=== PATIENT | female | born 1945 | race Caucasian/White ===

== ENCOUNTER 2021-01-14 12:20 | Outpatient (CLI) | payer MEDICARE, SELFPAY ==
--- NOTE | ~2021-01-14 | US_ITS ---
EXAMINATION: US thyroid DATE: 01/14/2021 12:59 INDICATION: Abnormal thyroid function tests. Low TSH level. TECHNIQUE: Multiple ultrasound images of the thyroid were obtained. COMPARISON: None. FINDINGS: The right thyroid lobe measures 4.9 x 2.4 x 1.7 cm. The left thyroid lobe measures 5.6 x 2.8 x 1.8 c m. 1.2 cm solid isoechoic nodule with ill-defined margins and coarse internal calcification in the s uperior right thyroid (TI-RADS 4, moderately suspicious , FNA if >=1.5 cm, annual followup is >=1 cm) . 2.0 cm wider than tall solid isoechoic nodule with ill-defined margins at the inferior right thyroi d (TI-RADS 3, mildly suspicious , FNA if >=2.5 cm, annual followup is >=1.5 cm). Additional TI RADS 4 2.7 cm solid wider than tall isoechoic nodule with smooth and ill-defined margins and coarse calcifi cation at the superior left thyroid. IMPRESSION: 1. Multinodular goiter. Recommend ultrasound-guided biopsy of the 2.7 cm TI RADS 4 left thyroid nodul e. Reviewed, dictated and finalized at location B. OM LIQUOR ATTENDANT IMPRESSION: 1. Multinodular goiter. Recommend ultrasound-guided biopsy of the 2.7 cm TI RAD S 4 left thyroid nodule.
== END 2021-01-14 12:21 | disposition home or self-care (01) ==
PROVIDERS: PCP Family Medicine Sports Medicine; Visit Provider Internal Medicine Endocrinology, Diabetes & Metabolism
DX: R94.6 Abnormal results of thyroid function studies (principal); R79.89 Other specified abnormal findings of blood chemistry; E04.2 Nontoxic multinodular goiter
CPT/HCPCS: 76536

== ENCOUNTER 2021-01-27 08:23 | Observation (INO) | payer MEDICARE, SELFPAY ==
[2021-01-27] VITALS (35 sets, daily range): BP systolic 106–132; BP diastolic 50–73; PULSE 64–103; RESP 16–18; TEMP 36.2–36.5; O2SAT 93–100; BMI 20.4
--- NOTE | ~2021-01-27 | CT_ITS ---
EXAMINATION: CT abdomen pelvis w con DATE: 01/27/2021 13:18 INDICATION: Abdominal pain. Weight loss. TECHNIQUE: Computed tomography (CT) of the abdomen and pelvis was performed with 100 mL Omnipaque 350 intravenous contrast. Automated exposure control and iterative reconstruction technique were employe d. The dose-length product was 186.37 mGy-cm. COMPARISON: None. FINDINGS: The visualized portions of the lung bases demonstrate mild atelectasis. No pleural effusion . The heart size is normal. No pericardial effusion. The liver and gallbladder are normal. There is s ubcapsular low attenuation in the spleen with thickness of 7 mm. Calcifications in the spleen are con sistent with old granulomatous disease. There is bulky retroperitoneal and mesenteric lymphadenopathy . The pancreas abuts the lymphadenopathy. There is gastrohepatic and periportal lymphadenopathy. A ri ght inguinal lymph node measures 15 x 20 mm. There is retrocrural and paraesophageal lymphadenopathy. The adrenal glands and right kidney are normal. There are cysts in left kidney measuring up to 6 mm. There are no dilated loops of bowel. The appendix is normal. There is trace pelvic ascites. There is mild thoracal lumbar spondylosis. There are hemangiomas in L1 and L3 vertebral bodies. There is a ch ronic compression fracture of L3. IMPRESSION: 1. Widespread lymphadenopathy, consistent with lymphoma. Ultrasound-guided core needle biopsy of a ri ght inguinal lymph node is recommended. 2. Subcapsular low attenuation in the spleen, consistent with lymphoma versus chronic hematoma. Reviewed, dictated and finalized at location A. ASE SPECIALIST IMPRESSION: 1. Widespread lymphadenopathy, consistent with lymphoma. Ultrasound-guided core needle biopsy of a right inguinal lymph node is recommended. 2. Subcapsular low attenuation in the spleen, consistent with lymphoma versus c hronic hematoma.
--- NOTE | ~2021-01-27 | US_ITS ---
EXAMINATION: US biopsy lymph node DATE: 01/27/2021 14:08 INDICATION: Right inguinal lymphadenopathy. TECHNIQUE: The procedure including the risks, benefits, and alternatives was discussed with the patie nt. Risks discussed included bleeding and infection. The patient understood the risks and agreed to p roceed. The skin overlying the right inguinal region was prepped and draped in usual sterile fashion. Anesthetic was administered with 1% lidocaine subcutaneously. An 18 gauge core biopsy needle was t hen used to obtain 6 core biopsy specimens under continuous sonographic guidance. The entry site was cleaned and dressed. There were no immediate complications. FINDINGS: Ultrasound images demonstrate the needle in an enlarged right inguinal lymph node. IMPRESSION: 1. Ultrasound-guided core needle biopsy of a right inguinal lymph node. Reviewed, dictated and finalized at location A. HYSICS PROFESSOR
--- NOTE | ~2021-01-27 | XR_ITS ---
EXAMINATION: XR chest 1V portable DATE: 01/27/2021 09:39 INDICATION: Shortness of breath and cough. TECHNIQUE: A single frontal view of the chest was obtained. COMPARISON: None. FINDINGS: The chest demonstrates clear lungs without pneumonia, pleural effusion, or pneumothorax. Th e heart size is normal. IMPRESSION: 1. No acute cardiopulmonary disease. Reviewed, dictated and finalized at location A. NSED INSURANCE SALES AGENT
--- NOTE | 2021-01-27 09:30 | ED.GENADULT ---
HPI - General Adult General Chief complaint: Dental/Oral Stated complaint: Oral thrush x3 Months. Time Seen by Provider: 01/27/21 08:46 Source: patient and RN notes reviewed Mode of arrival: ambulatory Limitations: no limitations History of Present Illness HPI narrative: This is a 75 year old female who presents for evaluation of dysphagia and hematemesis. She has been receiving treatment for oral thrush for 3 months. She has oral lesion and difficulty swallowing. She states she has been unable to eat or drink in days . She describes feeling like food gets stuck in her chest and she has to cough. Once she stops coughing, she states she has emesis. Her states last night she had emesis with streak of blood. Patient is reporting 30 pound weight loss and fatigue so she came to ER. She has been placed on multiple medications and she just finished 2 weeks of fluconazole yesterday. She was told to get referral to GI but her appointment is not until February 26. She is also complaining of left lower abdominal pain that has been presents for 2 months constantly. Her last bowel movement was a few days ago. She denies fever or chills. Related Data Home Medications Medication Instructions Recorded Confirmed enalapril maleate 10 mg PO DAILY 01/27/21 01/27/21 Allergies Allergy/AdvReac Type Severity Reaction Status Date / Time No Known Allergies Allergy Unverified 11/16/12 08:35 Review of Systems Review of Systems: All systems reviewed & are unremarkable except as noted in HPI and below PMFSH Past Medical History Medical History External hemorrhoids Hypertension Surgical History Surgical History H/O colonoscopy Family History Family History Father Malignant neoplasm of prostate Mother Ovarian cancer Social History Social History Social History: She is and lives alone. She has 3 children. 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 She states that she is a lifelong nonsmoker she does not use any type tobacco at all. She does not use any alcohol marijuana or illicit drugs. Code status full code Smoking status: Never smoker Alcohol intake: current Substance use: unknown Spiritual care concerns: No Exam Const: General: alert Orientation/consciousness: patient oriented x3 HENMT: Head: normocephalic and atraumatic Face and sinus: face symmetric Mouth: Yes lip normal, Yes malodorous breath and Yes tongue abnormal ulcerated Throat: tonsils normal and uvula midline Eyes: Pupils: Equal, round and reactive pupils present EOM: EOMs intact bilaterally Chest: Chest palpation & inspection: normal inspection of the chest Resp: Effort & Inspection: normal respiratory effort and no retractions Auscultation: clear to auscultation bilaterally Cardio: Rate: regular rate Rhythm: regular rhythm Heart sounds: no murmurs GI: GI Palp: Yes Soft to palpation, Yes Tenderness to palpation present (GI) (LLQ), No Guarding due to palpation present (GI), No Rigid due to palpation and No Hernia present Auscultation: normal bowel sounds Skin: General skin exam: normal color Rashes: no rashes Neuro: General: patient oriented x3, moves all extremities and CN's II-XI intact bilaterally Psych: Mental Status: mental status grossly normal Affect: normal affect Course Consultations Consultation #1: I discussed case with DR. Rubio who agrees to consult. Date: 01/27/21 Time: 10:56 Consultation #2: I Discussed case with Dr. Varner who accepts patient for admission to medical floor. Date: 01/27/21 Time: 11:07 Vital Signs Vital signs: Vital Signs Temperature 97.3 F L 01/27/21 08:32 Pulse Rate 103 H 01/27/21 08:32 Respiratory Rate 18 01/27/21 08:32 Blood Pressure 116/5
[2021-01-27 09:43] LABS: Basophils Percent Auto 0.5 % (0.2-1.2); Eosinophils Absolute Auto 0.1 K/mm3 (0-0.3); Eosinophils Percent Auto 0.7 % (0-4.4); Hematocrit 37.7 % (37.0-47.0); Hemoglobin 12.3 g/dL (12.0-15.0); Immature Granulocyte Absolute 0.04 K/mm3 (0.00-0.031); Immature Granulocyte Percent A 0.5 % (0-0.5); Lymphocytes Percent Auto 16.6 % (18.3-44.2); Mean Corpuscular HGB Conc 32.6 g/dl (32-36); Mean Corpuscular Hemoglobin 29.6 pg (26-34); Mean Corpuscular Volume 90.6 fl (80-100); Mean Platelet Volume 9.9 fl (7.4-10.4); Monocytes Percent Auto 11.3 % (2.6-8.5); Neutrophils Percent Auto 70.4 % (45.5-73.1); Platelet Count Result 382 k/mm3 (150-375); Red Blood Count 4.16 M/mm3 (4.2-5.4); Red Cell Distribution Width 12.3 % (11.5-14.5); White Blood Count 8.4 K/mm3 (4.5-10.0)
[2021-01-27] MEDS: ONDANSETRON INJ 4 MG/2 ML VIAL IV PUSH (09:54)
[2021-01-27] MEDS: PANTOPRAZOLE SODIUM IV 40 MG VIAL IV PUSH ×2 (09:54→21:21)
[2021-01-27] MEDS: LACTATED RINGERS 1,000 ML 999 ML IV CONT (09:54)
[2021-01-27 10:05] LABS: Lactic Acid Reflex 1.4 mmol/L (0.7-2.1)
[2021-01-27 10:07] LABS: Alanine Aminotransferase 12 U/L (4-35); Albumin Level 3.6 g/dL (3.5-5.1); Alkaline Phosphatase 61 U/L (38-126); Anion Gap 7 mmol/L (8-16); Aspartate Amino Transferase 22 U/L (14-36); Bilirubin,Total 0.4 mg/dL (0.2-1.3); Blood Urea Nitrogen 19 mg/dL (7-17); Calcium 9.2 mg/dL (8.4-10.2); Carbon Dioxide 26 mmol/L (22-30); Chloride 101 mmol/L (98-107); Estimated CRCL calculation 35 ml/min; Estimated Glomerular Filt Rate > 60; Glucose 121 mg/dL (65-110); Lipase 107 U/L (23-300); Potassium 3.9 mmol/L (3.4-5.0); Sodium 134 mmol/L (137-145)
[2021-01-27 11:25] LABS: Add Urine Microscopic? YES; Appearance Urine Cloudy (Clear); Bacteria Urine Trace /hpf; Bilirubin Urine Negative (Negative); Blood Urine Negative (Negative); Color Urine Amber (Yellow); Glucose Urine UA Negative (Negative); Hyaline Casts Urine 15-19 /lpf; Ketones Urine Trace mg/dL (Negative); Leukocyte Esterase Ur Trace LEU/UL (Negative); Mucus Urine Heavy /lpf; Nitrate Urine Negative (Negative); Protein Urine 1+ mg/dL (Negative); Specific Grav Ur 1.021 (1.001-1.035); Squamous Epithelial Cell Urine Rare /hpf (Few); WBC Urine 16-20 /hpf
--- NOTE | 2021-01-27 12:42 | PM.IMHP ---
H&P: HPI History of Present Illness Date/Time: 01/27/21 12:42Thifarida is a 75 year old female who started having problems October of this year. She has some lab work and then was sent to Dr Mcpherson who sounds like she is an endochronologist. She has been having white patches, sore tongue, difficuly swallowing and feels like stuff is getting stuck in her throat. She has lost 30 pounds since then. She has been having lower abd pain for the last 2 months. She had thyroid imaging and she stated that she had some scans done on her thyroid and was reported that everything was fine. She has been on clotrimazole for 10 days then nystatin for 10 days . when she did not get any relief then she was told to go to her dentist. She was given mouthwash and was told to go back to her regular doctor and she did. She was given fluconazole for 14 days. When this didnt work she was told to go o a gi specialist which is scheduled in FEBRUARY OF NEXT YEAR .sHE ALSO HAS felt that she has swelling in her left ear and she had her doctor exam her ears and was told that there is nothing wrong with her ears . She was checked for covid and stated that was negative. She has had the vaccine for covid with the booster. The patient was complaining of some lower abdominal pain so I did send her for abdominal pelvis CT which was read as the following. Widespread lymphadenopathy, consistent with lymphoma. Ultrasound-guided core needle biopsy of a right inguinal lymph node is recommended. 2. Subcapsular low attenuation in the spleen, consistent with lymphoma versus chronic hematoma. I spoke with the radiologist who suggested a biopsy of the lymph nodes. The patient underwent ultrasound-guided core needle biopsy at the right inguinal lymph node. Patient is noted to have what appears to be thrush on her tongue. She has white coating on her tongue with ulcerated areas. I did consult Oncology. It was reported that the patient had a streak of blood with the emesis last night. She denies any fever chills. The patient was started on IV fluids Zofran and Protonix. The patient stated she was starting to feel somewhat better. Her white count was normal. Her H&H is normal. Platelets are 382.the patient is being admitted as observation status 01/27/2021. Chief Complaint: Lower abdominal pain and sores in her mouth Review of Systems Review of Systems: white spot on tongue All systems reviewed & are unremarkable except as noted in HPI and below Constitutional: Constitutional: Reports as per HPI and Reports no additional constitutional complaints Eyes: Eyes: Reports as per HPI and Reports no additional eye complaints ENT: Reports system reviewed and no additional complaints, except as documented and Reports Normal hearing present Cardiovascular: Cardiovascular: Reports no additional cardiovascular complaints Respiratory: Respiratory: Reports no additional respiratory complaints and Reports no additional respiratory complaints Gastrointestinal: Gastrointestinal: Reports as per HPI and Reports no additional gastrointestinal complaints Musculoskeletal: Musculoskeletal: Reports no additional musculoskeletal complaints Integumentary/Breasts: Skin/Breast: Reports system reviewed and no additional complaints, except as docu and Reports as per HPI Neurologic: Reports system reviewed and no additional complaints, except as documented, Reports as per HPI and Reports Normal hearing present Psychiatric: Psychiatric: Reports no additional psychiatric complaints and Reports as per HPI Endocrine: Endocrine: Reports no additional endocrine complaints Hematologic/Lymphatic: Hematologic/Lymphatic: Reports no additional hematologic/lymphatic complaints Allergic/Immunologic: Allergic/Immunologic: Reports no additional allergic/immunologic complaints REPLACED BY [facility] Past Medical History Medical History External hemorrhoids Hypertension Surgical History Surg
--- NOTE | 2021-01-27 13:11 | PC.NURSE ---
Per Julia in [place], Dr. Barrios doesn't want to do bx because one has already been done.
--- NOTE | 2021-01-27 13:20 | PC.NURSE ---
Vashti aware of message received from [place] about biopsy.
--- NOTE | 2021-01-27 13:52 | PC.NURSE ---
RN to bedside for the second time to start patient's ordered IV fluids, pt not in room again, taken to imaging.
--- NOTE | 2021-01-27 14:49 | ADMGEN ---
This patient, Vero Al, was admitted to Medical Room 344-01. Patient/family oriented to hospital policies and general routines including ID bracelet, bed and alarms, visiting hours, pain management, procedures, bathroom and other care routines, personal items, smoking policy, room service/diet, and visiting hours. Information on how to activate the Rapid Response Team has been discussed. Patient/Family are encouraged to report perceived risks to care and to ask questions if they do not understand what they are told or what they should do.
[2021-01-27] MEDS: SODIUM CHLORIDE 0.9% IV 1,000 ML 125 ML IV CONT (15:18)
--- NOTE | 2021-01-27 16:15 | WPDGICN ---
Assessment and Plan Assessment and plan (1) Dysphagia: Code(s): R13.10 - Dysphagia, unspecified Status: Acute Assessment and Plan: The refractory thrush may be related to lymphoma and being immunocompromised. I will schedule her for EGD to be done tomorrow morning . I offered her clear liquids tonight but she does not wish to even try that (2) Lymphadenopathy: Code(s): R59.1 - Generalized enlarged lymph nodes Status: Acute Assessment and Plan: if this is a lymphoma, it certainly would explain her weight loss. 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 She then noticed that she was having some swallowing issues. Was thought that she may have a thyroid problem. That physician who was either an product development technician or ENT physician noted that she had oral thrush. She was therefore started on clotrimazole lozenges. After 10 days and no improvement she was switched to nystatin swish and swallow. She still was symptomatic and saw dentist who prescribed some sort of mouthwash. Finally her primary care physician started her on fluconazole for 10 days. She had not been on any antibiotics or any steroid inhalers this year. She still feels as bad as ever. She is afraid to try to swallow even water because it makes her cough and spit it out. It is uncomfortable to try to swallow food and it does not seem to want to go down. She has lost about 35 lb over this period of time. Because of the weight loss, she was sent to CT scan from the emergency room. There the noted widespread lymphadenopathy. Subsequently she had a lymph node biopsy in her right inguinal area. Review of Systems Review of Systems: All systems reviewed & are unremarkable except as noted in HPI and below PMFSH Past Medical History Medical History External hemorrhoids Hypertension Surgical History Surgical History H/O colonoscopy Family History Family History Father Malignant neoplasm of prostate Mother Ovarian cancer Social History Social History Social History: She is and lives alone. She has 3 children. 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 She states that she is a lifelong nonsmoker she does not use any type tobacco at all. She does not use any alcohol marijuana or illicit drugs. Code status full code Smoking status: Never smoker Alcohol intake: current Substance use: unknown Spiritual care concerns: No Meds Home Medications and Allergies Home Medications Medication Instructions Recorded Confirmed Type enalapril maleate 10 mg PO DAILY 01/27/21 01/27/21 History Allergies Allergy/AdvReac Type Severity Reaction Status Date / Time No Known Allergies Allergy Unverified 11/16/12 08:35 Vital Signs Vital Signs - 24 hr 01/27/21 08:32 01/27/21 08:40 01/27/21 08:48 Temperature 36.3 C L 36.3 C L Pulse Rate 103 H 74 Respiratory Rate 18 18 Blood Pressure 116/50 L 132/52 L 132/52 L Pulse Oximetry 93 93 01/27/21 08:49 01/27/21 09:01 01/27/21 09:12 Temperature Pulse Rate 74 Respiratory Rate 16 Blood Pressure 114/57 L Pulse Oximetry 93 99 01/27/21 09:15 01/27/21 09:16 01/27/21 09:31 Temperature Pulse Rate Respiratory Rate Blood Pressure 119/57 L Pulse Oximetry 99 99 95 01/27/21 09:45 01/27/21 10:00 01/27/21 10:06 Temperature Pulse Rate Respiratory Rate Blood Pressure 108/55 L Pulse Oximetry 97 96 95 01/27/21 10:15 01/27/21 10:16 01/27/21 10:20 Temperature Pulse Rate Respiratory Rate Blood Pressure 119/57 L 116/73 Pulse Oximetry 98 97 97 01/27/21 10:23 01/08
[2021-01-27] MEDS: PHENYLEPH/SHARK OIL/MO/PETROL CREAM 26 GM 1 APPLIC RECTAL (21:24)
[2021-01-28] MEDS: SODIUM CHLORIDE 0.9% IV 1,000 ML 125 ML IV CONT ×2 (00:02→08:05)
[2021-01-28 05:54] LABS: Basophils Percent Auto 0.7 % (0.2-1.2); Eosinophils Absolute Auto 0.1 K/mm3 (0-0.3); Eosinophils Percent Auto 2.2 % (0-4.4); Hematocrit 34.7 % (37.0-47.0); Hemoglobin 11.2 g/dL (12.0-15.0); Immature Granulocyte Absolute 0.01 K/mm3 (0.00-0.031); Immature Granulocyte Percent A 0.2 % (0-0.5); Lymphocytes Absolute Auto 1.89 K/mm3 (0.9-3.2); Lymphocytes Percent Auto 35.2 % (18.3-44.2); Mean Corpuscular HGB Conc 32.3 g/dl (32-36); Mean Corpuscular Hemoglobin 29.6 pg (26-34); Mean Corpuscular Volume 91.8 fl (80-100); Mean Platelet Volume 10.1 fl (7.4-10.4); Monocytes Percent Auto 19.4 % (2.6-8.5); Neutrophils Absolute Auto 2.3 K/mm3 (1.3-6.7); Neutrophils Percent Auto 42.3 % (45.5-73.1); Platelet Count Result 332 k/mm3 (150-375); Red Blood Count 3.78 M/mm3 (4.2-5.4); Red Cell Distribution Width 12.3 % (11.5-14.5); White Blood Count 5.4 K/mm3 (4.5-10.0)
[2021-01-28 05:57] LABS: Lactic Acid Reflex 0.8 mmol/L (0.7-2.1)
[2021-01-28 06:12] LABS: Alanine Aminotransferase 9 U/L (4-35); Albumin Level 3.1 g/dL (3.5-5.1); Alkaline Phosphatase 53 U/L (38-126); Anion Gap 6 mmol/L (8-16); Aspartate Amino Transferase 18 U/L (14-36); Bilirubin,Total 0.5 mg/dL (0.2-1.3); Blood Urea Nitrogen 13 mg/dL (7-17); Calcium 8.5 mg/dL (8.4-10.2); Carbon Dioxide 25 mmol/L (22-30); Chloride 105 mmol/L (98-107); Estimated CRCL calculation 41 ml/min; Estimated Glomerular Filt Rate > 60; Glucose 93 mg/dL (65-110); Lactate Dehydrogenase 263 U/L (313-618); Lipase 103 U/L (23-300); Magnesium 1.9 mg/dL (1.6-2.3); Potassium 4.2 mmol/L (3.4-5.0); Sodium 136 mmol/L (137-145)
[2021-01-28 06:38] VITALS: BP 114/58; PULSE 64; RESP 18; TEMP 36.2; O2SAT 97
[2021-01-28 07:45] LABS: Free T4 Free Thyroxine Reflex 2.28 ng/dL (0.78-2.19)
[2021-01-28] MEDS: PANTOPRAZOLE SODIUM IV 40 MG VIAL IV PUSH ×2 (08:05→20:24)
[2021-01-28] MEDS: SALIVA SUBSTITUTE COMBO RINSE 237 ML BOTTLE 15 ML PO (08:06)
--- NOTE | 2021-01-28 13:12 | PM.IMPN ---
Progress Note: A&P Assessment and Plan (1) Lymphedema: Code(s): I89.0 - Lymphedema, not elsewhere classified Status: Acute Assessment and Plan: Reported 30 lb weight loss since October CT of A/P -->widespread lymphadenopathy, consistent with lymphoma S/p lymph node biopsy, studies pending Oncology consulted, recommendations appreciated Inguinal biopsy is not diagnostic she will need a biopsy from her abdominal nodes A PET scan might show areas of uptake that are more accessible Interventional Radiology or surgery should be consulted (2) Dysphagia: Code(s): R13.10 - Dysphagia, unspecified Status: Acute Assessment and Plan: Persistent vomiting with eating 30 lb weight lost since October Failed outpatient treatment GI consulted EGD today--> suspected infectious esophagitis; hiatal hernia Diflucan initiated (3) GI bleed: Code(s): K92.2 - Gastrointestinal hemorrhage, unspecified Status: Acute Assessment and Plan: R/o Emesis with blood prior to admission S/p EGD today no bleeding noted Continue with PPI and Zofran (4) Hypertension: Code(s): I10 - Essential (primary) hypertension Status: Chronic Assessment and Plan: Stable Continue home enalapril Monitor Subjective Date/time seen: 01/28/21 13:12 Interval history: Pt seen today; no acute events overnight; continues with dysphagia; denies any abdominal pain; EGD today Review of Systems Review of Systems: All systems reviewed & are unremarkable except as noted in HPI and below Exam Const: General: no acute distress, alert and awake Orientation/consciousness: patient oriented x3 HENMT: Head: normocephalic and atraumatic Ears: hearing grossly normal bilaterally and external ears normal Face and sinus: face symmetric Mouth: Yes other (thrush) Teeth and gingiva: other Eyes: EOM: EOMs intact bilaterally Neck: Neck: full ROM, trachea midline and no JVD Resp: Effort & Inspection: normal respiratory effort Auscultation: clear to auscultation bilaterally Cardio: Jugular venous distension: no JVD Rate: regular rate Rhythm: regular rhythm Heart sounds: S1 normal heart sound present and S2 normal heart sound present GI: GI Palp: Yes Soft to palpation Auscultation: normal bowel sounds : General: Yes no CVA tenderness Skin: General skin exam: normal color Rashes: no rashes Neuro: General: patient oriented x3 and no focal motor deficits Speech: normal speech Extrem: General: full ROM and no clubbing, cyanosis or edema Psych: Appearance: grossly normal Affect: normal affect Judgement: Good judgement present (Psych) Objective Data Vital Signs Vital Signs: Vital Signs - 24 hr 01/27/21 14:38 01/27/21 14:50 01/27/21 21:24 Temperature 36.5 C Pulse Rate 74 73 Respiratory Rate 16 16 16 Blood Pressure 120/64 122/60 Pulse Oximetry 96 99 99 01/27/21 22:00 01/28/21 06:38 Temperature 36.2 C L 36.2 C L Pulse Rate 64 64 Respiratory Rate 18 18 Blood Pressure 114/58 L 114/58 L Pulse Oximetry 97 97 Intake/Output Intake/Output: Intake & Output 01/25/21 01/26/21 01/27/21 01/28/21 23:59 23:59 23:59 23:59 Intake Total 2000 1000 Output Total 0 600 Balance 2000 400 Meds/Results Medications: Active Medications Generic Name Dose Route Start Last Admin Trade Name Mookq PRN Reason Stop Dose Admin Enalapril Maleate 10 mg 01/28/21 09:00 Enalapril Maleate 10 Mg Tablet PO DAILY MIK Sodium Chloride 1,000 mls @ 125 mls/hr 01/27/21 11:25 01/28/21 08:05 Normal Saline Iv IV CONT 125 mls/hr .Q8H MIK Administration Lactated Ringer's 1,000 mls @ 150 mls/hr 01/28/21 09:20 Lr - Lactated Ringers Iv IV CONT .Q6H40M MIK Ondansetron HCl 4 mg 01/27/21 11:25 Ondansetron Inj 4 Mg/2 Ml Vial IV PUSH Q4H PRN Nausea Pantoprazole Sodium 40 mg 01/27/21 21:00 01/28/21 08:05 Pantoprazole Sodium Iv 40 Mg Vial IV PUSH 40
[2021-01-28] MEDS: LACTATED RINGERS 1,000 ML 150 ML IV CONT (13:47)
--- NOTE | 2021-01-28 13:54 | WPDANESEPPF ---
Anes - Initial Pre Proc Eval Procedure: Operation Date: 01/28/21 14:30 Proposed Procedures p Esophagogastroduodenoscopy - Benedict Rubio MD Date/Time: 01/28/21 13:54 Surgeon: Jayna Varner MD Pre Op Diagnosis: dysphagia/dehydration Patient Data Age: 75 Gender: F Height: 1.55 m Weight: 49 kg Last Vital Signs Temp 97.1 F L 01/28/21 06:38 Pulse 64 01/28/21 06:38 Resp 18 01/28/21 06:38 BP 114/58 L 01/28/21 06:38 Pulse Ox 97 01/28/21 06:38 Allergies Allergy/AdvReac Type Severity Reaction Status Date / Time No Known Allergies Allergy Verified 01/28/21 13:33 Home Medications Medication Instructions Recorded Confirmed Type enalapril maleate 10 mg PO DAILY 01/27/21 01/27/21 History Laboratory Tests 01/28/21 01/28/21 01/28/21 05:22 05:22 05:22 WBC 5.4 K/mm3 K/mm3 (4.5-10.0) RBC 3.78 M/mm3 L M/mm3 (4.2-5.4) Hgb 11.2 g/dL L g/dL (12.0-15.0) Hct 34.7 % L % (37.0-47.0) MCV 91.8 fl fl (80-100) MCH 29.6 pg pg (26-34) MCHC 32.3 g/dl g/dl (32-36) RDW 12.3 % % (11.5-14.5) Plt Count 332 k/mm3 k/mm3 (150-375) MPV 10.1 fl fl (7.4-10.4) Immature Gran % (Auto) 0.2 % % (0-0.5) Neut % (Auto) 42.3 % L % (45.5-73.1) Lymph % (Auto) 35.2 % % (18.3-44.2) Moca % (Auto) 19.4 % H % (2.6-8.5) Eos % (Auto) 2.2 % % (0-4.4) Baso % (Auto) 0.7 % % (0.2-1.2) Lymph # (Auto) 1.89 K/mm3 K/mm3 (0.9-3.2) Moca # (Auto) 1.0 K/mm3 H K/mm3 (0.1-0.6) Eos # (Auto) 0.1 K/mm3 K/mm3 (0-0.3) Baso # (Auto) 0.0 K/mm3 K/mm3 (0.0-0.1) Abs Immat Gran (auto) 0.01 K/mm3 K/mm3 (0.00-0.031) Absolute Neuts (auto) 2.3 K/mm3 K/mm3 (1.3-6.7) Absolute Nucleated RBC 0.0 K/mm3 K/mm3 (0.0-0.012) Nucleated RBC % 0.0 % % (0.0-0.2) Sodium 136 mmol/L L mmol/L (137-145) Potassium 4.2 mmol/L mmol/L (3.4-5.0) Chloride 105 mmol/L mmol/L (98-107) Carbon Dioxide 25 mmol/L mmol/L (22-30) Anion Gap 6 mmol/L L mmol/L (8-16) BUN 13 mg/dL D mg/dL (7-17) Creatinine 0.80 mg/dL mg/dL (0.7-1.0) Estim Creat Clear Calc 41 ml/min ml/min Estimated GFR > 60 (59 - ) Glucose 93 mg/dL mg/dL (65-110) Lactic Acid 0.8 mmol/L mmol/L (0.7-2.1) Calcium 8.5 mg/dL mg/dL (8.4-10.2) Magnesium 1.9 mg/dL mg/dL (1.6-2.3) Ferritin Total Bilirubin 0.5 mg/dL mg/dL (0.2-1.3) AST 18 U/L U/L (14-36) ALT 9 U/L U/L (4-35) Alkaline Phosphatase 53 U/L U/L (38-126) Lactate Dehydrogenase 263 U/L L U/L (313-618) Total Protein 5.0 g/dL L g/dL (6.3-8.2) Albumin 3.1 g/dL L g/dL (3.5-5.1) Lipase 103 U/L U/L (23-300) TSH (Reflex) Free T4 01/28/21 01/28/21 05:22 05:22 WBC RBC Hgb Hct MCV MCH MCHC RDW Plt Count MPV Immature Gran % (Auto) Neut % (Auto) Lymph % (Auto) Moca % (Auto) Eos % (Auto) Baso % (Auto) Lymph # (Auto) Moca # (Auto) Eos # (Auto) Baso # (Auto) Abs Immat Gran (auto) Absolute Neuts (auto) Absolute Nucleated RBC Nucleated RBC % Sodium Potassium Chloride Carbon Dioxide Anion Gap BUN Creatinine Estim Creat Clear Calc Estimated GFR Glucose Lactic Acid Calcium Magnesium Ferritin 93.90 ng/mL ng/mL (11.1-264) Total Bilirubin AST ALT A
[2021-01-28 14:23] VITALS: BP 130/56; PULSE 90; RESP 27; O2SAT 98
[2021-01-28 14:33] VITALS: BP 102/52; PULSE 90; RESP 30; O2SAT 99
[2021-01-28 14:43] VITALS: BP 106/52; PULSE 87; RESP 21; O2SAT 99
--- NOTE | 2021-01-28 15:50 | P.CONONC_ITS ---
HPI - Date of Consult Date/Time: 01/28/21 15:50 Requesting Physician: Jayna Varner MD Primary Care Provider: Eric CedilloMD - Consult Narrative Narrative: Vero Al is a 75 year old female with diffuse lymphadenopathy and prolonged candidiasis. CT is suggestive of diffuse Lymphoma. Biopsy of an inguinal node was done and not as yet diagnostic- further studies are pending but will not be available until next week. She denies night sweats and fevers and attributes her weight loss to poor oral intake. Her abdominal pain has been controlled. Review of Systems - Constitutional Reports anorexia - Gastrointestinal Reports abdominal pain - Neurologic Reports system reviewed and no additional complaints, except as documented, Reports hearing normal [facility] Medical History: Medical History (Last Reviewed 01/27/21 @ 16:19 by Benedict Rubio MD) External hemorrhoids Hypertension Surgical History: Surgical History (Last Reviewed 01/27/21 @ 16:19 by Benedict Rubio MD) H/O colonoscopy Family History: Family History (Last Reviewed 01/27/21 @ 16:19 by Benedict Rubio MD) Father Malignant neoplasm of prostate Mother Ovarian cancer - Social History Social History: Social History (Last Reviewed 01/27/21 @ 16:19 by Benedict Rubio MD) Alcohol Use: Alcohol intake: current Substance Use: Substance use: unknown Others: Spiritual care concerns: No Smoking Status: Smoking status: Never smoker Meds Home Medications Medication Instructions Recorded Confirmed Type enalapril maleate 10 mg PO DAILY 01/27/21 01/27/21 History Allergies Allergy/AdvReac Type Severity Reaction Status Date / Time No Known Allergies Allergy Verified 01/28/21 13:33 Results - Labs CBC & Chem 7: 01/28/21 05:22 01/28/21 05:22 Labs: Short CBC 01/28/21 Range/Units 05:22 WBC 5.4 (4.5-10.0) K/mm3 Hgb 11.2 L (12.0-15.0) g/dL Hct 34.7 L (37.0-47.0) % Plt Count 332 (150-375) k/mm3 BMP 01/28/21 05:22 Sodium 136 L Potassium 4.2 Chloride 105 Carbon Dioxide 25 BUN 13 D Creatinine 0.80 Glucose 93 Calcium 8.5 Liver Function 01/28/21 Range/Units 05:22 Total Bilirubin 0.5 (0.2-1.3) mg/dL AST 18 (14-36) U/L ALT 9 (4-35) U/L Alkaline Phosphatase 53 (38-126) U/L Albumin 3.1 L (3.5-5.1) g/dL Assessment and Plan - Additional Plan If her inguinal biopsy is not diagnostic she will need a biopsy from her abdominal nodes- a PET scan might show bonnie of uptake that are more accessible Interventional Radiology or surgery should be consulted
[2021-01-28 20:00] VITALS: PULSE 87; RESP 21; O2SAT 99
[2021-01-28] MEDS: PHENYLEPH/SHARK OIL/MO/PETROL CREAM 26 GM 1 APPLIC RECTAL (20:24)
[2021-01-28 21:04] VITALS: BP 123/57; PULSE 87; RESP 14; TEMP 36.5; O2SAT 96
[2021-01-29] MEDS: SODIUM CHLORIDE 0.9% IV 1,000 ML 125 ML IV CONT ×3 (02:30→20:53)
[2021-01-29 05:15] VITALS: BP 116/69; PULSE 79; RESP 14; TEMP 35.7; O2SAT 96
[2021-01-29 06:40] LABS: Hematocrit 37.5 % (37.0-47.0); Hemoglobin 12.2 g/dL (12.0-15.0); Mean Corpuscular HGB Conc 32.5 g/dl (32-36); Mean Corpuscular Hemoglobin 29.8 pg (26-34); Mean Corpuscular Volume 91.5 fl (80-100); Mean Platelet Volume 10.3 fl (7.4-10.4); Platelet Count Result 406 k/mm3 (150-375); Red Cell Distribution Width 12.2 % (11.5-14.5); White Blood Count 5.5 K/mm3 (4.5-10.0)
[2021-01-29 06:44] LABS: Anion Gap 8 mmol/L (8-16); Blood Urea Nitrogen 7 mg/dL (7-17); Calcium 8.4 mg/dL (8.4-10.2); Carbon Dioxide 24 mmol/L (22-30); Chloride 105 mmol/L (98-107); Estimated CRCL calculation 47 ml/min; Estimated Glomerular Filt Rate > 60; Glucose 115 mg/dL (65-110); Potassium 3.3 mmol/L (3.4-5.0); Sodium 137 mmol/L (137-145)
[2021-01-29] MEDS: ENALAPRIL MALEATE 10 MG TABLET PO (08:05)
[2021-01-29] MEDS: PANTOPRAZOLE SODIUM IV 40 MG VIAL IV PUSH ×2 (08:05→20:53)
[2021-01-29] MEDS: FLUCONAZOLE 100 MG TABLET PO (08:05)
[2021-01-29] MEDS: POTASSIUM CHLORIDE 20 MEQ TABLET 40 MEQ PO (09:59)
[2021-01-29 10:53] VITALS: BMI 20.4
[2021-01-29 14:00] VITALS: BP 113/52; PULSE 90; RESP 16; TEMP 37.5; O2SAT 96
--- NOTE | 2021-01-29 16:44 | PM.IMPN ---
Progress Note: A&P Assessment and Plan (1) Lymphedema: Code(s): I89.0 - Lymphedema, not elsewhere classified Status: Acute Assessment and Plan: Reported 30 lb weight loss since October CT of A/P -->widespread lymphadenopathy, consistent with lymphoma S/p lymph node biopsy, studies pending Oncology consulted, recommendations appreciated Inguinal biopsy is not diagnostic she will need a biopsy from her abdominal nodes A PET scan might show areas of uptake that are more accessible Interventional Radiology or surgery should be consulted 01/29/2021 Interval history patient with a with diffuse lymphadenopathy and prolonged pharyngeal candidiasis. concerning for lymphoma and will biopsy was done pending pathology however to further evaluate patient may need abdominal lymph node biopsy, patient continue to her difficulty with swallowing due to pharyngeal candidiasis is been going on for 3 months and has been used nystatin and Diflucan without much relief, patient is seen by GI and oncologist appreciate and further recommendation to follow. (2) Dysphagia: Code(s): R13.10 - Dysphagia, unspecified Status: Acute Assessment and Plan: Persistent vomiting with eating 30 lb weight lost since October Failed outpatient treatment GI consulted EGD today--> suspected infectious esophagitis; hiatal hernia Diflucan initiated (3) GI bleed: Code(s): K92.2 - Gastrointestinal hemorrhage, unspecified Status: Acute Assessment and Plan: R/o Emesis with blood prior to admission S/p EGD today no bleeding noted Continue with PPI and Zofran (4) Hypertension: Code(s): I10 - Essential (primary) hypertension Status: Chronic Assessment and Plan: Stable Continue home enalapril Monitor Subjective Date/time seen: 01/29/21 16:44 01/29/2021 Interval history patient with a with diffuse lymphadenopathy and prolonged pharyngeal candidiasis. concerning for lymphoma and will biopsy was done pending pathology however to further evaluate patient may need abdominal lymph node biopsy, patient continue to her difficulty with swallowing due to pharyngeal candidiasis is been going on for 3 months and has been used nystatin and Diflucan without much relief, patient is seen by GI and oncologist appreciate and further recommendation to follow. Review of Systems Review of Systems: All systems reviewed & are unremarkable except as noted in HPI and below Exam Narrative: Patient is comfortable, NAD HEENT: eyes are clear and none icteric LUNGS: normal respiratory effort ABD: nondistended Lower extremities: no edema SKIN: nonjaundiced Neuro: grossly intact. Objective Data Vital Signs Vital Signs: Vital Signs - 24 hr 01/28/21 20:00 01/28/21 21:04 01/29/21 05:15 Temperature 97.7 F 96.2 F L Pulse Rate 87 87 79 Respiratory Rate 21 H 14 14 Blood Pressure 123/57 L 116/69 Pulse Oximetry 99 96 96 01/29/21 14:00 Temperature 99.5 F Pulse Rate 90 Respiratory Rate 16 Blood Pressure 113/52 L Pulse Oximetry 96 Intake/Output Intake/Output: Intake & Output 01/26/21 01/27/21 01/28/21 01/29/21 23:59 23:59 23:59 23:59 Intake Total 1999 2250 1330 Output Total 0 1400 100 Balance 1999 850 1230 Meds/Results Medications: Active Medications Generic Name Dose Route Start Last Admin Trade Name Freq PRN Reason Stop Dose Admin Docusate Sodium 100 mg 01/28/21 23:06 Docusate Sodium 100 Mg Capsule PO Q12H PRN Constipation Enalapril Maleate 10 mg 01/28/21 09:00 01/29/21 08:05 Enalapril Maleate 10 Mg Tablet PO 10 mg DAILY MIK Administration Fluconazole 100 mg 01/29/21 09:00 01/29/21 08:05 Fluconazole 100 Mg Tablet PO 100 mg QAM MIK Administration Sodium Chloride 1,000 mls @ 125 mls/hr 01/27/21 11:25 01/29/21 09:59 Normal Saline Iv IV CONT 125 mls/hr .Q8H MIK Administration Pantoprazole Sodium 40 mg 01/27/21 21:00 01/29/21 08
[2021-01-29 20:00] VITALS: PULSE 95; RESP 16; O2SAT 94
[2021-01-29] MEDS: PHENYLEPH/SHARK OIL/MO/PETROL CREAM 26 GM 1 APPLIC RECTAL (20:54)
[2021-01-29 21:11] VITALS: BP 133/59; PULSE 95; RESP 16; TEMP 38.1; O2SAT 94
[2021-01-30] MEDS: SODIUM CHLORIDE 0.9% IV 1,000 ML 125 ML IV CONT (04:40)
[2021-01-30 05:13] VITALS: BP 138/63; PULSE 77; RESP 16; TEMP 36.7; O2SAT 97
[2021-01-30] MEDS: ENALAPRIL MALEATE 10 MG TABLET PO (08:05)
[2021-01-30] MEDS: PANTOPRAZOLE SODIUM IV 40 MG VIAL IV PUSH (08:05)
[2021-01-30] MEDS: FLUCONAZOLE 100 MG TABLET PO (08:05)
[2021-01-30 08:36] LABS: Basophils Percent Auto 0.6 % (0.2-1.2); Eosinophils Absolute Auto 0.1 K/mm3 (0-0.3); Eosinophils Percent Auto 1.4 % (0-4.4); Hematocrit 37.3 % (37.0-47.0); Hemoglobin 12.3 g/dL (12.0-15.0); Immature Granulocyte Absolute 0.02 K/mm3 (0.00-0.031); Immature Granulocyte Percent A 0.4 % (0-0.5); Lymphocytes Absolute Auto 1.45 K/mm3 (0.9-3.2); Lymphocytes Percent Auto 28.8 % (18.3-44.2); Mean Corpuscular Hemoglobin 30.2 pg (26-34); Mean Corpuscular Volume 91.6 fl (80-100); Monocytes Absolute Auto 0.7 K/mm3 (0.1-0.6); Monocytes Percent Auto 14.7 % (2.6-8.5); Neutrophils Absolute Auto 2.7 K/mm3 (1.3-6.7); Neutrophils Percent Auto 54.1 % (45.5-73.1); Platelet Count Result 316 k/mm3 (150-375); Red Blood Count 4.07 M/mm3 (4.2-5.4); Red Cell Distribution Width 12.4 % (11.5-14.5)
[2021-01-30 08:46] LABS: Anion Gap 6 mmol/L (8-16); Blood Urea Nitrogen 4 mg/dL (7-17); Calcium 8.4 mg/dL (8.4-10.2); Carbon Dioxide 26 mmol/L (22-30); Chloride 104 mmol/L (98-107); Estimated CRCL calculation 54 ml/min; Estimated Glomerular Filt Rate > 60; Glucose 112 mg/dL (65-110); Potassium 3.2 mmol/L (3.4-5.0); Sodium 136 mmol/L (137-145)
--- NOTE | 2021-01-30 09:58 | PM.DS ---
DS: Admitting Diagnosis Discharge Date 01/30/2021 Admitting Diagnosis Lower abdominal pain and sores in her mouth DS: Discharge Diagnosis Discharge Diagnosis (1) Lymphedema: Code(s): I89.0 - Lymphedema, not elsewhere classified Status: Acute Assessment and Plan: Reported 30 lb weight loss since October CT of A/P -->widespread lymphadenopathy, consistent with lymphoma S/p lymph node biopsy, studies pending Oncology consulted, recommendations appreciated Inguinal biopsy is not diagnostic she will need a biopsy from her abdominal nodes A PET scan might show areas of uptake that are more accessible Interventional Radiology or surgery should be consulted 01/29/2021 Interval history patient with a with diffuse lymphadenopathy and prolonged pharyngeal candidiasis. concerning for lymphoma and will biopsy was done pending pathology however to further evaluate patient may need abdominal lymph node biopsy, patient continue to her difficulty with swallowing due to pharyngeal candidiasis is been going on for 3 months and has been used nystatin and Diflucan without much relief, patient is seen by GI and oncologist appreciate and further recommendation to follow. (2) Dysphagia: Code(s): R13.10 - Dysphagia, unspecified Status: Acute Assessment and Plan: Persistent vomiting with eating 30 lb weight lost since October Failed outpatient treatment GI consulted EGD today--> suspected infectious esophagitis; hiatal hernia Diflucan initiated (3) GI bleed: Code(s): K92.2 - Gastrointestinal hemorrhage, unspecified Status: Acute Assessment and Plan: R/o Emesis with blood prior to admission S/p EGD today no bleeding noted Continue with PPI and Zofran (4) Hypertension: Code(s): I10 - Essential (primary) hypertension Status: Chronic Assessment and Plan: Stable Continue home enalapril Monitor DS: Summary Hospital Course Reason for hospitalization: his is a 75 year old female who started having problems October of this year. She has some lab work and then was sent to Dr Mcpherson who sounds like she is an endochronologist. She has been having white patches, sore tongue, difficuly swallowing and feels like stuff is getting stuck in her throat. She has lost 30 pounds since then. She has been having lower abd pain for the last 2 months. She had thyroid imaging and she stated that she had some scans done on her thyroid and was reported that everything was fine. She has been on clotrimazole for 10 days then nystatin for 10 days . when she did not get any relief then she was told to go to her dentist. She was given mouthwash and was told to go back to her regular doctor and she did. She was given fluconazole for 14 days. When this didnt work she was told to go o a gi specialist which is scheduled in FEBRUARY OF NEXT YEAR .sHE ALSO HAS felt that she has swelling in her left ear and she had her doctor exam her ears and was told that there is nothing wrong with her ears . She was checked for covid and stated that was negative. She has had the vaccine for covid with the booster. The patient was complaining of some lower abdominal pain so I did send her for abdominal pelvis CT which was read as the following. Widespread lymphadenopathy, consistent with lymphoma. Ultrasound-guided core needle biopsy of a right inguinal lymph node is recommended. 2. Subcapsular low attenuation in the spleen, consistent with lymphoma versus chronic hematoma. I spoke with the radiologist who suggested a biopsy of the lymph nodes. The patient underwent ultrasound-guided core needle biopsy at the right inguinal lymph node. Patient is noted to have what appears to be thrush on her tongue. She has white coating on her tongue with ulcerated areas. I did consult Oncology. It was reported that the patient had a streak of blood with the emesis last night. She denies any fever chills. The patient was started on IV fluids Zofra
== END 2021-01-30 11:48 | disposition home or self-care (01) ==
LOC: ANHED 13:09 → ANH3MEDSUR 14:37 → ANH3MED 15:15 → ANH3MEDSUR 02-03 14:56
PROVIDERS: Internal Medicine Gastroenterology; Nurse Practitioner; Nurse Practitioner Adult Health; Admitting Provider Family Medicine; Emergency Provider General Practice; PCP Family Medicine Sports Medicine; Visit Provider Family Medicine
PROC: 0DJ08ZZ Inspection of Upper Intestinal Tract, Via Natural or Artificial Opening Endoscopic (ICD-10-PCS; CPT 43235; principal; 2021-01-28 14:30)
DX: I89.0 Lymphedema, not elsewhere classified (principal); R13.10 Dysphagia, unspecified; B37.0 Candidal stomatitis; K92.2 Gastrointestinal hemorrhage, unspecified; R10.30 Lower abdominal pain, unspecified; I10 Essential (primary) hypertension; K44.9 Diaphragmatic hernia without obstruction or gangrene; K20.80 Other esophagitis without bleeding; K21.9 Gastro-esophageal reflux disease without esophagitis
CPT/HCPCS: 43239; 36415; 38505; 71045; 74177; 76942; 80048; 80053; 81001; 82728; 83605; 83615; 83690; 83735; 84439; 84443; 85025; 85027; 87086; 88305; 88312; 88341; 88342; 96361; 96374; 96375; 96376; 99285; A9270; C9113; G0378; J2405; J2704; J7030; J7120; Q9967

== ENCOUNTER → 2021-02-20 00:53 | Outpatient (CLI) | payer MEDICARE, SELFPAY ==
[2021-02-21 18:17] LABS: SARS-CoV-2 RNA PCR Negative
== END ==
PROVIDERS: PCP Family Medicine Sports Medicine; Visit Provider Internal Medicine Hematology & Oncology
DX: C85.93 Non-Hodgkin lymphoma, unspecified, intra-abdominal lymph nodes (principal); Z20.822 Contact with and (suspected) exposure to COVID-19
CPT/HCPCS: C9803; U0003; U0005

== ENCOUNTER 2021-03-18 00:59 | Day surgery (SDC) | payer MEDICARE, SELFPAY ==
--- NOTE | 2021-03-16 10:38 | PC.NURSE ---
Report to the Outpatient Waiting Room, entrance under the green pavilion located off [facility], at time __1100 on date ___03/18/21____. OR Time: _1300 . - You will be asked a series of questions to screen for COVID 19 for your protection. - A mask is required within the hospital. - No visitors are allowed at this time. Preoperative COVID Testing Requirements: No COVID Test needed if: (proof is required; if not received patient will have Rapid Test prior to entry) - Patient has received COVID Vaccine at least 14 days prior to procedure date or - Patient has positive COVID test result within last 90 days of surgery date. COVID Test needed if above criteria is not met If not COVID vaccinated a COVID test must be conducted within 72 hours of surgery and patient is asked to isolate self from time of testing until procedure. You will go to the [facility] Testing Site for your COVID testing. The [facility] Testing site is located at the corner of [address] [facility]. You will only be called if COVID results are positive and your surgeon may reschedule your elective surgery date. Patients may have clear liquids (water, carbonated beverages, clear teas, apple juice) until 3 hours prior to surgery with a maximum of 20 ounces. - No food from midnight until time of surgery - Infants may have breast milk until 4 hours before surgery, infant formula 6 hours prior to surgery. - Children will be allowed to drink immediately following surgery. If applicable, please bring a bottle or sippy cup to assist with drinking. Juice, water, soda, and popsicles are readily available. For infants on formula, please bring formula the day of surgery. Pacifiers are allowed. Take the following medications with a SIP of water the morning of surgery: __ORAL RINSE IF NEEDED Medications to discontinue per physician NONE Date to take last dose Please no make-up, nail yi, hairspray, perfume, deodorant, or body powder the day of surgery. No jewelry (including any body piercings) or valuables the day of surgery, leave them at home. Please take a shower or bath the night before, or the morning of, surgery with an antibacterial soap. Wear comfortable, loose fitting clothing. Children are encouraged to wear pajamas. - Jewelry must be removed prior to entering the operating room. Rings and piercings that are not removed may be cut off. - The hospital will not accept responsibility for valuables. - Please leave all valuables, including medications, at home the day of surgery. If you are going home after surgery, a licensed auto parts delivery driver must drive you home. - NO public transportation without another adult. - We recommend that an adult stay with you for 24 hours following discharge. - We also recommend that you do not drive, make important decision, drink alcoholic beverages, or take any drugs that were not prescribed by your health care provider for at least 24 hours after your discharge time. For Pediatric surgeries, we recommend two adults accompany the child home (only one inside the building at this time). Follow any additional instructions given to you from your surgeon. Telephone instructions given to __PATIENT and asked if any additional questions and then verbalized understanding. Patient advised to call surgeon office or pre surgery nurse liaison [phone] if any additional questions.
[2021-03-16 10:41] VITALS: BMI 17.0
--- NOTE | ~2021-03-18 | XR_ITS ---
EXAMINATION: XR chest port-a-cath/central DATE: 03/18/2021 14:42 INDICATION: Port catheter insertion TECHNIQUE: frontal view of the chest was obtained. COMPARISON: Chest radiograph dated 01/27/2021 FINDINGS: Right internal jugular central venous port catheter with distal tip at the caudal superior vena cava. Minimal atelectasis at the left costophrenic angle. No other airspace opacities, pulmonary edema, pl eural effusion or pneumothorax. The cardiomediastinal silhouette is normal. IMPRESSION: 1. Right internal jugular central venous port catheter tip at the caudal superior vena cava. 2. Mild left basilar atelectasis. No other acute cardiopulmonary disease. Reviewed, dictated and finalized at location A. OOD TECHNOLOGY SPECIALIST IMPRESSION: 1. Right internal jugular central venous port catheter tip at the caudal superi or vena cava. 2. Mild left basilar atelectasis. No other acute cardiopulmonary disease.
--- NOTE | ~2021-03-18 | XR_ITS ---
EXAMINATION: XR fl guide central line place DATE: 03/18/2021 14:06 INDICATION: Port catheter placement TECHNIQUE: 2 fluoroscopic images of the chest were obtained during procedure performed by Dr. Hickman . Radiologist was not present for the imaging or procedure. The amount of fluoroscopy time used ambreen g this procedure was 1.1 minutes. COMPARISON: None. FINDINGS/IMPRESSION: Images demonstrate a right internal jugular central venous port catheter with distal tip at the high right atrium. See procedure note for further detail. Reviewed, dictated and finalized at location A. NEYMAN POWER PLANT OPERATOR
--- NOTE | 2021-03-18 07:35 | WPDANESEPPF ---
Anes - Initial Pre Proc Eval Procedure: Operation Date: 03/18/21 13:00 Proposed Procedures p Insertion Gabe Cath - Mauri Hickman MD Date/Time: 03/18/21 07:35 Surgeon: Mauri Hickman MD Pre Op Diagnosis: non-hodgkin's lymphoma, intra-abdominal lymph node Patient Data Age: 75 Gender: F Height: 1.55 m Weight: 40.85 kg Allergies Allergy/AdvReac Type Severity Reaction Status Date / Time No Known Allergies Allergy Verified 03/18/21 11:24 Home Medications Medication Instructions Recorded Confirmed Type docusate sodium 100 mg PO Q12H PRN #30 cap 01/30/21 03/18/21 Rx qzfbxbxth-qqmofhde-iuflm-w.pet 1 applic RECTAL HS #26 g 01/30/21 03/18/21 Rx [Preparation H Maximum Strength] saliva substitute combo no.9 15 ml PO QID PRN #473 ml 01/30/21 03/18/21 Rx [Biotene Dry Mouth Oral Rinse] Patient hx anesthesia problems: none Family hx anesthesia problems: none Results Review: All pre-operative results and documents have been reviewed as part of the pre-operative evaluation. [facility] Past Medical History Medical History (Updated 03/18/21 @ 12:25 by Robbi Daugherty DO) External hemorrhoids Hypertension history of - has been taken off meds Non-Hodgkin lymphoma Surgical History Surgical History (Updated 01/28/21 @ 16:22 by Osmin Daugherty MD) H/O colonoscopy Family History Family History Father Malignant neoplasm of prostate Mother Ovarian cancer Social History Social History Social History: She is and lives alone. She has 3 children. 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 She states that she is a lifelong nonsmoker she does not use any type tobacco at all. She does not use any alcohol marijuana or illicit drugs. Code status full code Smoking status: Never smoker Alcohol intake: current Substance use: unknown Living arrangements: alone Spiritual care concerns: No Anes - Eval Final PreProcedure Day of Procedure 03/18/21 07:35 Patient weight: thin Heart: regular rate and rhythm Lungs: clear to auscultation and normal air movement Airway: Mallampati scale class II Neurological: alert and oriented Last oral intake: >/= 8 hours ASA classification: III Emergent: no Anesthetic plan: proceed Anesthesia type and monitoring: general GIVS and standard monitoring Results Review: All pre-operative results and documents have been reviewed as part of the pre-operative evaluation. Informed Consent: The patient's anesthetic plan and its attendant risks and benefits were discussed with the patient/family/POA. Questions were solicited and answers provided to the satisfaction of the patient/family/POA.
[2021-03-18 11:18] VITALS: BP 127/70; PULSE 89; RESP 16; TEMP 36.6; O2SAT 100
[2021-03-18] MEDS: LACTATED RINGERS 1,000 ML 30 ML IV CONT ×2 (11:36→14:18)
[2021-03-18] MEDS: KETOROLAC 15 MG/ML VIAL (*BKC) IV PUSH (11:37)
[2021-03-18 11:47] LABS: Partial Thromboplastin Time 30.6 SECONDS (22.3-36.8); Prothrombin Time 13.4 Seconds (11.1-14.7)
--- NOTE | 2021-03-18 12:41 | PM.HPGS ---
History of Present Illness History of Present Illness Consent: Risks, benefits, and alternatives f placement of a Port-A-Cath have been discussed and questions answered. Patient agrees to proceed with procedure. Chief complaint: non-hodgkin's lymphoma, intra-abdominal lymph node Narrative: Vero Al is a 75 year old White female who started having problems October of this year. She has some lab work and then was sent to Dr Mcpherson who sounds like she is an endochronologist. She has been having white patches, sore tongue, difficuly swallowing and feels like stuff is getting stuck in her throat. She has lost 30 pounds since then. She has been having lower abd pain for the last 2 months. She had thyroid imaging and she stated that she had some scans done on her thyroid and was reported that everything was fine. She has been on clotrimazole for 10 days then nystatin for 10 days . when she did not get any relief then she was told to go to her dentist. She was given mouthwash and was told to go back to her regular doctor and she did. She was given fluconazole for 14 days. When this didn't work she was told to go o a GI specialist which Could not be done for a month or two. She was then checked for Covid and stated that was negative. She has had the vaccine for covid with the booster. The patient was complaining of some lower abdominal pain so I did send her for abdominal pelvis CT which was read as the following. Widespread lymphadenopathy, consistent with lymphoma. she has now seen Dr. Gonzalez regarding treatment for this. He has requested that we place central venous access with a Port-A-Cath. Review of Systems Review of Systems: History of some recent weight loss. Constitutional: Constitutional: Reports no additional constitutional complaints, Reports fatigue and Denies malaise Eyes: Eyes: Denies change in vision and Denies loss of vision ENT: Reports Normal hearing present, Denies change in voice, Denies dizziness, Denies hoarseness and Denies sore throat Cardiovascular: Cardiovascular: Denies chest pain, Denies leg edema and Denies dyspnea Respiratory: Respiratory: Denies cough, Denies dyspnea and Denies wheezing Gastrointestinal: Gastrointestinal: Denies hematochezia, Denies change in bowel habits and Denies heartburn Genitourinary: Genitourinary: Denies urinary frequency and Denies urinary incontinence Neurologic: Reports Normal hearing present, Denies confusion, Denies dizziness, Denies loss of vision, Denies memory loss and Denies seizure-like activity Psychiatric: Psychiatric: Denies confusion, Denies depression and Denies memory loss Endocrine: Endocrine: Denies cold intolerance and Reports fatigue Hematologic/Lymphatic: Hematologic/Lymphatic: Denies easy bleeding and Denies easy bruising Comments: Patient had 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 She has had consultation with Dr. Gonzalez and is planning for continuing chemotherapy. Allergic/Immunologic: Allergic/Immunologic: Denies wheezing PMFSH Past Medical History Medical History (Updated 03/18/21 @ 14:14 by Mauri Hickman MD) External hemorrhoids Hypertension history of - has been taken off meds Non-Hodgkin lymphoma Surgical History Surgical History H/O colonoscopy Family History Family History Father Malignant neoplasm of prostate Mother Ovarian cancer Social History Social History Social History: She is and lives alone. She has 3 children. 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 She states that she is a lifelong nonsmoker she does not use any type tobacco at all. She does not use any alcohol marijuana or illicit drugs. Code status full code Smoking status: Never smoker Alcohol intake: current Subst
--- NOTE | 2021-03-18 13:09 | WPDHPUPDATE1 ---
History and Physical Update Update Date/Time: 03/18/21 13:09 History and Physical has been reviewed, including an updated exam of the patient. There are NO changes in the patient's condition. Risks, benefits, and alternatives of placement of a Port-a -cath have been discussed and questions answered. Patient agrees to proceed with procedure.
[2021-03-18] MEDS: ceFAZolin 2 GM/D5W 50 ML 2 GM/50 ML BAG IVPB (13:14)
[2021-03-18] MEDS: HEPARIN SODIUM 5,000 UNITS/ML VIAL 5000 UNITS IRRIGATION (13:42)
[2021-03-18] MEDS: BUPIVACAINE/EPINEPHRINE 0.5% 30 ML VIAL INFILTRATE (13:45)
--- NOTE | 2021-03-18 14:17 | W.PM.PROC2 ---
Procedure Note - Detailed Date of Procedure 03/18/21 Pre-op Diagnosis non-hodgkin's lymphoma, intra-abdominal lymph node Post-op Diagnosis same Procedure Performed Ultrasound guided Placement of Gabe-cath Surgeon Mauri Hickman MD Cash Reconciliation Specialist Cori.OR patient care assistant Anesthesia local (with 0.5% Marcaine with epinepherine) and other (GIVS) Indications Patient has follicular lymphoma and has poor peripheral venous access. Therefore, Dr. Gonzalez requested placement of central venous access for chemotherapy. Findings Normal vascular anatomy in the right neck. Description of Procedure Patient was seen and marked in the pre-op area prior to coming to the OR. Patient was brought to the operating room. Patient was placed supine on the operating table and general IV sedation was induced. The nurse site identification specialist provided oxygen and IV sedation. Patient's head was carefully turned to the left side while in the supine position and the patient's entire neck and anterior chest on both sides was prepped and draped in the usual sterile fashion. Following this the appropriate time-out was completed confirming procedure and patient. We confirmed that all the needed equipment was present in the room. Following this the ultrasound probe was draped into the field and using the probe we carefully identified the carotid artery and jugular vein on the right neck. We then took a picture of the vascular anatomy of the neck and transferred from the ultrasound Device to the [employer] chart. I marked the skin directly over the Rt. internal jugular vein. I then used an 11 blade knife to make a small devendra in the skin. Following this, using the continuous ultrasound guidance, a Cook needle was placed through the skin incision and on into this vein. I then was able to draw back good dark blood. Once this was completed a guidewire using a J-tip was advanced through the needle and then the needle and the guidewire cover were withdrawn. C-arm fluoroscopy was used to confirm that the guidewire was nicely in the venous system. Once this was confirmed with the C - arm, I preceded on by making the pocket for the port on the patient's anterior right chest approximately 3 centimeters below the clavicle overlying the chest wall. Local anesthetic was infiltrated into the skin where there was a transverse incision marked out. Incision was made and we made a pocket inferior to the incision with just a little dissection superior. The Bard low-profile port was tried in the pocket and seemed to fit well. Following this the catheter which had been placed on a tunneling device was tunneled from the port site on the anterior right chest up to the right neck where the small incision had been made slightly larger with an #11 blade knife. Then the catheter was pulled through so that we would have 15 centimeters to put into the central venous system once the dilation took place. Following this we placed the dilator and sheath over the guidewire in the jugular vein and carefully dilated the tract into the central venous system. The guidewire and dilator were then removed, carefully covering the end of the sheath to prevent air embolus. The end of the catheter which had been removed from the tunneling device and the tip checked was then inserted into the sheath and into the neck. I then carefully pulled the 2 arms of the tear-away sheath away as the legal document assistant held the catheter in position with a DeBakey forceps. Following this we checked the position of the catheter with C-arm fluoroscopy confirming that the tip seemed to be in the distal superior vena cava near the junction with the right atrium. I felt that it was in good position and so the rest of the catheter was pulled down toward the feet into the port site. We then measured to the appropriate position to cut the catheter to attach it to the port stem. Then the connector sealing device for the catheter port was placed onto the catheter and then
[2021-03-18 14:18] VITALS: BP 103/43; PULSE 65; RESP 16; O2SAT 98
[2021-03-18 14:48] VITALS: BP 111/54; PULSE 62; RESP 16
[2021-03-18 15:18] VITALS: BP 117/60; PULSE 68; RESP 16
== END 2021-03-18 15:30 | disposition home or self-care (01) ==
PROVIDERS: PCP Family Medicine Sports Medicine; Visit Provider Surgery
PROC: (CPT 36561; principal; 2021-03-18 13:00)
DX: C85.93 Non-Hodgkin lymphoma, unspecified, intra-abdominal lymph nodes (principal); R63.4 Abnormal weight loss; I10 Essential (primary) hypertension; Z68.1 Body mass index [BMI] 19.9 or less, adult
CPT/HCPCS: 36561; 36415; 76937; 77001; 85610; 85730; C1788; J0690; J1100; J1644; J1885; J2405; J2704; J3010; J7030; J7120

== ENCOUNTER 2021-05-18 08:57 | Emergency (ER) | payer MEDICARE, SELFPAY ==
--- NOTE | ~2021-05-18 | CT_ITS ---
EXAMINATION: CT brain wo con DATE: 05/18/2021 12:48 INDICATION: Syncope. Head injury. TECHNIQUE: Computed tomography (CT) of the head was performed without intravenous contrast. The mA wa s adjusted according to patient size. Iterative reconstruction technique was employed. The dose-lengt h product was 529.67 mGy-cm. COMPARISON: None FINDINGS: There is no intracranial hemorrhage, acute infarction, or abnormal intracranial mass lesion . The ventricles are normal in size. 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 There is mucosal thic kening in the paranasal sinuses and right nasal cavity. The mastoid air cells are normal. IMPRESSION: 1. Normal brain. Reviewed, dictated and finalized at location A. IMPRESSION: 1. Normal brain.
--- NOTE | ~2021-05-18 | XR_ITS ---
EXAMINATION: XR chest 2V DATE: 05/18/2021 09:53 INDICATION: Cough and fever TECHNIQUE: PA and lateral views of the chest are obtained. COMPARISON: 03/18/2021 FINDINGS: The lungs are free of acute opacities. There is no pleural effusion or pneumothorax. The ca rdiomediastinal silhouette is normal. There is moderate thoracic spondylosis. A right internal jugula r Port-A-Cath ends with its tip at the distal superior vena cava. IMPRESSION: 1. No acute cardiopulmonary abnormality. Reviewed, dictated and finalized at location A.
[2021-05-18 09:12] VITALS: BP 124/64; PULSE 88; RESP 18; TEMP 37.3; O2SAT 100
[2021-05-18 09:21] VITALS: RESP 18
--- NOTE | 2021-05-18 10:20 | ED.FEVER ---
HPI - Fever General Chief Complaint: Fever <LIBBY Sierra Last Filed: 05/18/21 14:05> Stated Complaint: fever <LIBBY Sierra Last Filed: 05/18/21 14:05> Time Seen by Provider: 05/18/21 10:08 <LIBBY Sierra Last Filed: 05/18/21 14:05> Source: patient <LIBBY Sierra Last Filed: 05/18/21 14:05> Mode of arrival: ambulatory <LIBBY Sierra Last Filed: 05/18/21 14:05> Limitations: no limitations <LIBBY Sierra Last Filed: 05/18/21 14:05> History of Present Illness HPI Narrative: This is a 75-year-old female that presents to the emergency department for fevers. Reports history of non-Hodgkin's lymphoma. Her oncologist is Dr. Gonzalez. Last chemotherapy 05/01. She has been struggling with fevers and chills over the last couple of months. Reports her symptoms have been worsening recently which prompted her to be seen. Reports she is having to take Tylenol multiple times a day. Does report a cough that seems to be ongoing for a couple of months as well. Otherwise denies any focalizing symptoms. Denies chest pain, shortness of breath, abdominal pain, vomiting, or dysuria. <LIBBY Sierra Last Filed: 05/18/21 14:05> Related Data Home Medications: Home Medications Medication Instructions Recorded Confirmed fluconazole 150 mg PO DAILY 05/18/21 05/18/21 <LIBBY Sierra Last Filed: 05/18/21 14:05> Allergies/Adverse Reactions: Allergies Allergy/AdvReac Type Severity Reaction Status Date / Time No Known Allergies Allergy Verified 05/18/21 09:29 <LIBBY Sierra Last Filed: 05/18/21 14:05> Review of Systems Review of Systems: CONSTITUTIONAL: Reports fever, chills, and sweats. CARDIOVASCULAR: Denies chest pain, or edema. RESPIRATORY: Reports cough GASTROINTESTINAL: Denies abdominal pain, nausea, vomiting GENITOURINARY: Denies dysuria <Flaquita Eduardo PA-C - Last Filed: 05/18/21 14:05> All systems reviewed & are unremarkable except as noted in HPI and below <Flaquita Eduardo PA-C - Last Filed: 05/18/21 14:05> [facility] Past Medical History Medical History: Medical History (Updated 05/18/21 @ 13:52 by Flaquita Eduardo PA-C) External hemorrhoids Hypertension history of - has been taken off meds Non-Hodgkin lymphoma <Flaquita Eduardo PA-C - Last Filed: 05/18/21 14:05> Surgical History Surgical History: Surgical History H/O colonoscopy <Flaquita Eduardo PA-C - Last Filed: 05/18/21 14:05> Family History Family History: Family History Father Malignant neoplasm of prostate Mother Ovarian cancer <Flaquita Eduardo PA-C - Last Filed: 05/18/21 14:05> Social History Social History: Social History Social History: She is and lives alone. She has 3 children. 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 She states that she is a lifelong nonsmoker she does not use any type tobacco at all. She does not use any alcohol marijuana or illicit drugs. Code status full code Smoking status: Never smoker Alcohol intake: current Substance use: unknown Spiritual care concerns: No <Flaquita Eduardo PA-C - Last Filed: 05/18/21 14:05> Exam Narrative: GENERAL: Well-appearing, well-nourished, and in no acute distress. HEAD: Normocephalic, atraumatic. EYES: EOMI. ENT: Nares clear, no rhinorrhea or epistaxis. Mucous membranes moist. Oropharynx without tonsillar hypertrophy exudate or other lesions. Bilateral TMs pearly donahue non-bulging NECK: Supple. No adenopathy or masses. CHEST: Clear to auscultation. No respiratory distress. No wheezes rales or rhonchi HEART: Regular rate and rhythm. No murmur heard. Normal peripheral pulses. ABDOMEN: Soft, nontender, nondistended, normal active bowel sounds. EXTRE
[2021-05-18 10:39] LABS: Basophils Percent Auto 0.8 % (0.2-1.2); Eosinophils Absolute Auto 0.1 K/mm3 (0-0.3); Hemoglobin 8.5 g/dL (12.0-15.0); Immature Granulocyte Absolute 0.03 K/mm3 (0.00-0.031); Immature Granulocyte Percent A 0.6 % (0-0.5); Lymphocytes Percent Auto 11.7 % (18.3-44.2); Mean Corpuscular HGB Conc 31.5 g/dl (32-36); Mean Corpuscular Hemoglobin 28.4 pg (26-34); Mean Corpuscular Volume 90.3 fl (80-100); Mean Platelet Volume 8.6 fl (7.4-10.4); Monocytes Absolute Auto 1.2 K/mm3 (0.1-0.6); Monocytes Percent Auto 24.3 % (2.6-8.5); Neutrophils Absolute Auto 3.1 K/mm3 (1.3-6.7); Neutrophils Percent Auto 60.6 % (45.5-73.1); Platelet Count Result 378 k/mm3 (150-375); Red Blood Count 2.99 M/mm3 (4.2-5.4); Red Cell Distribution Width 14.3 % (11.5-14.5); White Blood Count 5.1 K/mm3 (4.5-10.0)
[2021-05-18 10:48] LABS: Lipase 144 U/L (23-300)
[2021-05-18 10:50] VITALS: BP 144/67; PULSE 83; RESP 14; O2SAT 96
[2021-05-18 10:52] LABS: INR 1.1; Prothrombin Time 13.4 Seconds (11.1-14.7)
[2021-05-18 10:53] LABS: Partial Thromboplastin Time 35.3 SECONDS (22.3-36.8)
[2021-05-18 10:54] LABS: Appearance Urine Clear (Clear); Bilirubin Urine Negative (Negative); Blood Urine Negative (Negative); Color Urine Yellow (Yellow); Glucose Urine UA Negative (Negative); Ketones Urine Negative (Negative); Leukocyte Esterase Ur Negative LEU/UL (Negative); Nitrate Urine Negative (Negative); Protein Urine Negative (Negative); Specific Grav Ur 1.015 (1.001-1.035); Urobilinogen Urine 0.2 mg/dL (<2.0); pH Urine 7.5 (5.0-9.0)
[2021-05-18 10:55] LABS: Alanine Aminotransferase 12 U/L (4-35); Albumin Level 3.1 g/dL (3.5-5.1); Alkaline Phosphatase 59 U/L (38-126); Anion Gap 6 mmol/L (8-16); Aspartate Amino Transferase 24 U/L (14-36); Bilirubin,Total 0.2 mg/dL (0.2-1.3); Blood Urea Nitrogen 13 mg/dL (7-17); CRP 6.9 mg/dL (<1.0); Calcium 8.2 mg/dL (8.4-10.2); Carbon Dioxide 26 mmol/L (22-30); Chloride 100 mmol/L (98-107); Estimated CRCL calculation 53 ml/min; Estimated Glomerular Filt Rate > 60; Glucose 104 mg/dL (65-110); Lactic Acid Reflex 0.9 mmol/L (0.7-2.1); Potassium 3.9 mmol/L (3.4-5.0); Sodium 132 mmol/L (137-145)
[2021-05-18 10:55] LABS: Add Urine Microscopic? NO
[2021-05-18 11:58] VITALS: BP 135/68; PULSE 93; RESP 24; TEMP 38.7; O2SAT 99
--- NOTE | 2021-05-18 12:18 | ECG_ITS ---
Measurements Intervals Menan Rate: 100 P: 28 AL: 141 QRS: 61 QRSD: 79 T: 48 QT: 340 QTc: 439 Interpretive Statements SINUS TACHYCARDIA DELAYED PRECORDIAL RS TRANSITION ABNORMAL RHYTHM ECG NO PREVIOUS ECG AVAILABLE FOR COMPARISON Electronically Signed On 05-18-2021 15:43:35 CDT by Pacheco Thomas M.D.
[2021-05-18 13:14] VITALS: BP 102/63; PULSE 90; RESP 17; TEMP 37.4; O2SAT 98
[2021-05-18] MEDS: HEPARIN SODIUM LOCK FLUSH 500 UNITS/5 ML VIAL (14:37)
[2021-05-18 14:43] VITALS: BP 112/64; PULSE 76; RESP 16; TEMP 37.3; O2SAT 100
== END 2021-05-18 14:40 | disposition home or self-care (01) ==
PROVIDERS: Physician Assistant; Emergency Provider Emergency Medicine; PCP Internal Medicine Hematology & Oncology
DX: R50.9 Fever, unspecified (principal); C82.93 Follicular lymphoma, unspecified, intra-abdominal lymph nodes; B37.0 Candidal stomatitis; Z79.899 Other long term (current) drug therapy; R00.0 Tachycardia, unspecified
CPT/HCPCS: 36415; 70450; 71046; 80053; 81003; 83605; 83690; 85025; 85610; 85730; 86140; 87040; 93005; 96365; 99284; J0131; J1642

== ENCOUNTER 2021-08-19 07:55 | Outpatient (CLI) | payer MEDICARE, SELFPAY ==
--- NOTE | ~2021-08-19 | CT_ITS ---
EXAMINATION: CT chest abdomen pelvis w con DATE: 08/19/2021 08:27 INDICATION: Intra-abdominal lymphadenopathy. Lymphoma. TECHNIQUE: Computed tomography (CT) of the chest, abdomen, and pelvis was performed with 100 mL Omnip aque 300 intravenous contrast. Automated exposure control and iterative reconstruction technique were employed. The dose-length product was 237.65 mGy-cm. COMPARISON: CT abdomen and pelvis 01/27/21 FINDINGS: CHEST CT: There is mild scarring at the lung apices. A calcified right lung nodule is consistent with old granu lomatous disease. There is minimal atelectasis in right lung. No pleural effusion. There are nodules in the thyroid measuring up to 9 mm, likely not clinically significant. There is a right internal jug ular port with tip in right atrium. The heart size is normal. No pericardial effusion. There are no p athologically enlarged lymph nodes. There is mild thoracic spondylosis. ABDOMEN/PELVIS CT: The liver is normal. There is anterosuperior peripheral low-attenuation in the spleen with thickness measuring up to 5 mm. Calcifications in the spleen are consistent with old granulomatous disease. The pancreas, adrenal glands, and kidneys are normal. There are no dilated loops of bowel. The appendix is normal. There is confluent soft tissue attenuation in the retroperitoneum and at the root of the s mall bowel mesentery. The abnormality measures up to 7.2 x 3.4 cm on transaxial images. There is trac e pelvic ascites. There is mild lumbar spondylosis. IMPRESSION: 1. Improved volume of soft tissue attenuation in the retroperitoneum and at the root of the small bow el mesentery, consistent with treated lymphoma. Given that these findings may not completely resolve with treatment, PET/CT may be useful to differentiate scarring from lymphoma. 2. Stable peripheral low-attenuation in the spleen, consistent with lymphoma versus chronic hematoma. Reviewed, dictated and finalized at location A. IMPRESSION: 1. Improved volume of soft tissue attenuation in the retroperitoneum and at the root of the small bowel mesentery, consistent with treated lymphoma. Given huy t these findings may not completely resolve with treatment, PET/CT may be usefu l to differentiate scarring from lymphoma. 2. Stable peripheral low-attenuation in the spleen, consistent with lymphoma ve rsus chronic hematoma.
== END 2021-08-19 07:56 | disposition home or self-care (01) ==
PROVIDERS: PCP Internal Medicine Hematology & Oncology; Visit Provider Internal Medicine Hematology & Oncology
DX: C82.93 Follicular lymphoma, unspecified, intra-abdominal lymph nodes (principal)
CPT/HCPCS: 71260; 74177; Q9967

== ENCOUNTER 2021-09-05 14:38 | Inpatient (IN) | payer MEDICARE, SELFPAY ==
--- NOTE | ~2021-09-05 | XR_ITS ---
EXAMINATION: XR chest 2V Exam Date/Time: 09/05/2021 15:25 CDT HISTORY: dysphagia, r/o aspiration Comparison: 05/18/2021. RESULT: Lines, tubes, and devices: Right chest port terminating at the cavoatrial junction. Lungs and pleura: Clear. Cardiomediastinal silhouette: Stable. Other: No acute osseous or upper abdominal finding. IMPRESSION: No acute cardiopulmonary process. Reviewed, dictated and finalized at location K.
[2021-09-05 14:48] VITALS: BP 132/73; PULSE 100; RESP 16; TEMP 36.5; O2SAT 100
[2021-09-05 15:03] VITALS: BP 135/58; PULSE 83; TEMP 36.9; O2SAT 100
--- NOTE | 2021-09-05 15:12 | ED.GENADULT ---
HPI - General Adult General Chief complaint: Unspecified <LIBBY Grande Last Filed: 09/05/21 17:22> Stated complaint: thrush, difficulty swallowing <LIBBY Grande Last Filed: 09/05/21 17:22> Time Seen by Provider: 09/05/21 15:12 <LIBBY Grande Last Filed: 09/05/21 17:22> Source: patient <LIBBY Grande Last Filed: 09/05/21 17:22> Mode of arrival: ambulatory <LIBBY Grande Last Filed: 09/05/21 17:22> Limitations: no limitations <LIBBY Grande Last Filed: 09/05/21 17:22> History of Present Illness HPI narrative: Patient is a 76 y/o female who presents to the ED with c/o dysphagia. Patient has a history of Non-Hodgkin's lymphoma. She sees Dr. Gonzalez. She has been on several different medications for refractory oral candidiasis and had an EGD performed last January by GI, confirming Dx. She has been taking all of her medications as prescribed. She states she was doing well for the last couple days, but yesterday after eating ice cream, she states she began vomiting. She has been unable to keep down any food or fluids since then. She does pur?e her food. Denies feeling like liquid is getting stuck , but states she can feel the fluid bubbling in her esophagus before it comes up. Denies any fevers, nausea, abdominal pain, chest pain, worsening difficulty breathing. Reports chronic odynophagia, no worsening. <LIBBY Grande Last Filed: 09/05/21 17:22> Related Data Home medications: Home Medications Medication Instructions Recorded Confirmed fluconazole 100 mg tablet 150 mg PO DAILY 05/18/21 07/23/21 <LIBBY Grande Last Filed: 09/05/21 17:22> Allergies/adverse reactions: Allergies Allergy/AdvReac Type Severity Reaction Status Date / Time No Known Allergies Allergy Verified 07/23/21 10:27 <LIBBY Grande Last Filed: 09/05/21 17:22> Review of Systems Review of Systems: CONSTITUTIONAL: Denies fever, chills, or sweats. ENT: Reports dyphagia and chronic odynophagia. CARDIOVASCULAR: Denies chest pain. RESPIRATORY: Denies cough or dyspnea. GASTROINTESTINAL: Reports vomiting. Denies abdominal pain, nausea. <Tonya Cano PA-C - Last Filed: 09/05/21 17:22> All systems reviewed & are unremarkable except as noted in HPI and below <Tonya Cano PA-C - Last Filed: 09/05/21 17:22> [facility] Past Medical History Medical History: Medical History (Updated 09/05/21 @ 17:22 by Tonya Cano PA-C) Abnormal weight loss External hemorrhoids Follicular lymphoma Hypertension history of - has been taken off meds Immunoglobulin deficiency Non-Hodgkin lymphoma Oropharyngeal candidiasis Port-A-Cath in place <Tonya Cano PA-C - Last Filed: 09/05/21 17:22> Surgical History Surgical History: Surgical History (Updated 09/05/21 @ 17:18 by Tonya Cano PA-C) H/O colonoscopy History of lymph node biopsy <Tonya Cano PA-C - Last Filed: 09/05/21 17:22> Family History Family History: Family History Father Malignant neoplasm of prostate Mother Ovarian cancer <Tonya Cano PA-C - Last Filed: 09/05/21 17:22> Social History Social History: Social History Social History: She is and lives alone. She has 3 children. 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 She states that she is a lifelong nonsmoker she does not use any type tobacco at all. She does not use any alcohol marijuana or illicit drugs. Code status full code Smoking status: Never smoker Alcohol intake: current Substance use: unknown Spiritual care concerns: No <Tonya Cano PA-C - Last Filed: 09/05/21 17:22> Exam Narrative: GENERAL: Well appearing, thin, non-toxic, in no acute distress. HEAD: Normocephalic, atraumatic. EYES: PERRL/EOMI, conjunctivae clear bilaterally. NOSE:
[2021-09-05 15:51] LABS: Hematocrit 29.4 % (37.0-47.0); Mean Corpuscular HGB Conc 30.6 g/dl (32-36); Mean Corpuscular Hemoglobin 29.5 pg (26-34); Mean Corpuscular Volume 96.4 fl (80-100); Mean Platelet Volume 9.1 fl (7.4-10.4); Platelet Count Result 328 k/mm3 (150-375); Red Blood Count 3.05 M/mm3 (4.2-5.4); Red Cell Distribution Width 14.5 % (11.5-14.5); White Blood Count 2.4 K/mm3 (4.5-10.0)
[2021-09-05 16:00] LABS: Alanine Aminotransferase 11 U/L (6-35); Alkaline Phosphatase 68 U/L (38-126); Anion Gap 10 mmol/L (8-16); Aspartate Amino Transferase 33 U/L (14-36); Bilirubin,Total 0.4 mg/dL (0.2-1.3); Blood Urea Nitrogen 24 mg/dL (7-17); Calcium 9.5 mg/dL (8.4-10.2); Carbon Dioxide 28 mmol/L (22-30); Chloride 105 mmol/L (98-107); Estimated CRCL calculation 34 ml/min; Estimated Glomerular Filt Rate > 60; Glucose 103 mg/dL (65-110); Potassium 4.2 mmol/L (3.4-5.0); Sodium 143 mmol/L (137-145)
[2021-09-05 16:30] LABS: Band Neutrophils Percent 3 % (0-6); Lymphocytes Absolute Manual 0.72 K/mm3 (1.1-4.5); Lymphocytes Percent Manual 30 % (18-44); Monocytes Absolute Manual 0.52 K/mm3 (0.1-0.90); Monocytes Percent Manual 22 % (3-9); Total Cells Counted 100
[2021-09-05 16:31] LABS: Basophils Absolute Manual 0.02 K/mm3 (0.0-0.1); Basophils Percent Manual 1 % (0-1); Eosinophils Absolute Manual 0.12 K/mm3 (0.02-0.5); Eosinophils Percent Manual 5 % (0-4); Metamyelocytes Percent 2 %; Neutrophils Absolute Manual 0.96 K/mm3 (1.7-7.2); Neutrophils Percent Manual 37 % (46-73); Platelet Estimate Adequate (Adequate)
--- NOTE | 2021-09-05 16:40 | PM.IMHP ---
H&P: HPI History of Present Illness Date/Time: 09/05/21 16:40 Chief Complaint: Difficulties swallowing. Narrative: This is a pleasant 76-year-old female who recently completed chemotherapy for non-Hodgkins lymphoma who presented to the emergency department from home for evaluation of difficulties swallowing. She reports ongoing issues with thrush dating back to last fall and there was evidence of probable esophageal candidiasis on EGD in January 2021. She has been daily fluconazole and oral nystatin swish and swallow for months without much benefit, unfortunately. She continues to lose weight and she has now lost around 35 lb. She is only able to eat a pureed diet due to oral pain and pain with swallowing. On occasion she has some dysphagia though the last couple of days she has not been able to swallow or keep anything down as seems to get stuck in her esophagus and ?bubbles back up.? Her good friend and neighbor made her come in today for evaluation and she is being admitted for hydration and GI consult. Review of Systems Review of Systems: Twelve systems were reviewed. She recently finished chemotherapy for non-Hodgkin's lymphoma per Dr. Gonzalez and he wants to start her on maintenance chemo however he is waiting until her thrush gets under control. It is my understanding that Dr. Gonzalez has checked her immunoglobulins and it looks like she has some deficiencies and he is hopeful that she will be able to fight off the Catherine once she is able to receive IVIG. No recent cold or flu symptoms. No sick contacts. No chest pain or shortness of breath. No hematemesis. She takes stool softeners as she tends to get constipated. No melena or hematochezia. She denies abdominal distension and bloating. No significant belching. She has not noticed any significant lymphadenopathy in the neck. As documented, all other systems were reviewed and are negative. [facility] Past Medical History Medical History (Updated 09/05/21 @ 23:57 by Brenda Tucker PA-C) External hemorrhoids Follicular lymphoma Hypertension No longer on medication with weight loss. Immunoglobulin deficiency Non-Hodgkin lymphoma Oropharyngeal candidiasis Port-A-Cath in place Surgical History Surgical History History of colonoscopy History of lymph node biopsy Family History Family History Father Malignant neoplasm of prostate Mother Ovarian cancer Social History Social History (Updated 09/05/21 @ 23:52 by Brenda Tucker PA-C) Social History: The patient is and lives in her own home in [place]. She is originally from [facility]. She has 3 children who live in the area. 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 No alcohol or illicit substance abuse. She designates her daughter, Lorena Al, or her good friend, Earnest White, as her surrogate decision makers. Code status: Full code. Spiritual care concerns: No Meds Home Medications and Allergies Home Medications Medication Instructions Recorded Confirmed Type docusate sodium 100 mg capsule 100 mg PO Q12H PRN Constipation 01/30/21 09/05/21 Rx #30 caps phenylephrine 0.25 %-pramoxine 1 1 applic RECTAL HS #26 grams 01/30/21 09/05/21 Rx %-glycerin-wh.petrolatum rectal cream (Preparation H Maximum Strength) saliva substitute combo no.9 15 ml PO QID PRN Dry Mouth #473 mL 01/30/21 09/05/21 Rx (Biotene Dry Mouth Oral Rinse mouthwash) hydrocodone 5 mg-acetaminophen 325 1 tablet PO Q6H PRN pain #7 tabs 03/18/21 09/05/21 Rx mg tablet fluconazole 100 mg tablet 150 mg PO DAILY 05/18/21 09/05/21 History Allergies Allergy/AdvReac Type Severity Reaction Status Date / Time No Known Allergies Allergy Verified 07/23/21 10:27 Vital Signs Vital Signs - 24 hr 09/05/21 14:48 09/05/21 15:03 Temperature 97.7 F 98.4 F Pulse Rate 100 83 Respiratory Rate 16
[2021-09-05] MEDS: ONDANSETRON INJ 4 MG/2 ML VIAL IV PUSH (17:50)
[2021-09-05] MEDS: SODIUM CHLORIDE 0.9% IV 1,000 ML 999 ML IV CONT (17:50)
[2021-09-05 19:30] VITALS: BMI 17.5
[2021-09-05 22:00] VITALS: BP 123/50; PULSE 72; RESP 14; TEMP 37.2; O2SAT 98
[2021-09-06] MEDS: MAGNES & ALUM HYD/SIMETH/DIPHENHYD/LIDOCAINE 119 ML MOUTHWASH BY MOUTH ×5 (01:52→21:31)
[2021-09-06 06:00] VITALS: BP 114/42; PULSE 71; RESP 16; TEMP 36.2; O2SAT 97
--- NOTE | 2021-09-06 10:11 | PM.IMPN ---
Progress Note: A&P Assessment and Plan (1) Dysphagia: Qualifiers: Dysphagia type: unspecified Qualified Code(s): R13.10 - Dysphagia, unspecified Code(s): R13.10 - Dysphagia, unspecified Status: Acute Assessment and Plan: Secondary to oral candidiasis.\ Patient has failed fluconazole. She is wound reportedly been on this for months without any benefit at all. Will get fungal cultures. So the we can get sensitivities as well prior to starting any other antifungals. (2) Thrush: Code(s): B37.0 - Candidal stomatitis Status: Acute (3) Esophageal candidiasis: Code(s): B37.81 - Candidal esophagitis Status: Acute Assessment and Plan: GI has been consulted. There is a tentative plan for EGD. I would also recommend GI get fungal cultures during procedure. 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 Weight: 42.1 kg. BMI: 17.5. HEENT: PERRL, EOMI. Conjunctivae anicteric. Oral mucosa is tacky. The tongue appears geographic with denuded papillae and beefy red undulations. There are some serpiginous areas which are off-white consistent with thrush. Neck: Supple. No lymphadenopathy. Respiratory: Lungs are clear to auscultation bilaterally. Cardiovascular: Regular rate and rhythm with S1-S2. Gastrointestinal: Abdomen is soft, scaphoid, nontender, nondistended bowel Skin: Warm and dry. No rash or lesions on limited exam. Extremities: No cyanosis, clubbing, or edema. Radial and pedal pulses intact. Neurological: Alert. Cranial nerves 2-12 are grossly intact. No gross focal deficits to casual conversation. Psychiatric: Pleasant and cooperative with normal mood and affect. Judgment and insight intact. Objective Data Vital Signs Vital Signs: Vital Signs - 24 hr 09/05/21 14:48 09/05/21 15:03 09/05/21 22:00 Temperature 97.7 F 98.4 F 98.9 F Pulse Rate 100 83 72 Respiratory Rate 16 14 Blood Pressure 132/73 135/58 L 123/50 L Pulse Oximetry 100 100 98 Oxygen Delivery Room Air 09/06/21 06:00 09/06/21 08:00 Temperature 97.1 F L Pulse Rate 71 Respiratory Rate 16 Blood Pressure 114/42 L Pulse Oximetry 97 Oxygen Delivery Room Air Intake/Output Intake/Output: Intake & Output 09/03/21 09/04/21 09/05/21 09/06/21 23:59 23:59 23:59 23:59 Intake Total 1000 Balance 1000 Meds/Results Medications: Active Medications Generic Name Dose Route Start Last Admin Trade Name Freq PRN Reason Stop Dose Admin Hydrocodone Bitart/Acetaminophen 1 tab 09/06/21 00:05 Hydrocodone/Acetaminophen (*Crx) 5-325 Mg Tablet PO Q6H PRN pain Docusate Sodium 100 mg 09/06/21 00:05 Docusate Sodium 100 Mg Capsule PO Q12H PRN Constipation Fluconazole 100 mg 09/06/21 09:00 Fluconazole 100 Mg Tablet PO 09/12/21 09:01 DAILY MIK Lidocaine/Diphenhydr/Alum/Mg/Simeth 5 ml 09/06/21 01:00 09/06/21 05:17 Magnes & Alum Hyd/Simeth/Diphenhyd/Lidocaine 119 Ml Mouthwash BY MOUTH 10/06/21 00:59 5 ml Q4HR MIK Administration Phenyleph/Shark Oil/Min Oil/Petrol 1 applic 09/06/21 21:00 Phenyleph/Shark Oil/Mo/Petrol Cream 26 Gm RECTAL HS MIK Saliva Substitute 15 ml 09/06/21 00:05 Saliva Substitute Rinse 473 Ml Bottle PO QID PRN D
--- NOTE | 2021-09-06 13:08 | WPDGICN ---
Assessment and Plan Assessment and plan (1) Dysphagia: Qualifiers: Dysphagia type: unspecified Qualified Code(s): R13.10 - Dysphagia, unspecified Code(s): R13.10 - Dysphagia, unspecified Status: Acute Assessment and Plan: ongoing and worse iv protonix egd in am, assess if needs dilation treated for possible thrust but did not improve symptoms and bx did not show fungal organism (2) Non-Hodgkin lymphoma: Qualifiers: Follicular lymphoma type: unspecified follicular type Lymphoma site: unspecified region Non-Hodgkin lymphoma type: follicular Qualified Code(s): C82.90 - Follicular lymphoma, unspecified, unspecified site Code(s): C85.90 - Non-Hodgkin lymphoma, unspecified, unspecified site Status: Acute Assessment and Plan: treated, recent chemotherapy (3) Malnutrition: Code(s): E46 - Unspecified protein-calorie malnutrition Status: Acute Assessment and Plan: poor oral intake (4) Port-A-Cath in place: Code(s): Z95.828 - Presence of other vascular implants and grafts Status: Acute (5) Oropharyngeal candidiasis: Code(s): B37.0 - Candidal stomatitis Status: Acute (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 She has been eating since pureed and soup, she is still having similar problem and just recently not even able to keep liquids down. She has lost weight and she is quite frustrated with situation, just wants to give up. Review of Systems Constitutional: Constitutional: Reports lethargy and Reports weight loss Eyes: Eyes: Denies blurry vision ENT: Comments: unable to swallow Cardiovascular: Cardiovascular: Denies chest pain Respiratory: Respiratory: Denies cough Gastrointestinal: Gastrointestinal: Reports nausea Musculoskeletal: Musculoskeletal: Denies back pain Integumentary/Breasts: Skin/Breast: Denies rash Neurologic: Denies abnormal gait Psychiatric: Psychiatric: Reports anxiety PMFSH Past Medical History Medical History (Updated 09/06/21 @ 13:17 by Jerome Quick MD) External hemorrhoids Follicular lymphoma Hypertension No longer on medication with weight loss. Immunoglobulin deficiency Malnutrition Non-Hodgkin lymphoma Oropharyngeal candidiasis Port-A-Cath in place Surgical History Surgical History History of colonoscopy History of lymph node biopsy Family History Family History Father Malignant neoplasm of prostate Mother Ovarian cancer Social History Social History (Updated 09/05/21 @ 23:52 by Brenda Tucker PA-C) Social History: The patient is and lives in her own home in [place]. She is originally from [facility]. She has 3 children who live in the area. 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 No alcohol or illicit substance abuse. She designates her daughter, Lorena Al, or her good friend, Earnest White, as her surrogate decision makers. Code status: Full code. Spiritual care concerns: No Meds Home Medications and Allergies Home Medications Medication Instructions Recorded Confirmed Type docusate sodium 100 mg capsule 100 mg PO Q12H PRN Constipation 01/30/21 09/05/21 Rx #30 caps phenylephrine 0.25 %-pramoxine 1 1 applic RECTAL HS #26 grams 01/30/21 09/05/21 Rx %-glycerin-wh.petrolatum rectal cream (Preparat
[2021-09-06 14:00] VITALS: BP 129/56; PULSE 89; RESP 16; TEMP 36.9; O2SAT 100
[2021-09-06] MEDS: SODIUM CHLORIDE 0.9% IV 1,000 ML 100 ML IV CONT (15:00)
[2021-09-06 21:24] VITALS: BP 125/56; PULSE 78; RESP 16; TEMP 37; O2SAT 98
[2021-09-06] MEDS: PHENYLEPH/SHARK OIL/MO/PETROL CREAM 26 GM 1 APPLIC RECTAL (21:29)
[2021-09-06] MEDS: PANTOPRAZOLE SODIUM IV 40 MG VIAL IV PUSH (21:29)
[2021-09-06] MEDS: SALIVA SUBSTITUTE RINSE 473 ML BOTTLE 15 ML PO (21:30)
[2021-09-07] VITALS (7 sets, daily range): BP systolic 130–161; BP diastolic 50–79; PULSE 72–86; RESP 16–26; TEMP 36.6–37.2; O2SAT 98–100; BMI 17.6
[2021-09-07] MEDS: SODIUM CHLORIDE 0.9% IV 1,000 ML 100 ML IV CONT ×3 (01:08→21:50)
[2021-09-07] MEDS: MAGNES & ALUM HYD/SIMETH/DIPHENHYD/LIDOCAINE 119 ML MOUTHWASH BY MOUTH ×6 (01:08→21:50)
[2021-09-07] MEDS: PANTOPRAZOLE SODIUM IV 40 MG VIAL IV PUSH ×2 (09:19→21:51)
[2021-09-07] MEDS: LACTATED RINGERS 1,000 ML 150 ML IV CONT (11:21)
--- NOTE | 2021-09-07 12:20 | PM.IMPN ---
Progress Note: A&P Assessment and Plan (1) Dysphagia: Qualifiers: Dysphagia type: unspecified Qualified Code(s): R13.10 - Dysphagia, unspecified Code(s): R13.10 - Dysphagia, unspecified Status: Acute Assessment and Plan: no likely fungal egd pending Patient has failed fluconazole. cx pending spoke w dr salazar patient needs fu with ID physician (2) Thrush: Code(s): B37.0 - Candidal stomatitis Status: Acute (3) Esophageal candidiasis: Code(s): B37.81 - Candidal esophagitis Status: Acute Assessment and Plan: GI has been consulted. There is a tentative plan for EGD. I would also recommend GI get fungal cultures during procedure. 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 Weight: 42.1 kg. BMI: 17.5. HEENT: PERRL, EOMI. Conjunctivae anicteric. Oral mucosa is tacky. The tongue appears geographic with denuded papillae and beefy red undulations. There are some serpiginous areas which are off-white consistent with thrush. Neck: Supple. No lymphadenopathy. Respiratory: Lungs are clear to auscultation bilaterally. Cardiovascular: Regular rate and rhythm with S1-S2. Gastrointestinal: Abdomen is soft, scaphoid, nontender, nondistended bowel Skin: Warm and dry. No rash or lesions on limited exam. Extremities: No cyanosis, clubbing, or edema. Radial and pedal pulses intact. Neurological: Alert. Cranial nerves 2-12 are grossly intact. No gross focal deficits to casual conversation. Psychiatric: Pleasant and cooperative with normal mood and affect. Judgment and insight intact. Objective Data Vital Signs Vital Signs: Vital Signs - 24 hr 09/06/21 14:00 09/06/21 21:24 09/07/21 05:44 Temperature 98.4 F 98.6 F 97.9 F Pulse Rate 89 78 72 Respiratory Rate 16 16 18 Blood Pressure 129/56 L 125/56 L 130/57 L Pulse Oximetry 100 98 100 Oxygen Delivery 09/07/21 08:00 09/07/21 11:19 Temperature 98.1 F Pulse Rate 80 Respiratory Rate 18 Blood Pressure 136/50 L Pulse Oximetry 100 Oxygen Delivery Room Air Room Air Intake/Output Intake/Output: Intake & Output 09/04/21 09/05/21 09/06/21 09/07/21 23:59 23:59 23:59 23:59 Intake Total 6679 219 5924 Balance 5035 769 9125 Meds/Results Medications: Active Medications Generic Name Dose Route Start Last Admin Trade Name Freq PRN Reason Stop Dose Admin Hydrocodone Bitart/Acetaminophen 1 tab 09/06/21 00:05 Hydrocodone/Acetaminophen (*Crx) 5-325 Mg Tablet PO Q6H PRN pain Docusate Sodium 100 mg 09/06/21 00:05 Docusate Sodium 100 Mg Capsule PO Q12H PRN Constipation Sodium Chloride 1,000 mls @ 100 mls/hr 09/06/21 14:20 09/07/21 11:01 Normal Saline Iv IV CONT Infused .Q10H MIK Infusion Lactated Ringer's 1,000 mls @ 150 mls/hr 09/07/21 09:00 09/07/21 12:09 Lr - Lactated Ringers Iv IV CONT 150 mls/hr .Q6H40M MIK Infusion Lidocaine/Diphenhydr/Alum/Mg/Simeth 5 ml 09/06/21 01:00 09/07/21 09:19 Magnes & Alum Hyd/Simeth/Diphenhyd/Lidocaine 119 Ml Mouthwash BY MOUTH 10/06/21 00:59 5 ml Q4HR MIK Administration Pantoprazole Sodium 40 mg 09/06/21 21:00 09/07/21 09:19 Pantoprazole Sodium Iv 40 Mg Vial IV PUSH 40 mg Q12HR MIK Administration Phenyleph/S
[2021-09-07] MEDS: SUCRALFATE SUSP 100 MG/ML 10 ML UDC 1000 MG PO ×2 (17:16→21:51)
--- NOTE | 2021-09-07 17:31 | PDONCCN ---
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 Patient also has a history of resistant thrush to antifungal treatment with Diflucan. She has been experiencing some difficulty swallowing and discomfort and not able to eat much. She has been losing weight. She came into the hospital with oral pain and dysphagia. She has been complaining of tiredness and fatigue. Denies any fevers and chills. Labs showed WBC count of 2.4 with hemoglobin of 9.0. Patient had EGD done today that showed esophageal stricture with unspecified esophagitis. Biopsies were taken. Review of Systems - Review of Systems All systems reviewed & are unremarkable except as noted in HPI and bel - Neurologic Denies abnormal gait [facility] Medical History: Medical History (Last Updated 09/06/21 @ 13:17 by Jerome Quick MD) External hemorrhoids Follicular lymphoma Hypertension No longer on medication with weight loss. Immunoglobulin deficiency Malnutrition Non-Hodgkin lymphoma Oropharyngeal candidiasis Port-A-Cath in place Surgical History: Surgical History (Last Reviewed 09/05/21 @ 23:50 by Brenda Tucker PA-C) History of colonoscopy History of lymph node biopsy Family History: Family History (Last Reviewed 09/05/21 @ 23:50 by Brenda Tucker PA-C) Father Malignant neoplasm of prostate Mother Ovarian cancer - Social History Social History: Social History (Last Updated 09/05/21 @ 23:52 by Brenda Tucekr PA-C) Others: Spiritual care concerns: No Meds Home Medications Medication Instructions Recorded Confirmed Type docusate sodium 100 mg capsule 100 mg PO Q12H PRN Constipation 01/30/21 09/05/21 Rx #30 caps phenylephrine 0.25 %-pramoxine 1 1 applic RECTAL HS #26 grams 01/30/21 09/05/21 Rx %-glycerin-wh.petrolatum rectal cream (Preparation H Maximum Strength) saliva substitute combo no.9 15 ml PO QID PRN Dry Mouth #473 mL 01/30/21 09/05/21 Rx (Biotene Dry Mouth Oral Rinse mouthwash) hydrocodone 5 mg-acetaminophen 325 1 tablet PO Q6H PRN pain #7 tabs 03/18/21 09/05/21 Rx mg tablet fluconazole 100 mg tablet 150 mg PO DAILY 05/18/21 09/05/21 History Allergies Allergy/AdvReac Type Severity Reaction Status Date / Time No Known Allergies Allergy Verified 07/23/21 10:27 Results - Labs CBC & Chem 7: 09/05/21 15:45 09/05/21 15:45 Assessment and Plan - Additional Plan CLL/small lymphocytic lymphoma status post chemotherapy with bendamustine Rituxan. Patient completed cycle 6/[address] chest abdomen pelvis done on August 19 showed improved volume of soft tissue attenuation in the retroperitoneum and the root of the small bowel mesentery consistent with treated lymphoma. Stable peripheral low attenuation in the spleen consistent with lymphoma. Plan was to start maintenance treatment with Rituxan on September 10. We will reduce start maintenance treatment after her improvement in dysphagia and candidiasis. Hypogammaglobulinemia. Repeat immunoglobulin level came back normal. Dysphagia and oropharyngeal candidiasis. Patient had EGD done today and biopsies were taken. Given her significant dysphagia and weight loss I would recommend PEG tube placement for short-term until her candidiasis and esophageal stricture has been treated. I would also suggest infection Disease consultation as an outpatient. I have discussed my planned with Dr. Pacheco Sandoval. Anemia and leukopenia. This would be nutritional. Also possibility of bone marrow involvement with lymphoma but the recent
[2021-09-07 19:49] LABS: Folic Acid > 20.0 ng/mL (2.76->20); Vitamin B12 > 1000.0 pg/mL (239-931)
[2021-09-07 20:36] LABS: Iron 24 ug/dL (37-170)
[2021-09-07 20:45] LABS: Percent Iron Saturation 9 % (20-50)
[2021-09-07] MEDS: PHENYLEPH/SHARK OIL/MO/PETROL CREAM 26 GM 1 APPLIC RECTAL (21:51)
[2021-09-08] MEDS: MAGNES & ALUM HYD/SIMETH/DIPHENHYD/LIDOCAINE 119 ML MOUTHWASH BY MOUTH ×5 (05:42→20:58)
[2021-09-08 06:00] VITALS: BP 129/59; PULSE 72; RESP 20; TEMP 36.5; O2SAT 98
[2021-09-08] MEDS: PANTOPRAZOLE SODIUM IV 40 MG VIAL IV PUSH ×2 (09:04→20:58)
[2021-09-08 09:11] VITALS: RESP 20; O2SAT 99
[2021-09-08] MEDS: SODIUM CHLORIDE 0.9% IV 1,000 ML 100 ML IV CONT ×2 (09:11→18:52)
[2021-09-08] MEDS: SUCRALFATE SUSP 100 MG/ML 10 ML UDC 1000 MG PO ×3 (11:53→20:58)
--- NOTE | 2021-09-08 12:10 | PM.IMPN ---
Progress Note: A&P Assessment and Plan (1) Dysphagia: Qualifiers: Dysphagia type: unspecified Qualified Code(s): R13.10 - Dysphagia, unspecified Code(s): R13.10 - Dysphagia, unspecified Status: Acute Assessment and Plan: Not likely fungal egd just so showed erosions. Question etiology. Spoke with Dr. Gonzalez. Possibly related to chemotherapy. Patient has failed fluconazole. Since her fungal cultures thus far have been not growing anything we will hold her fluconazole. Given significant cachexia and malnutrition and weight loss. Peg tube will likely be placed today. Patient will be started on tube feeds. Once tube feeds are at goal and she is tolerating she can be discharge. she will need follow-up with Oncology and also have an infectious disease Consul when she gets headache here to evaluate her oral and esophageal ulcerations. (2) Thrush: Code(s): B37.0 - Candidal stomatitis Status: Acute Assessment and Plan: Again not likely candidiasis. These were just erosions according to EGD. 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 No immunodeficiencies noted. Subjective Date/time seen: 09/08/21 12:10 No complaints today. Other than her normal pain and her mouth and esophagus. Exam Narrative: General: Thin, frail female in the semi-Shaver position in bed. Weight: 42.1 kg. BMI: 17.5. HEENT: PERRL, EOMI. Conjunctivae anicteric. Oral mucosa is tacky. The tongue appears geographic with denuded papillae and beefy red undulations. There are some serpiginous areas which are off-white consistent with thrush. Neck: Supple. No lymphadenopathy. Respiratory: Lungs are clear to auscultation bilaterally. Cardiovascular: Regular rate and rhythm with S1-S2. Gastrointestinal: Abdomen is soft, scaphoid, nontender, nondistended bowel Skin: Warm and dry. No rash or lesions on limited exam. Extremities: No cyanosis, clubbing, or edema. Radial and pedal pulses intact. Neurological: Alert. Cranial nerves 2-12 are grossly intact. No gross focal deficits to casual conversation. Psychiatric: Pleasant and cooperative with normal mood and affect. Judgment and insight intact. Objective Data Vital Signs Vital Signs: Vital Signs - 24 hr 09/07/21 12:14 09/07/21 12:24 09/07/21 12:34 Temperature Pulse Rate 86 85 77 Respiratory Rate 26 H 25 H 18 Blood Pressure 142/77 H 160/79 H 161/77 H Pulse Oximetry 99 100 99 Oxygen Delivery Room Air Room Air Room Air 09/07/21 14:00 09/07/21 22:00 09/08/21 06:00 Temperature 97.8 F 98.9 F 97.7 F Pulse Rate 79 86 72 Respiratory Rate 16 20 20 Blood Pressure 148/63 H 140/64 129/59 L Pulse Oximetry 100 98 98 Oxygen Delivery 09/08/21 09:11 Temperature Pulse Rate Respiratory Rate 20 Blood Pressure Pulse Oximetry 99 Oxygen Delivery Room Air Intake/Output Intake/Output: Intake & Output 09/05/21 09/06/21 09/07/21 09/08/21 23:59 23:59 23:59 23:59 Intake Total 1319 974 3609 1400 Balance 2365 002 5106 1400 Meds/Results Medications: Active Medications Generic Name Dose Route Start Last Admin Trade Name Freq PRN Reason Stop Dose Admin Hydrocodone Bitart/Acetaminophen 1 tab 09/06/21 00:05 Hydrocodone/Acetaminophen (*Crx) 5-325 Mg Tablet PO Q6H PRN pain Dextrose 12.5 gm 09/08/21 07:52 Dextrose 50% 25 Gm/50 Ml Syringe
[2021-09-08 14:00] VITALS: BP 128/58; PULSE 80; RESP 20; TEMP 36.8; O2SAT 99
--- NOTE | 2021-09-08 15:56 | WPDGIPROGNO ---
Progress Note: A&P Assessment and Plan (1) Erosive esophagitis: Code(s): K22.10 - Ulcer of esophagus without bleeding Status: Acute Assessment and Plan: s/p egd on high dose ppi and carafate pending biopsies- I did not see changes consistent of fungal infection (2) Esophageal stricture: Code(s): K22.2 - Esophageal obstruction Status: Acute Assessment and Plan: this was dilated will see how she does with diet, always can place a Peg tube if needed (3) Malnutrition: Code(s): E46 - Unspecified protein-calorie malnutrition Status: Acute (4) Non-Hodgkin lymphoma: Qualifiers: Follicular lymphoma type: unspecified follicular type Lymphoma site: unspecified region Non-Hodgkin lymphoma type: follicular Qualified Code(s): C82.90 - Follicular lymphoma, unspecified, unspecified site Code(s): C85.90 - Non-Hodgkin lymphoma, unspecified, unspecified site Status: Acute (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 Review of Systems Review of Systems: All systems reviewed & are unremarkable except as noted in HPI and below Exam Const: General: no acute distress and ill appearing chronically Nutritional Appearance: thin HENMT: General nose exam: Normal nares present Eyes: General: appearance normal, both eyes and all related structures Neck: Neck: no JVD Resp: Auscultation: clear to auscultation bilaterally Cardio: Rate: regular rate Rhythm: regular rhythm GI: Inspection: non-distended GI Palp: Yes Soft to palpation Auscultation: normal bowel sounds Skin: General skin exam: normal color Neuro: Speech: normal speech Extrem: General: normal to inspection Psych: Mental Status: mental status grossly normal Objective Data Vital Signs Vital Signs: Vital Signs - 24 hr 09/07/21 22:00 09/08/21 06:00 09/08/21 09:11 Temperature 98.9 F 97.7 F Pulse Rate 86 72 Respiratory Rate 20 20 20 Blood Pressure 140/64 129/59 L Pulse Oximetry 98 98 99 Oxygen Delivery Room Air 09/08/21 14:00 Temperature 98.3 F Pulse Rate 80 Respiratory Rate 20 Blood Pressure 128/58 L Pulse Oximetry 99 Oxygen Delivery Intake/Output Intake/Output: Intake & Output 09/05/21 09/06/21 09/07/21 09/08/21 23:59 23:59 23:59 23:59 Intake Total 2498 625 4378 1520 Balance 4072 878 4453 1520 Meds/Results Medications: Active Medications Generic Name Dose Route Start Last Admin Trade Name Freq PRN Reason Stop Dose Admin Hydrocodone Bitart/Acetaminophen 1 tab 09/06/21 00:05 Hydrocodone/Acetaminophen (*Crx) 5-325 Mg Tablet PO Q6H PRN pain Dextrose 12.5 gm 09/08/21 07:52 Dextrose 50% 25 Gm/50 Ml Syringe IV PUSH PRN PRN Hypoglycemia Protocol Docusate Sodium 100 mg 09/06/21 00:05 Docusate Sodium 100 Mg Capsule PO Q12H PRN Constipation Glucagon 1 mg 09/08/21 07:52 Glucagon For Inj 1 Mg Vial IM PRN PRN Hypoglycemia Protocol Glucose 15 gm 09/08/21 07:52 Glucose Oral Gel 15 Gm Of Glucse In 37.5 Gm Tube PO PRN PRN Hypoglycemia Protocol Sodium Chloride 1,000 mls @ 100 mls/hr 09/06/21 14:20 09/08/21 09:11 Normal Saline Iv IV CONT 100 mls/hr .Q10H MIK Administration Dextrose 1,000 mls @ 100 mls/hr 09/08/21 07:52 Dextrose 5% 1,000 Ml IVPB PRN PRN Hypoglycemia Protocol Lidocaine/Diphenhydr/Alum/Mg/Simeth 5 ml 09/06/21 01:00 09/08/21 12:42 Magnes & Alum Hyd/Simeth/Diphenhyd/Lidocaine 119 Ml Mouthwash BY MOUTH 10/06/21 00:59 5 ml Q4HR MIK Administration Pantoprazole Sodium 40 mg 09/06/21 21:00 09/08/21 09:04 Pantoprazole Sodium Iv 40 M
[2021-09-08] MEDS: PHENYLEPH/SHARK OIL/MO/PETROL CREAM 26 GM 1 APPLIC RECTAL (20:58)
[2021-09-08 22:00] VITALS: BP 125/60; PULSE 88; RESP 20; TEMP 37.2; O2SAT 98
[2021-09-09] MEDS: MAGNES & ALUM HYD/SIMETH/DIPHENHYD/LIDOCAINE 119 ML MOUTHWASH BY MOUTH ×6 (01:17→20:57)
[2021-09-09] MEDS: SODIUM CHLORIDE 0.9% IV 1,000 ML 100 ML IV CONT ×2 (04:53→15:08)
[2021-09-09] MEDS: SUCRALFATE SUSP 100 MG/ML 10 ML UDC 1000 MG PO ×4 (05:04→20:57)
[2021-09-09 06:00] VITALS: BP 133/69; PULSE 76; RESP 14; TEMP 37.4; O2SAT 100
[2021-09-09 06:43] LABS: Hematocrit 24.8 % (37.0-47.0); Hemoglobin 8.1 g/dL (12.0-15.0); Mean Corpuscular HGB Conc 32.7 g/dl (32-36); Mean Corpuscular Hemoglobin 30.1 pg (26-34); Mean Corpuscular Volume 92.2 fl (80-100); Mean Platelet Volume 9.3 fl (7.4-10.4); Platelet Count Result 246 k/mm3 (150-375); Red Blood Count 2.69 M/mm3 (4.2-5.4); Red Cell Distribution Width 13.5 % (11.5-14.5)
[2021-09-09 07:09] LABS: Anion Gap 4 mmol/L (8-16); Blood Urea Nitrogen 4 mg/dL (7-17); Carbon Dioxide 30 mmol/L (22-30); Chloride 102 mmol/L (98-107); Estimated CRCL calculation 48 ml/min; Estimated Glomerular Filt Rate > 60; Glucose 110 mg/dL (65-110); Potassium 2.2 mmol/L (3.4-5.0); Sodium 136 mmol/L (137-145)
[2021-09-09 07:16] LABS: White Blood Count 1.9 K/mm3 (4.5-10.0)
[2021-09-09 08:12] LABS: Alanine Aminotransferase 13 U/L (6-35); Albumin Level 3.5 g/dL (3.5-5.1); Alkaline Phosphatase 72 U/L (38-126); Anion Gap 11 mmol/L (8-16); Aspartate Amino Transferase 23 U/L (14-36); Bilirubin,Total 0.5 mg/dL (0.2-1.3); Blood Urea Nitrogen 4 mg/dL (7-17); Calcium 8.1 mg/dL (8.4-10.2); Carbon Dioxide 29 mmol/L (22-30); Chloride 101 mmol/L (98-107); Estimated CRCL calculation 48 ml/min; Estimated Glomerular Filt Rate > 60; Glucose 128 mg/dL (65-110); Potassium 2.4 mmol/L (3.4-5.0); Sodium 141 mmol/L (137-145)
[2021-09-09] MEDS: PANTOPRAZOLE SODIUM IV 40 MG VIAL IV PUSH ×2 (08:14→20:57)
[2021-09-09] MEDS: POTASSIUM CHLORIDE 20 MEQ TABLET 40 MEQ PO (08:14)
[2021-09-09 08:15] VITALS: RESP 16; O2SAT 100
--- NOTE | 2021-09-09 12:22 | PCNFU ---
Nutrition Follow-Up Complete: Inadequate energy intake related swallowing difficulties as evidenced by report as possibly need for G tube for nutrition supplementation. Goal: Meet nutritional needs. Pt is progressing towards goal. Continue with same goal Pt current nutrition is Pureed, level 4. Nutrition recommendation: Add Ensure Enlive TID with meals Last recorded weight is 43.3 kg - stable at this time. Bowel Motility: +BM 8/2 Labs Reviewed: Hgb:8.1, HCT:24.8, K:2.4, BUN:4, Cr:0.6, Glu: 128 Meds Noted: protonix Skin: WNL Additional Notes: Pt has been advanced to a pureed diet. Tolerating well with good intake at 50-100% of meals. Pt drinks Ensure at home, will provide on trays here. Agree with diet orders. No need for G-tube placement at this time. Monitor diet order, intake, wt, labs. Follow up in 5 days.
--- NOTE | 2021-09-09 12:33 | WPDGIPROGNO ---
Progress Note: A&P Assessment and Plan (1) Erosive esophagitis: Code(s): K22.10 - Ulcer of esophagus without bleeding Status: Acute Assessment and Plan: s/p egd- found severe esophagitis and stricture that was dilated on high dose ppi and carafate pending biopsies- I did not see changes consistent of fungal infection (2) Esophageal stricture: Code(s): K22.2 - Esophageal obstruction Status: Acute Assessment and Plan: this was dilated and I am planning to bring her back for another EGD with dilation in 4-6 weeks apparently she is able to eat more, we can always place a Peg tube if needed patient and family prefer to wait for now (3) Malnutrition: Code(s): E46 - Unspecified protein-calorie malnutrition Status: Acute Assessment and Plan: eating more (4) Non-Hodgkin lymphoma: Qualifiers: Follicular lymphoma type: unspecified follicular type Lymphoma site: unspecified region Non-Hodgkin lymphoma type: follicular Qualified Code(s): C82.90 - Follicular lymphoma, unspecified, unspecified site Code(s): C85.90 - Non-Hodgkin lymphoma, unspecified, unspecified site Status: Acute (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, unspecified Status: Acute (6) Hypokalemia: Code(s): E87.6 - Hypokalemia Status: Acute Assessment and Plan: treated Subjective Date/time seen: 09/09/21 12:33 Interval history: she has been eating more and today planning to have puree diet again, she is comfortable and family at bedside Review of Systems Review of Systems: All systems reviewed & are unremarkable except as noted in HPI and below Exam Const: General: no acute distress and ill appearing chronically Nutritional Appearance: thin HENMT: General nose exam: Normal nares present Eyes: General: appearance normal, both eyes and all related structures Neck: Neck: no JVD Resp: Auscultation: clear to auscultation bilaterally Cardio: Rate: regular rate Rhythm: regular rhythm GI: Inspection: non-distended GI Palp: Yes Soft to palpation Auscultation: normal bowel sounds Skin: General skin exam: normal color Neuro: Speech: normal speech Extrem: General: normal to inspection Psych: Mental Status: mental status grossly normal Objective Data Vital Signs Vital Signs: Vital Signs - 24 hr 09/08/21 14:00 09/08/21 22:00 09/09/21 06:00 Temperature 98.3 F 98.9 F 99.3 F Pulse Rate 80 88 76 Respiratory Rate 20 20 14 Blood Pressure 128/58 L 125/60 133/69 Pulse Oximetry 99 98 100 Oxygen Delivery 09/09/21 08:15 Temperature Pulse Rate Respiratory Rate 16 Blood Pressure Pulse Oximetry 100 Oxygen Delivery Room Air Intake/Output Intake/Output: Intake & Output 09/06/21 09/07/21 09/08/21 09/09/21 23:59 23:59 23:59 23:59 Intake Total 960 3530 2877 1490 Output Total 300 Balance 960 3530 2877 1190 Meds/Results Medications: Active Medications Generic Name Dose Route Start Last Admin Trade Name Freq PRN Reason Stop Dose Admin Hydrocodone Bitart/Acetaminophen 1 tab 09/06/21 00:05 Hydrocodone/Acetaminophen (*Crx) 5-325 Mg Tablet PO Q6H PRN pain Dextrose 12.5 gm 09/08/21 07:52 Dextrose 50% 25 Gm/50 Ml Syringe IV PUSH PRN PRN Hypoglycemia Protocol Docusate Sodium 100 mg 09/06/21 00:05 Docusate Sodium 100 Mg Capsule PO Q12H PRN Constipation Glucagon 1 mg 09/08/21 07:52 Glucagon For Inj 1 Mg Vial IM PRN PRN Hypoglycemia Protocol Glucose 15 gm 09/08/21 07:52 Glucose Oral Gel 15 Gm Of Glucse In 37.5 Gm Tube PO PRN PRN Hypoglycemia Protocol Sodium Chloride 1,000 mls @ 100 mls/hr 09/06/21 14:20 09/09/21 04:53 Normal Saline Iv IV CONT 100 mls/hr .Q10H MIK Administration Dextrose 1,000 mls @ 100 mls/hr 09/08/21 07:52 Dextrose 5% 1,00
[2021-09-09 13:57] VITALS: BP 140/63; PULSE 84; RESP 18; TEMP 37.2; O2SAT 100
--- NOTE | 2021-09-09 18:02 | PM.IMPN ---
Progress Note: A&P Assessment and Plan (1) Dysphagia: Qualifiers: Dysphagia type: unspecified Qualified Code(s): R13.10 - Dysphagia, unspecified Code(s): R13.10 - Dysphagia, unspecified Status: Acute Assessment and Plan: Not likely fungal egd just so showed erosions. Question etiology. Spoke with Dr. Gonzalez. Possibly related to chemotherapy. Patient has failed fluconazole. Since her fungal cultures thus far have been not growing anything we will hold her fluconazole. Continue to increase p.o. intake, hold off on PEG tube for now (2) Thrush: Code(s): B37.0 - Candidal stomatitis Status: Acute Assessment and Plan: Again not likely candidiasis. These were just erosions according to EGD. 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 No immunodeficiencies noted. Subjective Date/time seen: 09/09/21 18:02 Interval history: Good p.o. intake, improving. No overnight events noted. No chest pain or shortness of breath. No nausea, vomiting or diarrhea. No fevers or chills. Review of Systems Review of Systems: 12 point review of systems was assessed and was negative except as noted in the HPI Exam Narrative: General: No acute distress, alert and oriented per baseline HEENT: Atraumatic, normocephalic, mucous membranes moist CV: Regular rate and rhythm, S1, S2 Lungs: Clear to auscultation bilaterally, no rales or crackles noted, no wheezes, good air entry Abdomen: Soft, nontender, nondistended Extremities: Normal to inspection Skin: No rashes noted, no lesions or wounds seen Psych: Euthymic, normal affect Objective Data Vital Signs Vital Signs: Vital Signs - 24 hr 09/08/21 22:00 09/09/21 06:00 09/09/21 08:15 Temperature 98.9 F 99.3 F Pulse Rate 88 76 Respiratory Rate 20 14 16 Blood Pressure 125/60 133/69 Pulse Oximetry 98 100 100 Oxygen Delivery Room Air 09/09/21 13:57 Temperature 98.9 F Pulse Rate 84 Respiratory Rate 18 Blood Pressure 140/63 Pulse Oximetry 100 Oxygen Delivery Intake/Output Intake/Output: Intake & Output 09/06/21 09/07/21 09/08/21 09/09/21 23:59 23:59 23:59 23:59 Intake Total 960 3530 2877 3087 Output Total 300 Balance 960 3530 2877 0047 Meds/Results Medications: Active Medications Generic Name Dose Route Start Last Admin Trade Name Freq PRN Reason Stop Dose Admin Hydrocodone Bitart/Acetaminophen 1 tab 09/06/21 00:05 Hydrocodone/Acetaminophen (*Crx) 5-325 Mg Tablet PO Q6H PRN pain Dextrose 12.5 gm 09/08/21 07:52 Dextrose 50% 25 Gm/50 Ml Syringe IV PUSH PRN PRN Hypoglycemia Protocol Docusate Sodium 100 mg 09/06/21 00:05 Docusate Sodium 100 Mg Capsule PO Q12H PRN Constipation Glucagon 1 mg 09/08/21 07:52 Glucagon For Inj 1 Mg Vial IM PRN PRN Hypoglycemia Protocol Glucose 15 gm 09/08/21 07:52 Glucose Oral Gel 15 Gm Of Glucse In 37.5 Gm Tube PO PRN PRN Hypoglycemia Protocol Sodium Chloride 1,000 mls @ 100 mls/hr 09/06/21 14:20 09/09/21 16:20 Normal Saline Iv IV CONT 100 mls/hr .Q10H MIK Infusion Dextrose 1,000 mls @ 100 mls/hr 09/08/21 07:52 Dextrose 5% 1,000 Ml IVPB PRN PRN Hypoglycemia Protocol Lidocaine/Diphenhydr/Alum/Mg/Simeth 5 ml 09/06/21
[2021-09-09] MEDS: polyethylene glycoL 3350 17 GM POWD.PACK PO (21:58)
[2021-09-09 22:00] VITALS: BP 130/82; PULSE 81; RESP 16; TEMP 38.3; O2SAT 98
[2021-09-09 23:00] VITALS: TEMP 36.8
[2021-09-10] MEDS: SODIUM CHLORIDE 0.9% IV 1,000 ML 100 ML IV CONT ×2 (04:51→15:05)
[2021-09-10] MEDS: MAGNES & ALUM HYD/SIMETH/DIPHENHYD/LIDOCAINE 119 ML MOUTHWASH BY MOUTH ×5 (04:51→20:37)
[2021-09-10] MEDS: SUCRALFATE SUSP 100 MG/ML 10 ML UDC 1000 MG PO ×4 (05:29→20:38)
[2021-09-10 06:00] VITALS: BP 126/58; PULSE 68; RESP 14; TEMP 36.8; O2SAT 99
[2021-09-10] MEDS: PANTOPRAZOLE SODIUM IV 40 MG VIAL IV PUSH ×2 (08:52→20:37)
[2021-09-10] MEDS: polyethylene glycoL 3350 17 GM POWD.PACK PO (08:52)
[2021-09-10 14:00] VITALS: BP 123/59; PULSE 85; RESP 14; TEMP 38.2; O2SAT 99
[2021-09-10] MEDS: POTASSIUM CHLORIDE 20 MEQ TABLET 40 MEQ PO ×2 (14:27→16:00)
--- NOTE | 2021-09-10 14:50 | PM.IMPN ---
Progress Note: A&P Assessment and Plan (1) Dysphagia: Qualifiers: Dysphagia type: unspecified Qualified Code(s): R13.10 - Dysphagia, unspecified Code(s): R13.10 - Dysphagia, unspecified Status: Acute Assessment and Plan: Erosive esophagitis of unknown etiology, fungal cx negative, possibly chemo related per onc, appreciat GI recs Continue to increase p.o. intake, hold off on PEG tube for now (2) Non-Hodgkin lymphoma: Qualifiers: Follicular lymphoma type: unspecified follicular type Lymphoma site: unspecified region Non-Hodgkin lymphoma type: follicular Qualified Code(s): C82.90 - Follicular lymphoma, unspecified, unspecified site Code(s): C85.90 - Non-Hodgkin lymphoma, unspecified, unspecified site Status: Acute Assessment and Plan: Stable Subjective Date/time seen: 09/10/21 14:50 Exam Narrative: General: No acute distress, alert and oriented per baseline HEENT: Atraumatic, normocephalic, mucous membranes moist CV: Regular rate and rhythm, S1, S2 Lungs: Clear to auscultation bilaterally, no rales or crackles noted, no wheezes, good air entry Abdomen: Soft, nontender, nondistended Extremities: Normal to inspection Skin: No rashes noted, no lesions or wounds seen Psych: Euthymic, normal affect Objective Data Vital Signs Vital Signs: Vital Signs - 24 hr 09/09/21 20:00 09/09/21 22:00 09/09/21 23:00 Temperature 101.0 F H 98.2 F Pulse Rate 81 Respiratory Rate 16 Blood Pressure 130/82 Pulse Oximetry 98 Oxygen Delivery Room Air 09/10/21 06:00 09/10/21 08:00 09/10/21 14:00 Temperature 98.2 F 100.7 F H Pulse Rate 68 85 Respiratory Rate 14 14 Blood Pressure 126/58 L 123/59 L Pulse Oximetry 99 99 Oxygen Delivery Room Air Intake/Output Intake/Output: Intake & Output 09/07/21 09/08/21 09/09/21 09/10/21 23:59 23:59 23:59 23:59 Intake Total 3530 2877 3087 1190 Output Total 300 Balance 3530 2877 2787 1190 Meds/Results Medications: Active Medications Generic Name Dose Route Start Last Admin Trade Name Freq PRN Reason Stop Dose Admin Hydrocodone Bitart/Acetaminophen 1 tab 09/06/21 00:05 Hydrocodone/Acetaminophen (*Crx) 5-325 Mg Tablet PO Q6H PRN pain Dextrose 12.5 gm 09/08/21 07:52 Dextrose 50% 25 Gm/50 Ml Syringe IV PUSH PRN PRN Hypoglycemia Protocol Docusate Sodium 100 mg 09/06/21 00:05 Docusate Sodium 100 Mg Capsule PO Q12H PRN Constipation Glucagon 1 mg 09/08/21 07:52 Glucagon For Inj 1 Mg Vial IM PRN PRN Hypoglycemia Protocol Glucose 15 gm 09/08/21 07:52 Glucose Oral Gel 15 Gm Of Glucse In 37.5 Gm Tube PO PRN PRN Hypoglycemia Protocol Sodium Chloride 1,000 mls @ 100 mls/hr 09/06/21 14:20 09/10/21 04:51 Normal Saline Iv IV CONT 100 mls/hr .Q10H MIK Administration Dextrose 1,000 mls @ 100 mls/hr 09/08/21 07:52 Dextrose 5% 1,000 Ml IVPB PRN PRN Hypoglycemia Protocol Lidocaine/Diphenhydr/Alum/Mg/Simeth 5 ml 09/06/21 01:00 09/10/21 12:16 Magnes & Alum Hyd/Simeth/Diphenhyd/Lidocaine 119 Ml Mouthwash BY MOUTH 10/06/21 00:59 5 ml Q4HR MIK Administration Pantoprazole Sodium 40 mg 09/06/21 21:00 09/10/21 08:52 Pantoprazole Sodium Iv 40 Mg Vial IV PUSH 40 mg Q12HR MIK Administration Phenyleph/Shark Oil/Min Oil/Petrol 1 applic 09/06/21 21:00 09/09/21 20:59 Phenyleph/Shark Oil/Mo/Petrol Cream 26 Gm RECTAL Not Given HS MIK Polyethylene Glycol 17 gm 09/10/21 09:00 09/10/21 08:52 Polyethylene Glycol 3350 17 Gm Powd.Pack PO 17 gm QAM MIK Administration Saliva Substitute 15 ml 09/06/21 00:05 09/06/21 21:30 Saliva Substitute Rinse 473 Ml Bottle PO 15 ml QID PRN Administration Dry Mouth Sucralfate 1,000 mg 09/07/21 16:30 09/10/21 10:50 Sucralfate Susp 100 Mg/Ml 10 Ml Udc PO 1,000 mg ACHS MIK Administration
[2021-09-10 15:47] LABS: Anion Gap 8 mmol/L (8-16); Blood Urea Nitrogen 8 mg/dL (7-17); Calcium 7.9 mg/dL (8.4-10.2); Carbon Dioxide 29 mmol/L (22-30); Chloride 98 mmol/L (98-107); Estimated CRCL calculation 54 ml/min; Estimated Glomerular Filt Rate > 60; Glucose 116 mg/dL (65-110); Potassium 2.5 mmol/L (3.4-5.0); Sodium 135 mmol/L (137-145)
--- NOTE | 2021-09-10 16:20 | WPDGIPROGNO ---
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 bx negative for infection or karyn, favor chemotherapy induced (2) Esophageal stricture: Code(s): K22.2 - Esophageal obstruction Status: Acute Assessment and Plan: this was dilated and now she is eating more I am planning to bring her back for another EGD with dilation in 4-6 weeks no need of peg just yet since she is eating more (3) Malnutrition: Code(s): E46 - Unspecified protein-calorie malnutrition Status: Acute Assessment and Plan: eating more (4) Non-Hodgkin lymphoma: Qualifiers: Follicular lymphoma type: unspecified follicular type Lymphoma site: unspecified region Non-Hodgkin lymphoma type: follicular Qualified Code(s): C82.90 - Follicular lymphoma, unspecified, unspecified site Code(s): C85.90 - Non-Hodgkin lymphoma, unspecified, unspecified site Status: Acute (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, unspecified Status: Acute (6) Hypokalemia: Code(s): E87.6 - Hypokalemia Status: Acute Assessment and Plan: repleting Subjective Date/time seen: 09/10/21 16:20 Interval history: she is eating more and able to keep food down Review of Systems Review of Systems: All systems reviewed & are unremarkable except as noted in HPI and below Exam Const: General: no acute distress and ill appearing chronically Nutritional Appearance: thin HENMT: General nose exam: Normal nares present Eyes: General: appearance normal, both eyes and all related structures Neck: Neck: no JVD Resp: Auscultation: clear to auscultation bilaterally Cardio: Rate: regular rate Rhythm: regular rhythm GI: Inspection: non-distended GI Palp: Yes Soft to palpation Auscultation: normal bowel sounds Skin: General skin exam: normal color Neuro: Speech: normal speech Extrem: General: normal to inspection Psych: Mental Status: mental status grossly normal Objective Data Vital Signs Vital Signs: Vital Signs - 24 hr 09/09/21 20:00 09/09/21 22:00 09/09/21 23:00 Temperature 101.0 F H 98.2 F Pulse Rate 81 Respiratory Rate 16 Blood Pressure 130/82 Pulse Oximetry 98 Oxygen Delivery Room Air 09/10/21 06:00 09/10/21 08:00 09/10/21 14:00 Temperature 98.2 F 100.7 F H Pulse Rate 68 85 Respiratory Rate 14 14 Blood Pressure 126/58 L 123/59 L Pulse Oximetry 99 99 Oxygen Delivery Room Air Intake/Output Intake/Output: Intake & Output 09/07/21 09/08/21 09/09/21 09/10/21 23:59 23:59 23:59 23:59 Intake Total 3530 2877 3087 2190 Output Total 300 Balance 3530 2877 2813 2190 Meds/Results Medications: Active Medications Generic Name Dose Route Start Last Admin Trade Name Freq PRN Reason Stop Dose Admin Hydrocodone Bitart/Acetaminophen 1 tab 09/06/21 00:05 Hydrocodone/Acetaminophen (*Crx) 5-325 Mg Tablet PO Q6H PRN pain Dextrose 12.5 gm 09/08/21 07:52 Dextrose 50% 25 Gm/50 Ml Syringe IV PUSH PRN PRN Hypoglycemia Protocol Docusate Sodium 100 mg 09/06/21 00:05 Docusate Sodium 100 Mg Capsule PO Q12H PRN Constipation Glucagon 1 mg 09/08/21 07:52 Glucagon For Inj 1 Mg Vial IM PRN PRN Hypoglycemia Protocol Glucose 15 gm 09/08/21 07:52 Glucose Oral Gel 15 Gm Of Glucse In 37.5 Gm Tube PO PRN PRN Hypoglycemia Protocol Sodium Chloride 1,000 mls @ 100 mls/hr 09/06/21 14:20 09/10/21 15:05 Normal Saline Iv IV CONT 100 mls/hr .Q10H MIK Administration Dextrose 1,000 mls @ 100 mls/hr 09/08/21 07:52 Dextrose 5% 1,000 Ml IVPB PRN PRN Hypo
[2021-09-10] MEDS: PHENYLEPH/SHARK OIL/MO/PETROL CREAM 26 GM 1 APPLIC RECTAL (20:38)
[2021-09-10 22:00] VITALS: BP 141/60; PULSE 101; RESP 18; TEMP 37.1; O2SAT 97
[2021-09-11] MEDS: SODIUM CHLORIDE 0.9% IV 1,000 ML 100 ML IV CONT ×2 (01:14→11:16)
[2021-09-11] MEDS: SUCRALFATE SUSP 100 MG/ML 10 ML UDC 1000 MG PO ×3 (05:53→16:25)
[2021-09-11] MEDS: SALIVA SUBSTITUTE RINSE 473 ML BOTTLE 15 ML PO (05:53)
[2021-09-11] MEDS: MAGNES & ALUM HYD/SIMETH/DIPHENHYD/LIDOCAINE 119 ML MOUTHWASH BY MOUTH ×4 (05:56→16:25)
[2021-09-11 06:00] VITALS: BP 135/65; PULSE 72; RESP 18; TEMP 36.9; O2SAT 98
[2021-09-11 06:51] LABS: Anion Gap 4 mmol/L (8-16); Blood Urea Nitrogen 7 mg/dL (7-17); Carbon Dioxide 31 mmol/L (22-30); Chloride 103 mmol/L (98-107); Estimated CRCL calculation 46 ml/min; Estimated Glomerular Filt Rate > 60; Glucose 104 mg/dL (65-110); Magnesium 1.6 mg/dL (1.6-2.3); Phosphorus 2.5 mg/dL (2.5-4.5); Potassium 3.4 mmol/L (3.4-5.0); Sodium 138 mmol/L (137-145)
[2021-09-11] MEDS: PANTOPRAZOLE SODIUM IV 40 MG VIAL IV PUSH (08:23)
[2021-09-11] MEDS: polyethylene glycoL 3350 17 GM POWD.PACK PO (08:23)
[2021-09-11 14:00] VITALS: BP 132/56; PULSE 89; RESP 18; TEMP 36.6; O2SAT 99
--- NOTE | 2021-09-11 15:48 | PM.DS ---
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 bx negative for infection or karyn, favor chemotherapy induced (2) Esophageal stricture: Code(s): K22.2 - Esophageal obstruction Status: Acute Assessment and Plan: this was dilated and now she is eating more I am planning to bring her back for another EGD with dilation in 4-6 weeks no need of peg just yet since she is eating more (3) Malnutrition: Code(s): E46 - Unspecified protein-calorie malnutrition Status: Acute Assessment and Plan: eating more (4) Non-Hodgkin lymphoma: Qualifiers: Follicular lymphoma type: unspecified follicular type Lymphoma site: unspecified region Non-Hodgkin lymphoma type: follicular Qualified Code(s): C82.90 - Follicular lymphoma, unspecified, unspecified site Code(s): C85.90 - Non-Hodgkin lymphoma, unspecified, unspecified site Status: Acute (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 She has a history of esophageal candidiasis and thrush in January 2021. Since then, she was on daily fluconazole with nystatin swish and swallow for months without much benefit. She lost a lot a weight and is only able to eat a pureed diet due to significant pain with swallowing. Sometimes she can not even keep food down. She was admitted for hydration and GI consultation. EGD was done showing severe esophagitis with peptic stricture that was dilated up to 12 mm. GI recommended Protonix twice daily and added Carafate. Biopsies were taken and patient can follow-up outpatient for the results of these. Was also recommended that she come back in 6 weeks to repeat her EGD with GI for possible redilation. It was discussed that patient might need a PEG tube due to difficulty with p.o. intake and weight loss. However, her diet was advanced as tolerated and she was able to tolerate enough p.o. that she was discharged hydrated and in good condition with close outpatient follow-up by GI and Oncology. Time Spent with Patient Time attestation: Total time spent providing and/or coordinating discharge services: DS: Data Data Completed and Pending Completed studies during hospitalization: Pending at discharge 09/07/21 12:03 Surgical [PTH] Routine Surgical [PTH] Routine Labs on day of discharge: Labs from last 24 hours 09/11/21 06:25 Sodium 138 Potassium 3.4 Chloride 103 Carbon Dioxide 31 H Anion Gap 4 L BUN 7 Creatinine 0.60 L Estim Creat Clear Calc 46 Estimated GFR > 60 Glucose 104 Calcium 8.0 L Phosphorus 2.5 Magnesium 1.6 Preliminary micro results at discharge 09/06/21 10:56 Fungal Culture - Preliminary Tracheal Aspirate Discharge Plan Discharge Attending physician on discharge: Tram Locke Consulting providers: Jerome Quick ; Henrry Gonzalez ; Brenda Tucker ; Christopher Jenkins Discharging Clinician: Tram Locke Anticipated Discharge Date/Time: 09/11/21 15:49 Patient Disposition: Home, Self-Care Activity: as tolerated Diet: other - see discharge instructions Patient Instructions: Antibiotic Form Stand Alone Forms: General Discharge Information Follow-up/Referrals: Nguyen,Eric Cuello MD [Pr
== END 2021-09-11 17:19 | disposition home or self-care (01) | DRG 381 ==
LOC: ANHED 17:22 → ANH3MEDSUR 18:02
PROVIDERS: Internal Medicine Gastroenterology; Internal Medicine Hematology & Oncology; Physician Assistant; Admitting Provider Chiropractor; Emergency Provider Emergency Medicine; PCP Family Medicine Sports Medicine; Visit Provider Student in an Organized Health Care Education/Training Program
PROC: 0DJ08ZZ Inspection of Upper Intestinal Tract, Via Natural or Artificial Opening Endoscopic (ICD-10-PCS; CPT 43235; principal; 2021-09-07 13:00)
DX: K22.10 Ulcer of esophagus without bleeding (principal); E46 Unspecified protein-calorie malnutrition; Z68.1 Body mass index [BMI] 19.9 or less, adult; C85.90 Non-Hodgkin lymphoma, unspecified, unspecified site; C82.90 Follicular lymphoma, unspecified, unspecified site; D80.9 Immunodeficiency with predominantly antibody defects, unspecified; K22.2 Esophageal obstruction; T45.1X5A Adverse effect of antineoplastic and immunosuppressive drugs, initial encounter; R13.19 Other dysphagia; E87.6 Hypokalemia; R63.4 Abnormal weight loss; D64.9 Anemia, unspecified
CPT/HCPCS: 36415; 71046; 80048; 80053; 82607; 82728; 82746; 83540; 83550; 83735; 84100; 85025; 85027; 87102; 87206; 88305; 96361; 96374; 96375; 96376; 99285; A9270; C1726; C9113; G0378; J2405; J2704; J7030; J7120

== ENCOUNTER 2021-09-14 09:20 | Outpatient (RCR) | payer MEDICARE, SELFPAY ==
[2021-09-14 10:21] LABS: Anion Gap 7 mmol/L (8-16); Blood Urea Nitrogen 17 mg/dL (7-17); Carbon Dioxide 33 mmol/L (22-30); Chloride 97 mmol/L (98-107); Estimated Glomerular Filt Rate > 60; Glucose 116 mg/dL (65-110); Potassium 3.5 mmol/L (3.4-5.0); Sodium 137 mmol/L (137-145)
== END 2021-12-13 23:59 | disposition home or self-care (01) ==
LOC: ANHLAB 09:20
PROVIDERS: PCP Family Medicine Sports Medicine; Visit Provider Student in an Organized Health Care Education/Training Program
DX: E87.6 Hypokalemia (principal)
CPT/HCPCS: 36415; 80048

== ENCOUNTER 2021-12-28 08:32 | Outpatient (CLI) | payer MEDICARE, SELFPAY ==
--- NOTE | ~2021-12-28 | CT_ITS ---
EXAMINATION: CT chest abdomen pelvis w con DATE: 12/28/2021 09:27 INDICATION: Lymphoma. TECHNIQUE: Computed tomography (CT) of the chest, abdomen, and pelvis was performed with 90 mL Omnipa que 350 intravenous contrast. Automated exposure control and iterative reconstruction technique were employed. The dose-length product was 248.06 mGy-cm. COMPARISON: CT chest, abdomen, and pelvis 08/19/2021, CT abdomen and pelvis 01/27/21 FINDINGS: CHEST CT: There is mild scarring at the lung apices. A calcified right lung nodule is consistent with old granu lomatous disease. No pleural effusion. There are nodules in the thyroid measuring up to 11 mm, likely not clinically significant. The heart size is normal. No pericardial effusion. There is a right inte rnal jugular port with tip in right atrium. There is diffuse wall thickening of the esophagus. There is a 2.1 x 1.5 cm mass to the right of the descending aorta, stable from 08/19/21 and improved from 4. 4 x 2.3 cm on 01/27/21. There is mild thoracic spondylosis. ABDOMEN/PELVIS CT: The liver, gallbladder, pancreas, adrenal glands, and kidneys are normal. Calcifications in the splee n are consistent with old granulomatous disease. There is peripheral low attenuation in the spleen wi th maximum thickness of 5 mm. There is diverticulosis of the colon without evidence of diverticulitis . The appendix is normal. There are no dilated loops of bowel. There is fat stranding and soft tissue in the retroperitoneum and root of the small bowel mesentery, likely treated lymphoma. There is a ri ght inguinal hernia containing fat. There are no pathologically enlarged lymph nodes. There is no fallon e intraperitoneal fluid. There is mild lumbar spondylosis. IMPRESSION: 1. Diffuse wall thickening in the esophagus, likely esophagitis. 2. Stable volume of soft tissue attenuation and fat stranding in the posterior mediastinum, retroperi toneum, and root of the small bowel mesentery, consistent with treated lymphoma. Given that these fin dings may not completely resolve with treatment, PET/CT may be useful to differentiate scarring from lymphoma. 3. Stable peripheral low attenuation in the spleen, consistent with lymphoma versus chronic hematoma. Reviewed, dictated and finalized at location A. NURSE SPEC IMPRESSION: 1. Diffuse wall thickening in the esophagus, likely esophagitis. 2. Stable volume of soft tissue attenuation and fat stranding in the posterior mediastinum, retroperitoneum, and root of the small bowel mesentery, consistent with treated lymphoma. Given that these findings may not completely resolve wi th treatment, PET/CT may be useful to differentiate scarring from lymphoma. 3. Stable peripheral low attenuation in the spleen, consistent with lymphoma ve rsus chronic hematoma.
== END 2021-12-28 08:33 | disposition home or self-care (01) ==
LOC: ANHIMG 08:36
PROVIDERS: PCP Family Medicine Sports Medicine; Visit Provider Internal Medicine Hematology & Oncology
DX: C82.03 Follicular lymphoma grade I, intra-abdominal lymph nodes (principal); R93.3 Abnormal findings on diagnostic imaging of other parts of digestive tract
CPT/HCPCS: 71260; 74177; Q9967

== ENCOUNTER 2021-12-30 00:54 | Day surgery (SDC) | payer MEDICARE, SELFPAY ==
[2021-12-21 09:52] VITALS: BMI 16.6
[2021-12-30 06:23] VITALS: BP 146/64; PULSE 72; RESP 18; TEMP 36.4; O2SAT 100; BMI 18.5
[2021-12-30] MEDS: LACTATED RINGERS 1,000 ML 150 ML IV CONT (06:35)
--- NOTE | 2021-12-30 07:14 | WPDANESEPPF ---
Anes - Initial Pre Proc Eval Procedure: Operation Date: 12/30/21 07:30 Proposed Procedures p Esophagogastroduodenoscopy EGD - Jerome Quick MD Date/Time: 12/30/21 07:14 Surgeon: Jerome Quick MD Pre Op Diagnosis: dysphagia Patient Data Age: 76 Gender: F Height: 1.55 m Weight: 44.5 kg Last Vital Signs Temp 36.4 C L 12/30/21 06:23 Pulse 72 12/30/21 06:23 Resp 18 12/30/21 06:23 BP 146/64 H 12/30/21 06:23 Pulse Ox 100 12/30/21 06:23 O2 Del Method Room Air 12/30/21 06:23 Allergies Allergy/AdvReac Type Severity Reaction Status Date / Time No Known Allergies Allergy Verified 12/30/21 06:22 Home Medications Medication Instructions Recorded Confirmed Type docusate sodium 100 mg capsule 100 mg PO Q12H PRN Constipation 01/30/21 12/21/21 Rx #30 caps phenylephrine 0.25 %-pramoxine 1 1 applic RECTAL HS #26 grams 01/30/21 12/21/21 Rx %-glycerin-wh.petrolatum rectal cream (Preparation H Maximum Strength) saliva substitute combo no.9 15 ml PO QID PRN Dry Mouth #473 mL 01/30/21 12/21/21 Rx (Biotene Dry Mouth Oral Rinse mouthwash) sucralfate 100 mg/mL oral 1,000 mg (10 mL) PO ACHS #1,200 mL 11/23/21 12/21/21 Rx suspension ferrous sulfate 325 mg (65 mg 325 mg PO BID 12/21/21 12/21/21 History iron) tablet pantoprazole 40 mg tablet,delayed 40 mg PO DAILY 12/21/21 12/21/21 History release (Protonix) Patient hx anesthesia problems: none Family hx anesthesia problems: none Results Review: All pre-operative results and documents have been reviewed as part of the pre-operative evaluation. [facility] Past Medical History Medical History (Updated 09/09/21 @ 12:39 by Jerome Quick MD) Erosive esophagitis Esophageal stricture External hemorrhoids Follicular lymphoma Hypertension No longer on medication with weight loss. Hypokalemia Immunoglobulin deficiency Malnutrition Non-Hodgkin lymphoma Oropharyngeal candidiasis Port-A-Cath in place Surgical History Surgical History (Updated 09/07/21 @ 17:40 by Henrry Gonzalez MD) History of colonoscopy History of lymph node biopsy Family History Family History Father Malignant neoplasm of prostate Mother Ovarian cancer Social History Social History (Updated 09/05/21 @ 23:52 by Brenda Tucker PA-C) Social History: The patient is and lives in her own home in [place]. She is originally from [facility]. She has 3 children who live in the area. 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 No alcohol or illicit substance abuse. She designates her daughter, Lorena Al, or her good friend, Earnest White, as her surrogate decision makers. Code status: Full code. Living arrangements: alone Spiritual care concerns: No Anes - Eval Final PreProcedure Day of Procedure 12/30/21 07:14 Patient weight: thin Heart: regular rate and rhythm Lungs: clear to auscultation and normal air movement Airway: Mallampati scale class II Neurological: alert and oriented Last oral intake: >/= 8 hours ASA classification: III Emergent: no Anesthetic plan: proceed Anesthesia type and monitoring: general GIVS and standard monitoring Results Review: All pre-operative results and documents have been reviewed as part of the pre-operative evaluation. Informed Consent: The patient's anesthetic plan and its attendant risks and benefits were discussed with the patient/family/POA. Questions were solicited and answers provided to the satisfaction of the patient/family/POA.
--- NOTE | 2021-12-30 07:24 | PM.HPGS ---
History of Present Illness History of Present Illness Consent: Risks, benefits, and alternatives have been discussed and questions answered. Patient agrees to proceed with procedure. Chief complaint: dysphagia Narrative: Vero Al is a 76 year old female with dysphagia with previous dilation, on ppi Review of Systems Constitutional: Constitutional: Denies headache(s) and Denies weakness Eyes: Eyes: Denies blurry vision ENT: Reports Normal hearing present, Denies headache(s) and Denies neck pain Cardiovascular: Cardiovascular: Denies chest pain and Denies dyspnea Respiratory: Respiratory: Denies dyspnea Gastrointestinal: Gastrointestinal: Reports no additional gastrointestinal complaints Genitourinary: Genitourinary: Denies dysuria Musculoskeletal: Musculoskeletal: Denies neck pain Integumentary/Breasts: Skin/Breast: Denies dry skin Neurologic: Reports Normal hearing present, Denies headache(s) and Denies weakness Psychiatric: Psychiatric: Denies anxiety Endocrine: Endocrine: Denies change in body appearance Hematologic/Lymphatic: Hematologic/Lymphatic: Denies easy bleeding Allergic/Immunologic: Allergic/Immunologic: Denies urticaria PMFSH Past Medical History Medical History (Updated 09/09/21 @ 12:39 by Jerome Quick MD) Erosive esophagitis Esophageal stricture External hemorrhoids Follicular lymphoma Hypertension No longer on medication with weight loss. Hypokalemia Immunoglobulin deficiency Malnutrition Non-Hodgkin lymphoma Oropharyngeal candidiasis Port-A-Cath in place Surgical History Surgical History (Updated 09/07/21 @ 17:40 by Henrry Gonzalez MD) History of colonoscopy History of lymph node biopsy Family History Family History Father Malignant neoplasm of prostate Mother Ovarian cancer Social History Social History (Updated 09/05/21 @ 23:52 by Brenda Tucker PA-C) Social History: The patient is and lives in her own home in [place]. She is originally from [facility]. She has 3 children who live in the area. 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 No alcohol or illicit substance abuse. She designates her daughter, Lorena Al, or her good friend, Earnest White, as her surrogate decision makers. Code status: Full code. Living arrangements: alone Spiritual care concerns: No Meds Home Medications and Allergies Home Medications Medication Instructions Recorded Confirmed Type docusate sodium 100 mg capsule 100 mg PO Q12H PRN Constipation 01/30/21 12/21/21 Rx #30 caps phenylephrine 0.25 %-pramoxine 1 1 applic RECTAL HS #26 grams 01/30/21 12/21/21 Rx %-glycerin-wh.petrolatum rectal cream (Preparation H Maximum Strength) saliva substitute combo no.9 15 ml PO QID PRN Dry Mouth #473 mL 01/30/21 12/21/21 Rx (Biotene Dry Mouth Oral Rinse mouthwash) sucralfate 100 mg/mL oral 1,000 mg (10 mL) PO ACHS #1,200 mL 11/23/21 12/21/21 Rx suspension ferrous sulfate 325 mg (65 mg 325 mg PO BID 12/21/21 12/21/21 History iron) tablet pantoprazole 40 mg tablet,delayed 40 mg PO DAILY 12/21/21 12/21/21 History release (Protonix) Allergies Allergy/AdvReac Type Severity Reaction Status Date / Time No Known Allergies Allergy Verified 12/30/21 06:22 Vital Signs Vital Signs - 24 hr 12/30/21 06:23 Temperature 97.5 F L Pulse Rate 72 Respiratory Rate 18 Blood Pressure 146/64 H Pulse Oximetry 100 Oxygen Delivery Room Air Exam Const: General: comfortable and no acute distress HENMT: Face/Nose/Sinus: Normal nares present Eyes: General: appearance normal, both eyes and all related structures Neck: Neck: no JVD Resp: Auscultation: clear to auscultation bilaterally Cardio: Rate: regular rate Rhythm: regular rhythm GI: Inspection: non-distended GI Palp: Yes Soft to palpation Skin: General skin exam: normal color Neuro: Genera
[2021-12-30 07:50] VITALS: BP 145/68; PULSE 79; RESP 24; O2SAT 99
[2021-12-30 08:00] VITALS: BP 157/83; PULSE 84; RESP 20; O2SAT 99
[2021-12-30 08:10] VITALS: BP 160/83; PULSE 74; RESP 20; O2SAT 100
== END 2021-12-30 08:30 | disposition home or self-care (01) ==
PROVIDERS: PCP Family Medicine Sports Medicine; Visit Provider Internal Medicine Gastroenterology
PROC: 0DJ08ZZ Inspection of Upper Intestinal Tract, Via Natural or Artificial Opening Endoscopic (ICD-10-PCS; CPT 43235; principal; 2021-12-30 07:30)
DX: K22.2 Esophageal obstruction (principal); K21.00 Gastro-esophageal reflux disease with esophagitis, without bleeding; K22.10 Ulcer of esophagus without bleeding; Z85.6 Personal history of leukemia; Z92.21 Personal history of antineoplastic chemotherapy
CPT/HCPCS: 43249; 88305; 88313; C1726; J2704; J7120

== ENCOUNTER 2022-01-29 00:19 | Day surgery (SDC) | payer MEDICARE, SELFPAY ==
[2022-01-19 13:47] VITALS: BMI 18.5
[2022-01-29 11:04] VITALS: BP 142/55; PULSE 66; RESP 16; TEMP 36.6; O2SAT 100; BMI 40.7
--- NOTE | 2022-01-29 11:07 | WPDANESEPPF ---
Anes - Initial Pre Proc Eval Procedure: Operation Date: 01/29/22 12:30 Proposed Procedures p Esophagogastroduodenoscopy EGD - Jerome Quick MD Date/Time: 01/29/22 11:07 Surgeon: Jerome Quick MD Pre Op Diagnosis: esophageal stricture Patient Data Age: 76 Gender: F Height: 1.55 m Weight: 97.8 kg Last Vital Signs Temp 36.6 C 01/29/22 11:04 Pulse 66 01/29/22 11:04 Resp 16 01/29/22 11:04 BP 142/55 H 01/29/22 11:04 Pulse Ox 100 01/29/22 11:04 O2 Del Method Room Air 01/29/22 11:04 Allergies Allergy/AdvReac Type Severity Reaction Status Date / Time No Known Allergies Allergy Verified 01/29/22 11:02 Home Medications Medication Instructions Recorded Confirmed Type docusate sodium 100 mg capsule 100 mg PO Q12H PRN Constipation 01/30/21 01/29/22 Rx #30 caps phenylephrine 0.25 %-pramoxine 1 1 applic RECTAL HS #26 grams 01/30/21 01/29/22 Rx %-glycerin-wh.petrolatum rectal cream (Preparation H Maximum Strength) saliva substitute combo no.9 15 ml PO QID PRN Dry Mouth #473 mL 01/30/21 01/29/22 Rx (Biotene Dry Mouth Oral Rinse mouthwash) ferrous sulfate 325 mg (65 mg 325 mg PO BID 12/21/21 01/29/22 History iron) tablet pantoprazole 40 mg tablet,delayed 40 mg PO BID #60 tabs 12/30/21 01/29/22 Rx release (Protonix) sucralfate 100 mg/mL oral 1,000 mg (10 mL) PO ACHS #1,200 mL 12/30/21 01/29/22 Rx suspension Patient hx anesthesia problems: none Family hx anesthesia problems: none Results Review: All pre-operative results and documents have been reviewed as part of the pre-operative evaluation. [facility] Past Medical History Medical History Erosive esophagitis Esophageal stricture External hemorrhoids Follicular lymphoma Hypertension No longer on medication with weight loss. Hypokalemia Immunoglobulin deficiency Malnutrition Non-Hodgkin lymphoma Oropharyngeal candidiasis Port-A-Cath in place Surgical History Surgical History History of colonoscopy History of lymph node biopsy Family History Family History Father Malignant neoplasm of prostate Mother Ovarian cancer Social History Social History Social History: The patient is and lives in her own home in [place]. She is originally from [facility]. She has 3 children who live in the area. 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 No alcohol or illicit substance abuse. She designates her daughter, Lorena Al, or her good friend, Earnest White, as her surrogate decision makers. Code status: Full code. Smoking status: Never smoker Alcohol intake: former Substance use: never Substance use type: does not use Living arrangements: alone Spiritual care concerns: No Anes - Eval Final PreProcedure Day of Procedure 01/29/22 11:07 Patient weight: normal Heart: regular rate and rhythm Lungs: clear to auscultation Airway: Mallampati scale class III Neurological: alert and oriented Last oral intake: >/= 8 hours ASA classification: III Emergent: no Anesthetic plan: proceed Anesthesia type and monitoring: general GIVS and standard monitoring Results Review: All pre-operative results and documents have been reviewed as part of the pre-operative evaluation. Informed Consent: The patient's anesthetic plan and its attendant risks and benefits were discussed with the patient/family/POA. Questions were solicited and answers provided to the satisfaction of the patient/family/POA.
[2022-01-29] MEDS: LACTATED RINGERS 1,000 ML 150 ML IV CONT (11:18)
[2022-01-29] MEDS: CENTRAL LINE FLUSH 10 ML IV PUSH (11:20)
--- NOTE | 2022-01-29 12:25 | WPDHPUPDATE1 ---
History and Physical Update Update Date/Time: 01/29/22 12:25 History and Physical has been reviewed, including an updated exam of the patient. There are NO changes in the patient's condition. Risks, benefits, and alternatives have been discussed and questions answered. Patient agrees to proceed with procedure.
[2022-01-29 12:57] VITALS: BP 168/84; PULSE 81; RESP 22; O2SAT 100
[2022-01-29 13:07] VITALS: BP 170/81; PULSE 66; RESP 25; O2SAT 100
[2022-01-29 13:17] VITALS: BP 173/81; PULSE 79; RESP 22; O2SAT 100
== END 2022-01-29 13:29 | disposition home or self-care (01) ==
PROVIDERS: PCP Family Medicine Sports Medicine; Visit Provider Internal Medicine Gastroenterology
PROC: 0DJ08ZZ Inspection of Upper Intestinal Tract, Via Natural or Artificial Opening Endoscopic (ICD-10-PCS; CPT 43235; principal; 2022-01-29 12:30)
DX: K22.2 Esophageal obstruction (principal); K22.10 Ulcer of esophagus without bleeding; K21.00 Gastro-esophageal reflux disease with esophagitis, without bleeding; K44.9 Diaphragmatic hernia without obstruction or gangrene
CPT/HCPCS: 43249; 88305; 88312; C1726; J2704; J7120

== ENCOUNTER 2022-03-15 00:02 | Day surgery (SDC) | payer MEDICARE, SELFPAY ==
[2022-03-01 11:27] VITALS: BMI 19.3
[2022-03-15] VITALS (11 sets, daily range): BP systolic 154–205; BP diastolic 63–78; PULSE 63–79; RESP 16–20; TEMP 36.6; O2SAT 99–100; BMI 19.2
--- NOTE | 2022-03-15 08:34 | WPDANESEPPF ---
Anes - Initial Pre Proc Eval Procedure: Operation Date: 03/15/22 10:00 Proposed Procedures p Esophagogastroduodenoscopy - Jerome Quick MD Date/Time: 03/15/22 08:34 Surgeon: Jerome Quick MD Pre Op Diagnosis: esophageal stricture Patient Data Age: 76 Gender: F Height: 1.52 m Weight: 44.7 kg Last Vital Signs Temp 36.6 C 03/15/22 08:17 Pulse 75 03/15/22 08:17 Resp 18 03/15/22 08:17 BP 154/63 H 03/15/22 08:17 Pulse Ox 100 03/15/22 08:17 O2 Del Method Room Air 03/15/22 08:17 Allergies Allergy/AdvReac Type Severity Reaction Status Date / Time No Known Allergies Allergy Verified 03/15/22 08:26 Home Medications Medication Instructions Recorded Confirmed Type docusate sodium 100 mg capsule 100 mg PO Q12H PRN Constipation 01/30/21 03/15/22 Rx #30 caps phenylephrine 0.25 %-pramoxine 1 1 applic RECTAL HS #26 grams 01/30/21 03/15/22 Rx %-glycerin-wh.petrolatum rectal cream (Preparation H Maximum Strength) saliva substitute combo no.9 15 ml PO QID PRN Dry Mouth #473 mL 01/30/21 03/15/22 Rx (Biotene Dry Mouth Oral Rinse mouthwash) ferrous sulfate 325 mg (65 mg 325 mg PO BID 12/21/21 03/15/22 History iron) tablet pantoprazole 40 mg tablet,delayed 40 mg PO BID #60 tabs 12/30/21 03/15/22 Rx release (Protonix) sucralfate 100 mg/mL oral 1,000 mg (10 mL) PO ACHS #1,200 mL 12/30/21 03/15/22 Rx suspension Patient hx anesthesia problems: none Family hx anesthesia problems: none Results Review: All pre-operative results and documents have been reviewed as part of the pre-operative evaluation. [facility] Past Medical History Medical History Erosive esophagitis Esophageal stricture External hemorrhoids Follicular lymphoma Hypertension No longer on medication with weight loss. Hypokalemia Immunoglobulin deficiency Malnutrition Non-Hodgkin lymphoma Oropharyngeal candidiasis Port-A-Cath in place Surgical History Surgical History History of colonoscopy History of lymph node biopsy Family History Family History Father Malignant neoplasm of prostate Mother Ovarian cancer Social History Social History Social History: The patient is and lives in her own home in [place]. She is originally from [facility]. She has 3 children who live in the area. 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 No alcohol or illicit substance abuse. She designates her daughter, Lorena Al, or her good friend, Earnest White, as her surrogate decision makers. Code status: Full code. Smoking status: Never smoker Alcohol intake: former Substance use: never Substance use type: does not use Living arrangements: with family Spiritual care concerns: No Anes - Eval Final PreProcedure Day of Procedure 03/15/22 08:34 Patient weight: thin Heart: regular rate and rhythm Lungs: clear to auscultation Airway: Mallampati scale class III Neurological: alert and oriented Last oral intake: >/= 8 hours ASA classification: III Emergent: no Anesthetic plan: proceed Anesthesia type and monitoring: general GIVS and standard monitoring Results Review: All pre-operative results and documents have been reviewed as part of the pre-operative evaluation. Informed Consent: The patient's anesthetic plan and its attendant risks and benefits were discussed with the patient/family/POA. Questions were solicited and answers provided to the satisfaction of the patient/family/POA.
[2022-03-15] MEDS: LACTATED RINGERS 1,000 ML 150 ML IV CONT (08:35)
--- NOTE | 2022-03-15 09:04 | PM.HPGS ---
History of Present Illness History of Present Illness Consent: Risks, benefits, and alternatives have been discussed and questions answered. Patient agrees to proceed with procedure. Chief complaint: esophageal stricture Narrative: Vero Al is a 76 year old female with history of non-Hodgkins lymphoma with dysphagia since Jan 2011 that required multiple dilatations last time about 2 months ago (severe esophagitis with stricture, dilated up to 13.5mm), using ppi and carafate. Still on pureed diet but thinks that slightly better. Review of Systems Constitutional: Constitutional: Denies headache(s) and Denies weakness Eyes: Eyes: Denies blurry vision ENT: Reports Normal hearing present, Denies headache(s) and Denies neck pain Cardiovascular: Cardiovascular: Denies chest pain and Denies dyspnea Respiratory: Respiratory: Denies dyspnea Gastrointestinal: Gastrointestinal: Reports no additional gastrointestinal complaints Genitourinary: Genitourinary: Denies dysuria Musculoskeletal: Musculoskeletal: Denies neck pain Integumentary/Breasts: Skin/Breast: Denies dry skin Neurologic: Reports Normal hearing present, Denies headache(s) and Denies weakness Psychiatric: Psychiatric: Denies anxiety Endocrine: Endocrine: Denies change in body appearance Hematologic/Lymphatic: Hematologic/Lymphatic: Denies easy bleeding Allergic/Immunologic: Allergic/Immunologic: Denies urticaria PMFSH Past Medical History Medical History Erosive esophagitis Esophageal stricture External hemorrhoids Follicular lymphoma Hypertension No longer on medication with weight loss. Hypokalemia Immunoglobulin deficiency Malnutrition Non-Hodgkin lymphoma Oropharyngeal candidiasis Port-A-Cath in place Surgical History Surgical History History of colonoscopy History of lymph node biopsy Family History Family History Father Malignant neoplasm of prostate Mother Ovarian cancer Social History Social History Social History: The patient is and lives in her own home in [place]. She is originally from [facility]. She has 3 children who live in the area. 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 No alcohol or illicit substance abuse. She designates her daughter, Lorena Al, or her good friend, Earnest White, as her surrogate decision makers. Code status: Full code. Smoking status: Never smoker Alcohol intake: former Substance use: never Substance use type: does not use Living arrangements: with family Spiritual care concerns: No Meds Home Medications and Allergies Home Medications Medication Instructions Recorded Confirmed Type docusate sodium 100 mg capsule 100 mg PO Q12H PRN Constipation 01/30/21 03/15/22 Rx #30 caps phenylephrine 0.25 %-pramoxine 1 1 applic RECTAL HS #26 grams 01/30/21 03/15/22 Rx %-glycerin-wh.petrolatum rectal cream (Preparation H Maximum Strength) saliva substitute combo no.9 15 ml PO QID PRN Dry Mouth #473 mL 01/30/21 03/15/22 Rx (Biotene Dry Mouth Oral Rinse mouthwash) ferrous sulfate 325 mg (65 mg 325 mg PO BID 12/21/21 03/15/22 History iron) tablet pantoprazole 40 mg tablet,delayed 40 mg PO BID #60 tabs 12/30/21 03/15/22 Rx release (Protonix) sucralfate 100 mg/mL oral 1,000 mg (10 mL) PO ACHS #1,200 mL 12/30/21 03/15/22 Rx suspension Allergies Allergy/AdvReac Type Severity Reaction Status Date / Time No Known Allergies Allergy Verified 03/15/22 08:26 Vital Signs Vital Signs - 24 hr 03/15/22 08:17 Temperature 97.9 F Pulse Rate 75 Respiratory Rate 18 Blood Pressure 154/63 H Pulse Oximetry 100 Oxygen Delivery Room Air Exam Const: General: comfortable and no acute distress HENMT: Face/Nose/Sinus: Normal na
[2022-03-15] MEDS: CENTRAL LINE FLUSH 10 ML IV PUSH (09:52)
[2022-03-15] MEDS: HEPARIN SODIUM LOCK FLUSH 500 UNITS/5 ML SYRINGE IV PUSH (09:52)
--- NOTE | 2022-03-15 10:25 | SUR.PHASEII ---
Pt continues to have bloody sputum after dilitation. Dr. Jose notified states tissue bled easily with insertion of scope. Continues to monitor.
--- NOTE | 2022-03-15 11:06 | SUR.PHASEII ---
No further bloody sputum. Ok to discharge per Dr. Jose. Pt to follow up with Dr. Gonzalez regarding hypertension as recommended per anesthesia.
== END 2022-03-15 11:09 | disposition home or self-care (01) ==
PROVIDERS: PCP Family Medicine Sports Medicine; Visit Provider Internal Medicine Gastroenterology
PROC: 0DJ08ZZ Inspection of Upper Intestinal Tract, Via Natural or Artificial Opening Endoscopic (ICD-10-PCS; CPT 43235; principal; 2022-03-15 10:00)
DX: K21.00 Gastro-esophageal reflux disease with esophagitis, without bleeding (principal); K22.2 Esophageal obstruction; K44.9 Diaphragmatic hernia without obstruction or gangrene; C82.90 Follicular lymphoma, unspecified, unspecified site
CPT/HCPCS: 43249; A9270; C1726; J2704; J7120

== ENCOUNTER 2022-04-06 08:08 | Outpatient (CLI) | payer MEDICARE, SELFPAY ==
--- NOTE | ~2022-04-06 | CT_ITS ---
Clinical Indication: Lymphoma CT Scan of the Chest with Contrast: Technique: Contiguous sections were acquired throughout the chest after intravenous administration of 75 cc of Omnipaque 350. Dose reduction technique was used on this scan by utilizing automated exposu re control and iterative reconstruction technique. The dose-length product (DLP) was 125.10 mGy-cm. COMPARISON: 12/28/2021 Findings: Stable small hypodense left thyroid lobe nodule. There is a enlarged lymph node adjacent to the right side of the descending thoracic aorta, measuring 1.8 x 1.2 cm (axial image 89), similar to prior exam. No other lymphadenopathy identified in the [address]. No large central pulmonary embolus. There is no evidence of aortic dissection or aneurysm. Questi onable mild extensive esophageal wall thickening. There is no evidence of pleural or pericardial effusion. Stable calcified right upper lobe nodule noted (axial image 48). Images through the upper abdomen reveal no abnormalities. Impression: Stable mildly enlarged lymph node adjacent to the descending thoracic aorta, as detailed above. This could reflect residual of treated disease. Suspected mild esophageal wall thickening, correlate for esophagitis. Stable calcified right upper lobe granuloma. Reviewed, dictated and finalized at [facility]. P [employer] Impression: Stable mildly enlarged lymph node adjacent to the descending thoracic aorta, as detailed above. This could reflect residual of treated disease. Suspected mild esophageal wall thickening, correlate for esophagitis. Stable calcified right upper lobe granuloma.
== END 2022-04-06 08:09 | disposition home or self-care (01) ==
PROVIDERS: PCP Family Medicine Sports Medicine; Visit Provider Internal Medicine Hematology & Oncology
DX: C82.93 Follicular lymphoma, unspecified, intra-abdominal lymph nodes (principal); R91.8 Other nonspecific abnormal finding of lung field
CPT/HCPCS: 71260; Q9967

== ENCOUNTER 2022-05-10 00:03 | Day surgery (SDC) | payer MEDICARE, SELFPAY ==
[2022-04-27 14:58] VITALS: BMI 19.1
[2022-05-10 07:13] VITALS: BP 143/67; PULSE 78; RESP 18; TEMP 36.4; O2SAT 100
[2022-05-10] MEDS: LACTATED RINGERS 1,000 ML 150 ML IV CONT (07:23)
[2022-05-10] MEDS: ONDANSETRON INJ 4 MG/2 ML VIAL IV PUSH (08:00)
--- NOTE | 2022-05-10 08:20 | PM.HPGS ---
History of Present Illness History of Present Illness Consent: Risks, benefits, and alternatives have been discussed and questions answered. Patient agrees to proceed with procedure. Chief complaint: esophageal stricture Narrative: Vero Al is a 76 year old female?with history of non-Hodgkins lymphoma with dysphagia since Jan 2011 that required multiple dilatations last time about 2 months ago (severe esophagitis with stricture, dilated up to 15 mm), using ppi and carafate. Review of Systems Constitutional: Constitutional: Denies headache(s) and Denies weakness Eyes: Eyes: Denies blurry vision ENT: Reports Normal hearing present, Denies headache(s) and Denies neck pain Cardiovascular: Cardiovascular: Denies chest pain and Denies dyspnea Respiratory: Respiratory: Denies dyspnea Gastrointestinal: Gastrointestinal: Reports no additional gastrointestinal complaints Genitourinary: Genitourinary: Denies dysuria Musculoskeletal: Musculoskeletal: Denies neck pain Integumentary/Breasts: Skin/Breast: Denies dry skin Neurologic: Reports Normal hearing present, Denies headache(s) and Denies weakness Psychiatric: Psychiatric: Denies anxiety Endocrine: Endocrine: Denies change in body appearance Hematologic/Lymphatic: Hematologic/Lymphatic: Denies easy bleeding Allergic/Immunologic: Allergic/Immunologic: Denies urticaria PMFSH Past Medical History Medical History Erosive esophagitis Esophageal stricture External hemorrhoids Follicular lymphoma Hypertension No longer on medication with weight loss. Hypokalemia Immunoglobulin deficiency Malnutrition Non-Hodgkin lymphoma Oropharyngeal candidiasis Port-A-Cath in place Surgical History Surgical History History of colonoscopy History of lymph node biopsy Family History Family History Father Malignant neoplasm of prostate Mother Ovarian cancer Social History Social History Social History: The patient is and lives in her own home in [place]. She is originally from [facility]. She has 3 children who live in the area. 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 No alcohol or illicit substance abuse. She designates her daughter, Lorena Al, or her good friend, Earnest White, as her surrogate decision makers. Code status: Full code. Smoking status: Never smoker Alcohol intake: never Substance use: never Substance use type: does not use Living arrangements: alone Spiritual care concerns: No Meds Home Medications and Allergies Home Medications Medication Instructions Recorded Confirmed Type docusate sodium 100 mg capsule 100 mg PO Q12H PRN Constipation 01/30/21 04/27/22 Rx #30 caps phenylephrine 0.25 %-pramoxine 1 1 applic RECTAL HS #26 grams 01/30/21 04/27/22 Rx %-glycerin-wh.petrolatum rectal cream (Preparation H Maximum Strength) saliva substitute combo no.9 15 ml PO QID PRN Dry Mouth #473 mL 01/30/21 04/27/22 Rx (Biotene Dry Mouth Oral Rinse mouthwash) ferrous sulfate 325 mg (65 mg 325 mg PO BID 12/21/21 04/27/22 History iron) tablet pantoprazole 40 mg tablet,delayed 40 mg PO BID #60 tabs 12/30/21 04/27/22 Rx release (Protonix) sucralfate 100 mg/mL oral 1,000 mg (10 mL) PO ACHS #1,200 mL 12/30/21 04/27/22 Rx suspension Allergies Allergy/AdvReac Type Severity Reaction Status Date / Time No Known Allergies Allergy Verified 05/10/22 07:12 Vital Signs Vital Signs - 24 hr 05/10/22 07:13 Temperature 97.5 F L Pulse Rate 78 Respiratory Rate 18 Blood Pressure 143/67 H Pulse Oximetry 100 Oxygen Delivery Room Air Exam Const: General: comfortable and no acute distress HENMT: Face/Nose/Sinus: Normal nares present Eyes: General: appearance normal, both eyes
--- NOTE | 2022-05-10 08:26 | WPDANESEPPF ---
Anes - Initial Pre Proc Eval Procedure: Operation Date: 05/10/22 08:30 Proposed Procedures p Esophagogastroduodenoscopy - Jerome Quick MD Date/Time: 05/10/22 08:26 Surgeon: Jerome Quick MD Pre Op Diagnosis: esophageal stricture Patient Data Age: 76 Gender: F Height: 1.55 m Weight: 45.1 kg Last Vital Signs Temp 97.5 F L 05/10/22 07:13 Pulse 78 05/10/22 07:13 Resp 18 05/10/22 07:13 BP 143/67 H 05/10/22 07:13 Pulse Ox 100 05/10/22 07:13 O2 Del Method Room Air 05/10/22 07:13 Allergies Allergy/AdvReac Type Severity Reaction Status Date / Time No Known Allergies Allergy Verified 05/10/22 07:12 Home Medications Medication Instructions Recorded Confirmed Type docusate sodium 100 mg capsule 100 mg PO Q12H PRN Constipation 01/30/21 04/27/22 Rx #30 caps phenylephrine 0.25 %-pramoxine 1 1 applic RECTAL HS #26 grams 01/30/21 04/27/22 Rx %-glycerin-wh.petrolatum rectal cream (Preparation H Maximum Strength) saliva substitute combo no.9 15 ml PO QID PRN Dry Mouth #473 mL 01/30/21 04/27/22 Rx (Biotene Dry Mouth Oral Rinse mouthwash) ferrous sulfate 325 mg (65 mg 325 mg PO BID 12/21/21 04/27/22 History iron) tablet pantoprazole 40 mg tablet,delayed 40 mg PO BID #60 tabs 12/30/21 04/27/22 Rx release (Protonix) sucralfate 100 mg/mL oral 1,000 mg (10 mL) PO ACHS #1,200 mL 12/30/21 04/27/22 Rx suspension Patient hx anesthesia problems: post op nausea/vomiting Family hx anesthesia problems: none Results Review: All pre-operative results and documents have been reviewed as part of the pre-operative evaluation. [facility] Past Medical History Medical History Erosive esophagitis Esophageal stricture External hemorrhoids Follicular lymphoma Hypertension No longer on medication with weight loss. Hypokalemia Immunoglobulin deficiency Malnutrition Non-Hodgkin lymphoma Oropharyngeal candidiasis Port-A-Cath in place Surgical History Surgical History History of colonoscopy History of lymph node biopsy Family History Family History Father Malignant neoplasm of prostate Mother Ovarian cancer Social History Social History Social History: The patient is and lives in her own home in [place]. She is originally from [facility]. She has 3 children who live in the area. 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 No alcohol or illicit substance abuse. She designates her daughter, Lorena Al, or her good friend, Earnest White, as her surrogate decision makers. Code status: Full code. Smoking status: Never smoker Alcohol intake: never Substance use: never Substance use type: does not use Living arrangements: alone Spiritual care concerns: No Anes - Eval Final PreProcedure Day of Procedure 05/10/22 08:26 Patient weight: normal Heart: regular rate and rhythm Lungs: clear to auscultation Airway: Mallampati scale class III Neurological: alert and oriented Last oral intake: >/= 8 hours ASA classification: III Emergent: no Anesthetic plan: proceed Anesthesia type and monitoring: general GIVS and standard monitoring Results Review: All pre-operative results and documents have been reviewed as part of the pre-operative evaluation. Informed Consent: The patient's anesthetic plan and its attendant risks and benefits were discussed with the patient/family/POA. Questions were solicited and answers provided to the satisfaction of the patient/family/POA.
[2022-05-10 08:44] VITALS: BP 151/73; PULSE 77; RESP 28; O2SAT 97
[2022-05-10 08:54] VITALS: BP 142/81; PULSE 79; RESP 25; O2SAT 98
[2022-05-10 09:04] VITALS: BP 151/81; PULSE 78; RESP 22; O2SAT 98
== END 2022-05-10 09:25 | disposition home or self-care (01) ==
PROVIDERS: PCP Family Medicine Sports Medicine; Visit Provider Internal Medicine Gastroenterology
PROC: 0DJ08ZZ Inspection of Upper Intestinal Tract, Via Natural or Artificial Opening Endoscopic (ICD-10-PCS; CPT 43235; principal; 2022-05-10 08:30)
DX: K21.00 Gastro-esophageal reflux disease with esophagitis, without bleeding (principal); K22.2 Esophageal obstruction; K44.9 Diaphragmatic hernia without obstruction or gangrene; Z85.72 Personal history of non-Hodgkin lymphomas; E46 Unspecified protein-calorie malnutrition; Z68.1 Body mass index [BMI] 19.9 or less, adult; Z87.19 Personal history of other diseases of the digestive system
CPT/HCPCS: 43249; C1726; J2405; J2704; J7120

== ENCOUNTER 2022-09-28 02:28 | Day surgery (SDC) | payer MEDICARE, SELFPAY ==
[2022-09-14 13:38] VITALS: BMI 18.9
--- NOTE | 2022-09-27 14:29 | WPDANESEPPF ---
Anes - Initial Pre Proc Eval Procedure: Operation Date: 09/28/22 08:30 Proposed Procedures p Esophagogastroduodenoscopy - Jerome Quick MD Date/Time: 09/27/22 14:29 Surgeon: Jerome Quick MD Pre Op Diagnosis: ulcer of esophagus,esophageal obstruction Patient Data Age: 77 Gender: F Height: 1.55 m Weight: 45.5 kg Allergies Allergy/AdvReac Type Severity Reaction Status Date / Time No Known Allergies Allergy Verified 09/28/22 07:08 Home Medications Medication Instructions Recorded Confirmed Type docusate sodium 100 mg capsule 100 mg PO Q12H PRN Constipation 01/30/21 09/14/22 Rx #30 caps phenylephrine 0.25 %-pramoxine 1 1 applic RECTAL HS #26 grams 01/30/21 09/14/22 Rx %-glycerin-wh.petrolatum rectal cream (Preparation H Maximum Strength) saliva substitute combo no.9 15 ml PO QID PRN Dry Mouth #473 mL 01/30/21 09/14/22 Rx (Biotene Dry Mouth Oral Rinse mouthwash) ferrous sulfate 325 mg (65 mg 325 mg PO BID 12/21/21 09/14/22 History iron) tablet pantoprazole 40 mg tablet,delayed 40 mg PO BID #60 tabs 12/30/21 09/14/22 Rx release (Protonix) sucralfate 100 mg/mL oral 1,000 mg (10 mL) PO ACHS #1,200 mL 09/02/22 09/14/22 Rx suspension Patient hx anesthesia problems: none Family hx anesthesia problems: none Results Review: All pre-operative results and documents have been reviewed as part of the pre-operative evaluation. [facility] Past Medical History Medical History Erosive esophagitis Esophageal stricture External hemorrhoids Follicular lymphoma Hypertension No longer on medication with weight loss. Hypokalemia Immunoglobulin deficiency Malnutrition Non-Hodgkin lymphoma Oropharyngeal candidiasis Port-A-Cath in place Surgical History Surgical History History of colonoscopy History of lymph node biopsy Family History Family History Father Malignant neoplasm of prostate Mother Ovarian cancer Social History Social History Social History: The patient is and lives in her own home in [place]. She is originally from [facility]. She has 3 children who live in the area. 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 No alcohol or illicit substance abuse. She designates her daughter, Lorena Al, or her good friend, Earnest White, as her surrogate decision makers. Code status: Full code. Smoking status: Never smoker Alcohol intake: never Substance use: never Substance use type: does not use Living arrangements: alone Spiritual care concerns: No Anes - Eval Final PreProcedure Day of Procedure 09/27/22 14:29 Patient weight: normal Heart: regular rate and rhythm Lungs: clear to auscultation and normal air movement Airway: Mallampati scale class III Neurological: alert and oriented Last oral intake: >/= 8 hours ASA classification: III Emergent: no Anesthetic plan: proceed Anesthesia type and monitoring: general GIVS and standard monitoring Results Review: All pre-operative results and documents have been reviewed as part of the pre-operative evaluation. Informed Consent: The patient's anesthetic plan and its attendant risks and benefits were discussed with the patient/family/POA. Questions were solicited and answers provided to the satisfaction of the patient/family/POA.
[2022-09-28 07:09] VITALS: BP 127/57; PULSE 70; RESP 18; TEMP 36; O2SAT 100
[2022-09-28] MEDS: LACTATED RINGERS 1,000 ML 150 ML IV CONT (07:19)
--- NOTE | 2022-09-28 07:54 | PM.HPGS ---
History of Present Illness History of Present Illness Consent: Risks, benefits, and alternatives have been discussed and questions answered. Patient agrees to proceed with procedure. Chief complaint: ulcer of esophagus,esophageal obstruction Narrative: Vero Al is a 77 year old female with history of non-Hodgkins lymphoma with dysphagia since Jan 2011 that required multiple dilatations last time about 4 months ago (severe esophagitis with stricture, dilated up to 15 mm), using ppi and carafate. Review of Systems Constitutional: Constitutional: Denies headache(s) and Denies weakness Eyes: Eyes: Denies blurry vision ENT: Reports Normal hearing present, Denies headache(s) and Denies neck pain Cardiovascular: Cardiovascular: Denies chest pain and Denies dyspnea Respiratory: Respiratory: Denies dyspnea Gastrointestinal: Gastrointestinal: Reports no additional gastrointestinal complaints Genitourinary: Genitourinary: Denies dysuria Musculoskeletal: Musculoskeletal: Denies neck pain Integumentary/Breasts: Skin/Breast: Denies dry skin Neurologic: Reports Normal hearing present, Denies headache(s) and Denies weakness Psychiatric: Psychiatric: Denies anxiety Endocrine: Endocrine: Denies change in body appearance Hematologic/Lymphatic: Hematologic/Lymphatic: Denies easy bleeding Allergic/Immunologic: Allergic/Immunologic: Denies urticaria PMFSH Past Medical History Medical History Erosive esophagitis Esophageal stricture External hemorrhoids Follicular lymphoma Hypertension No longer on medication with weight loss. Hypokalemia Immunoglobulin deficiency Malnutrition Non-Hodgkin lymphoma Oropharyngeal candidiasis Port-A-Cath in place Surgical History Surgical History History of colonoscopy History of lymph node biopsy Family History Family History Father Malignant neoplasm of prostate Mother Ovarian cancer Social History Social History Social History: The patient is and lives in her own home in [place]. She is originally from [facility]. She has 3 children who live in the area. 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 No alcohol or illicit substance abuse. She designates her daughter, Lorena Al, or her good friend, Earnest White, as her surrogate decision makers. Code status: Full code. Smoking status: Never smoker Alcohol intake: never Substance use: never Substance use type: does not use Living arrangements: alone Spiritual care concerns: No Meds Home Medications and Allergies Home Medications Medication Instructions Recorded Confirmed Type docusate sodium 100 mg capsule 100 mg PO Q12H PRN Constipation 01/30/21 09/14/22 Rx #30 caps phenylephrine 0.25 %-pramoxine 1 1 applic RECTAL HS #26 grams 01/30/21 09/14/22 Rx %-glycerin-wh.petrolatum rectal cream (Preparation H Maximum Strength) saliva substitute combo no.9 15 ml PO QID PRN Dry Mouth #473 mL 01/30/21 09/14/22 Rx (Biotene Dry Mouth Oral Rinse mouthwash) ferrous sulfate 325 mg (65 mg 325 mg PO BID 12/21/21 09/14/22 History iron) tablet pantoprazole 40 mg tablet,delayed 40 mg PO BID #60 tabs 12/30/21 09/14/22 Rx release (Protonix) sucralfate 100 mg/mL oral 1,000 mg (10 mL) PO ACHS #1,200 mL 09/02/22 09/14/22 Rx suspension Allergies Allergy/AdvReac Type Severity Reaction Status Date / Time No Known Allergies Allergy Verified 09/28/22 07:08 Vital Signs Vital Signs - 24 hr 09/28/22 07:09 Temperature 96.8 F L Pulse Rate 70 Respiratory Rate 18 Blood Pressure 127/57 L Pulse Oximetry 100 Oxygen Delivery Room Air Exam Const: General: comfortable and no acute distress HENMT: Face/Nose/Sinus: Normal nares present Eyes: General: appeara
[2022-09-28 08:13] VITALS: BP 113/57; PULSE 71; RESP 21; O2SAT 96
[2022-09-28 08:23] VITALS: BP 123/62; PULSE 69; RESP 20; O2SAT 97
--- NOTE | 2022-09-28 08:28 | SUR.PHASEII ---
pt vomiting postoperatively. pt provided bag, suction, and cool wash cloth. pt refuses medication. VS as charted.
[2022-09-28 08:33] VITALS: BP 155/79; PULSE 68; RESP 22; O2SAT 100
== END 2022-09-28 08:45 | disposition home or self-care (01) ==
PROVIDERS: PCP Family Medicine Sports Medicine; Visit Provider Internal Medicine Gastroenterology
PROC: 0DJ08ZZ Inspection of Upper Intestinal Tract, Via Natural or Artificial Opening Endoscopic (ICD-10-PCS; CPT 43235; principal; 2022-09-28 08:30)
DX: K22.2 Esophageal obstruction (principal); K22.10 Ulcer of esophagus without bleeding; C85.90 Non-Hodgkin lymphoma, unspecified, unspecified site; K21.00 Gastro-esophageal reflux disease with esophagitis, without bleeding; K44.9 Diaphragmatic hernia without obstruction or gangrene
CPT/HCPCS: 43239; 43249; 88305; C1726; J2704; J7120

== ENCOUNTER 2022-11-10 08:52 | Outpatient (CLI) | payer MEDICARE, SELFPAY ==
--- NOTE | ~2022-11-10 | CT_ITS ---
Clinical Indication: Follicular lymphoma CT Scan of the Chest, Abdomen, and Pelvis with Contrast: Technique: Contiguous sections were acquired throughout the chest, abdomen, and pelvis after intraven ous administration of 100 cc of Omnipaque 350. Dose reduction technique was used on this scan by michael john automated exposure control and iterative reconstruction technique. The dose-length product (DL P) was 268.16 mGy-cm. COMPARISON: 04/06/2022, 12/28/2021 Findings: There is no evidence of any significant mediastinal, hilar or axillary lymphadenopathy. The mediastin al soft tissues and vascular structures appear normal. There is no evidence of pleural or pericardial effusion. The lungs are clear. No pulmonary nodules or infiltrates are noted. The liver, pancreas, gallbladder, adrenals and kidneys are within normal limits. Stable small rind of hypoattenuation about the superior margin of the spleen. There are atherosclerotic calcifications of the aorta. No lymphadenopathy. No bowel obstruction or bowel wall thickening. There are stable mild infiltrative changes about the c entral mesenteric vasculature and root of the mesentery. Urinary bladder is unremarkable. No adnexal mass evident. No ascites. Impression: Overall, no change from prior exam. Stable infiltrative changes about the central mesenteric vasculature and root of the mesentery, which could reflect sequelae of treated disease/post therapy change. Stable small rind of hypodensity at the superior margin of the spleen. This could reflect treated dis ease, lymphoma, or possibly small chronic hematoma. Reviewed, dictated and finalized at [facility]. Impression: Overall, no change from prior exam. Stable infiltrative changes about the central mesenteric vasculature and root o f the mesentery, which could reflect sequelae of treated disease/post therapy c raze. Stable small rind of hypodensity at the superior margin of the spleen. This cou ld reflect treated disease, lymphoma, or possibly small chronic hematoma.
[2022-11-10 09:28] LABS: Estimated Glomerular Filt Rate > 60
== END 2022-11-10 08:53 | disposition home or self-care (01) ==
PROVIDERS: PCP Family Medicine Sports Medicine; Visit Provider Internal Medicine Hematology & Oncology
DX: C82.93 Follicular lymphoma, unspecified, intra-abdominal lymph nodes (principal)
CPT/HCPCS: 71260; 74177; Q9967

== ENCOUNTER 2022-11-16 08:22 | Outpatient (RCR) | payer MEDICARE, SELFPAY ==
--- NOTE | 2021-02-12 16:57 | PHAR ---
Biosimilar substitution per protocol: RITUXAN will be subbed to TRUXIMA(RITUXIMAB-abbs) ([employer]). Patient will be notified of substitution by nurse during education or at their first treatment.
[2021-02-18 08:31] LABS: Basophils Absolute Auto 0.1 K/mm3 (0.0-0.1); Basophils Percent Auto 0.6 % (0.2-1.2); Eosinophils Absolute Auto 0.1 K/mm3 (0-0.3); Eosinophils Percent Auto 1.6 % (0-4.4); Hematocrit 38.1 % (37.0-47.0); Immature Granulocyte Absolute 0.04 K/mm3 (0.00-0.031); Immature Granulocyte Percent A 0.5 % (0-0.5); Lymphocytes Absolute Auto 2.36 K/mm3 (0.9-3.2); Lymphocytes Percent Auto 26.6 % (18.3-44.2); Mean Corpuscular HGB Conc 31.5 g/dl (32-36); Mean Corpuscular Hemoglobin 29.6 pg (26-34); Mean Corpuscular Volume 94.1 fl (80-100); Mean Platelet Volume 9.2 fl (7.4-10.4); Monocytes Absolute Auto 1.2 K/mm3 (0.1-0.6); Monocytes Percent Auto 13.1 % (2.6-8.5); Neutrophils Absolute Auto 5.1 K/mm3 (1.3-6.7); Neutrophils Percent Auto 57.6 % (45.5-73.1); Platelet Count Result 547 k/mm3 (150-375); Red Blood Count 4.05 M/mm3 (4.2-5.4); Red Cell Distribution Width 12.5 % (11.5-14.5); White Blood Count 8.9 K/mm3 (4.5-10.0)
[2021-02-18 08:38] LABS: Blood Urea Nitrogen 16 mg/dL (8-26); Carbon Dioxide 27 mmol/L (22-30); Chloride 103 mmol/L (98-109); Estimated Glomerular Filt Rate > 60; Glucose 115 mg/dL (70-105); Potassium 4.3 mmol/L (3.5-4.9); Sodium 138 mmol/L (138-146)
[2021-02-18 10:18] LABS: Alanine Aminotransferase 47 U/L (4-35); Albumin Level 3.5 g/dL (3.5-5.1); Alkaline Phosphatase 82 U/L (38-126); Anion Gap 10 mmol/L (8-16); Aspartate Amino Transferase 55 U/L (14-36); Bilirubin,Total 0.5 mg/dL (0.2-1.3); Blood Urea Nitrogen 16 mg/dL (7-17); Calcium 9.3 mg/dL (8.4-10.2); Carbon Dioxide 26 mmol/L (22-30); Chloride 99 mmol/L (98-107); Estimated Glomerular Filt Rate > 60; Glucose 118 mg/dL (65-110); Potassium 4.4 mmol/L (3.4-5.0); Sodium 135 mmol/L (137-145)
[2021-02-18 10:41] LABS: Hepatitis B Surface Antigen Negative (Negative)
[2021-02-18 10:59] LABS: Hepatitis B Surface Anti Res Negative
[2021-03-05 08:30] LABS: Basophils Absolute Auto 0.1 K/mm3 (0.0-0.1); Basophils Percent Auto 0.5 % (0.2-1.2); Eosinophils Absolute Auto 0.1 K/mm3 (0-0.3); Hematocrit 36.9 % (37.0-47.0); Hemoglobin 11.5 g/dL (12.0-15.0); Immature Granulocyte Absolute 0.03 K/mm3 (0.00-0.031); Immature Granulocyte Percent A 0.3 % (0-0.5); Lymphocytes Absolute Auto 3.22 K/mm3 (0.9-3.2); Lymphocytes Percent Auto 31.5 % (18.3-44.2); Mean Corpuscular HGB Conc 31.2 g/dl (32-36); Mean Corpuscular Hemoglobin 29.4 pg (26-34); Mean Corpuscular Volume 94.4 fl (80-100); Mean Platelet Volume 8.9 fl (7.4-10.4); Monocytes Absolute Auto 1.2 K/mm3 (0.1-0.6); Monocytes Percent Auto 11.5 % (2.6-8.5); Neutrophils Absolute Auto 5.6 K/mm3 (1.3-6.7); Neutrophils Percent Auto 55.2 % (45.5-73.1); Platelet Count Result 563 k/mm3 (150-375); Red Blood Count 3.91 M/mm3 (4.2-5.4); Red Cell Distribution Width 13.2 % (11.5-14.5); White Blood Count 10.2 K/mm3 (4.5-10.0)
[2021-03-05 08:40] LABS: Blood Urea Nitrogen 21 mg/dL (8-26); Carbon Dioxide 29 mmol/L (22-30); Chloride 100 mmol/L (98-109); Estimated Glomerular Filt Rate > 60; Glucose 114 mg/dL (70-105); Potassium 4.4 mmol/L (3.5-4.9); Sodium 137 mmol/L (138-146)
[2021-03-05 08:54] VITALS: BP 98/56; PULSE 99; RESP 16; TEMP 36.4; O2SAT 100
[2021-03-05] MEDS: ACETAMINOPHEN 325 MG TABLET 650 MG PO (09:22)
[2021-03-05] MEDS: diphenhydrAMINE HCl INJ 50 MG/ML VIAL 25 MG IV PUSH (09:25)
[2021-03-05] MEDS: PALONOSETRON HCL 0.25 MG/5 ML VIAL IV PUSH (09:25)
[2021-03-05] MEDS: FAMOTIDINE 20 MG/2 ML VIAL IV PUSH (09:25)
[2021-03-05 09:30] LABS: Alanine Aminotransferase 17 U/L (4-35); Albumin Level 3.5 g/dL (3.5-5.1); Alkaline Phosphatase 71 U/L (38-126); Anion Gap 10 mmol/L (8-16); Aspartate Amino Transferase 30 U/L (14-36); Bilirubin,Total 0.4 mg/dL (0.2-1.3); Blood Urea Nitrogen 22 mg/dL (7-17); Calcium 9.4 mg/dL (8.4-10.2); Carbon Dioxide 28 mmol/L (22-30); Chloride 99 mmol/L (98-107); Estimated Glomerular Filt Rate > 60; Glucose 118 mg/dL (65-110); Potassium 4.4 mmol/L (3.4-5.0); Sodium 137 mmol/L (137-145)
[2021-03-05 11:50] VITALS: BP 177/88; PULSE 102; RESP 24; O2SAT 92
[2021-03-05] MEDS: HYDROCORTISONE SODIUM SUCCINATE 100 MG/2 ML VIAL IV PUSH (11:53)
--- NOTE | 2021-03-05 12:00 | PC.NURSE ---
At 1146 patient began complaining of being cold and shivering; Rituximab was stopped and rigors continued with vital signs remaining stable. At 1153 100 mg of Solu-cortef was administered. At 1155 Dr. Gonzalez was notified of patient's reaction. At 1215 medication was restarted at a reduced rate.
[2021-03-05 16:02] VITALS: BP 104/40
[2021-03-06 13:19] VITALS: BP 108/48; PULSE 79; RESP 18; TEMP 36.8; O2SAT 100
[2021-03-06 14:08] VITALS: BP 103/48
[2021-04-02 08:37] LABS: Basophils Percent Auto 0.7 % (0.2-1.2); Eosinophils Absolute Auto 0.1 K/mm3 (0-0.3); Eosinophils Percent Auto 1.4 % (0-4.4); Hematocrit 30.3 % (37.0-47.0); Hemoglobin 9.4 g/dL (12.0-15.0); Immature Granulocyte Absolute 0.02 K/mm3 (0.00-0.031); Immature Granulocyte Percent A 0.4 % (0-0.5); Lymphocytes Absolute Auto 0.67 K/mm3 (0.9-3.2); Lymphocytes Percent Auto 11.7 % (18.3-44.2); Mean Corpuscular Hemoglobin 28.8 pg (26-34); Mean Corpuscular Volume 92.9 fl (80-100); Mean Platelet Volume 8.5 fl (7.4-10.4); Monocytes Percent Auto 17.5 % (2.6-8.5); Neutrophils Absolute Auto 3.9 K/mm3 (1.3-6.7); Neutrophils Percent Auto 68.3 % (45.5-73.1); Platelet Count Result 379 k/mm3 (150-375); Red Blood Count 3.26 M/mm3 (4.2-5.4); Red Cell Distribution Width 13.6 % (11.5-14.5); White Blood Count 5.7 K/mm3 (4.5-10.0)
[2021-04-02 08:46] LABS: Blood Urea Nitrogen 16 mg/dL (8-26); Carbon Dioxide 27 mmol/L (22-30); Chloride 100 mmol/L (98-109); Estimated Glomerular Filt Rate > 60; Glucose 137 mg/dL (70-105); Potassium 3.8 mmol/L (3.5-4.9); Sodium 137 mmol/L (138-146)
[2021-04-02 08:56] VITALS: BP 114/50; PULSE 98; RESP 16; TEMP 36.2; O2SAT 100
[2021-04-02] MEDS: FAMOTIDINE 20 MG/2 ML VIAL IV PUSH (09:12)
[2021-04-02] MEDS: diphenhydrAMINE HCl INJ 50 MG/ML VIAL 25 MG IV PUSH (09:12)
[2021-04-02] MEDS: PALONOSETRON HCL 0.25 MG/5 ML VIAL IV PUSH (09:12)
[2021-04-02] MEDS: ACETAMINOPHEN 325 MG TABLET 650 MG PO (09:12)
[2021-04-02 10:04] LABS: Alanine Aminotransferase 18 U/L (4-35); Albumin Level 3.2 g/dL (3.5-5.1); Alkaline Phosphatase 64 U/L (38-126); Anion Gap 4 mmol/L (8-16); Aspartate Amino Transferase 31 U/L (14-36); Bilirubin,Total 0.4 mg/dL (0.2-1.3); Blood Urea Nitrogen 18 mg/dL (7-17); Calcium 8.5 mg/dL (8.4-10.2); Carbon Dioxide 29 mmol/L (22-30); Chloride 102 mmol/L (98-107); Estimated Glomerular Filt Rate > 60; Glucose 137 mg/dL (65-110); Potassium 3.9 mmol/L (3.4-5.0); Sodium 135 mmol/L (137-145)
[2021-04-02 12:18] LABS: Immunoglobulin A 191 mg/dL (70-400); Immunoglobulin G 579 mg/dL (700-1600); Immunoglobulin M 72 mg/dL (40-230)
[2021-04-02] MEDS: HEPARIN SODIUM LOCK FLUSH 500 UNITS/5 ML SYRINGE IV PUSH (12:38)
[2021-04-03 10:30] VITALS: BP 121/54; PULSE 87; RESP 18; TEMP 37; O2SAT 100
[2021-04-03] MEDS: HEPARIN SODIUM LOCK FLUSH 500 UNITS/5 ML SYRINGE IV PUSH (11:37)
[2021-04-30 08:38] LABS: Basophils Percent Auto 0.9 % (0.2-1.2); Eosinophils Absolute Auto 0.1 K/mm3 (0-0.3); Eosinophils Percent Auto 1.9 % (0-4.4); Hemoglobin 9.1 g/dL (12.0-15.0); Immature Granulocyte Absolute 0.02 K/mm3 (0.00-0.031); Immature Granulocyte Percent A 0.5 % (0-0.5); Lymphocytes Absolute Auto 0.29 K/mm3 (0.9-3.2); Lymphocytes Percent Auto 6.8 % (18.3-44.2); Mean Corpuscular HGB Conc 30.3 g/dl (32-36); Mean Corpuscular Hemoglobin 28.3 pg (26-34); Mean Corpuscular Volume 93.2 fl (80-100); Mean Platelet Volume 8.6 fl (7.4-10.4); Monocytes Absolute Auto 0.9 K/mm3 (0.1-0.6); Monocytes Percent Auto 21.4 % (2.6-8.5); Neutrophils Absolute Auto 2.9 K/mm3 (1.3-6.7); Neutrophils Percent Auto 68.5 % (45.5-73.1); Platelet Count Result 417 k/mm3 (150-375); Red Blood Count 3.22 M/mm3 (4.2-5.4); Red Cell Distribution Width 14.2 % (11.5-14.5); White Blood Count 4.3 K/mm3 (4.5-10.0)
[2021-04-30 08:52] LABS: Blood Urea Nitrogen 17 mg/dL (8-26); Carbon Dioxide 28 mmol/L (22-30); Chloride 101 mmol/L (98-109); Estimated Glomerular Filt Rate > 60; Glucose 117 mg/dL (70-105); Potassium 3.7 mmol/L (3.5-4.9); Sodium 139 mmol/L (138-146)
[2021-04-30 09:16] VITALS: BP 107/57; PULSE 80; TEMP 36.9; O2SAT 100
[2021-04-30] MEDS: ACETAMINOPHEN 325 MG TABLET 650 MG PO (09:31)
[2021-04-30] MEDS: FAMOTIDINE 20 MG/2 ML VIAL IV PUSH (09:31)
[2021-04-30] MEDS: diphenhydrAMINE HCl INJ 50 MG/ML VIAL 25 MG IV PUSH (09:32)
[2021-04-30] MEDS: PALONOSETRON HCL 0.25 MG/5 ML VIAL IV PUSH (09:32)
[2021-04-30 10:12] LABS: Alanine Aminotransferase 15 U/L (4-35); Albumin Level 3.2 g/dL (3.5-5.1); Alkaline Phosphatase 60 U/L (38-126); Anion Gap 4 mmol/L (8-16); Aspartate Amino Transferase 26 U/L (14-36); Bilirubin,Total 0.3 mg/dL (0.2-1.3); Blood Urea Nitrogen 18 mg/dL (7-17); Calcium 8.3 mg/dL (8.4-10.2); Carbon Dioxide 27 mmol/L (22-30); Chloride 105 mmol/L (98-107); Estimated Glomerular Filt Rate > 60; Glucose 113 mg/dL (65-110); Potassium 3.6 mmol/L (3.4-5.0); Sodium 136 mmol/L (137-145)
[2021-04-30 10:26] LABS: Immunoglobulin A 168 mg/dL (70-400); Immunoglobulin G 516 mg/dL (700-1600); Immunoglobulin M 61 mg/dL (40-230)
[2021-04-30] MEDS: HEPARIN SODIUM LOCK FLUSH 500 UNITS/5 ML SYRINGE IV PUSH (13:11)
[2021-04-30 13:14] VITALS: BP 111/57
[2021-05-01 09:46] VITALS: BP 135/56; PULSE 77; TEMP 36.6; O2SAT 100
[2021-05-01 11:19] VITALS: BP 114/50
[2021-05-01] MEDS: HEPARIN SODIUM LOCK FLUSH 500 UNITS/5 ML SYRINGE IV PUSH (11:21)
[2021-05-14 09:18] LABS: Hematocrit 29.7 % (37.0-47.0); Hemoglobin 9.1 g/dL (12.0-15.0); Mean Corpuscular HGB Conc 30.6 g/dl (32-36); Mean Corpuscular Hemoglobin 28.5 pg (26-34); Mean Corpuscular Volume 93.1 fl (80-100); Mean Platelet Volume 8.5 fl (7.4-10.4); Platelet Count Result 396 k/mm3 (150-375); Red Blood Count 3.19 M/mm3 (4.2-5.4); Red Cell Distribution Width 14.2 % (11.5-14.5); White Blood Count 3.5 K/mm3 (4.5-10.0)
[2021-05-14 09:31] LABS: Band Neutrophils Percent 11 % (0-6); Eosinophils Absolute Manual 0.03 K/mm3 (0.02-0.5); Eosinophils Percent Manual 1 % (0-4); Lymphocytes Absolute Manual 0.07 K/mm3 (1.1-4.5); Metamyelocytes Percent 1 %; Monocytes Absolute Manual 0.87 K/mm3 (0.1-0.90); Monocytes Percent Manual 25 % (3-9); Neutrophils Absolute Manual 2.48 K/mm3 (1.7-7.2); Neutrophils Percent Manual 60 % (46-73); Total Cells Counted 100
[2021-05-14 09:32] LABS: Hypochromasia 1+ (NORMAL)
[2021-05-14 11:00] LABS: Anion Gap 7 mmol/L (8-16); Blood Urea Nitrogen 14 mg/dL (7-17); Calcium 8.5 mg/dL (8.4-10.2); Carbon Dioxide 29 mmol/L (22-30); Chloride 97 mmol/L (98-107); Estimated Glomerular Filt Rate > 60; Glucose 168 mg/dL (65-110); Potassium 3.5 mmol/L (3.4-5.0); Sodium 133 mmol/L (137-145)
[2021-05-28 08:33] LABS: Basophils Absolute Auto 0.1 K/mm3 (0.0-0.1); Basophils Percent Auto 0.6 % (0.2-1.2); Eosinophils Absolute Auto 0.1 K/mm3 (0-0.3); Eosinophils Percent Auto 1.3 % (0-4.4); Hematocrit 31.6 % (37.0-47.0); Hemoglobin 9.2 g/dL (12.0-15.0); Immature Granulocyte Absolute 0.05 K/mm3 (0.00-0.031); Immature Granulocyte Percent A 0.6 % (0-0.5); Lymphocytes Percent Auto 12.1 % (18.3-44.2); Mean Corpuscular HGB Conc 29.1 g/dl (32-36); Mean Corpuscular Hemoglobin 28.2 pg (26-34); Mean Corpuscular Volume 96.9 fl (80-100); Mean Platelet Volume 8.9 fl (7.4-10.4); Monocytes Absolute Auto 1.4 K/mm3 (0.1-0.6); Monocytes Percent Auto 17.2 % (2.6-8.5); Neutrophils Absolute Auto 5.6 K/mm3 (1.3-6.7); Neutrophils Percent Auto 68.2 % (45.5-73.1); Platelet Count Result 386 k/mm3 (150-375); Red Blood Count 3.26 M/mm3 (4.2-5.4); Red Cell Distribution Width 14.4 % (11.5-14.5); White Blood Count 8.3 K/mm3 (4.5-10.0)
[2021-05-28 08:35] LABS: Hypochromasia 1+ (NORMAL)
[2021-05-28 08:37] LABS: Blood Urea Nitrogen 21 mg/dL (8-26); Carbon Dioxide 26 mmol/L (22-30); Chloride 97 mmol/L (98-109); Estimated Glomerular Filt Rate > 60; Glucose 138 mg/dL (70-105); Ionized Calcium (POC) 1.19 mmol/L (1.11-1.31); Potassium 3.9 mmol/L (3.5-4.9); Sodium 134 mmol/L (138-146)
[2021-05-28 09:22] VITALS: BP 106/62; PULSE 91; RESP 16; TEMP 36.9; O2SAT 99
[2021-05-28 09:27] LABS: Alanine Aminotransferase 17 U/L (4-35); Albumin Level 3.4 g/dL (3.5-5.1); Alkaline Phosphatase 75 U/L (38-126); Anion Gap 8 mmol/L (8-16); Aspartate Amino Transferase 34 U/L (14-36); Bilirubin,Total 0.1 mg/dL (0.2-1.3); Blood Urea Nitrogen 24 mg/dL (7-17); Calcium 8.6 mg/dL (8.4-10.2); Carbon Dioxide 27 mmol/L (22-30); Chloride 98 mmol/L (98-107); Estimated Glomerular Filt Rate > 60; Glucose 136 mg/dL (65-110); Potassium 3.8 mmol/L (3.4-5.0); Sodium 133 mmol/L (137-145)
[2021-05-28] MEDS: ACETAMINOPHEN 325 MG TABLET 650 MG PO (09:40)
[2021-05-28] MEDS: FAMOTIDINE 20 MG/2 ML VIAL IV PUSH (09:41)
[2021-05-28] MEDS: PALONOSETRON HCL 0.25 MG/5 ML VIAL IV PUSH (09:42)
[2021-05-28] MEDS: diphenhydrAMINE HCl INJ 50 MG/ML VIAL 25 MG IV PUSH (09:44)
[2021-05-28 12:59] VITALS: BP 107/50
[2021-05-28] MEDS: HEPARIN SODIUM LOCK FLUSH 500 UNITS/5 ML SYRINGE IV PUSH (13:04)
[2021-05-29 09:01] VITALS: BP 104/52; PULSE 78; RESP 16; TEMP 36.8; O2SAT 100
[2021-05-29 10:21] VITALS: BP 107/49; PULSE 66; RESP 16; O2SAT 100
[2021-05-29] MEDS: HEPARIN SODIUM LOCK FLUSH 500 UNITS/5 ML SYRINGE IV PUSH (10:24)
[2021-06-25 08:44] LABS: Basophils Percent Auto 0.3 % (0.2-1.2); Eosinophils Absolute Auto 0.1 K/mm3 (0-0.3); Eosinophils Percent Auto 1.9 % (0-4.4); Hematocrit 29.1 % (37.0-47.0); Hemoglobin 9.1 g/dL (12.0-15.0); Immature Granulocyte Absolute 0.03 K/mm3 (0.00-0.031); Immature Granulocyte Percent A 0.5 % (0-0.5); Lymphocytes Absolute Auto 0.39 K/mm3 (0.9-3.2); Lymphocytes Percent Auto 6.2 % (18.3-44.2); Mean Corpuscular HGB Conc 31.3 g/dl (32-36); Mean Corpuscular Hemoglobin 28.6 pg (26-34); Mean Corpuscular Volume 91.5 fl (80-100); Mean Platelet Volume 8.7 fl (7.4-10.4); Monocytes Absolute Auto 1.1 K/mm3 (0.1-0.6); Monocytes Percent Auto 17.8 % (2.6-8.5); Neutrophils Absolute Auto 4.6 K/mm3 (1.3-6.7); Neutrophils Percent Auto 73.3 % (45.5-73.1); Platelet Count Result 353 k/mm3 (150-375); Red Blood Count 3.18 M/mm3 (4.2-5.4); Red Cell Distribution Width 15.4 % (11.5-14.5); White Blood Count 6.3 K/mm3 (4.5-10.0)
[2021-06-25 08:51] LABS: Blood Urea Nitrogen 20 mg/dL (8-26); Carbon Dioxide 29 mmol/L (22-30); Chloride 101 mmol/L (98-109); Estimated Glomerular Filt Rate > 60; Glucose 106 mg/dL (70-105); Ionized Calcium (POC) 1.17 mmol/L (1.11-1.31); Potassium 3.8 mmol/L (3.5-4.9); Sodium 137 mmol/L (138-146)
[2021-06-25 09:12] VITALS: BP 105/56; PULSE 78; RESP 16; TEMP 36.3; O2SAT 97
[2021-06-25 09:16] LABS: Alanine Aminotransferase 11 U/L (6-35); Albumin Level 3.4 g/dL (3.5-5.1); Alkaline Phosphatase 64 U/L (38-126); Anion Gap 4 mmol/L (8-16); Aspartate Amino Transferase 28 U/L (14-36); Bilirubin,Total 0.1 mg/dL (0.2-1.3); Blood Urea Nitrogen 21 mg/dL (7-17); Calcium 8.5 mg/dL (8.4-10.2); Carbon Dioxide 30 mmol/L (22-30); Chloride 101 mmol/L (98-107); Estimated Glomerular Filt Rate > 60; Glucose 107 mg/dL (65-110); Potassium 3.9 mmol/L (3.4-5.0); Sodium 135 mmol/L (137-145)
[2021-06-25] MEDS: ACETAMINOPHEN 325 MG TABLET 650 MG PO (09:28)
[2021-06-25] MEDS: FAMOTIDINE 20 MG/2 ML VIAL IV PUSH (09:28)
[2021-06-25] MEDS: PALONOSETRON HCL 0.25 MG/5 ML VIAL IV PUSH (09:29)
[2021-06-25] MEDS: diphenhydrAMINE HCl INJ 50 MG/ML VIAL 25 MG IV PUSH (09:29)
[2021-06-25 10:42] LABS: Folic Acid 8.5 ng/mL (2.76->20); Vitamin B12 > 1000.0 pg/mL (239-931)
[2021-06-25 10:59] LABS: Iron 21 ug/dL (37-170)
[2021-06-25 11:18] LABS: Percent Iron Saturation 7 % (20-50)
[2021-06-25 12:39] VITALS: BP 105/50
[2021-06-25] MEDS: HEPARIN SODIUM LOCK FLUSH 500 UNITS/5 ML SYRINGE IV PUSH (12:39)
[2021-06-26 09:05] VITALS: BP 96/50; PULSE 83; RESP 20; TEMP 36.1; O2SAT 100
[2021-06-26 10:08] VITALS: BP 99/49
[2021-06-26] MEDS: HEPARIN SODIUM LOCK FLUSH 500 UNITS/5 ML SYRINGE IV PUSH (10:14)
[2021-07-23 08:45] LABS: Basophils Percent Auto 0.4 % (0.2-1.2); Eosinophils Absolute Auto 0.1 K/mm3 (0-0.3); Eosinophils Percent Auto 1.9 % (0-4.4); Hemoglobin 9.2 g/dL (12.0-15.0); Immature Granulocyte Absolute 0.02 K/mm3 (0.00-0.031); Immature Granulocyte Percent A 0.4 % (0-0.5); Lymphocytes Percent Auto 8.3 % (18.3-44.2); Mean Corpuscular HGB Conc 31.7 g/dl (32-36); Mean Corpuscular Hemoglobin 29.4 pg (26-34); Mean Corpuscular Volume 92.7 fl (80-100); Monocytes Absolute Auto 0.9 K/mm3 (0.1-0.6); Monocytes Percent Auto 18.6 % (2.6-8.5); Neutrophils Absolute Auto 3.4 K/mm3 (1.3-6.7); Neutrophils Percent Auto 70.4 % (45.5-73.1); Platelet Count Result 125 k/mm3 (150-375); Red Blood Count 3.13 M/mm3 (4.2-5.4); Red Cell Distribution Width 14.8 % (11.5-14.5); White Blood Count 4.8 K/mm3 (4.5-10.0)
[2021-07-23 08:49] LABS: Blood Urea Nitrogen 18 mg/dL (8-26); Carbon Dioxide 27 mmol/L (22-30); Chloride 101 mmol/L (98-109); Estimated Glomerular Filt Rate > 60; Glucose 101 mg/dL (70-105); Ionized Calcium (POC) 1.21 mmol/L (1.11-1.31); Potassium 4.1 mmol/L (3.5-4.9); Sodium 138 mmol/L (138-146)
[2021-07-23 09:57] VITALS: BP 103/47; PULSE 82; TEMP 36.2; O2SAT 100
[2021-07-23] MEDS: ACETAMINOPHEN 325 MG TABLET 650 MG PO (10:19)
[2021-07-23] MEDS: diphenhydrAMINE HCl INJ 50 MG/ML VIAL 25 MG IV PUSH (10:20)
[2021-07-23] MEDS: FAMOTIDINE 20 MG/2 ML VIAL IV PUSH (10:20)
[2021-07-23] MEDS: PALONOSETRON HCL 0.25 MG/5 ML VIAL IV PUSH (10:20)
[2021-07-23 13:11] LABS: Alanine Aminotransferase 13 U/L (6-35); Albumin Level 3.6 g/dL (3.5-5.1); Alkaline Phosphatase 69 U/L (38-126); Anion Gap 4 mmol/L (8-16); Aspartate Amino Transferase 24 U/L (14-36); Bilirubin,Total < 0.1 mg/dL (0.2-1.3); Blood Urea Nitrogen 21 mg/dL (7-17); Calcium 8.8 mg/dL (8.4-10.2); Carbon Dioxide 28 mmol/L (22-30); Chloride 105 mmol/L (98-107); Estimated Glomerular Filt Rate > 60; Glucose 100 mg/dL (65-110); Potassium 4.2 mmol/L (3.4-5.0); Sodium 137 mmol/L (137-145)
[2021-07-23] MEDS: HEPARIN SODIUM LOCK FLUSH 500 UNITS/5 ML SYRINGE IV PUSH (13:47)
[2021-07-24 09:01] VITALS: BP 97/49; PULSE 72; RESP 18; TEMP 36; O2SAT 100
[2021-07-24 09:57] VITALS: BP 106/52
[2021-07-24] MEDS: HEPARIN SODIUM LOCK FLUSH 500 UNITS/5 ML SYRINGE IV PUSH (10:01)
[2021-08-20 08:33] LABS: Basophils Percent Auto 0.5 % (0.2-1.2); Eosinophils Absolute Auto 0.1 K/mm3 (0-0.3); Hematocrit 28.7 % (37.0-47.0); Hemoglobin 8.8 g/dL (12.0-15.0); Lymphocytes Absolute Auto 0.41 K/mm3 (0.9-3.2); Lymphocytes Percent Auto 10.2 % (18.3-44.2); Mean Corpuscular HGB Conc 30.7 g/dl (32-36); Mean Corpuscular Hemoglobin 29.2 pg (26-34); Mean Corpuscular Volume 95.3 fl (80-100); Mean Platelet Volume 8.3 fl (7.4-10.4); Monocytes Absolute Auto 0.9 K/mm3 (0.1-0.6); Monocytes Percent Auto 22.8 % (2.6-8.5); Neutrophils Absolute Auto 2.4 K/mm3 (1.3-6.7); Neutrophils Percent Auto 59.5 % (45.5-73.1); Platelet Count Result 286 k/mm3 (150-375); Red Blood Count 3.01 M/mm3 (4.2-5.4); Red Cell Distribution Width 14.7 % (11.5-14.5)
[2021-08-20 15:37] LABS: Alanine Aminotransferase 9 U/L (6-35); Albumin Level 3.6 g/dL (3.5-5.1); Alkaline Phosphatase 61 U/L (38-126); Anion Gap 5 mmol/L (8-16); Aspartate Amino Transferase 27 U/L (14-36); Bilirubin,Total 0.1 mg/dL (0.2-1.3); Blood Urea Nitrogen 19 mg/dL (7-17); Calcium 8.8 mg/dL (8.4-10.2); Carbon Dioxide 30 mmol/L (22-30); Chloride 99 mmol/L (98-107); Estimated Glomerular Filt Rate > 60; Glucose 101 mg/dL (65-110); Sodium 134 mmol/L (137-145)
[2021-08-26 13:35] LABS: Immunoglobulin A 185 mg/dL (70-400); Immunoglobulin G 737 mg/dL (700-1600); Immunoglobulin M 73 mg/dL (40-230)
--- NOTE | 2021-08-31 13:18 | PHAR ---
Biosimilar substitution per protocol: RITUXAN will be subbed to TRUXIMA (RITUXIMAB-abbs) ([employer]T). Patient will be notified of substitution by nurse during education or at their first treatment.
[2021-09-22] MEDS: ALTEPLASE 2 MG VIAL (CATHFLO) IV PUSH (08:46)
--- NOTE | 2021-09-22 08:55 | PC.NURSE ---
Addendum entered by Blanca Zaman RN 09/22/21 10:50: Patient with excellent brisk blood return after 2 hours of cathflo. Original Note: Cathflo was used on the patient, patient with no blood return from port after multiple position changes.
[2021-09-22 09:00] LABS: Hematocrit 30.1 % (37.0-47.0); Hemoglobin 9.2 g/dL (12.0-15.0); Mean Corpuscular HGB Conc 30.6 g/dl (32-36); Mean Corpuscular Hemoglobin 28.8 pg (26-34); Mean Corpuscular Volume 94.1 fl (80-100); Platelet Count Result 423 k/mm3 (150-375); Red Cell Distribution Width 13.1 % (11.5-14.5); White Blood Count 2.7 K/mm3 (4.5-10.0)
[2021-09-22 09:07] VITALS: BP 131/62; PULSE 87; RESP 16; TEMP 36.6; O2SAT 94
[2021-09-22 09:08] LABS: Blood Urea Nitrogen 24 mg/dL (8-26); Carbon Dioxide 27 mmol/L (22-30); Chloride 103 mmol/L (98-109); Estimated Glomerular Filt Rate > 60; Glucose 92 mg/dL (70-105); Ionized Calcium (POC) 1.14 mmol/L (1.11-1.31); Potassium 3.9 mmol/L (3.5-4.9); Sodium 138 mmol/L (138-146)
--- NOTE | 2021-09-22 09:09 | PDONCCONNOTE ---
Impression follicular lymphoma with diffused lymphadenopathy and extensive abdominal disease . s/p US guided biopsy of the right inguinal lymph node and pathology confirmed as follicular lymphoma . s/p 6 cycles of chemotherapy with rituan and bendamustine. CT scan in August 19 showed responsiveness to the treatment. she is planned to start the maintenace rituxan today however due to recent hosptial stay with dysphagia and work up found to have esophagitis with esophageal stricture , I am going to hold off the treatment. will wait for recovery from the acute issue with weight loss and dysphagia . she is planned to have another EGD in 6 to 8 weeks and possible dilation of esophagus again. recommend to follow up with Dr Gonzalez for next step of management. she can choose to be under observation after 6 cycles of BR treatment. the maintenance rituxan treatment has no overall survival benefit but there is PFS benefit. chronic anemia : she is on iron supplement. leukopenia : most likely from myelosuppression effect from bendamustine. 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 i don't think she needs the IVIG at this point. Plan will hold off the rituxan treatment . follow up with Dr Gonzalez in one month [facility] - Date/Time Seen 09/22/21 09:09 - History of Present Illness She came for follow up for symptoms before the maintenace rituxan infusion she presented to Er about 2 weeks ago with dysphagia and nothing went down. she can't even swallow the water. she lost about 35 since Feb 2021. Her Dysphagia was started in Nov 2020 and treated her as oral thrush. she reports of fatigue and weakness. EGD was done during the hospital stay and found to have severe esophagitis and stricture of the esophagus and s/p dilatation of the esophagus. she was then advanced to clear liquid diet and finally purred food and she is able to tolerate the soft food. she is also taking ensure 3 cans per day. she has gained weight so far. she is taking oral iron supplement and crushed and take it with apple sauce. she denies any bleeding . she reports of black stool. she is on PPI. she is no longer on antifungal medication. - Medical History Medical History (Last Updated 09/09/21 @ 12:39 by Jerome Qucik MD) Erosive esophagitis Esophageal stricture External hemorrhoids Follicular lymphoma Hypertension No longer on medication with weight loss. Hypokalemia Immunoglobulin deficiency Malnutrition Non-Hodgkin lymphoma Oropharyngeal candidiasis Port-A-Cath in place - Surgical History Surgical History (Last Reviewed 09/05/21 @ 23:50 by Brenda Tucker PA-C) History of colonoscopy History of lymph node biopsy - Family History Family History (Last Reviewed 09/05/21 @ 23:50 by Brenda Tucker PA-C) Father Malignant neoplasm of prostate Mother Ovarian cancer - Social History Social History (Last Updated 09/05/21 @ 23:52 by Brenda Tucker PA-C) Others: Spiritual care concerns: No - Medications Active Medications Generic Name Dose Route Start Last Admin Trade Name Freq PRN Reason Stop Dose Admin Acetaminophen 650 mg 09/22/21 00:00 Acetaminophen 325 Mg Tablet PO 09/22/21 23:59 PREMED MIK Albuterol 2.5 mg 09/22/21 00:00 Albuterol Sulfate Neb 2.5 Mg/3 Ml Inh INHALATION 09/22/21 23:59 ONCE PRN Drug Reaction Alteplase, Recombinant 2 mg 09/22/21 08:36 09/22/21 08:46 Alteplase 2 Mg Vial (Cathflo) IV PUSH 09/22/21 23:59 2 mg ONCE PRN Administration Line Occlusion Diphenhydramine HCl 25 mg 09/22/21 00:00 Diphenhydramine Hcl Inj 50 Mg/Ml Vial IV PUSH 09/22/21 23:59 PREMED MIK Diphenhydramine HCl 50 mg 09/22/21 00:00 Diphenhydramine Hcl Inj 50 Mg/Ml Vial IV PUSH 09/22/21 23:59 ONCE PRN Drug Reaction Epinephrine HCl 0.3 mg 09/22/21 00:00 Epinephrine Hcl Inj 1 Mg/Ml Ampul IM 09/22/21 23:59 ONCE
[2021-09-22 09:10] LABS: Band Neutrophils Percent 12 % (0-6); Lymphocytes Absolute Manual 0.43 K/mm3 (1.1-4.5); Metamyelocytes Percent 8 %; Monocytes Absolute Manual 0.43 K/mm3 (0.1-0.90); Monocytes Percent Manual 16 % (3-9); Neutrophils Absolute Manual 1.62 K/mm3 (1.7-7.2); Neutrophils Percent Manual 48 % (46-73); Platelet Estimate Increased (Adequate); Total Cells Counted 50
[2021-09-22] MEDS: HEPARIN SODIUM LOCK FLUSH 500 UNITS/5 ML SYRINGE (10:57)
[2021-09-22 11:37] LABS: Alanine Aminotransferase 17 U/L (6-35); Albumin Level 3.9 g/dL (3.5-5.1); Alkaline Phosphatase 67 U/L (38-126); Anion Gap 9 mmol/L (8-16); Aspartate Amino Transferase 26 U/L (14-36); Bilirubin,Total 0.2 mg/dL (0.2-1.3); Blood Urea Nitrogen 26 mg/dL (7-17); Calcium 9.2 mg/dL (8.4-10.2); Carbon Dioxide 28 mmol/L (22-30); Chloride 99 mmol/L (98-107); Estimated Glomerular Filt Rate > 60; Glucose 90 mg/dL (65-110); Potassium 3.9 mmol/L (3.4-5.0); Sodium 136 mmol/L (137-145)
[2021-10-27 14:30] LABS: Hematocrit 31.5 % (37.0-47.0); Hemoglobin 9.7 g/dL (12.0-15.0); Mean Corpuscular HGB Conc 30.8 g/dl (32-36); Mean Corpuscular Hemoglobin 27.6 pg (26-34); Mean Corpuscular Volume 89.5 fl (80-100); Mean Platelet Volume 8.8 fl (7.4-10.4); Platelet Count Result 328 k/mm3 (150-375); Red Blood Count 3.52 M/mm3 (4.2-5.4); White Blood Count 2.4 K/mm3 (4.5-10.0)
[2021-10-27 14:33] LABS: Blood Urea Nitrogen 18 mg/dL (8-26); Carbon Dioxide 30 mmol/L (22-30); Chloride 98 mmol/L (98-109); Estimated Glomerular Filt Rate > 60; Glucose 95 mg/dL (70-105); Potassium 4.4 mmol/L (3.5-4.9); Sodium 137 mmol/L (138-146)
[2021-10-27 14:38] LABS: Band Neutrophils Percent 6 % (0-6); Lymphocytes Absolute Manual 0.43 K/mm3 (1.1-4.5); Metamyelocytes Percent 2 %; Monocytes Absolute Manual 0.91 K/mm3 (0.1-0.90); Monocytes Percent Manual 38 % (3-9); Neutrophils Percent Manual 36 % (46-73); Platelet Estimate Adequate (Adequate); Schistocytes None Seen (NORMAL); Total Cells Counted 50
[2021-10-27 16:29] LABS: Iron 20 ug/dL (37-170)
[2021-10-27 16:32] LABS: Alanine Aminotransferase 11 U/L (6-35); Albumin Level 3.9 g/dL (3.5-5.1); Alkaline Phosphatase 71 U/L (38-126); Anion Gap 10 mmol/L (8-16); Aspartate Amino Transferase 26 U/L (14-36); Bilirubin,Total 0.4 mg/dL (0.2-1.3); Blood Urea Nitrogen 19 mg/dL (7-17); Carbon Dioxide 28 mmol/L (22-30); Chloride 98 mmol/L (98-107); Estimated Glomerular Filt Rate > 60; Glucose 91 mg/dL (65-110); Lactate Dehydrogenase 263 U/L (120-246); Potassium 4.4 mmol/L (3.4-5.0); Sodium 136 mmol/L (137-145)
[2021-10-27 16:40] LABS: Immunoglobulin A 184 mg/dL (70-400); Immunoglobulin G 653 mg/dL (700-1600); Immunoglobulin M 84 mg/dL (40-230)
[2021-10-27 16:43] LABS: Percent Iron Saturation 6 % (20-50)
[2021-11-02 09:51] LABS: Hematocrit 30.9 % (37.0-47.0); Hemoglobin 9.6 g/dL (12.0-15.0); Mean Corpuscular HGB Conc 31.1 g/dl (32-36); Mean Corpuscular Hemoglobin 27.2 pg (26-34); Mean Corpuscular Volume 87.5 fl (80-100); Mean Platelet Volume 8.9 fl (7.4-10.4); Platelet Count Result 301 k/mm3 (150-375); Red Blood Count 3.53 M/mm3 (4.2-5.4); Red Cell Distribution Width 13.1 % (11.5-14.5); White Blood Count 2.3 K/mm3 (4.5-10.0)
[2021-11-02 09:55] LABS: Blood Urea Nitrogen 16 mg/dL (8-26); Carbon Dioxide 25 mmol/L (22-30); Chloride 102 mmol/L (98-109); Estimated Glomerular Filt Rate > 60; Glucose 104 mg/dL (70-105); Sodium 139 mmol/L (138-146)
[2021-11-02 10:05] LABS: Band Neutrophils Percent 5 % (0-6); Eosinophils Absolute Manual 0.02 K/mm3 (0.02-0.5); Eosinophils Percent Manual 1 % (0-4); Lymphocytes Absolute Manual 0.55 K/mm3 (1.1-4.5); Metamyelocytes Percent 2 %; Monocytes Absolute Manual 0.82 K/mm3 (0.1-0.90); Monocytes Percent Manual 36 % (3-9); Neutrophils Absolute Manual 0.85 K/mm3 (1.7-7.2); Neutrophils Percent Manual 32 % (46-73); Platelet Estimate Adequate (Adequate); Schistocytes None Seen (NORMAL); Total Cells Counted 100
[2021-11-02] MEDS: HEPARIN SODIUM LOCK FLUSH 500 UNITS/5 ML SYRINGE IV PUSH (10:37)
[2021-11-02 10:55] LABS: Alanine Aminotransferase 10 U/L (6-35); Albumin Level 3.6 g/dL (3.5-5.1); Alkaline Phosphatase 71 U/L (38-126); Anion Gap 7 mmol/L (8-16); Aspartate Amino Transferase 22 U/L (14-36); Bilirubin,Total 0.3 mg/dL (0.2-1.3); Blood Urea Nitrogen 17 mg/dL (7-17); Calcium 8.8 mg/dL (8.4-10.2); Carbon Dioxide 26 mmol/L (22-30); Chloride 103 mmol/L (98-107); Estimated Glomerular Filt Rate > 60; Glucose 102 mg/dL (65-110); Sodium 136 mmol/L (137-145)
[2021-12-22 09:46] LABS: Basophils Percent Auto 0.9 % (0.2-1.2); Eosinophils Absolute Auto 0.2 K/mm3 (0-0.3); Eosinophils Percent Auto 3.6 % (0-4.4); Hematocrit 33.5 % (37.0-47.0); Hemoglobin 10.5 g/dL (12.0-15.0); Immature Granulocyte Absolute 0.01 K/mm3 (0.00-0.031); Immature Granulocyte Percent A 0.2 % (0-0.5); Lymphocytes Absolute Auto 0.55 K/mm3 (0.9-3.2); Lymphocytes Percent Auto 12.4 % (18.3-44.2); Mean Corpuscular HGB Conc 31.3 g/dl (32-36); Mean Corpuscular Hemoglobin 26.9 pg (26-34); Mean Corpuscular Volume 85.7 fl (80-100); Mean Platelet Volume 8.9 fl (7.4-10.4); Monocytes Absolute Auto 0.7 K/mm3 (0.1-0.6); Monocytes Percent Auto 15.6 % (2.6-8.5); Neutrophils Percent Auto 67.3 % (45.5-73.1); Platelet Count Result 314 k/mm3 (150-375); Red Blood Count 3.91 M/mm3 (4.2-5.4); Red Cell Distribution Width 15.2 % (11.5-14.5); White Blood Count 4.4 K/mm3 (4.5-10.0)
[2021-12-22 13:34] LABS: Iron 40 ug/dL (37-170)
[2021-12-22 13:36] LABS: Alanine Aminotransferase 11 U/L (6-35); Alkaline Phosphatase 71 U/L (38-126); Anion Gap 11 mmol/L (8-16); Aspartate Amino Transferase 21 U/L (14-36); Bilirubin,Total 0.5 mg/dL (0.2-1.3); Blood Urea Nitrogen 12 mg/dL (7-17); Calcium 9.5 mg/dL (8.4-10.2); Carbon Dioxide 30 mmol/L (22-30); Chloride 101 mmol/L (98-107); Estimated Glomerular Filt Rate > 60; Glucose 86 mg/dL (65-110); Sodium 142 mmol/L (137-145)
[2021-12-22 13:44] LABS: Percent Iron Saturation 14 % (20-50)
[2022-01-04] MEDS: HEPARIN SODIUM LOCK FLUSH 500 UNITS/5 ML SYRINGE IV PUSH (08:23)
[2022-02-22] MEDS: HEPARIN SODIUM LOCK FLUSH 500 UNITS/5 ML SYRINGE IV PUSH (08:32)
[2022-03-29 08:48] LABS: Eosinophils Absolute Auto 0.1 K/mm3 (0-0.3); Eosinophils Percent Auto 2.1 % (0-4.4); Hematocrit 38.6 % (37.0-47.0); Immature Granulocyte Absolute 0.01 K/mm3 (0.00-0.031); Immature Granulocyte Percent A 0.3 % (0-0.5); Lymphocytes Absolute Auto 0.91 K/mm3 (0.9-3.2); Lymphocytes Percent Auto 23.9 % (18.3-44.2); Mean Corpuscular HGB Conc 31.1 g/dl (32-36); Mean Corpuscular Hemoglobin 27.7 pg (26-34); Mean Corpuscular Volume 89.1 fl (80-100); Mean Platelet Volume 8.9 fl (7.4-10.4); Monocytes Absolute Auto 0.5 K/mm3 (0.1-0.6); Monocytes Percent Auto 11.8 % (2.6-8.5); Neutrophils Absolute Auto 2.3 K/mm3 (1.3-6.7); Neutrophils Percent Auto 60.9 % (45.5-73.1); Platelet Count Result 346 k/mm3 (150-375); Red Blood Count 4.33 M/mm3 (4.2-5.4); Red Cell Distribution Width 13.9 % (11.5-14.5); White Blood Count 3.8 K/mm3 (4.5-10.0)
[2022-03-29 09:32] LABS: Alanine Aminotransferase 11 U/L (6-35); Albumin Level 4.1 g/dL (3.5-5.1); Alkaline Phosphatase 88 U/L (38-126); Anion Gap 8 mmol/L (8-16); Aspartate Amino Transferase 23 U/L (14-36); Bilirubin,Total 0.5 mg/dL (0.2-1.3); Blood Urea Nitrogen 20 mg/dL (7-17); Calcium 9.2 mg/dL (8.4-10.2); Carbon Dioxide 29 mmol/L (22-30); Chloride 104 mmol/L (98-107); Estimated Glomerular Filt Rate > 60; Glucose 107 mg/dL (65-110); Lactate Dehydrogenase 177 U/L (120-246); Potassium 3.8 mmol/L (3.4-5.0); Sodium 141 mmol/L (137-145)
[2022-04-19] MEDS: HEPARIN SODIUM LOCK FLUSH 500 UNITS/5 ML SYRINGE IV PUSH (08:33)
[2022-06-14] MEDS: HEPARIN SODIUM LOCK FLUSH 500 UNITS/5 ML SYRINGE IV PUSH (08:33)
[2022-08-09] MEDS: HEPARIN SODIUM LOCK FLUSH 500 UNITS/5 ML SYRINGE IV PUSH (08:27)
[2022-08-16 08:43] LABS: Basophils Percent Auto 0.4 % (0.2-1.2); Eosinophils Absolute Auto 0.1 K/mm3 (0-0.3); Eosinophils Percent Auto 1.5 % (0-4.4); Hematocrit 36.7 % (37.0-47.0); Hemoglobin 11.6 g/dL (12.0-15.0); Immature Granulocyte Absolute 0.02 K/mm3 (0.00-0.031); Immature Granulocyte Percent A 0.4 % (0-0.5); Lymphocytes Percent Auto 21.6 % (18.3-44.2); Mean Corpuscular HGB Conc 31.6 g/dl (32-36); Mean Corpuscular Hemoglobin 28.2 pg (26-34); Mean Corpuscular Volume 89.3 fl (80-100); Mean Platelet Volume 8.5 fl (7.4-10.4); Monocytes Absolute Auto 0.5 K/mm3 (0.1-0.6); Neutrophils Percent Auto 65.1 % (45.5-73.1); Platelet Count Result 285 k/mm3 (150-375); Red Blood Count 4.11 M/mm3 (4.2-5.4); Red Cell Distribution Width 14.2 % (11.5-14.5); White Blood Count 4.6 K/mm3 (4.5-10.0)
[2022-08-16 09:44] LABS: Alanine Aminotransferase 11 U/L (6-35); Alkaline Phosphatase 88 U/L (38-126); Anion Gap 3 mmol/L (8-16); Aspartate Amino Transferase 23 U/L (14-36); Bilirubin,Total 0.6 mg/dL (0.2-1.3); Blood Urea Nitrogen 15 mg/dL (7-17); Carbon Dioxide 34 mmol/L (22-30); Chloride 102 mmol/L (98-107); Estimated Glomerular Filt Rate > 60; Glucose 113 mg/dL (65-110); Lactate Dehydrogenase 163 U/L (120-246); Potassium 3.8 mmol/L (3.4-5.0); Sodium 139 mmol/L (137-145)
[2022-10-04] MEDS: HEPARIN SODIUM LOCK FLUSH 500 UNITS/5 ML SYRINGE IV PUSH (08:40)
[2022-11-16 08:39] LABS: Basophils Percent Auto 0.8 % (0.2-1.2); Eosinophils Absolute Auto 0.1 K/mm3 (0-0.3); Eosinophils Percent Auto 2.8 % (0-4.4); Hematocrit 37.2 % (37.0-47.0); Hemoglobin 11.9 g/dL (12.0-15.0); Lymphocytes Absolute Auto 1.08 K/mm3 (0.9-3.2); Mean Corpuscular Hemoglobin 29.3 pg (26-34); Mean Corpuscular Volume 91.6 fl (80-100); Monocytes Absolute Auto 0.5 K/mm3 (0.1-0.6); Neutrophils Absolute Auto 2.3 K/mm3 (1.3-6.7); Neutrophils Percent Auto 56.4 % (45.5-73.1); Platelet Count Result 295 k/mm3 (150-375); Red Blood Count 4.06 M/mm3 (4.2-5.4); Red Cell Distribution Width 13.1 % (11.5-14.5)
[2022-11-16 11:03] LABS: Alanine Aminotransferase 14 U/L (6-35); Albumin Level 4.2 g/dL (3.5-5.1); Alkaline Phosphatase 90 U/L (38-126); Anion Gap 6 mmol/L (8-16); Aspartate Amino Transferase 26 U/L (14-36); Bilirubin,Total 0.7 mg/dL (0.2-1.3); Blood Urea Nitrogen 13 mg/dL (7-17); Calcium 9.4 mg/dL (8.4-10.2); Carbon Dioxide 30 mmol/L (22-30); Chloride 103 mmol/L (98-107); Estimated Glomerular Filt Rate > 60; Glucose 91 mg/dL (65-110); Lactate Dehydrogenase 192 U/L (120-246); Potassium 3.7 mmol/L (3.4-5.0); Sodium 139 mmol/L (137-145)
== END 2022-11-24 09:35 ==
LOC: AMCINF 08:22
PROVIDERS: Visit Provider Internal Medicine Hematology & Oncology
DX: C82.93 Follicular lymphoma, unspecified, intra-abdominal lymph nodes (principal); I10 Essential (primary) hypertension; E46 Unspecified protein-calorie malnutrition; D80.9 Immunodeficiency with predominantly antibody defects, unspecified; K92.2 Gastrointestinal hemorrhage, unspecified; K22.2 Esophageal obstruction; K22.10 Ulcer of esophagus without bleeding; R13.10 Dysphagia, unspecified
CPT/HCPCS: 36415; 36592; 36593; 80047; 80048; 80053; 82607; 82728; 82746; 82784; 83540; 83550; 83615; 85025; 86706; 87340; 96367; 96375; 96409; 96411; 96413; 96415; 96523; A9270; J1100; J1200; J1720; J2469; J2997; J7030; J7050; J9034; Q5115

== ENCOUNTER 2022-11-29 00:07 | Day surgery (SDC) | payer MEDICARE, SELFPAY ==
[2022-11-19 13:51] VITALS: BMI 20.2
--- NOTE | 2022-11-19 13:56 | PC.NURSE ---
Report to the Outpatient Waiting Room, entrance under the green pavilion located off [facility], at time __1000 on date __11/29/22 . Planned Procedure Time: ____1200____. Time changes happen often and if your time is changed the preop area will call you the afternoon before. - You and your visitor will be asked to self-screen and do not enter if you have any COVID symptoms. - A mask is optional within the hospital at this time. Patients may have clear liquids (water, carbonated beverages, clear teas, apple juice) until 3 hours prior to surgery (0900 AM) with a maximum of 20 ounces. - No food from midnight until time of surgery - Infants may have breast milk until 4 hours before surgery, infant formula 6 hours prior to surgery. - Children will be allowed to drink immediately following surgery. If applicable, please bring a bottle or sippy cup to assist with drinking. Juice, water, soda, and popsicles are readily available. For infants on formula, please bring formula the day of surgery. Pacifiers are allowed. Take the following medications with a SIP of water the morning of surgery: NONE DO NOT STOP ANY OF YOUR OTHER PRESCRIPTION MEDICATIONS PRIOR TO SURGERY ?EXCEPT THE FOLLOWING Medications to discontinue per physician NONE Date to take last dose Please no make-up, nail turkmen, hairspray, perfume, deodorant, or body powder the day of surgery. No jewelry (including any body piercings) or valuables the day of surgery, leave them at home. Please take a shower or bath the night before, or the morning of, surgery with an antibacterial soap. Wear comfortable, loose fitting clothing. Children are encouraged to wear pajamas. - Jewelry must be removed prior to entering the operating room. Rings and piercings that are not removed may be cut off. - The hospital will not accept responsibility for valuables. - Please leave all valuables, including medications, at home the day of surgery. If you are going home after surgery, a licensed [employer] delivery driver must drive you home. - NO public transportation without another adult if you receive anesthesia. - We recommend that an adult stay with you for 24 hours following discharge. - We also recommend that you do not drive, make important decision, drink alcoholic beverages, or take any drugs that were not prescribed by your health care provider for at least 24 hours after your discharge time. For Pediatric surgeries, we recommend two adults accompany the child home. Follow any additional instructions given to you from your surgeon. If you or anyone in your household have experienced Covid symptoms in the past week, please notify your surgeon or the nurse liaison at the phone number below for possible testing. Telephone instructions given to ___PT and asked if any additional questions and then verbalized understanding. Patient advised to call surgeon office or pre surgery nurse liaison [phone] if any additional questions.
--- NOTE | ~2022-11-29 | XR_ITS ---
XR chest 1V portable 11/29/2022 12:54 Indication: Portacatheter removal Procedure: AP portable chest Comparison: Comparison to multiple prior studies sequentially, with oldest reviewed study dated 01/08. Findings: Heart size normal. No focal air space disease, pulmonary edema, pleural effusion or suspect ed pneumothorax. Interval removal of right-sided portacatheter. Impression: 1: No acute cardiopulmonary disease. Reviewed, dictated and finalized at location B. Impression: 1: No acute cardiopulmonary disease.
--- NOTE | 2022-11-29 07:18 | P.PNAN_ITS ---
Anes - Initial Pre Proc Eval Procedure: Operation Date: 11/29/22 12:00 Proposed Procedures p Removal Gabe Cath - Linette Hall MD Date/Time: 11/29/22 07:18 Surgeon: Linette Hall MD Pre Op Diagnosis: follicular lymphoma,intra-abdominal lymph nodes Patient Data Age: 77 Gender: F Height: 1.55 m Weight: 48.63 kg Allergies Allergy/AdvReac Type Severity Reaction Status Date / Time No Known Allergies Allergy Verified 12/01/22 06:20 Home Medications Medication Instructions Recorded Confirmed Type saliva substitute combo no.9 15 ml PO QID PRN Dry Mouth #473 mL 01/30/21 11/19/22 Rx (Biotene Dry Mouth Oral Rinse mouthwash) ferrous sulfate 325 mg (65 mg 325 mg PO DAILY 12/21/21 11/19/22 History iron) tablet pantoprazole 40 mg tablet,delayed 40 mg PO BID #60 tabs 12/30/21 11/19/22 Rx release (Protonix) sucralfate 100 mg/mL oral 1,000 mg (10 mL) PO ACHS #1,200 mL 09/02/22 11/19/22 Rx suspension Patient hx anesthesia problems: none Family hx anesthesia problems: none Results Review: All pre-operative results and documents have been reviewed as part of the pre- operative evaluation. [facility] Past Medical History Medical History Erosive esophagitis Esophageal stricture External hemorrhoids Follicular lymphoma Hypertension No longer on medication with weight loss. Hypokalemia Immunoglobulin deficiency Malnutrition Non-Hodgkin lymphoma Oropharyngeal candidiasis Port-A-Cath in place Surgical History Surgical History History of colonoscopy History of lymph node biopsy Family History Family History Father Malignant neoplasm of prostate Mother Ovarian cancer Social History Social History Social History: The patient is and lives in her own home in [place]. She is originally from [facility]. She has 3 children who live in the area. 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 No alcohol or illicit substance abuse. She designates her daughter, Lorena Al, or her good friend, Earnest White, as her surrogate decision makers. Code status: Full code. Smoking status: Former smoker Second hand tobacco smoke exposure: No Alcohol intake: never Substance use: never Substance use type: does not use Living arrangements: alone Spiritual care concerns: No Anes - Eval Final PreProcedure Day of Procedure 11/29/22 07:18 Patient weight: normal Heart: regular rate and rhythm Lungs: clear to auscultation and normal air movement Airway: Mallampati scale class II Neurological: alert and oriented Last oral intake: >/= 8 hours ASA classification: III Emergent: no Anesthetic plan: proceed Anesthesia type and monitoring: general GIVS and standard monitoring Results Review: All pre-operative results and documents have been reviewed as part of the pre- operative evaluation. Informed Consent: The patient's anesthetic plan and its attendant risks and benefits were discussed with the patient/family/POA. Questions were solicited and answers provided to the satisfaction of the patient/family/POA.
[2022-11-29 10:06] VITALS: BP 148/60; PULSE 59; RESP 14; TEMP 36.7; O2SAT 99
[2022-11-29] MEDS: LACTATED RINGERS 1,000 ML 30 ML IV CONT (10:35)
--- NOTE | 2022-11-29 11:58 | PM.IMHP ---
H&P: HPI History of Present Illness Date/Time: 11/29/22 11:58 Chief Complaint: port removal Narrative: Pt is a 77 y/o F s/p completion for chemotherapy for lymphoma presenting for port removal. Pt had port placed in 03/31 for access. Pt reports no issues with port since placment. Review of Systems Review of Systems: All systems reviewed & are unremarkable except as noted in HPI and below PMFSH Past Medical History Medical History Erosive esophagitis Esophageal stricture External hemorrhoids Follicular lymphoma Hypertension No longer on medication with weight loss. Hypokalemia Immunoglobulin deficiency Malnutrition Non-Hodgkin lymphoma Oropharyngeal candidiasis Port-A-Cath in place Surgical History Surgical History History of colonoscopy History of lymph node biopsy Family History Family History Father Malignant neoplasm of prostate Mother Ovarian cancer Social History Social History Social History: The patient is and lives in her own home in [place]. She is originally from [facility]. She has 3 children who live in the area. 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 No alcohol or illicit substance abuse. She designates her daughter, Lorena Al, or her good friend, Earnest White, as her surrogate decision makers. Code status: Full code. Smoking status: Former smoker Second hand tobacco smoke exposure: No Alcohol intake: never Substance use: never Substance use type: does not use Living arrangements: alone Spiritual care concerns: No Meds Home Medications and Allergies Home Medications Medication Instructions Recorded Confirmed Type saliva substitute combo no.9 15 ml PO QID PRN Dry Mouth #473 mL 01/30/21 11/19/22 Rx (Biotene Dry Mouth Oral Rinse mouthwash) ferrous sulfate 325 mg (65 mg 325 mg PO DAILY 12/21/21 11/19/22 History iron) tablet pantoprazole 40 mg tablet,delayed 40 mg PO BID #60 tabs 12/30/21 11/19/22 Rx release (Protonix) sucralfate 100 mg/mL oral 1,000 mg (10 mL) PO ACHS #1,200 mL 09/02/22 11/19/22 Rx suspension Allergies Allergy/AdvReac Type Severity Reaction Status Date / Time No Known Allergies Allergy Verified 11/29/22 10:19 Vital Signs Vital Signs - 24 hr 11/29/22 10:06 Temperature 36.7 C Pulse Rate 59 L Respiratory Rate 14 Blood Pressure 148/60 H Pulse Oximetry 99 Oxygen Delivery Room Air Exam Const: General: cooperative, comfortable and no acute distress Chest: Other: R chest VAD - C/D/I Resp: Auscultation: clear to auscultation bilaterally Cardio: Rate: regular rate Rhythm: regular rhythm GI: Inspection: normal to inspection Assessment and Plan Assessment and plan (1) Non-Hodgkin lymphoma: Qualifiers: Follicular lymphoma type: unspecified follicular type Lymphoma site: unspecified region Non-Hodgkin lymphoma type: follicular Qualified Code(s): C82.90 - Follicular lymphoma, unspecified, unspecified site Code(s): C85.90 - Non-Hodgkin lymphoma, unspecified, unspecified site Status: Acute Assessment and Plan: s/p treatment, will setup for VAD removal in OR
--- NOTE | 2022-11-29 12:02 | WPDHPUPDATE1 ---
History and Physical Update Update Date/Time: 11/29/22 12:02 History and Physical has been reviewed, including an updated exam of the patient. There are NO changes in the patient's condition. Risks, benefits, and alternatives have been discussed and questions answered. Patient agrees to proceed with procedure.
[2022-11-29] MEDS: BUPIVACAINE/EPINEPHRINE 0.5% 50 ML VIAL 30 ML INFILTRATE (12:17)
--- NOTE | 2022-11-29 12:26 | P.OP_ITS ---
Procedure Note - Detailed Date of Procedure 11/29/22 Pre-op Diagnosis lymphoma status post treatment Post-op Diagnosis Same Procedure Performed removal of previously placed right internal jugular venous access device Surgeon Linette Hall MD Anesthesia MAC and Local Indications 77-year-old female status post treatment of non-Hodgkin's lymphoma now presenting for port removal Findings right internal jugular venous access device Description of Procedure The patient was taken to the operating room and placed in the supine position. The patient was then prepped and draped in the normal sterile fashion. A time- out was then done to verify the patient's identity, as well as the procedure being performed. I began by localizing the area of the previously placed port in the righ chest. After the area was adequately anesthetized, I made an incision through the previous incision to gain access to the port in the subcutaneous tissue. I was then able to identify the port and using dissection with the Bovie cautery, I was able to free the reservoir from the subcutaneous pocket. The reservoir was being held in by 2 sutures and these were subsequently cut. I was then able to remove the reservoir from the pocket. I then removed the catheter from the right internal jugular vein in full. I then held pressure at the level the right internal jugular vein for approximately 5 minutes. Hemostasis was noted and I irrigated the pocket. I then closed the subcutaneous tissue with 3-0 Vicryl suture. The skin was closed with 4-0 Monocryl subcuticular suture. Dermabond was placed on the wound. The patient tolerated the procedure well and was alert and awake in the operating room postoperative. The patient will be sent to the recovery room in stable condition. Estimated Blood Loss 5 Drains No Packing No Pathology None sent Complications No immediate complications Condition Stable Disposition PACU [facility] Billing Surgery - Charge Forward: Surgery Billing
[2022-11-29 12:34] VITALS: BP 115/49; PULSE 71; RESP 14; O2SAT 98
--- NOTE | 2022-11-29 12:48 | SUR.PHASEII ---
PORTABLE CXR DONE.
[2022-11-29 13:00] VITALS: BP 121/51; PULSE 65; RESP 14; O2SAT 98
--- NOTE | 2022-11-29 13:08 | SUR.PHASEII ---
PORTACATH IN CORRECT PLACEMENT PER CXR.
[2022-11-29 13:20] VITALS: BP 131/50; PULSE 64; RESP 14
== END 2022-11-29 13:29 | disposition home or self-care (01) ==
PROVIDERS: PCP Family Medicine Sports Medicine; Visit Provider Surgery
PROC: (CPT 36589; principal; 2022-11-29 12:00)
DX: Z45.2 Encounter for adjustment and management of vascular access device (principal); C82.90 Follicular lymphoma, unspecified, unspecified site; I10 Essential (primary) hypertension; E87.6 Hypokalemia; Z87.891 Personal history of nicotine dependence; Z80.42 Family history of malignant neoplasm of prostate; Z80.41 Family history of malignant neoplasm of ovary
CPT/HCPCS: 36590; 71045; J2704; J3010; J7120

== ENCOUNTER 2022-12-01 00:29 | Day surgery (SDC) | payer MEDICARE, SELFPAY ==
[2022-11-18 13:32] VITALS: BMI 20.2
[2022-12-01 06:21] VITALS: BP 153/70; PULSE 78; RESP 18; TEMP 36.3; O2SAT 99
[2022-12-01] MEDS: LACTATED RINGERS 1,000 ML 150 ML IV CONT (06:31)
--- NOTE | 2022-12-01 07:28 | WPDANESEPPF ---
Anes - Initial Pre Proc Eval Procedure: Operation Date: 12/01/22 07:30 Proposed Procedures p Esophagogastroduodenoscopy EGD - Jerome Quick MD Date/Time: 12/01/22 07:28 Surgeon: Jerome Quick MD Pre Op Diagnosis: esophageal stricture Patient Data Age: 77 Gender: F Height: 1.55 m Weight: 48.1 kg Last Vital Signs Temp 97.4 F L 12/01/22 06:21 Pulse 78 12/01/22 06:21 Resp 18 12/01/22 06:21 BP 153/70 H 12/01/22 06:21 Pulse Ox 99 12/01/22 06:21 O2 Del Method Room Air 12/01/22 06:21 Allergies Allergy/AdvReac Type Severity Reaction Status Date / Time No Known Allergies Allergy Verified 12/01/22 06:20 Home Medications Medication Instructions Recorded Confirmed Type saliva substitute combo no.9 15 ml PO QID PRN Dry Mouth #473 mL 01/30/21 11/19/22 Rx (Biotene Dry Mouth Oral Rinse mouthwash) ferrous sulfate 325 mg (65 mg 325 mg PO DAILY 12/21/21 11/19/22 History iron) tablet pantoprazole 40 mg tablet,delayed 40 mg PO BID #60 tabs 12/30/21 11/19/22 Rx release (Protonix) sucralfate 100 mg/mL oral 1,000 mg (10 mL) PO ACHS #1,200 mL 09/02/22 11/19/22 Rx suspension Patient hx anesthesia problems: none Family hx anesthesia problems: none Results Review: All pre-operative results and documents have been reviewed as part of the pre-operative evaluation. [facility] Past Medical History Medical History Erosive esophagitis Esophageal stricture External hemorrhoids Follicular lymphoma Hypertension No longer on medication with weight loss. Hypokalemia Immunoglobulin deficiency Malnutrition Non-Hodgkin lymphoma Oropharyngeal candidiasis Port-A-Cath in place Surgical History Surgical History History of colonoscopy History of lymph node biopsy Family History Family History Father Malignant neoplasm of prostate Mother Ovarian cancer Social History Social History Social History: The patient is and lives in her own home in [place]. She is originally from [facility]. She has 3 children who live in the area. 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 No alcohol or illicit substance abuse. She designates her daughter, Lorena Al, or her good friend, Earnest White, as her surrogate decision makers. Code status: Full code. Smoking status: Former smoker Second hand tobacco smoke exposure: No Alcohol intake: never Substance use: never Substance use type: does not use Living arrangements: alone Spiritual care concerns: No Anes - Eval Final PreProcedure Day of Procedure 12/01/22 07:28 Patient weight: normal Heart: regular rate and rhythm Lungs: clear to auscultation Airway: Mallampati scale Neurological: alert and oriented Last oral intake: >/= 8 hours ASA classification: III Emergent: no Anesthetic plan: proceed Anesthesia type and monitoring: general GIVS and standard monitoring Results Review: All pre-operative results and documents have been reviewed as part of the pre-operative evaluation. Informed Consent: The patient's anesthetic plan and its attendant risks and benefits were discussed with the patient/family/POA. Questions were solicited and answers provided to the satisfaction of the patient/family/POA.
--- NOTE | 2022-12-01 07:30 | PM.HPGS ---
History of Present Illness History of Present Illness Consent: Risks, benefits, and alternatives have been discussed and questions answered. Patient agrees to proceed with procedure. Chief complaint: esophageal stricture Narrative: Vero Al is a 77 year old female with history of non-Hodgkins lymphoma with dysphagia since Jan 2011 that required multiple dilatations last time about 2 months ago (severe esophagitis with stricture, dilated up to 15 mm), using ppi and carafate. Dysphagia is improved since last time. Review of Systems Constitutional: Constitutional: Denies headache(s) and Denies weakness Eyes: Eyes: Denies blurry vision ENT: Reports Normal hearing present, Denies headache(s) and Denies neck pain Cardiovascular: Cardiovascular: Denies chest pain and Denies dyspnea Respiratory: Respiratory: Denies dyspnea Gastrointestinal: Gastrointestinal: Reports no additional gastrointestinal complaints Genitourinary: Genitourinary: Denies dysuria Musculoskeletal: Musculoskeletal: Denies neck pain Integumentary/Breasts: Skin/Breast: Denies dry skin Neurologic: Reports Normal hearing present, Denies headache(s) and Denies weakness Psychiatric: Psychiatric: Denies anxiety Endocrine: Endocrine: Denies change in body appearance Hematologic/Lymphatic: Hematologic/Lymphatic: Denies easy bleeding Allergic/Immunologic: Allergic/Immunologic: Denies urticaria PMFSH Past Medical History Medical History Erosive esophagitis Esophageal stricture External hemorrhoids Follicular lymphoma Hypertension No longer on medication with weight loss. Hypokalemia Immunoglobulin deficiency Malnutrition Non-Hodgkin lymphoma Oropharyngeal candidiasis Port-A-Cath in place Surgical History Surgical History History of colonoscopy History of lymph node biopsy Family History Family History Father Malignant neoplasm of prostate Mother Ovarian cancer Social History Social History Social History: The patient is and lives in her own home in [place]. She is originally from [facility]. She has 3 children who live in the area. 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 No alcohol or illicit substance abuse. She designates her daughter, Lorena Al, or her good friend, Earnest White, as her surrogate decision makers. Code status: Full code. Smoking status: Former smoker Second hand tobacco smoke exposure: No Alcohol intake: never Substance use: never Substance use type: does not use Living arrangements: alone Spiritual care concerns: No Meds Home Medications and Allergies Home Medications Medication Instructions Recorded Confirmed Type saliva substitute combo no.9 15 ml PO QID PRN Dry Mouth #473 mL 01/30/21 11/19/22 Rx (Biotene Dry Mouth Oral Rinse mouthwash) ferrous sulfate 325 mg (65 mg 325 mg PO DAILY 12/21/21 11/19/22 History iron) tablet pantoprazole 40 mg tablet,delayed 40 mg PO BID #60 tabs 12/30/21 11/19/22 Rx release (Protonix) sucralfate 100 mg/mL oral 1,000 mg (10 mL) PO ACHS #1,200 mL 09/02/22 11/19/22 Rx suspension Allergies Allergy/AdvReac Type Severity Reaction Status Date / Time No Known Allergies Allergy Verified 12/01/22 06:20 Vital Signs Vital Signs - 24 hr 12/01/22 06:21 Temperature 97.4 F L Pulse Rate 78 Respiratory Rate 18 Blood Pressure 153/70 H Pulse Oximetry 99 Oxygen Delivery Room Air Exam Const: General: comfortable and no acute distress HENMT: Face/Nose/Sinus: Normal nares present Eyes: General: appearance normal, both eyes and all related structures Neck: Neck: no JVD Resp: Auscultation: clear to auscultation bilaterally Cardio: Rate: regular rate Rhythm: regular rhythm GI: Inspection: non-di
[2022-12-01 07:57] VITALS: BP 125/78; PULSE 85; RESP 23; O2SAT 96
[2022-12-01 08:07] VITALS: BP 145/85; PULSE 76; RESP 24; O2SAT 97
[2022-12-01 08:17] VITALS: BP 160/81; PULSE 70; RESP 26; O2SAT 95
== END 2022-12-01 08:23 | disposition home or self-care (01) ==
PROVIDERS: PCP Family Medicine Sports Medicine; Visit Provider Internal Medicine Gastroenterology
PROC: 0DJ08ZZ Inspection of Upper Intestinal Tract, Via Natural or Artificial Opening Endoscopic (ICD-10-PCS; CPT 43235; principal; 2022-12-01 07:30)
DX: K22.2 Esophageal obstruction (principal); K22.10 Ulcer of esophagus without bleeding; K21.00 Gastro-esophageal reflux disease with esophagitis, without bleeding; K44.9 Diaphragmatic hernia without obstruction or gangrene; I10 Essential (primary) hypertension; R13.19 Other dysphagia; E87.6 Hypokalemia; Z85.71 Personal history of Hodgkin lymphoma; Z80.42 Family history of malignant neoplasm of prostate; Z80.41 Family history of malignant neoplasm of ovary; Z87.891 Personal history of nicotine dependence; Z45.2 Encounter for adjustment and management of vascular access device
CPT/HCPCS: 43249; C1726; J2704; J7120

== ENCOUNTER 2023-03-10 06:35 | Day surgery (SDC) | payer MEDICARE, SELFPAY ==
[2023-02-11 10:19] VITALS: BMI 19.8
--- NOTE | 2023-03-09 10:46 | P.PNAN_ITS ---
Anes - Initial Pre Proc Eval Procedure: Operation Date: 03/10/23 08:30 Proposed Procedures p Esophagogastroduodenoscopy - Pool Sage MD Date/Time: 03/09/23 10:46 Surgeon: Pool Sage MD Pre Op Diagnosis: Esophageal stricture Patient Data Age: 77 Gender: F Height: 1.55 m Weight: 47.627 kg Allergies Allergy/AdvReac Type Severity Reaction Status Date / Time No Known Allergies Allergy Verified 03/10/23 07:11 Home Medications Medication Instructions Recorded Confirmed Type saliva substitute combo no.9 15 ml PO QID PRN Dry Mouth #473 mL 01/30/21 03/10/23 Rx (Biotene Dry Mouth Oral Rinse mouthwash) ferrous sulfate 325 mg (65 mg 325 mg PO DAILY 12/21/21 03/10/23 History iron) tablet sucralfate 100 mg/mL oral 1,000 mg (10 mL) PO ACHS #1,200 mL 09/02/22 03/10/23 Rx suspension pantoprazole 40 mg tablet,delayed 40 mg PO BID #60 tabs 12/20/22 03/10/23 Rx release (Protonix) Patient hx anesthesia problems: none Family hx anesthesia problems: none Results Review: All pre-operative results and documents have been reviewed as part of the pre- operative evaluation. [facility] Past Medical History Medical History Erosive esophagitis Esophageal stricture External hemorrhoids Follicular lymphoma Hypertension No longer on medication with weight loss. Hypokalemia Immunoglobulin deficiency Malnutrition Non-Hodgkin lymphoma Oropharyngeal candidiasis Port-A-Cath in place Surgical History Surgical History History of colonoscopy History of lymph node biopsy Family History Family History Father Malignant neoplasm of prostate Mother Ovarian cancer Social History Social History Social History: The patient is and lives in her own home in [place]. She is originally from [facility]. She has 3 children who live in the area. 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 No alcohol or illicit substance abuse. She designates her daughter, Lorena Al, or her good friend, Earnest White, as her surrogate decision makers. Code status: Full code. Smoking status: Never smoker Second hand tobacco smoke exposure: No Alcohol intake: never Substance use: never Substance use type: does not use Living arrangements: alone Spiritual care concerns: No Anes - Eval Final PreProcedure Day of Procedure 03/09/23 10:46 Patient weight: normal Heart: regular rate and rhythm Lungs: clear to auscultation and normal air movement Airway: Mallampati scale class II Neurological: alert and oriented Last oral intake: >/= 8 hours ASA classification: II Emergent: no Anesthetic plan: proceed Anesthesia type and monitoring: general GIVS and standard monitoring Results Review: All pre-operative results and documents have been reviewed as part of the pre- operative evaluation. Informed Consent: The patient's anesthetic plan and its attendant risks and benefits were discussed with the patient/family/POA. Questions were solicited and answers provided to the satisfaction of the patient/family/POA.
[2023-03-10 07:00] VITALS: BP 169/79; PULSE 65; RESP 20; TEMP 36.6; O2SAT 100
[2023-03-10] MEDS: LACTATED RINGERS 1,000 ML 150 ML IV CONT (07:16)
--- NOTE | 2023-03-10 07:51 | PM.HPGS ---
History of Present Illness History of Present Illness Consent: Risks, benefits, and alternatives have been discussed and questions answered. Patient agrees to proceed with procedure. Chief complaint: Esophageal stricture Narrative: Vero Al is a 77 year old female presents for follow-up EGD is a history of a chronic stricture requiring frequent is. Most recent dilatation in November [address] Jose. Patient currently maintained on pantoprazole 40mg p.o. b.i.d. along with liquid Carafate today. Patient currently only able to maintain pureed foods. She states she does improve somewhat after dilatation in the past. Previous biopsies revealed this stricture to be benign. She has been treated for acid reflux. She also has a history of abdominal lymphoma. She states it was in her axilla as well. She has been undergoing chemotherapy for this. Because of this she has poor dentition is unable to eat adequately. Old records reports she has rather severe erosive esophagitis. Review of Systems Review of Systems: Review of systems noncontributory. [facility] Past Medical History Medical History Erosive esophagitis Esophageal stricture External hemorrhoids Follicular lymphoma Hypertension No longer on medication with weight loss. Hypokalemia Immunoglobulin deficiency Malnutrition Non-Hodgkin lymphoma Oropharyngeal candidiasis Port-A-Cath in place Surgical History Surgical History History of colonoscopy History of lymph node biopsy Family History Family History Father Malignant neoplasm of prostate Mother Ovarian cancer Social History Social History Social History: The patient is and lives in her own home in [place]. She is originally from [facility]. She has 3 children who live in the area. 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 No alcohol or illicit substance abuse. She designates her daughter, Lorena Al, or her good friend, Earnest White, as her surrogate decision makers. Code status: Full code. Smoking status: Never smoker Second hand tobacco smoke exposure: No Alcohol intake: never Substance use: never Substance use type: does not use Living arrangements: alone Spiritual care concerns: No Meds Home Medications and Allergies Home Medications Medication Instructions Recorded Confirmed Type saliva substitute combo no.9 15 ml PO QID PRN Dry Mouth #473 mL 01/30/21 03/10/23 Rx (Biotene Dry Mouth Oral Rinse mouthwash) ferrous sulfate 325 mg (65 mg 325 mg PO DAILY 12/21/21 03/10/23 History iron) tablet sucralfate 100 mg/mL oral 1,000 mg (10 mL) PO ACHS #1,200 mL 09/02/22 03/10/23 Rx suspension pantoprazole 40 mg tablet,delayed 40 mg PO BID #60 tabs 12/20/22 03/10/23 Rx release (Protonix) Allergies Allergy/AdvReac Type Severity Reaction Status Date / Time No Known Allergies Allergy Verified 03/10/23 07:11 Vital Signs Vital Signs - 24 hr 03/10/23 07:00 Temperature 97.9 F Pulse Rate 65 Respiratory Rate 20 Blood Pressure 169/79 H Pulse Oximetry 100 Oxygen Delivery Room Air Exam Narrative: Physical exam reveals patient to be alert. Vital signs stable. HEENT exam is unremarkable. Patient is anicteric. Lungs are clear to auscultation and to percussion is without murmur or extra sounds. Abdomen bowel sounds are present soft nontender with no organomegaly. Digital external rectal exam deferred at this time. Assessment and Plan Assessment and plan (1) Esophageal stricture: Code(s): K22.2 - Esophageal obstruction Status: Acute Assessment and Plan: Follow-up EGD at this time. Anticipate this at intervals in the future. Continue anti-reflux measures along with long-term PPI acid suppression enco
[2023-03-10 08:52] VITALS: BP 148/63; PULSE 85; RESP 16; O2SAT 99
[2023-03-10 09:03] VITALS: BP 130/64; PULSE 66; RESP 16; O2SAT 99
--- NOTE | 2023-03-10 11:30 | WPDANESPN ---
Anes - Prog Note Post-Op Date/Time: 03/10/23 11:30 Cardiovascular status: normal Respiratory status: normal Airway patency: baseline Mental status: baseline Post-Op hydration status: normal Vital Signs: Last Vital Signs Temp 36.6 C 03/10/23 07:00 Pulse 66 03/10/23 09:03 Resp 16 03/10/23 09:03 BP 130/64 03/10/23 09:03 Pulse Ox 99 03/10/23 09:03 O2 Del Method Room Air 03/10/23 09:03 Pain Score (VAS): 0 I/O: Intake & Output 03/09/23 03/10/23 03/10/23 23:59 07:59 15:59 Intake Total 400 Balance 400 Post-procedural complaints: none Patient Feedback: Patient satisfied with anesthetic care. Other Findings: Patient vital signs back to baseline. Patient denies nausea and vomiting. Patient's pain under control. Patient OK for discharge.
== END 2023-03-10 09:30 | disposition home or self-care (01) ==
PROVIDERS: PCP Family Medicine Sports Medicine; Visit Provider Internal Medicine Gastroenterology
PROC: 0DJ08ZZ Inspection of Upper Intestinal Tract, Via Natural or Artificial Opening Endoscopic (ICD-10-PCS; CPT 43235; principal; 2023-03-10 08:30)
DX: K22.2 Esophageal obstruction (principal); R13.19 Other dysphagia; K44.9 Diaphragmatic hernia without obstruction or gangrene
CPT/HCPCS: 43249

== ENCOUNTER 2023-05-09 08:50 | Outpatient (CLI) | payer MEDICARE, SELFPAY ==
--- NOTE | ~2023-05-09 | CT_ITS ---
Clinical Indication: Follicular lymphoma CT Scan of the Chest, Abdomen, and Pelvis with Contrast: Technique: Contiguous sections were acquired throughout the chest, abdomen, and pelvis after intraven ous administration of 100 cc of Omnipaque 350. Dose reduction technique was used on this scan by michael john automated exposure control and iterative reconstruction technique. The dose-length product (DL P) was 309.95 mGy-cm. COMPARISON: 11/10/2022 Findings: There is no evidence of any significant mediastinal, hilar or axillary lymphadenopathy. The mediastin al soft tissues and vascular structures appear normal. There is no evidence of pleural or pericardial effusion. Stable small calcified right upper lobe pulmonary nodule present. The liver, pancreas, gallbladder, adrenals and kidneys are within normal limits. Stable mild hyperden se material along the anterior contour of the spleen. There are atherosclerotic calcifications of the aorta. No lymphadenopathy. No bowel obstruction or bowel wall thickening. Stable mild haziness in the central mesentery. Urinary bladder is unremarkable. No pelvic mass seen. No ascites. Impression: No change from prior exam. No pathologic lymphadenopathy seen. Stable haziness in the central mesentery, possibly sequelae of treated disease. Stable mild hypodensity along the anterior contour of the spleen. Likely diagnostic considerations co uld again include treated disease or small chronic hematoma. Reviewed, dictated and finalized at location . Impression: No change from prior exam. No pathologic lymphadenopathy seen. Stable haziness in the central mesentery, possibly sequelae of treated disease. Stable mild hypodensity along the anterior contour of the spleen. Likely diagno stic considerations could again include treated disease or small chronic hemato ma.
[2023-05-10 08:54] LABS: Estimated Glomerular Filt Rate > 60
== END 2023-05-09 08:51 | disposition home or self-care (01) ==
PROVIDERS: PCP Family Medicine Sports Medicine; Visit Provider Internal Medicine Hematology & Oncology
DX: C82.93 Follicular lymphoma, unspecified, intra-abdominal lymph nodes (principal); R91.8 Other nonspecific abnormal finding of lung field
CPT/HCPCS: 71260; 74177; Q9967

== ENCOUNTER 2023-05-16 08:25 | Outpatient (CLI) | payer MEDICARE, SELFPAY ==
[2023-05-16 08:39] LABS: Basophils Absolute Auto 0.1 K/mm3 (0.0-0.1); Basophils Percent Auto 1.1 % (0.2-1.2); Eosinophils Absolute Auto 0.1 K/mm3 (0-0.3); Eosinophils Percent Auto 2.6 % (0-4.4); Hematocrit 38.5 % (37.0-47.0); Hemoglobin 12.8 g/dL (12.0-15.0); Immature Granulocyte Absolute 0.01 K/mm3 (0.00-0.031); Immature Granulocyte Percent A 0.2 % (0-0.5); Lymphocytes Absolute Auto 1.48 K/mm3 (0.9-3.2); Lymphocytes Percent Auto 32.6 % (18.3-44.2); Mean Corpuscular HGB Conc 33.2 g/dl (32-36); Mean Corpuscular Hemoglobin 29.8 pg (26-34); Mean Corpuscular Volume 89.5 fl (80-100); Mean Platelet Volume 9.3 fl (7.4-10.4); Monocytes Absolute Auto 0.5 K/mm3 (0.1-0.6); Monocytes Percent Auto 10.1 % (2.6-8.5); Neutrophils Absolute Auto 2.4 K/mm3 (1.3-6.7); Neutrophils Percent Auto 53.4 % (45.5-73.1); Platelet Count Result 328 k/mm3 (150-375); Red Cell Distribution Width 13.4 % (11.5-14.5); White Blood Count 4.5 K/mm3 (4.5-10.0)
[2023-05-16 09:14] LABS: Alanine Aminotransferase 11 U/L (6-35); Albumin Level 4.5 g/dL (3.5-5.1); Alkaline Phosphatase 86 U/L (38-126); Anion Gap 7 mmol/L (4-12); Aspartate Amino Transferase 29 U/L (14-36); Blood Urea Nitrogen 12 mg/dL (7-17); Calcium 10.2 mg/dL (8.4-10.2); Carbon Dioxide 28 mmol/L (22-30); Chloride 106 mmol/L (98-107); Estimated Glomerular Filt Rate 54; Glucose 100 mg/dL (65-110); Lactate Dehydrogenase 185 U/L (120-246); Potassium 4.2 mmol/L (3.4-5.0); Sodium 141 mmol/L (137-145)
== END 2023-05-16 08:26 | disposition home or self-care (01) ==
LOC: ANHLAB 08:27
PROVIDERS: PCP Family Medicine Sports Medicine; Visit Provider Internal Medicine Hematology & Oncology
DX: C82.93 Follicular lymphoma, unspecified, intra-abdominal lymph nodes (principal)
CPT/HCPCS: 36415; 80053; 83615; 85025

== ENCOUNTER 2023-06-01 09:30 | Day surgery (SDC) | payer MEDICARE, SELFPAY ==
[2023-05-23 09:54] VITALS: BMI 19.8
--- NOTE | 2023-06-01 07:48 | P.PNAN_ITS ---
Anes - Initial Pre Proc Eval Procedure: Operation Date: 06/01/23 12:30 Proposed Procedures p Esophagogastroduodenoscopy - Pool Sage MD Date/Time: 06/01/23 07:48 Surgeon: Pool Sage MD Pre Op Diagnosis: Esophageal stricture Patient Data Age: 77 Gender: F Height: 1.55 m Weight: 51 kg Allergies Allergy/AdvReac Type Severity Reaction Status Date / Time No Known Allergies Allergy Verified 06/01/23 10:58 Home Medications Medication Instructions Recorded Confirmed Type saliva substitute combo no.9 15 ml PO QID PRN Dry Mouth #473 mL 01/30/21 06/01/23 Rx (Biotene Dry Mouth Oral Rinse mouthwash) ferrous sulfate 325 mg (65 mg 325 mg PO DAILY 12/21/21 06/01/23 History iron) tablet sucralfate 100 mg/mL oral 1,000 mg (10 mL) PO ACHS #1,200 mL 09/02/22 06/01/23 Rx suspension pantoprazole 40 mg tablet,delayed 40 mg PO BID #60 tabs 12/20/22 06/01/23 Rx release (Protonix) Patient hx anesthesia problems: none Family hx anesthesia problems: none Results Review: All pre-operative results and documents have been reviewed as part of the pre- operative evaluation. [facility] Past Medical History Medical History Erosive esophagitis Esophageal stricture External hemorrhoids Follicular lymphoma Hypertension No longer on medication with weight loss. Hypokalemia Immunoglobulin deficiency Malnutrition Non-Hodgkin lymphoma Oropharyngeal candidiasis Port-A-Cath in place Surgical History Surgical History History of colonoscopy History of lymph node biopsy Family History Family History Father Malignant neoplasm of prostate Mother Ovarian cancer Social History Social History Social History: The patient is and lives in her own home in [place]. She is originally from [facility]. She has 3 children who live in the area. 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 No alcohol or illicit substance abuse. She designates her daughter, Lorena Al, or her good friend, Earnest White, as her surrogate decision makers. Code status: Full code. Smoking status: Never smoker Second hand tobacco smoke exposure: No Alcohol intake: never Substance use: never Substance use type: does not use Living arrangements: alone Spiritual care concerns: No Anes - Eval Final PreProcedure Day of Procedure 06/01/23 07:48 Patient weight: normal Heart: regular rate and rhythm Lungs: clear to auscultation and normal air movement Airway: Mallampati scale class II and special considerations poor dentition Neurological: alert and oriented Last oral intake: >/= 8 hours ASA classification: III Emergent: no Anesthetic plan: proceed Anesthesia type and monitoring: general GIVS and standard monitoring Results Review: All pre-operative results and documents have been reviewed as part of the pre- operative evaluation. Informed Consent: The patient's anesthetic plan and its attendant risks and benefits were discussed with the patient/family/POA. Questions were solicited and answers provided to the satisfaction of the patient/family/POA.
[2023-06-01 11:06] VITALS: BP 164/70; PULSE 64; RESP 18; TEMP 36.7; O2SAT 100; BMI 20.8
[2023-06-01] MEDS: LACTATED RINGERS 1,000 ML 150 ML IV CONT (11:18)
--- NOTE | 2023-06-01 11:55 | PM.HPGS ---
History of Present Illness History of Present Illness Consent: Risks, benefits, and alternatives have been discussed and questions answered. Patient agrees to proceed with procedure. Chief complaint: Esophageal stricture Narrative: Vero Al is a 77 year old female presents for follow-up EGD. Patient has a history of chronic distal esophageal stricture. This is felt to be on the basis of acid reflux. Patient's stricture was dilated several months ago in March. She returns today for follow-up exam. She does significant improvement after most recent dilatation. She continues to have difficulty with rather large pieces of meat. Medications include pantoprazole 40mg p.o. b.i.d.. Patient denies any bleeding. Her weight is currently remains stable. Patient has a distant history of abdominal lymphoma. There has been no evidence for recent recurrence. Biopsies at the time of last endoscopy were benign. Review of Systems Review of Systems: All systems reviewed & are unremarkable except as noted in HPI and below PMFSH Past Medical History Medical History Erosive esophagitis Esophageal stricture External hemorrhoids Follicular lymphoma Hypertension No longer on medication with weight loss. Hypokalemia Immunoglobulin deficiency Malnutrition Non-Hodgkin lymphoma Oropharyngeal candidiasis Port-A-Cath in place Surgical History Surgical History History of colonoscopy History of lymph node biopsy Family History Family History Father Malignant neoplasm of prostate Mother Ovarian cancer Social History Social History Social History: The patient is and lives in her own home in [place]. She is originally from [facility]. She has 3 children who live in the area. 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 No alcohol or illicit substance abuse. She designates her daughter, Lorena Al, or her good friend, Earnest White, as her surrogate decision makers. Code status: Full code. Smoking status: Never smoker Second hand tobacco smoke exposure: No Alcohol intake: never Substance use: never Substance use type: does not use Living arrangements: alone Spiritual care concerns: No Meds Home Medications and Allergies Home Medications Medication Instructions Recorded Confirmed Type saliva substitute combo no.9 15 ml PO QID PRN Dry Mouth #473 mL 01/30/21 06/01/23 Rx (Biotene Dry Mouth Oral Rinse mouthwash) ferrous sulfate 325 mg (65 mg 325 mg PO DAILY 12/21/21 06/01/23 History iron) tablet sucralfate 100 mg/mL oral 1,000 mg (10 mL) PO ACHS #1,200 mL 09/02/22 06/01/23 Rx suspension pantoprazole 40 mg tablet,delayed 40 mg PO BID #60 tabs 12/20/22 06/01/23 Rx release (Protonix) Allergies Allergy/AdvReac Type Severity Reaction Status Date / Time No Known Allergies Allergy Verified 06/01/23 10:58 Vital Signs Vital Signs - 24 hr 06/01/23 11:06 Temperature 98.1 F Pulse Rate 64 Respiratory Rate 18 Blood Pressure 164/70 H Pulse Oximetry 100 Oxygen Delivery Room Air Exam Narrative: Physical exam reveals patient signs stable. HEENT exam is unremarkable. Patient is anicteric. Lungs are clear to auscultation and percussion. Heart is without murmur or extra sounds. Abdomen bowel sounds are present soft nontender with no organomegaly. Assessment and Plan Assessment and plan (1) Esophageal stricture: Code(s): K22.2 - Esophageal obstruction Status: Acute Assessment and Plan: Patient has a chronic distal esophageal stricture felt to be on the basis of acid reflux. Plan for follow-up EGD and dilatation at this time. Further recommendations may be given after endoscopy. Patient should continue pantoprazole 40mg p.o. b.i.d. florencio
[2023-06-01 13:35] VITALS: BP 149/76; PULSE 68; RESP 18; O2SAT 100
[2023-06-01 13:45] VITALS: BP 155/71; PULSE 58; RESP 18; O2SAT 100
[2023-06-01 13:55] VITALS: BP 170/79; PULSE 54; RESP 18; O2SAT 100
--- NOTE | 2023-06-01 14:19 | WPDANESPN ---
Anes - Prog Note Post-Op Date/Time: 06/01/23 14:19 Cardiovascular status: normal Respiratory status: normal Airway patency: baseline Mental status: baseline Post-Op hydration status: normal Vital Signs: Last Vital Signs Temp 36.7 C 06/01/23 11:06 Pulse 54 L 06/01/23 13:55 Resp 18 06/01/23 13:55 BP 170/79 H 06/01/23 13:55 Pulse Ox 100 06/01/23 13:55 O2 Del Method Room Air 06/01/23 13:55 Pain Score (VAS): 0 I/O: Intake & Output 05/31/23 06/01/23 06/01/23 23:59 07:59 15:59 Intake Total 500 Balance 500 Post-procedural complaints: none Patient Feedback: Patient satisfied with anesthetic care. Other Findings: Patient vital signs back to baseline. Patient denies nausea and vomiting. Patient's pain under control. Patient OK for discharge.
== END 2023-06-01 14:10 | disposition home or self-care (01) ==
PROVIDERS: PCP Family Medicine Sports Medicine; Visit Provider Internal Medicine Gastroenterology
PROC: 0DJ08ZZ Inspection of Upper Intestinal Tract, Via Natural or Artificial Opening Endoscopic (ICD-10-PCS; CPT 43235; principal; 2023-06-01 12:30)
DX: K22.2 Esophageal obstruction (principal); R13.19 Other dysphagia; K44.9 Diaphragmatic hernia without obstruction or gangrene
CPT/HCPCS: 43249

== ENCOUNTER 2023-08-03 07:09 | Day surgery (SDC) | payer MEDICARE, SELFPAY ==
[2023-06-16 15:13] VITALS: BMI 19.8
[2023-07-25 12:30] VITALS: BMI 21.7
--- NOTE | 2023-08-03 07:27 | P.PNAN_ITS ---
Anes - Initial Pre Proc Eval Procedure: Operation Date: 08/03/23 09:30 Proposed Procedures p Esophagogastroduodenoscopy - Pool Sage MD Date/Time: 08/03/23 07:27 Surgeon: Pool Sage MD Pre Op Diagnosis: Esophageal Strictures Patient Data Age: 78 Gender: F Height: 1.55 m Weight: 52.3 kg Allergies Allergy/AdvReac Type Severity Reaction Status Date / Time No Known Allergies Allergy Verified 08/03/23 08:34 Home Medications Medication Instructions Recorded Confirmed Type saliva substitute combo no.9 15 ml PO QID PRN Dry Mouth #473 mL 01/30/21 08/03/23 Rx (Biotene Dry Mouth Oral Rinse mouthwash) ferrous sulfate 325 mg (65 mg 325 mg PO DAILY 12/21/21 08/03/23 History iron) tablet sucralfate 100 mg/mL oral 1,000 mg (10 mL) PO ACHS #1,200 mL 09/02/22 08/03/23 Rx suspension pantoprazole 40 mg tablet,delayed 40 mg PO BID #60 tabs 12/20/22 08/03/23 Rx release (Protonix) Patient hx anesthesia problems: none Family hx anesthesia problems: none Results Review: All pre-operative results and documents have been reviewed as part of the pre- operative evaluation. [facility] Past Medical History Medical History Erosive esophagitis Esophageal stricture External hemorrhoids Follicular lymphoma Hypertension No longer on medication with weight loss. Hypokalemia Immunoglobulin deficiency Malnutrition Non-Hodgkin lymphoma Oropharyngeal candidiasis Port-A-Cath in place Surgical History Surgical History History of colonoscopy History of lymph node biopsy Family History Family History Father Malignant neoplasm of prostate Mother Ovarian cancer Social History Social History Social History: The patient is and lives in her own home in [place]. She is originally from [facility]. She has 3 children who live in the area. 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 No alcohol or illicit substance abuse. She designates her daughter, Lorena Al, or her good friend, Earnest White, as her surrogate decision makers. Code status: Full code. Smoking status: Never smoker Second hand tobacco smoke exposure: No Alcohol intake: never Substance use: never Substance use type: does not use Living arrangements: alone Spiritual care concerns: No Anes - Eval Final PreProcedure Day of Procedure 08/03/23 07:27 Patient weight: normal Heart: regular rate and rhythm Lungs: clear to auscultation and normal air movement Airway: Mallampati scale class II Neurological: alert and oriented Last oral intake: >/= 8 hours ASA classification: III Emergent: no Anesthetic plan: proceed Anesthesia type and monitoring: general GIVS and standard monitoring Results Review: All pre-operative results and documents have been reviewed as part of the pre- operative evaluation. Informed Consent: The patient's anesthetic plan and its attendant risks and benefits were discussed with the patient/family/POA. Questions were solicited and answers provided to the satisfaction of the patient/family/POA.
[2023-08-03 08:39] VITALS: BP 179/73; PULSE 59; RESP 18; TEMP 36.3; O2SAT 100; BMI 21.4
--- NOTE | 2023-08-03 08:41 | PM.HPGS ---
History of Present Illness History of Present Illness Consent: Risks, benefits, and alternatives have been discussed and questions answered. Patient agrees to proceed with procedure. Chief complaint: Esophageal Strictures Narrative: Vero Al is a 78 year old female presents for EGD. Patient has a history of dysphagia. Endoscopy over the last several months has revealed 2 strictures. One in the mid and 1 in the distal esophagus. This is improved significantly after more sent dilatation. Patient remains on high dose PPI acid suppression. Previous exams have suggested this was benign in nature acid reflux. Patient denies any weight loss or bleeding. Family history noncontributory. Review of Systems Review of Systems: All systems reviewed & are unremarkable except as noted in HPI and below PMFSH Past Medical History Medical History Erosive esophagitis Esophageal stricture External hemorrhoids Follicular lymphoma Hypertension No longer on medication with weight loss. Hypokalemia Immunoglobulin deficiency Malnutrition Non-Hodgkin lymphoma Oropharyngeal candidiasis Port-A-Cath in place Surgical History Surgical History History of colonoscopy History of lymph node biopsy Family History Family History Father Malignant neoplasm of prostate Mother Ovarian cancer Social History Social History Social History: The patient is and lives in her own home in [place]. She is originally from [facility]. She has 3 children who live in the area. 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 No alcohol or illicit substance abuse. She designates her daughter, Lorena Al, or her good friend, Earnest White, as her surrogate decision makers. Code status: Full code. Smoking status: Never smoker Second hand tobacco smoke exposure: No Alcohol intake: never Substance use: never Substance use type: does not use Living arrangements: alone Spiritual care concerns: No Meds Home Medications and Allergies Home Medications Medication Instructions Recorded Confirmed Type saliva substitute combo no.9 15 ml PO QID PRN Dry Mouth #473 mL 01/30/21 08/03/23 Rx (Biotene Dry Mouth Oral Rinse mouthwash) ferrous sulfate 325 mg (65 mg 325 mg PO DAILY 12/21/21 08/03/23 History iron) tablet sucralfate 100 mg/mL oral 1,000 mg (10 mL) PO ACHS #1,200 mL 09/02/22 08/03/23 Rx suspension pantoprazole 40 mg tablet,delayed 40 mg PO BID #60 tabs 12/20/22 08/03/23 Rx release (Protonix) Allergies Allergy/AdvReac Type Severity Reaction Status Date / Time No Known Allergies Allergy Verified 08/03/23 08:34 Exam Narrative: Physical exam reveals patient to be alert. Signs stable. HEENT exam is unremarkable. Is anicteric. The lungs are clear to auscultation and to percussion . Heart is without murmur or extra sounds. Abdomen bowel sounds are present soft nontender with no organomegaly. Digital external rectal exam normal. Assessment and Plan Assessment and plan (1) Esophageal stricture: Code(s): K22.2 - Esophageal obstruction Status: Acute Assessment and Plan: Patient has 2 strictures within the esophagus. Patient notices significant improved swallow since that this is related to her previous lymphoma at present. Plan to continue PPI acid suppression. Patient returns today for additional dilatation in follow-up of known esophageal strictures.
[2023-08-03] MEDS: LACTATED RINGERS 1,000 ML 150 ML IV CONT (09:14)
[2023-08-03 09:35] VITALS: BP 130/61; PULSE 79; RESP 14; O2SAT 99
[2023-08-03 09:45] VITALS: BP 120/60; PULSE 69; RESP 14; O2SAT 98
[2023-08-03 09:55] VITALS: BP 122/65; PULSE 62; RESP 16; O2SAT 100
--- NOTE | 2023-08-03 14:13 | WPDANESPN ---
Anes - Prog Note Post-Op Date/Time: 08/03/23 14:13 Cardiovascular status: normal Respiratory status: normal Airway patency: baseline Mental status: baseline Post-Op hydration status: normal Vital Signs: Last Vital Signs Temp 36.3 C L 08/03/23 08:39 Pulse 62 08/03/23 09:55 Resp 16 08/03/23 09:55 BP 122/65 08/03/23 09:55 Pulse Ox 100 08/03/23 09:55 O2 Del Method Room Air 08/03/23 09:55 Pain Score (VAS): 0 I/O: Intake & Output 08/02/23 08/03/23 08/03/23 23:59 07:59 15:59 Intake Total 350 Balance 350 Post-procedural complaints: none Patient Feedback: Patient satisfied with anesthetic care. Other Findings: Patient vital signs back to baseline. Patient denies nausea and vomiting. Patient's pain under control. Patient OK for discharge.
== END 2023-08-03 10:06 | disposition home or self-care (01) ==
PROVIDERS: PCP Family Medicine Sports Medicine; Visit Provider Internal Medicine Gastroenterology
PROC: 0DJ08ZZ Inspection of Upper Intestinal Tract, Via Natural or Artificial Opening Endoscopic (ICD-10-PCS; CPT 43235; principal; 2023-08-03 09:30)
DX: K22.2 Esophageal obstruction (principal); R13.19 Other dysphagia; K22.70 Barrett's esophagus without dysplasia
CPT/HCPCS: 43249

== ENCOUNTER 2023-08-08 10:24 | Outpatient (CLI) | payer MEDICARE, SELFPAY ==
--- NOTE | ~2023-08-08 | MM_ITS ---
EXAMINATION: MM screening orin BI w [facility] HISTORY: Screening mammogram TECHNIQUE: Craniocaudal and mediolateral oblique 3-D tomosynthesis images were obtained and synthetic 2-D images were generated. CAD analysis was submitted and interpreted. COMPARISON: No prior mammogram is available for comparison at this institution. BREAST PARENCHYMAL COMPOSITION:Not Dense. There are scattered areas of fibroglandular density. FINDINGS: No suspicious mass, calcification, or architectural distortion are identified in either mckenzie ast to suggest malignancy. There has been no suspicious interval change. IMPRESSION: No mammographic evidence of malignancy. Recommend routine screening mammography in one year. BI-RADS Category 1: Negative Reviewed, dictated and finalized at location .
== END 2023-08-08 10:25 ==
LOC: MICIMG 10:24
PROVIDERS: PCP Nurse Practitioner; Visit Provider Nurse Practitioner
DX: Z12.31 Encounter for screening mammogram for malignant neoplasm of breast (principal)
CPT/HCPCS: 77063; 77067

== ENCOUNTER 2023-11-02 05:58 | Day surgery (SDC) | payer MEDICARE, SELFPAY ==
[2023-08-05 10:09] VITALS: BMI 24.4
[2023-10-14 11:23] VITALS: BMI 23.7
[2023-11-02 06:33] VITALS: BP 166/68; PULSE 67; RESP 18; TEMP 36.9; O2SAT 95
--- NOTE | 2023-11-02 07:04 | PM.HPGS ---
History of Present Illness History of Present Illness Consent: Risks, benefits, and alternatives have been discussed and questions answered. Patient agrees to proceed with procedure. Chief complaint: Esophageal Stricture, Bland's Esophagus Narrative: Vero Al is a 78 year old female presents for EGD. Patient has a history of rather severe esophageal strictures. She has had relatively frequent dilatations over the last year several months. Patient reports significant improvement in swallowing abilities. She still recur is careful about eating solid foods. She denies any heartburn or pain. Her past medical history is felt to have Bland's esophagus. Returns today for follow-up EGD and dilatation. She denies any bleeding. She is somewhat thin but has not lost any recent weight. Family history is noncontributory. Patient currently maintained on pantoprazole 40mg p.o. b.i.d.. Review of Systems Review of Systems: All systems reviewed & are unremarkable except as noted in HPI and below PMFSH Past Medical History Medical History Erosive esophagitis Esophageal stricture External hemorrhoids Follicular lymphoma Hypertension No longer on medication with weight loss. Hypokalemia Immunoglobulin deficiency Malnutrition Non-Hodgkin lymphoma Oropharyngeal candidiasis Port-A-Cath in place Surgical History Surgical History History of colonoscopy History of lymph node biopsy Family History Family History Father Malignant neoplasm of prostate Mother Ovarian cancer Social History Social History Social History: The patient is and lives in her own home in [place]. She is originally from [facility]. She has 3 children who live in the area. 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 No alcohol or illicit substance abuse. She designates her daughter, Lorena Al, or her good friend, Earnest White, as her surrogate decision makers. Code status: Full code. Smoking status: Never smoker Second hand tobacco smoke exposure: No Alcohol intake: never Substance use: never Substance use type: does not use Living arrangements: alone Spiritual care concerns: No Meds Home Medications and Allergies Home Medications Medication Instructions Recorded Confirmed Type saliva substitute combo no.9 15 ml PO QID PRN Dry Mouth #473 mL 01/30/21 11/02/23 Rx (Biotene Dry Mouth Oral Rinse mouthwash) ferrous sulfate 325 mg (65 mg 325 mg PO DAILY 12/21/21 11/02/23 History iron) tablet pantoprazole 40 mg tablet,delayed 40 mg PO BID #60 tabs 12/20/22 11/02/23 Rx release (Protonix) sucralfate 100 mg/mL oral 1,000 mg (10 mL) PO ACHS #1,200 mL 08/09/23 11/02/23 Rx suspension Allergies Allergy/AdvReac Type Severity Reaction Status Date / Time No Known Allergies Allergy Verified 11/02/23 06:31 Vital Signs Vital Signs - 24 hr 11/02/23 06:33 Temperature 98.5 F Pulse Rate 67 Respiratory Rate 18 Blood Pressure 166/68 H Pulse Oximetry 95 Oxygen Delivery Room Air Exam Narrative: Physical exam reveals patient to be alert. Vital signs stable. HEENT exam is unremarkable. Patient is anicteric. Lungs are clear to auscultation and to percussion is without murmur or extra sounds. Abdomen bowel sounds are present soft nontender with no organomegaly. Assessment and Plan Assessment and plan (1) Esophageal stricture: Code(s): K22.2 - Esophageal obstruction Status: Acute Assessment and Plan: Patient with a history severe erosive esophagitis and strictures in the mid esophagus. [place] to be on the basis of underlying Bland's esophagus. Plan for follow-up EGD at this time. Continued follow-up after endoscopy but should be continued at intervals. (2
[2023-11-02] MEDS: LACTATED RINGERS 1,000 ML 150 ML IV CONT (07:18)
--- NOTE | 2023-11-02 07:24 | WPDANESEPPF ---
Anes - Initial Pre Proc Eval Procedure: Operation Date: 11/02/23 07:30 Proposed Procedures p Esophagogastroduodenoscopy - Pool Sage MD Date/Time: 11/02/23 07:24 Surgeon: Pool Sage MD Pre Op Diagnosis: Esophageal Stricture, Bland's Esophagus Patient Data Age: 78 Gender: F Height: 1.55 m Weight: 52.1 kg Last Vital Signs Temp 36.9 C 11/02/23 06:33 Pulse 67 11/02/23 06:33 Resp 18 11/02/23 06:33 BP 166/68 H 11/02/23 06:33 Pulse Ox 95 11/02/23 06:33 O2 Del Method Room Air 11/02/23 06:33 Allergies Allergy/AdvReac Type Severity Reaction Status Date / Time No Known Allergies Allergy Verified 11/02/23 06:31 Home Medications Medication Instructions Recorded Confirmed Type saliva substitute combo no.9 15 ml PO QID PRN Dry Mouth #473 mL 01/30/21 11/02/23 Rx (Biotene Dry Mouth Oral Rinse mouthwash) ferrous sulfate 325 mg (65 mg 325 mg PO DAILY 12/21/21 11/02/23 History iron) tablet pantoprazole 40 mg tablet,delayed 40 mg PO BID #60 tabs 12/20/22 11/02/23 Rx release (Protonix) sucralfate 100 mg/mL oral 1,000 mg (10 mL) PO ACHS #1,200 mL 08/09/23 11/02/23 Rx suspension Patient hx anesthesia problems: none Family hx anesthesia problems: none Results Review: All pre-operative results and documents have been reviewed as part of the pre-operative evaluation. [facility] Past Medical History Medical History Erosive esophagitis Esophageal stricture External hemorrhoids Follicular lymphoma Hypertension No longer on medication with weight loss. Hypokalemia Immunoglobulin deficiency Malnutrition Non-Hodgkin lymphoma Oropharyngeal candidiasis Port-A-Cath in place Surgical History Surgical History History of colonoscopy History of lymph node biopsy Family History Family History Father Malignant neoplasm of prostate Mother Ovarian cancer Social History Social History Social History: The patient is and lives in her own home in [place]. She is originally from [facility]. She has 3 children who live in the area. 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 No alcohol or illicit substance abuse. She designates her daughter, Lorena Al, or her good friend, Earnest White, as her surrogate decision makers. Code status: Full code. Smoking status: Never smoker Second hand tobacco smoke exposure: No Alcohol intake: never Substance use: never Substance use type: does not use Living arrangements: alone Spiritual care concerns: No Anes - Eval Final PreProcedure Day of Procedure 11/02/23 07:24 Patient weight: normal Heart: regular rate and rhythm Lungs: clear to auscultation Airway: Mallampati scale class III Neurological: alert and oriented Last oral intake: >/= 8 hours ASA classification: III Emergent: no Anesthetic plan: proceed Anesthesia type and monitoring: general GIVS and standard monitoring Results Review: All pre-operative results and documents have been reviewed as part of the pre-operative evaluation. Informed Consent: The patient's anesthetic plan and its attendant risks and benefits were discussed with the patient/family/POA. Questions were solicited and answers provided to the satisfaction of the patient/family/POA.
[2023-11-02 07:44] VITALS: BP 157/73; PULSE 74; RESP 14; O2SAT 99
[2023-11-02 07:54] VITALS: BP 159/77; PULSE 74; RESP 18; O2SAT 99
--- NOTE | 2023-11-02 08:01 | SUR.PHASEII ---
0750 Pt had small amount of bloody emesis. Suctioned hooked up and on. Pt's vital signs stable. 99% RA, HR 74, respirations 18. Dr. Sage to bedside [id number] to assess pt. Pt denies pain or nausea and states feels well. A&Ox4. Will continue to monitor pt. Call light within reach.
[2023-11-02 08:04] VITALS: BP 161/65; PULSE 61; RESP 15; O2SAT 100
[2023-11-02 08:14] VITALS: BP 146/66; PULSE 60; RESP 16; O2SAT 100
[2023-11-02 08:24] VITALS: BP 156/67; PULSE 57; RESP 16; O2SAT 100
--- NOTE | 2023-11-02 08:28 | WPDANESPN ---
Anes - Prog Note Post-Op Date/Time: 11/02/23 08:28 Cardiovascular status: normal Respiratory status: normal Airway patency: baseline Mental status: baseline Post-Op hydration status: normal Vital Signs: Last Vital Signs Temp 36.9 C 11/02/23 06:33 Pulse 60 11/02/23 08:14 Resp 16 11/02/23 08:14 BP 146/66 H 11/02/23 08:14 Pulse Ox 100 11/02/23 08:14 O2 Del Method Room Air 11/02/23 08:14 Pain Score (VAS): 0 I/O: Intake & Output 11/01/23 11/02/23 11/02/23 23:59 07:59 15:59 Intake Total 400 Balance 400 Patient Feedback: Patient satisfied with anesthetic care.
--- NOTE | 2023-11-02 08:34 | SUR.PHASEII ---
0830 Pt denies pain or nausea, VSS, A&Ox4. Per Dr. Sage pt okay for D/C. Pt wheeled out of ASC in no apparent distress.
== END 2023-11-02 08:33 | disposition home or self-care (01) ==
PROVIDERS: PCP Internal Medicine; Visit Provider Internal Medicine Gastroenterology
PROC: 0DJ08ZZ Inspection of Upper Intestinal Tract, Via Natural or Artificial Opening Endoscopic (ICD-10-PCS; CPT 43235; principal; 2023-11-02 07:30)
DX: K22.2 Esophageal obstruction (principal); R13.19 Other dysphagia; K22.70 Barrett's esophagus without dysplasia
CPT/HCPCS: 43450

== ENCOUNTER 2023-11-15 09:32 | Outpatient (CLI) | payer MEDICARE, SELFPAY ==
[2023-11-15 09:57] LABS: Basophils Percent Auto 0.7 % (0.2-1.2); Eosinophils Absolute Auto 0.1 K/mm3 (0-0.3); Eosinophils Percent Auto 2.4 % (0-4.4); Hematocrit 39.4 % (37.0-47.0); Immature Granulocyte Absolute 0.01 K/mm3 (0.00-0.031); Immature Granulocyte Percent A 0.2 % (0-0.5); Lymphocytes Absolute Auto 1.22 K/mm3 (0.9-3.2); Lymphocytes Percent Auto 22.7 % (18.3-44.2); Mean Corpuscular Hemoglobin 30.2 pg (26-34); Mean Corpuscular Volume 91.4 fl (80-100); Mean Platelet Volume 9.9 fl (7.4-10.4); Monocytes Absolute Auto 0.5 K/mm3 (0.1-0.6); Monocytes Percent Auto 9.5 % (2.6-8.5); Neutrophils Absolute Auto 3.5 K/mm3 (1.3-6.7); Neutrophils Percent Auto 64.5 % (45.5-73.1); Platelet Count Result 265 k/mm3 (150-375); Red Blood Count 4.31 M/mm3 (4.2-5.4); Red Cell Distribution Width 12.8 % (11.5-14.5); White Blood Count 5.4 K/mm3 (4.5-10.0)
[2023-11-15 11:11] LABS: Alanine Aminotransferase 11 U/L (6-35); Albumin Level 4.6 g/dL (3.5-5.1); Alkaline Phosphatase 81 U/L (38-126); Anion Gap 11 mmol/L (4-12); Aspartate Amino Transferase 25 U/L (14-36); Bilirubin,Total 0.7 mg/dL (0.2-1.3); Blood Urea Nitrogen 19 mg/dL (7-17); Calcium 9.3 mg/dL (8.4-10.2); Carbon Dioxide 27 mmol/L (22-30); Chloride 104 mmol/L (98-107); Estimated Glomerular Filt Rate > 60; Glucose 94 mg/dL (65-110); Lactate Dehydrogenase 205 U/L (120-246); Potassium 3.8 mmol/L (3.4-5.0); Sodium 142 mmol/L (137-145)
== END 2023-11-15 09:33 | disposition home or self-care (01) ==
PROVIDERS: PCP Internal Medicine; Visit Provider Internal Medicine Hematology & Oncology
DX: C82.93 Follicular lymphoma, unspecified, intra-abdominal lymph nodes (principal)
CPT/HCPCS: 36415; 80053; 83615; 85025

== ENCOUNTER 2024-03-05 07:00 | Outpatient (NON) | payer MEDICARE, SELFPAY ==
--- OUTSIDE RECORDS SUMMARY | 2024-03-06 07:31 | XMS_ITS | Referral Summary ---
Author Organization [facility] Address [address] [place] [address] Care Team Providers Care Barrel Planer Name Role Phone Eric Cedillo MD Primary Care Provider [phone] Allergies No known active allergies Medications enalapril (VASOTEC) 10 mg tablet Take 10 mg by mouth daily 11/24/2020 Active Active Problems Problem Noted Date Diagnosed Date Abnormal thyroid function test 12/08/2020 Assessment & Plan (12/08/2020 2:23 PM CDT): Thyroid labs from 10/17/2020 slightly abnormal TSH slightly low, free T4, total T3 normal range. Above thyroid lab abnormalities do not explain patient's symptoms Suspect thyroiditis versus subtle lab abnormalities vs nodular goiter - recheck thyroid function test in 6-8 weeks - follow-up in 2 months Catherine infection, oral 12/08/2020 Assessment & Plan (12/08/2020 2:24 PM CDT): Suspect the patient's symptoms - or odynophagia And pain in the mouth and throat - due to oral candidiasis Start patient on trial treatment with clotrimazole 10 mg hai Pt to call me and update on how she is doing in one week Odynophagia 12/08/2020 Assessment & Plan (12/08/2020 2:30 PM CDT): Suspect due to oropharyngeal candidiasis Try topical therapy Advised pt to call me in one week and update Social History Tobacco Use Types Packs/Day Years Used Date Smoking Tobacco: Never Smokeless Tobacco: Never PHQ-2 Answer Date Recorded PHQ-2 Total Score (If total score is 3 or more points, staff should administer the PHQ-9) 1 12/08/2020 Personal Safety Answer Date Recorded Getting School Help Needed Not on file 04/09 Comments Unknown Sex and Gender Information Value Date Recorded Sex Assigned at Not on file Legal Sex Female 9:39 AM CDT Gender Identity Not on file Sexual Orientation Not on file Last Filed Vital Signs Vital Sign Reading Time Taken Comments Blood Pressure 122/80 12/08/2020 1:32 PM CDT Pulse 71 12/08/2020 1:32 PM CDT Temperature - - Respiratory Rate 16 12/08/2020 1:32 PM CDT Oxygen Saturation - - Inhaled Oxygen Concentration - - Weight 56.3 kg (124 lb 1.6 oz) 12/08/2020 1:32 P M CDT Height 154.9 cm (5' 1 ) 12/08/2020 1:32 PM CDT Body Mass Index 23.45 12/08/2020 1:32 PM CDT Plan of Treatment Not on file Insurance [facility] MDCR HMO REF [facility] Address: [facility] [address] [place] [address] Care Teams Barrel Planer Relationship Specialty Start Date End Date Eric Cedillo MD [address] [place] [address] PCP - General Family Medicine 11/11/20
--- OUTSIDE RECORDS SUMMARY | 2024-03-06 07:31 | XMS_ITS | Clinical Summary ---
Author Organization [facility] Address [address] [place] [address] Care Team Providers Care Biopharmaceutical Rep Name Role Phone Eric Cedillo MD Primary Care Provider [phone] Allergies No known active allergies Medications vit B cmplx 3-FA-Vit C-Biotin (RENAVITE-RX RX) 1-60-300 mg-mg-mcg Tablet Take 1 Tablet by mouth daily. Active nystatin (MYCOSTATIN) 100,000 unit/mL suspension TAKE 4 ML BY MOUTH 4 TIMES DAILY FOR 1 WEEK SWISH IN THE MOUTH AND RETAIN FOR LONG POSSIBLE BEFORE SWALLOWING 2 Active pantoprazole (PROTONIX) 20 mg Tablet, Delayed Release (E.C.) Take 20 mg by mouth daily. Active ferrous sulfate 134 mg (27 mg iron) Tablet Take 134 mg by mouth. 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 Encounters Date Type Department Care Team Description 02/29/2024 External Device Data [facility] ABSTRACTION Provider, Abstract 02/28/2024 External Device Data [facility] ABSTRACTION Provider, Abstract 02/21/2024 External Device Data [facility] ABSTRACTION Provider, Abstract from Last 3 Months Family History Medical History Relation Name Comments Cancer Mother Relation Name Status Comments Daughter 1 Alive Daughter 2 Alive Father Mother Sister 1 Alive Sister 2 Alive Son Alive Social History Tobacco Use Types Packs/Day Years Used Date Smoking Tobacco: Never Smokeless Tobacco: Never Tobacco Cessation:Counseling Given: Not Answered Alcohol Use Standard Drinks/Week Comments Not Currently 0 (1 standard drink = 0.6 oz pur e alcohol) Comments Unknown Sex and Gender Information Value Date Recorded Sex Assigned at Not on file Legal Sex Female 8:14 AM LEGAL ANALYST Gender Identity Not on file Sexual Orientation Not on file Last Filed Vital Signs Vital Sign Reading Time Taken Comments Blood Pressure 134/63 11/16/2023 10:08 AM CDT Pulse 80 11/16/2023 10:08 AM CDT Temperature 36.3 ??C (97.3 ??F) 11/16/2023 10:04 AM C DT Respiratory Rate 16 11/16/2023 10:04 AM CDT Oxygen Saturation 97% 11/16/2023 10:04 AM CDT Inhaled Oxygen Concentration - - Weight 52.6 kg (116 lb) 11/16/2023 10:04 AM CDT Height 154.9 cm (5' 1 ) 08/17/2022 10:59 AM CDT Body Mass Index 21.92 08/17/2022 10:59 AM CDT Plan of Treatment Upcoming Encounters Date Type Department Care Team (Late st Contact Info) Description 05/17/2024 11:00 AM CDT Office Visit [facility] H[facility]ology - [place] [address] [facility] [address] [place] [address] Henrry Gonzalez MD [address] [place] [address] Health Maintenance Due Date Last Done Comments DTAP/TDAP/TD VACCINES (1 - Tdap) 07/13/1966 PNEUMOCOCCAL VACCINE 65+ YEARS (1 of 2 - PCV) 07/13/18 67 ZOSTER VACCINE (1 of 2) 07/13/1966 OSTEOPOROSIS SCREENING 07/13/2012 RSV VACCINE (60+ or ) (1 - 1-dose 75+ series) 07/13/2022 INFLUENZA VACCINE (#1) 2023 11/22/[address] [place] [place] [id number] Care Teams Biopharmaceutical Rep Relationship Specialty Start Date End Date Eric Cedillo MD [address] [place] [id number] PCP - General Family Practice 02/03/21
--- OUTSIDE RECORDS SUMMARY | 2024-03-06 07:31 | XMS_ITS | Clinical Summary ---
Author Organization [facility] Address [address] [place] [address] Care Team Providers Care Artificial Stone Applicator Name Role Phone Erci Cedillo MD Primary Care Provider [phone] Allergies No known active allergies Medications enalapril [...] call me in one week and update Medical History Medical History Date Comments Hyperthyroidism Hypertension Family History Medical History Relation Name Comments No Known Problems Father Ovarian cancer Mother Relation Name Status Comments Father Mother Social History Tobacco Use Types Packs/Day Years [...] on file Sexual Orientation Not on file Obstetrics History Last Filed Vital Signs Vital Sign Reading [...] Plan of Treatment Not on file Insurance [facility] MDCR HMO REF Care Teams Artificial Stone Applicator Relationship Specialty Start Date End Date Eric Cedillo MD [address] [place] [address] PCP - General Family Medicine 11/11/20
--- OUTSIDE RECORDS SUMMARY | 2024-03-06 07:32 | XMS_ITS | Data Portability ---
Author Organization [facility] Address [address] [place] [address] Care Team Providers Care Bright Cutter Name Role Phone SANDY PACHECO Primary Care Provider Assessment Encounter Date Assessment Date Assessment LastModified by Organization Details LastModified Time 09/28/2023 09/28/2023 obtain old records continue current therapy follow up in 4 months obtain records from Oncology and her previous primary care clinic Not available 10/09/2023 14:43:50 Plan of Treatment Reminders Order Date Submit Date Provider Last Modified By Organization Details Last Modified Time Details Appointments ANY 15 2024 09:15A Radha Nielson MD Not available Not available Not available Lab None recorded . Referral None recorded . Procedures None recorded . Surgeries None recorded . Imaging bone density 2023 024 [email or web address] [facility], [address], [place], [address], 01/24/2024 15:27:49 Medication Orders None recorded . Patient TargetsNo targets recorded. Patient InstructionsNo instructions recorded. Reason for Referral None Reported. Results Created Date Observation Date Name Description Value Unit Range Abnormal Flag Note LastModifiedBy Organization Detail LastModifiedTime Result Notes None recorded. Problems Name Problem SNOMED Code Status Onset Date Resolution Date Notes Provider Name and Address Organization Details Recorded Time Postmenopausal state 92850316 Active 2023 Pacheco Nielson MD Attn: Mikael hamilton,[address] [facility], [place], [address], [facility] 14:43:23 Stricture of esophagus 18932541 Active 2023 Pacheco Nielson MD Attn: Mikael hamilton[address] [facility], [place], [address], [place] - [facility] 4 14:43:25 Non-Hodgkin's lymphoma (clinical) 757791238 Active 2023 Pacheco Nielson MD Attn: Mikael hamilton,[address] [facility], [place], [address], [place] - [facility] 4 14:43:26 Gastroesophage al reflux disease without esophagitis 762417361 Active 2023 Pacheco Nielson MD Attn: Mikael hamilton,[address] [facility], [place], [address], [place] - [facility] 4 14:43:28 Problem Notes None recorded. Procedures Surgical History Date Name Laterality Status Provider Name and Address Organization Details Recorded Time percutaneous catheterization of portal vein completed PAYAM Ariza - [facility] 09/28/2023 10:07:58 Imaging Results None recorded. Procedure Notes None recorded. Medical Equipment None Reported. Allergies No known drug allergies Medications Name Sig Start Date Stop Date Status Note LastModified by Organization Details LastModified Time sucralfate 100 mg/mL oral suspension TAKE 1000 MG (10 ML) BY MOUTH BEFORE MEALS AND AT BEDTIME active Not Available Not Available No t Available pantoprazole 40 mg tablet,delayed release TAKE 1 TABLET BY MOUTH TWICE DAILY active Not Available Not Available No t Available Vitals Date Recorded Body height Provider Name an d Address Organization Details Last Updated DateTime 09/28/2023 154.94 cm PAYAM Ariza [facility] 4 10:04:27 Date Recorded Body mass index (BMI) Body weight Provider Name and Address Organization Details Last Updated DateTime 09/28/2023 22.3 kg/m2 16648.54 g PAYAM Ariza - [facility] 0 09/28/2023 10:04:33 Date Recorded Heart rate Provider Name an d Address Organization Details Last Updated DateTime 09/28/2023 70 /min PAYAM Ariza - [facility] 4 10:09:40 Date Recorded Oxygen saturation Oxygen saturation in Arterial blood by Pulse oximetry Provider Name and Address Organization Details Last Updated DateTime 09/28/2023 99 % 99 % Zoya Green [place] - [facility] 09/28/2023 10:09:42 Date Recorded Systolic blood pressure Diastolic blood pressure Provider Name and Address Organization Details Last Updated DateTime 09/28/2023 126 mm[Hg] 70 mm[Hg] Zoya Green [place] - [facility] 09/28/2023 10:10:59 Social History Question Answer Notes LastModified by Organizat ion Details LastModified Time Tobacco Smoking Status Never Smoker Zoya Green PAYAM [facility], [place] - [facility] 09/28/2023 10:06:04 Do You Have An Advance Directive? Yes Information not available 09/28/2023 What Is Your Level Of Alcohol Consumption? None Information not available 09/28/2023 Are You Blind Or Do You Have Difficulty Seeing? Yes Information not available 09/28/2023 What Is Your Level Of Caffeine Consumption? Occasional Coffee Information not available 09/28/2023 In The 14 Days Before Symptom Onset, Have You Had Close Contact With A Laboratory-confir med COVID-19 While That Case Was Ill? No Information not available 09/28/2023 In The 14 Days Before Symptom Onset, Have You Had Close Contact With A Person Who Is Under Investigation For COVID-19 While That Person Was Ill? No Information not available 09/28/2023 Have You Been To An Area Known To Be High Risk For COVID-19? No Information not available 09/28/2023 Are You Currently Employed? No Information not available 09/28/2023 Are You Deaf Or Do You Have Serious Difficulty Hearing? Yes Information not available 09/28/2023 What Type Of Diet Are You Following? REGULAR Information not available 09/28/2023 Are There Any Guns Present In Your Home? No Information not available 09/28/2023 What Was The Date Of Your Most Recent Tobacco Screening? 09/28/2023 Information not available 09/28/2023 What Is Your Relationship Status? Single Information not available 09/28/2023 Do You Use Your Seat Belt Or Car Seat Routinely? Yes Information not available 09/28/2023 Do You Have Smoke And Carbon Monoxide Detectors In Your Home? Yes Information not available 09/28/2023 Do You Feel Stressed (tense, Restless, Nervous, Or Anxious, Or Unable To Sleep At Night)? [id number] Information not available 09/28/2023 Do You Use Any Illicit Or Recreational Drugs? No Information not available 09/28/2023 Do You Use Sunscreen Routinely? Yes Information not available 09/28/2023 Has Tobacco Cessation Counseling Been Provided? No Information not available 09/28/2023 Do You Or Have You Ever Used Any Other Forms Of Tobacco Or Nicotine? No Information not available 09/28/2023 Sex: Female Functional Status Question Answer Note LastModified by Organization D etails LastModified Time Are you able to care for yourself? Yes Information n ot available 09/28/2023 What is your exercise level? None Information not available 09/28/2023 Mental Status None recorded. Family History Nothing Reported. Medical History No medical history recorded. Gynecological HistoryNo gynecological history recorded. Obstetrics History GPAL:G 0 P 0 0 0 0 Past Encounters Encounter ID Performer Location Encounter Start Date Encounter Closed Date Diagnosis/Indication Diagnosis SNOMED-CT Code Diagnosis ICD10 Code Diagnosis Note [id number] Pacheco Nielson MD [facility] (Adult Med) [address] [place] [phone] 09/28/2023 09:57:49 09/28/2023 10:42:18 Postmenopausal state 77858962 Z78.0 Stricture of esophagus 27840415 K22.2 Non-Hodgki n's lymphoma (clinical) 085477465 C85.90 Gastroesop hageal reflux disease without esophagitis 956199291 K21.9 Health Concerns Section Related Observation LastModified by Organization Detai ls LastModified Time None Recorded Concern Status LastModified by Organization Details LastModified Time None Recorded Advance Directives Directive Y: Payers Encounter Date Sequence Insurance Name Policy Number Policy Richardson Covered Member ID Richardson Member ID Guarantor Name 09/28/2023 1 [facility] (MEDICARE REPLACEMENT/A DVANTAGE - HMO) [id number] Vero Al [id number] Vero Al Notes Date Note Type Note Provider Name and Address Organization Details Recorded Time 09/28/2023 text/html 78-year-old with GERD history of esophageal stricture Dr. Sage has expanded at had non-Hodgkin's lymphoma in the past continues to follow up with Dr. Ishmael no she was diagnosed in 2021. Current medications are sucralfate and pantoprazole. Allergies none surgeries [place] family history mother from uterine cancer dad of old age denies smoking drinking or vaping. She thinks she is up-to-date on most immunizations mammogram she thinks a year ago not sure about her colonoscopy Pacheco Nielson MD Attn: [address] [place], [address], [facility] - [facility] 10/09/2023 14:44:13 OBGyn Episode No OBEpisode recorded.
--- OUTSIDE RECORDS SUMMARY | 2024-03-06 07:32 | XMS_ITS | Clinical Summary ---
Author Organization [facility] Address [address] [place] [address] Care Team Providers Care Candy Decorator Name Role Phone Dino Nieto MD Primary Care Provider Source Comments [facility],non-owned Affiliates and Associated Physician Practices is amultiple site organization consisting of ambulatory clinics and hospital sitesin [place], [place], [place] and [place]. This disclosure is being madepursuant to the Care Everywhere program and may not contain all information available regarding this patient. Last updated 17.[facility] Allergies No known active allergies Immunizations Name Administration Dates Next Due INFLUENZA VACCINE, HIGH-DOSE , QUADR. (FLUZONE HIGH-DOSE QUADRIVALENT; 65Y+), 0.7 ML (HD-IIV4) 11/22/2017 Social History Tobacco Use Types Packs/Day Years Used Date Smoking Tobacco: Never Assessed Sex and Gender Information Value Date Recorded Sex Assigned at Not on file Gender Identity Not on file Sexual Orientation Not on file Plan of Treatment Health Maintenance Due Date Last Done Comments BONE DENSITY TESTING 1945 MEDICARE AWV ? 12 MONTHS 1945 HEPATITIS C SCREENING 07/09/1965 DTAP/TDAP/TD VACCINES (1 - Tdap) 07/13/1966 PNEUMOCOCCAL VACCINE 50+ (1 of 1 - PCV) 07/13/1997 ZOSTER VACCINE (1 of 2) 07/13/1997 Respiratory Syncytial Virus (RSV) Vaccine Pt: or over 60 yrs (1 - 1-dose 75+ series) 07/13/2022 COVID-19 VACCINE ( - 2023-2 5 season) 2023 INFLUENZA VACCINE (#1) 2023 11/22/2017 DEPRESSION SCREENING 02/08/2024 MEDICARE AWV ? CALENDAR YEAR 2024 HEPATITIS B VACCINE Aged Out No longe r eligible based on patient's age to complete this topic HIB VACCINE Aged Out No longer eligi ble based on patient's age to complete this topic HPV VACCINE Aged Out No longer eligi ble based on patient's age to complete this topic MENINGOCOCCAL (Group B) VACCINE Aged Out No longer eligible based on patient's age to complete this topic MENINGOCOCCAL VACCINE Aged Out No florencio arvind eligible based on patient's age to complete this topic Care Teams Candy Decorator Relationship Specialty Start Date End Date Dino Nieto MD [address] [facility] [place] [address] PCP - General 05/25/18
--- OUTSIDE RECORDS SUMMARY | 2024-03-06 07:32 | XMS_ITS | Patient Health Summary ---
Author Organization [facility] Address [address] [place] [address] Care Team Providers Care Oim Architect Name Role Phone Dino Nieto MD Primary Care Provider [phone] Note from [facility],non-owned Affiliates and Associated Physician Practices is amultiple site organization consisting of ambulatory clinics and hospital sitesin [place], [place], [place] and [place]. This disclosure is being madepursuant to the Care Everywhere program and may not contain all information available regarding this patient. Last updated 17.[facility] Allergies No known active allergies Immunizations * INFLUENZA VACCINE, HIGH-DOSE, QUADR. (FLUZONE HIGH-DOSE QUADRIVALENT; 65Y+), 0.7 ML (HD-IIV4)(Given 11/22/2017) Social History Tobacco Use Types Packs/Day Years Used Date Smoking Tobacco: Never Assessed Sex and Gender Information Value Date Recorded Sex Assigned at Not on file Gender Identity Not on file Sexual Orientation Not on file Procedures * PATHOLOGY TISSUE(Performed 01/27/2021) Performed for Illness, unspecified Results * PATHOLOGY TISSUE (01/27/2021 2:08 PM NATURAL RESOURCES FACULTY MEMBER) Case Report Surgical Pathology Report ? Case: [id number] ? Authorizing Provider: ??Jaime Nascimento MD ?Collected: ? 01/27/2021 02:08 PM ? Ordering Location: ? [facility] ? Received: ?01/29/2021 01:11 PM ? Pathologist: ? Jannet Gutierrez MD ? Specimen: ?Lymph Node Biopsy, Right groin ? 02/03/2021 11:37 AM [facility] Final Diagnosis Right groin, lymph node, needle core biopsies: - B-cell lymphoma best classified as follicular lymphoma, favor low-grade, in this small specimen 02/03/2021 11:37 AM [facility] Microscopic Description and Comment Sections reveal minute pieces of lymph node tissue with a vaguely nodular pattern and predominantly small, irregular lymphoid cells. Immunohistochemistry performed at [facility] shows lymphoma cells to be positive for CD20, CD10, BCL-6, BCL-2, and to be negative for cyclin D1 and CD5. Background CD3+ T-lymphocytes are present. The nodularity is confirmed by BCL-6 and CD10 staining. Flow cytometry performed at an outside institution reportedly shows a kappa light chain restricted CD10+ B-cell population. 02/03/2021 11:37 AM [facility] Clinical History Rule out lymphoma. 02/03/2021 11:37 AM [facility] Materials Received Received are four slides and one block (A1) labeled [id number] along with a copy of the outside pathology report. [place] [address]. All original materials are returned to the referring institution, along with a copy of our final report. 02/03/2021 11:37 AM [facility] Disclaimer The performance characteristics of all immunohistochemical and indirect immunofluorescence stains (if any) cited in this report were determined by the Histopathology Laboratory of [facility]. Some of these tests were developed by our own laboratory and have not been cleared or approved by the US Food and Drug Administration. The FDA does not require this test to go through premarket FDA review. These tests are used for clinical purposes. They should not be regarded as investigational or for research. This laboratory is certified under the Clinical Laboratory Improvement Amendments (CLIA) as qualified to perform high complexity clinical laboratory testing. This case has been personally reviewed and interpreted by the attending (teaching) pathologist. 02/03/2021 11:37 AM [facility] Embedded Images 02/03/2021 11:37 AM [facility] Pathology/Cytolo gy BIOPSY OF LYMPH NODE / Unknown 01/27/2021 2:08 PM NATURAL RESOURCES FACULTY MEMBER 01/29/2021 1:11 PM NATURAL RESOURCES FACULTY MEMBER Jaime Nascimento MD LAB - PATHOLOGY/CYTO LOGY ORDERABLES Performing Organization Address City/State/[facility] Co de Phone Number [facility] [address] [phone] Care Teams Oim Architect Relationship Specialty Start Date End Date Dino Nieto MD [address] [place] [address] PCP - General 05/25/18
--- OUTSIDE RECORDS SUMMARY | 2024-03-06 07:32 | XMS_ITS | Referral Summary ---
Author Organization [facility] [employer] Address [address] [place] [address] Care Team Providers Care Dictaphone Operator Name Role Phone Dnio Nieto MD Primary Care Provider [phone] Source Comments [facility]non-owned Affiliates and Associated Physician Practices is amultiple site organization consisting of ambulatory clinics and hospital sitesin [place], [place], [place] and [place]. This disclosure is being madepursuant to the Care Everywhere program and may not contain all information available regarding this patient. Last updated 17.[facility] Allergies No known active allergies Immunizations Name Administration Dates Next Due INFLUENZA VACCINE, HIGH-DOSE , QUADR. (FLUZONE HIGH-DOSE QUADRIVALENT; 65Y+), 0.7 ML (HD-IIV4) 11/22/2017 Social History Tobacco Use Types Packs/Day Years Used Date Smoking Tobacco: Never Assessed Sex and Gender Information Value Date Recorded Sex Assigned at Not on file Gender Identity Not on file Sexual Orientation Not on file Plan of Treatment Not on file Care Teams Dictaphone Operator Relationship Specialty Start Date End Date Dino Nieto MD [employer] [facility] [place] [address] PCP - General 05/25/18
--- OUTSIDE RECORDS SUMMARY | 2024-03-06 07:32 | XMS_ITS | Encounter Summary ---
Author Organization [facility] Address [address] [place] [address] Care Team Providers Care Gardening Manager Name Role Phone Dino Nieto MD Primary Care Provider [phone] Encounter Details Date Type Department Care Team (Late st Contact Info) Description 01/29/2021 Lab Requisition [facility] Pathology Lab [address] [place] [address] Jaime Nascimento MD [address] [address] Illness, unspecified Social History Tobacco Use Types Packs/Day Years Used Date Smoking Tobacco: Never Assessed Sex and Gender Information Value Date Recorded Sex Assigned at Not on file Gender Identity Not on file Sexual Orientation Not on file documented as of this encounter Plan of Treatment Not on file documented as of this encounter Procedures Procedure Name Priority Date/Time Associated Diagnosis Comments PATHOLOGY TISSUE Routine 01/27/2021 2:08 PM EXTRACTOR TENDER RAW STOCK Illness, unspecified documented in this encounter Results * PATHOLOGY TISSUE (01/27/2021 2:08 PM EXTRACTOR TENDER RAW STOCK) Case Report Surgical Pathology Report ? Case: [id number] ? Authorizing Provider: ??Jaime Nascimento MD ?Collected: ? 01/27/2021 02:08 PM ? Ordering Location: ? [facility] Pathology Lab ? Received: ?01/29/2021 01:11 PM ? Pathologist: ? Jannet Gutierrez MD ? Specimen: ?Lymph Node Biopsy, Right groin ? 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 Immunohistochemistry performed at [facility] shows lymphoma cells to be positive for CD20, CD10, BCL-6, BCL-2, and to be negative for cyclin D1 and CD5. Background CD3+ T-lymphocytes are present. The nodularity is confirmed by BCL-6 and CD10 staining. Flow cytometry performed at an outside institution reportedly shows a kappa light chain restricted CD10+ B-cell population. 02/03/2021 11:37 AM [facility] PATHOLOG[facility] LAB Clinical History Rule out lymphoma. 02/03/2021 11:37 AM [facility] PATHOLOG[facility] LAB Materials Received Received are four slides and one block (A1) labeled [id number] along with a copy of the outside pathology report. [place] [address]. All original materials are returned to the referring institution, along with a copy of our final report. 02/03/2021 11:37 AM [facility] PATH[facility] LAB Disclaimer The performance characteristics of all immunohistochemical and indirect immunofluorescence stains (if any) cited in this report were determined by the Histopathology Laboratory of [facility]. Some of these tests were developed by [...] the attending (teaching) pathologist. 02/03/2021 11:37 AM [facility] PATHOLOG[facility] LAB Embedded Images 02/03/2021 11:37 AM [facility] PATHOLOG[facility] LAB Pathology/Cytolo gy BIOPSY OF LYMPH NODE / Unknown 01/27/2021 2:08 PM EXTRACTOR TENDER RAW STOCK 01/29/2021 1:11 PM EXTRACTOR TENDER RAW STOCK Jaime Nascimento MD LAB - PATHOLOGY/CYTO LOGY ORDERABLES Performing Organization Address City/State/[facility] Co de Phone Number [facility] PATHOLOGY LAB [address] [phone] documented in this encounter Visit Diagnoses Diagnosis Illness, unspecified documented in this encounter Care Teams Gardening Manager Relationship Specialty Start Date End Date Dino Nieto MD [address] [place] [address] PCP - General 05/25/18 documented as of this encounter
== END 2024-03-05 07:01 | disposition home or self-care (01) ==
LOC: ANHLAB 03-06 07:27
PROVIDERS: Visit Provider Internal Medicine Gastroenterology
DX: K22.70 Barrett's esophagus without dysplasia (principal); K22.2 Esophageal obstruction
CPT/HCPCS: 88305

== ENCOUNTER 2024-04-02 08:29 | Day surgery (SDC) | payer MEDICARE, SELFPAY ==
[2024-03-06 11:16] VITALS: BMI 23.4
--- NOTE | 2024-04-02 06:57 | P.PNAN_ITS ---
Anes - Initial Pre Proc Eval Procedure: Operation Date: 04/02/24 10:30 Proposed Procedures p Esophagogastroduodenoscopy - Rogelio Gonzalez MD Date/Time: 04/02/24 06:57 Surgeon: Rogelio Gonzalez MD Pre Op Diagnosis: Bland's Esophagus, Dysphagia Patient Data Age: 78 Gender: F Height: 1.55 m Weight: 51.71 kg Allergies Allergy/AdvReac Type Severity Reaction Status Date / Time No Known Allergies Allergy Verified 04/02/24 09:02 Home Medications ?Medication ?Instructions ?Recorded ?Confirmed ?Type saliva substitute combo no.9 15 ml PO QID PRN Dry Mouth #473 mL 01/30/21 04/02/24 Rx (Biotene Dry Mouth Oral Rinse mouthwash) ferrous sulfate 325 mg (65 mg 325 mg PO DAILY 12/21/21 04/02/24 History iron) tablet sucralfate 100 mg/mL oral 1,000 mg (10 mL) PO ACHS #1,200 mL 08/09/23 04/02/24 Rx suspension pantoprazole 40 mg tablet,delayed 40 mg PO BID #60 tabs 12/27/23 04/02/24 Rx release (Protonix) Patient hx anesthesia problems: none Family hx anesthesia problems: none Results Review: All pre-operative results and documents have been reviewed as part of the pre- operative evaluation. [facility] Past Medical History Medical History Erosive esophagitis Esophageal stricture External hemorrhoids Follicular lymphoma Hypertension No longer on medication with weight loss. Hypokalemia Immunoglobulin deficiency Malnutrition Non-Hodgkin lymphoma Oropharyngeal candidiasis Port-A-Cath in place Surgical History Surgical History History of colonoscopy History of lymph node biopsy Family History Family History Father Malignant neoplasm of prostate Mother Ovarian cancer Social History Social History Social History: The patient is and lives in her own home in [place]. She is originally from [facility]. She has 3 children who live in the area. 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 No alcohol or illicit substance abuse. She designates her daughter, Lorena Al, or her good friend, Earnest White, as her surrogate decision makers. Code status: Full code. Smoking status: Never smoker Second hand tobacco smoke exposure: No Alcohol intake: never Substance use: never Substance use type: does not use Living arrangements: alone Spiritual care concerns: No Anes - Eval Final PreProcedure Day of Procedure 04/02/24 06:57 Patient weight: normal Heart: regular rate and rhythm Lungs: clear to auscultation and normal air movement Airway: Mallampati scale class II Neurological: alert and oriented Last oral intake: >/= 8 hours ASA classification: III Emergent: no Anesthetic plan: proceed Anesthesia type and monitoring: general GIVS and standard monitoring Results Review: All pre-operative results and documents have been reviewed as part of the pre- operative evaluation. Informed Consent: The patient's anesthetic plan and its attendant risks and benefits were discussed with the patient/family/POA. Questions were solicited and answers provided to the satisfaction of the patient/family/POA.
--- OUTSIDE RECORDS SUMMARY | 2024-04-02 08:56 | XMS_ITS | Referral Summary ---
Author Organization [facility] Address [address] [place] [address] Care Team Providers Care Fish Processor Name Role Phone Eric Cedillo MD Primary Care Provider [phone] Allergies No known active allergies Medications enalapril [...] Plan of Treatment Not on file Insurance [facility] MDCR [facility] Address: [facility] [address] [place] [address] Care Teams Fish Processor Relationship Specialty Start Date End Date Eric Cedillo MD [address] [place] [address] PCP - General Family Medicine 11/11/20
--- OUTSIDE RECORDS SUMMARY | 2024-04-02 08:56 | XMS_ITS | Clinical Summary ---
Author Organization [facility] Lindsay iqbal [facility] Address [address] [place] [address] Care Team Providers Care Harvest Field Ticketer Name Role Phone Eric Cedillo MD Primary Care Provider Allergies No known active allergies Medications vit [...] Encounters Date Type Department Care Team Description 03/27/2024 External Device Data STL ABSTRACTION Provider, Abstract 02/29/2024 External Device Data STL ABSTRACTION Provider, [...] on file Legal Sex Female 8:14 AM EDUCATIONAL DIAGNOSTICIAN Gender Identity Not on file Sexual Orientation Not on file Last Filed Vital Signs Vital Sign Reading Time Taken Comments Blood Pressure 134/63 11/16/2023 10:08 AM CDT Pulse 80 11/16/2023 10:08 AM CDT Temperature 36.3 C (97.3 F) 11/16/2023 10:04 AM CDT Respiratory Rate 16 11/16/2023 10:04 AM CDT [...] Description 05/17/2024 11:00 AM CDT Office Visit [facility] Oncology and Hematology - [place] [address] [facility] [address] [place] [address] Henrry Gonzalez MD [address] [facility] [address] [place] [address] Health Maintenance Due Date Last Done Comments DTAP/TDAP/TD VACCINES (1 - Tdap) 07/13/1966 PNEUMOCOCCAL VACCINE 65+ YEARS (1 of 2 - PCV) 07/13/18 67 ZOSTER VACCINE (1 of 2) 07/13/1966 OSTEOPOROSIS SCREENING 07/13/2012 RSV VACCINE (60+ or ) (1 - 1-dose 75+ series) 07/13/2022 INFLUENZA VACCINE (#1) 2023 11/22/2017 Insurance Care Teams Harvest Field Ticketer Relationship Specialty Start Date End Date Eric Cedillo MD [address] [place] [address] PCP - General Family Practice 02/03/21
--- OUTSIDE RECORDS SUMMARY | 2024-04-02 08:56 | XMS_ITS | Data Portability ---
Author Organization [facility] Address [address] [place] [address] Care Team Providers Care Work Order Detailer Name Role Phone THERESA NIELSON Primary Care Provider Assessment Encounter Date Assessment Date Assessment LastModified by Organization Details LastModified Time 09/28/2023 09/28/2023 obtain old records continue current therapy follow up in 4 months obtain records from Oncology and her previous primary care clinic [email or web address] Not available 10/09/2023 14:43:50 03/28/2024 03/28/2024 EKG shows a normal sinus rhythm without any acute changes she is cleared for her surgery for cataract. With regards to knee x-ray meloxicam for 4 weeks if it upsets her stomach she will stop it immediately and let me know. She will continue with pantoprazole and sucralfate follow up with me in 4 months. Pneumococcal vaccination today [email or web address] Not available 03/28/2024 22:42:19 Plan of Treatment Reminders Order Date Submit Date Provider Last Modified By Organization Details Last Modified Time Details Appointments ANY 15 2024 10:00A Radha Nielson MD Not available Not available Not available Lab None recorded. Referral None recorded. Procedures None recorded. Surgeries None recorded. Imaging XR, knee 2024 025 [facility] (Imaging), [address], [place], [address], 03/28/2024 13:01:02 bone density 2023 024 [facility], [address], [place], [address], 03/28/2024 12:15:11 Medication Orders meloxicam 7.5 mg tablet 2024 025 [email or web address] [facility] [address] [facility], [place], [address], 03/28/2024 12:57:29 Patient TargetsNo targets recorded. Patient InstructionsNo instructions recorded. Reason for Referral None Reported. Results Created Date Observation Date Name Description Value Unit Range Abnormal Flag Note LastModifiedBy Organization Detail LastModifiedTime 03/28/19 25 03/28/2024 elect wayne cordobagr am No observ ation record ed. BARCODE Not Available 2024 12:57:46 Result Notes None recorded. Problems Name Problem SNOMED Code Status Onset Date Resolution Date Notes Provider Name and Address Organization Details Recorded Time [facility] 81349953 Active 2023 Theresa Nielson MD Attn: Mikael hamilton,[address] [place], [address], [place] - [facility] 4 14:43:23 Stricture of esophagus 52290867 Active 2023 Theresa Nielson MD Attn: Mikael hamilton,[address] [facility], [place], [address], [place] [facility] 4 14:43:25 Non-Hodgkin 's lymphoma (clinical) 215511429 Active 2023 Theresa Nielson MD Attn: Mikael hamilton,[address] [facility], [place], [address], [place] [facility] 4 14:43:26 Gastroesoph ageal reflux disease without esophagitis 615088132 Active 2023 Theresa Nielson MD Attn: Mikael hamilton,[address] [facility], [place], [address], [place] [facility] 4 14:43:28 Pain of left knee joint 6925077830223 07 Active 2024 Tess Javed MA null, [place] - [facility] 5 12:43:25 Pre-surgery evaluation Active 2024 Theresa Nielson MD Attn: Accounttaiwo hamilton,[address], [place], [address] , [facility] - [facility] 5 22:40:27 Problem Notes None recorded. Procedures Surgical History Date Name Laterality Status Provider Name and Address Organization Details Recorded Time percutaneous catheterization of portal vein completed Zoya Green MA [facility] 09/28/2023 10:07:58 Imaging Results Imaging Date Name Status LastModified by Organization Details LastModified Time 03/28/2024 electrocardiogram completed BARCODE Informa tion not available 03/28/2024 12:57:46 Procedure Notes None recorded. Medical Equipment None Reported. Allergies No known drug allergies Medications Name Sig Start Date Stop Date Status Note LastModified by Organization Details LastModified Time ofloxacin 0.3 % eye drops INSTILL 1 DROP THREE TIMES DAILY INTO SURGICALY EYE STARTING 2 DAYS BEFORE SURGERY, CONTINUIN G FOR ONE WEEK AFTER 03/28 completed Not Available Not Available Not Available sucralfate 100 mg/mL oral suspension TAKE 1000 MG (10 ML) BY MOUTH BEFORE MEALS AND AT BEDTIME active Not Available Not Available No t Available ketorolac 0.5 % eye drops INSTILL 1 DROP THREE TIMES DAILY STARTING 2 DAYS BEFORE SURGERY, CONTINUE FOR 2 WEEKS AFTER 03/28 completed Not Available Not Available Not Available meloxicam 7.5 mg tablet Take 1 tablet every day by oral route. 2024 active Not Available Not Available Not Avai lable prednisolon e acetate 1 % eye drops,suspe nsion INSTILL 1 DROP THREE TIMES DAILY STARTING AFTER SURGERY, CONTINUE FOR 3 WEEKS 03/28 completed Not Available Not Available Not Available pantoprazol e 40 mg tablet,letitia yed release TAKE 1 TABLET BY MOUTH TWICE DAILY active Not Available Not Available No t Available Vitals Date Recorded Body height Body mass index (BMI) Body weight Heart rate Oxygen saturation Oxygen saturation in Arterial blood by Pulse oximetry Systolic blood pressure Diastolic blood pressure Provider Name and Address Organization Details Last Updated DateTime 4 154.94 cm 22.3 kg/m2 04330.5 4 g 70 /min 99 % 99 % 126 mm[Hg] 70 mm[Hg] Zoya Green MA [facility] 4 10:10:59 Date Recorded Body height Body mass index (BMI) Body weight Heart rate Oxygen saturation Oxygen saturation in Arterial blood by Pulse oximetry Systolic blood pressure Diastolic blood pressure Provider Name and Address Organization Details Last Updated DateTime 5 154.94 cm 21.8 kg/m2 78653.2 8 g 71 /min 100 % 100 % 120 mm[Hg] 78 mm[Hg] Lucia Loomis MA [facility] 12:11:53 Social History Question Answer Notes LastModified by Organizat ion Details LastModified Time Tobacco Smoking Status Never Smoker Zoya Green MA null, [place] - [facility] 09/28/2023 10:06:04 Do You Have An Advance [...] Date Of Your Most Recent Tobacco Screening? 03/28/2024 [email or web address] Information not available 03/28/2024 What Is Your Relationship Status? Single Information not available 09/28/2023 Do You Use Your Seat Belt Or Car Seat Routinely? Yes Information not available 09/28/2023 Do You Have Smoke And Carbon Monoxide Detectors In Your Home? Yes Information not available 09/28/2023 Do You Feel Stressed (tense, Restless, Nervous, Or Anxious, Or Unable To Sleep At Night)? [id number] Information not available 09/28/2023 Do You Use [...] recorded. Family History Nothing Reported. Medical History Condition Response Acid Reflux (GERD) Y Cancer Y Gynecological HistoryNo gynecological history recorded. Obstetrics History GPAL:G 0 P 0 0 0 0 Immunizations Vaccine Type Date Status Note Provider Nam e and Address Organization Details Recorded Time Influenza, adjuvanted, trivalent, PF 8 completed Lucia Loomis [place] null, [place] [facility] 03/28/2024 11:35:44 Influenza, adjuvanted, trivalent, PF 9 completed Lucia Loom[place] [facility] 03/28/2024 11:35:44 zoster recombinant 1 completed Lucia Loom[place] [facility] 03/28/2024 11:35:44 zoster recombinant 1 completed PAYAM Johnson, [place] [facility] 03/28/2024 11:35:44 Influenza, high-dose, quadrivalent, PF 1 completed Lucia Loom[place] [facility] 03/28/2024 11:35:44 Influenza, high-dose, quadrivalent, PF 0 completed Lucia L[place] [facility] 03/28/2024 11:35:44 Influenza, high-dose, quadrivalent, PF 2 completed Lucia Loomis [place] [facility] 03/28/2024 11:35:44 COVID-19, mRNA, LNP-S, PF, 30 mcg/0.3 mL dose 1 completed Lucia Loomis [place], [place] [facility] 03/28/2024 11:35:44 COVID-19, mRNA, LNP-S, PF, 30 mcg/0.3 mL dose 1 completed Lucia Loomis [place] [facility] 03/28/2024 11:35:44 COVID-19, mRNA, LNP-S, PF, 30 mcg/0.3 mL dose 1 completed uLcia Loomis [place]YAM [place] [facility] 03/28/2024 11:35:44 COVID-19, mRNA, LNP-S, bivalent, PF, 30 mcg/0.3 mL dose 3 completed Lucia Loomis [place] [facility] 03/28/2024 11:35:44 COVID-19, mRNA, LNP-S, bivalent, PF, 30 mcg/0.3 mL dose 2 completed Lucia Loomis [place] [facility] 03/28/2024 11:35:44 COVID-19, mRNA, LNP-S, PF, jo-sucrose, 30 mcg/0.3 mL 3 completed Lucia Loom[place] [facility] 03/28/2024 11:35:44 Influenza, high-dose, trivalent, PF 8 completed Lucia L[place] [facility] 03/28/2024 11:35:44 Influenza, adjuvanted, trivalent, PF 4 completed Lucia L[place] [facility] 03/28/2024 12:04:30 COVID-19, mRNA, LNP-S, PF, jo-sucrose, 30 mcg/0.3 mL 4 completed Lucia Loom[place] [facility] 03/28/2024 12:04:30 Pneumococcal conjugate PCV20, polysaccharide [id number] conjugate, adjuvant, PF 5 completed Theresa Nielson MD Attn: Accounting,[address] [facility], [place], [address], [facility] - [facility] 03/28/2024 22:42:39 Past Encounters Encounter ID Performer Location Encounter Start Date Encounter Closed Date Diagnosis/Indication Diagnosis SNOMED-CT Code Diagnosis ICD10 Code Diagnosis Note [id number] Theresa Nielson MD [facility] (Adult Med) [address] [place] [phone] 09/28/2023 09:57:49 09/28/2023 10:42:18 Postmenopausal state 87341876 Z78.0 Stricture of esophagus 38254367 K22.2 Non-Hodgki n's lymphoma (clinical) 112104879 C85.90 Gastroesop hageal reflux disease without esophagitis 864647964 K21.9 [id number] Theresa Nielson MD [facility] (Adult Med) [address] [place] [phone] 03/28/2024 12:00:14 03/28/2024 13:01:02 Body mass index 20-24 - normal 503675630 Z68.21 Pain of le ft knee joint 7411122109 54132 M25.562 Administra tion of pneumococcal vaccine 83117144 Z23 Gastroesop hageal reflux disease without esophagitis 284641350 K21.9 Pre-surger y evaluation 004441084 Z01.818 Health Concerns Section Related Observation LastModified by Organization Detai ls LastModified Time None Recorded Concern Status LastModified by Organization Details LastModified Time None Recorded Advance Directives Directive Y: Payers Encounter Date Sequence Insurance Name Policy Number Policy Richardson Covered Member ID Richardson Member ID Guarantor Name 09/28/2023 1 [facility] (MEDICARE REPLACEMENT/A DVANTAGE - HMO) [id number] Vero Al [id number] Vero Al 03/28/2024 1 [facility] (MEDICARE REPLACEMENT/A DVANTAGE - HMO) [id number] Vero Al [id number] Vero Al Notes Date Note Type Note [...] year ago not sure about her colonoscopy Theresa Nielson MD Attn: Accounting,[address] , [place], [address], [facility] 10/09/2023 14:44:13 03/28/2024 text/html GERD esophageal stricture PPI doing well no problems swallowing left knee pain off and on for several months gets worse with up and downstairs and moving about rest makes it better no swelling no trauma no fever chills or anything to suggest anything infectious. She also needs to be seen for cataract surgery clearance and she has had no neurological or cardiopulmonary complaints Theresa Nielson MD Attn: Accounting,[address] , [place], [address], [facility] - [facility] 03/28/2024 22:42:42 OBGyn Episode No OBEpisode recorded.
--- OUTSIDE RECORDS SUMMARY | 2024-04-02 08:56 | XMS_ITS | Clinical Summary ---
Author Organization [facility] Address [address] [place] [address] Care Team Providers Care Front Loader Residential Driver Name Role Phone Eric Cedillo MD Primary Care Provider [phone] Allergies No known active allergies Medications enalapril [...] Plan of Treatment Not on file Insurance [facility] MDCR HMO REF [facility] MEDICARE Address: [facility] [address] [place] [address] Care Teams Front Loader Residential Driver Relationship Specialty Start Date End Date Eric Cedillo MD [address] [place] [address] PCP - General Family Medicine 11/11/20
--- OUTSIDE RECORDS SUMMARY | 2024-04-02 08:57 | XMS_ITS | Clinical Summary ---
Author Organization [facility] Address [address] [place] [address] Care Team Providers Care Ultrasonic Seaming Machine Operator Name Role Phone Dino Nieto MD Primary Care Provider [phone] Source Comments [facility],non-owned Affiliates and Associated Physician Practices is amultiple site organization consisting of ambulatory clinics and hospital sitesin [place], [place], [place] and [place]. This disclosure is being madepursuant to the Care Everywhere program and may not contain all information available regarding this patient. Last updated 17.[facility] Allergies No known active allergies Immunizations Name [...] Comments BONE DENSITY TESTING 1945 MEDICARE AWV 12 MONTHS 1945 HEPATITIS C SCREENING 07/09/1965 DTAP/TDAP/TD VACCINES (1 - Tdap) 07/13/1966 PNEUMOCOCCAL VACCINE 50+ (1 of 1 - PCV) 07/13/1997 ZOSTER VACCINE (1 of 2) 07/13/1997 Respiratory Syncytial Virus (RSV) Vaccine Pt: or over 60 yrs (1 - 1-dose 75+ series) 07/13/2022 COVID-19 VACCINE ( - 2023-2 5 season) 2023 INFLUENZA VACCINE (#1) 2023 11/22/2017 DEPRESSION SCREENING 02/08/2024 MEDICARE AWV CALENDAR YEAR 2024 HEPATITIS B VACCINE Aged [...] age to complete this topic Care Teams Ultrasonic Seaming Machine Operator Relationship Specialty Start Date End Date Dino Nieto MD [address] [place] [address] PCP - General 05/25/18
--- OUTSIDE RECORDS SUMMARY | 2024-04-02 08:57 | XMS_ITS | Encounter Summary ---
Author Organization [facility] Address [address] [place] [address] Care Team Providers Care Part Time Name Role Phone Dino Nieto MD Primary Care Provider [phone] Encounter Details Date Type Department Care Team (Late st Contact Info) Description 01/29/2021 Lab Requisition [facility]ology [facility] [address] [place] [address] Jaime Nascimento MD [address] [address] Illness, unspecified Social History Tobacco [...] Comments PATHOLOGY TISSUE Routine 01/27/2021 2:08 PM FELLED SEAM OPERATOR Illness, unspecified documented in this encounter Results * PATHOLOGY TISSUE (01/27/2021 2:08 PM FELLED SEAM OPERATOR) Case Report Surgical Pathology Report Case: [id number] Authorizing Provider: Jaime Nascimento MD Collected: 01/27/2021 02:08 PM Ordering Location: [facility] Pathology Lab Received: 01/29/2021 01:11 PM Pathologist: Jannet Gutierrez MD Specimen: Lymph Node Biopsy, Right groin 02/03/2021 11:37 AM FELLED SEAM OPERATOR [facility] PATH[facility] Final Diagnosis Right groin, lymph node, needle core biopsies: - 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 Immunohistochemistry performed at [facility] shows lymphoma cells to be positive for CD20, CD10, BCL-6, BCL-2, and to be negative for cyclin D1 and CD5. Background CD3+ T-lymphocytes are present. The nodularity is confirmed by BCL-6 and CD10 staining. Flow cytometry performed at an outside institution reportedly shows a kappa light chain restricted CD10+ B-cell population. 02/03/2021 11:37 AM [facility] PATHOLOGY LAB Clinical History Rule out lymphoma. 02/03/2021 11:37 AM [facility] PATHOLOGY LAB Materials Received Received are four slides and one block (A1) labeled [id number] along with a copy of the outside pathology report. [place] [address]. All original materials are returned to the referring institution, along with a copy of our final report. 02/03/2021 11:37 AM [facility] PATHOLOGY LAB Disclaimer The performance characteristics of all immunohistochemical and indirect immunofluorescence stains (if any) cited in this report were determined by the Histopathology Laboratory of [facility]. Some of these tests were developed [...] the attending (teaching) pathologist. 02/03/2021 11:37 AM [facility] PATHOLOGY LAB Embedded Images 02/03/2021 11:37 AM [facility] PATHOLOGY LAB Pathology/Cytolo gy BIOPSY OF LYMPH NODE / Unknown 01/27/2021 2:08 PM FELLED SEAM OPERATOR 01/29/2021 1:11 PM FELLED SEAM OPERATOR Jaime Nascimento MD LAB - PATHOLOGY/CYTO LOGY ORDERABLES [facility] PATHOLOGY LAB [address] [phone] documented in this encounter Visit Diagnoses Diagnosis Illness, unspecified documented in this encounter Care Teams Part Time Relationship Specialty Start Date End Date Dino Nieto MD [address] [place] [address] PCP - General 05/25/18 documented as of this encounter
--- OUTSIDE RECORDS SUMMARY | 2024-04-02 08:57 | XMS_ITS | Referral Summary ---
Author Organization [facility] Address [address] [place] [address] Care Team Providers Care Outreach Representative Name Role Phone Dino Nieto MD Primary Care Provider [phone] Source Comments [facility],non-owned Affiliates and Associated Physician Practices is amultiple site organization consisting of ambulatory clinics and hospital sitesin [place], [place], [place] and [place]. This disclosure is being madepursuant to the Care Everywhere program and may not contain all information available regarding this patient. Last updated 17.[facility] [facility] Allergies No known active allergies Immunizations Name [...] of Treatment Not on file Care Teams Outreach Representative Relationship Specialty Start Date End Date Dino Nieto MD [address] [place] [address] PCP - General 05/25/18
--- OUTSIDE RECORDS SUMMARY | 2024-04-02 08:57 | XMS_ITS | Patient Health Summary ---
Author Organization [facility] Address [address] [place] [address] Care Team Providers Care Sql Application Developer Name Role Phone Dino Nieto MD Primary Care Provider [phone] Note from [facility],non-owned Affiliates and Associated Physician Practices is amultiple site organization consisting of ambulatory clinics and hospital sitesin [place], [place], [place] and [place]. This disclosure is being madepursuant to the Care Everywhere program and may not contain all information available regarding this patient. Last updated 17.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 Immunohistochemistry performed at [facility] shows lymphoma cells to be positive for CD20, CD10, BCL-6, BCL-2, and to be negative for cyclin D1 and CD5. Background CD3+ T-lymphocytes are present. The nodularity is confirmed by BCL-6 and CD10 staining. Flow cytometry performed at an outside institution reportedly shows a kappa light chain restricted CD10+ B-cell population. 02/03/2021 11:37 AM [facility] PATHOLOGY LAB Clinical History Rule out lymphoma. 02/03/2021 11:37 AM [facility] PATHOLOGY LAB Materials Received Received are four slides and one block (A1) labeled [id number] along with a copy of the outside pathology report. [place] [address]. All original materials are returned to the referring institution, along with a copy of our final report. 02/03/2021 11:37 AM [facility] PATHOLOGY LAB Disclaimer The performance characteristics of all immunohistochemical and indirect immunofluorescence stains (if any) cited in this report were determined by the Histopathology Laboratory of [facility]. Some of these tests were developed [...] the attending (teaching) pathologist. 02/03/2021 11:37 AM [facility] PATHOLOGY LAB Embedded Images 02/03/2021 11:37 AM [facility] PATHOLOGY LAB Pathology/Cytolo gy BIOPSY OF LYMPH NODE / Unknown 01/27/2021 2:08 PM PROCESS COACH 01/29/2021 1:11 PM PROCESS COACH Jaime Nascimento MD LAB - PATHOLOGY/CYTO LOGY ORDERABLES [facility] PATHOLOGY LAB [address] [phone] Care Teams Sql Application Developer Relationship Specialty Start Date End Date Dino Nieto MD [address] [place] [address] PCP - General 05/25/18
[2024-04-02 09:00] VITALS: BP 167/67; PULSE 60; RESP 16; TEMP 37.1; O2SAT 100
[2024-04-02] MEDS: LACTATED RINGERS 1,000 ML 150 ML IV CONT (09:16)
--- NOTE | 2024-04-02 10:59 | PM.IMHP ---
H&P: HPI History of Present Illness Date/Time: 04/02/24 10:59 Chief Complaint: Bland's esophagus-peptic stricture Narrative: on 03/05/2024 the patient underwent an EGD, finding a 15 cm Bland's esophagus and the presence of 2 stenosis, which were dilated with a TTS balloon 12-15 mm. She did well, comes today for 2nd session with the attempt of injecting triamcinolone to the stricture to facilitate dilation process. Review of Systems Review of Systems: All systems reviewed & are unremarkable except as noted in HPI and below PMFSH Past Medical History Medical History Erosive esophagitis Esophageal stricture External hemorrhoids Follicular lymphoma Hypertension No longer on medication with weight loss. Hypokalemia Immunoglobulin deficiency Malnutrition Non-Hodgkin lymphoma Oropharyngeal candidiasis Port-A-Cath in place Surgical History Surgical History History of colonoscopy History of lymph node biopsy Family History Family History Father Malignant neoplasm of prostate Mother Ovarian cancer Social History Social History Social History: The patient is and lives in her own home in [place]. She is originally from [facility]. She has 3 children who live in the area. 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 No alcohol or illicit substance abuse. She designates her daughter, Lorena Al, or her good friend, Earnest White, as her surrogate decision makers. Code status: Full code. Smoking status: Never smoker Second hand tobacco smoke exposure: No Alcohol intake: never Substance use: never Substance use type: does not use Living arrangements: alone Spiritual care concerns: No Meds Home Medications and Allergies Home Medications ?Medication ?Instructions ?Recorded ?Confirmed ?Type saliva substitute combo no.9 15 ml PO QID PRN Dry Mouth #473 mL 01/30/21 04/02/24 Rx (Biotene Dry Mouth Oral Rinse mouthwash) ferrous sulfate 325 mg (65 mg 325 mg PO DAILY 12/21/21 04/02/24 History iron) tablet sucralfate 100 mg/mL oral 1,000 mg (10 mL) PO ACHS #1,200 mL 08/09/23 04/02/24 Rx suspension pantoprazole 40 mg tablet,delayed 40 mg PO BID #60 tabs 12/27/23 04/02/24 Rx release (Protonix) Allergies Allergy/AdvReac Type Severity Reaction Status Date / Time No Known Allergies Allergy Verified 04/02/24 09:02 Vital Signs Vital Signs - 24 hr 04/02/24 09:00 Temperature 98.7 F Pulse Rate 60 Respiratory Rate 16 Blood Pressure 167/67 H Pulse Oximetry 100 Oxygen Delivery Room Air Exam Const: General: cooperative and healthy appearing Resp: Effort & Inspection: normal respiratory effort and able to speak in complete sentences Auscultation: clear to auscultation bilaterally Cardio: Rate: regular rate Rhythm: regular rhythm GI: Inspection: normal to inspection GI Palp: No No hepatosplenomegaly present Auscultation: normal bowel sounds Rectal Exam: deferred Skin: General skin exam: normal color Psych: Appearance: grossly normal Mental Status: mental status grossly normal Assessment and Plan Assessment and plan (1) Esophageal stricture: Code(s): K22.2 - Esophageal obstruction Status: Acute Assessment and Plan: The patient is deemed a good candidate for the procedure. Consent signed. Will proceed. (2) Bland's esophagus determined by biopsy: Code(s): K22.70 - Bland's esophagus without dysplasia Status: Acute
[2024-04-02] MEDS: TRIAMCINOLONE ACET INJ 40 MG/ML VIAL 160 MG ESOPHAGEAL (11:15)
[2024-04-02 11:25] VITALS: BP 114/47; PULSE 78; RESP 16; O2SAT 98
--- NOTE | 2024-04-02 11:34 | WPDANESPN ---
Anes - Prog Note Post-Op Date/Time: 04/02/24 11:34 Cardiovascular status: normal Respiratory status: normal Airway patency: baseline Mental status: baseline Post-Op hydration status: normal Vital Signs: Last Vital Signs Temp 37.1 C 04/02/24 09:00 Pulse 78 04/02/24 11:25 Resp 16 04/02/24 11:25 BP 114/47 L 04/02/24 11:25 Pulse Ox 98 04/02/24 11:25 O2 Del Method Room Air 04/02/24 11:25 Pain Score (VAS): 0 I/O: Intake & Output 04/01/24 04/02/24 04/02/24 23:59 07:59 15:59 Intake Total 500 Balance 500 Post-procedural complaints: none Patient Feedback: Patient satisfied with anesthetic care. Other Findings: Patient vital signs back to baseline. Patient denies nausea and vomiting. Patient's pain under control. Patient OK for discharge.
[2024-04-02 11:35] VITALS: BP 117/54; PULSE 62; RESP 15; O2SAT 98
[2024-04-02 11:45] VITALS: BP 137/67; PULSE 58; RESP 15; O2SAT 100
== END 2024-04-02 12:07 | disposition home or self-care (01) ==
PROVIDERS: PCP Internal Medicine; Visit Provider Internal Medicine Gastroenterology
PROC: 0DJ08ZZ Inspection of Upper Intestinal Tract, Via Natural or Artificial Opening Endoscopic (ICD-10-PCS; CPT 43249; principal; 2024-04-02 10:30)
DX: K22.2 Esophageal obstruction (principal); K29.70 Gastritis, unspecified, without bleeding; K44.9 Diaphragmatic hernia without obstruction or gangrene
CPT/HCPCS: 43249; 43236; 43239

== ENCOUNTER 2024-04-19 09:24 | Outpatient (CLI) | payer MEDICARE, SELFPAY ==
--- NOTE | ~2024-04-19 | XR_ITS ---
Left Knee Technique: AP, lateral, and sunrise views were obtained. Clinical History: Pain Findings: No fracture or dislocation is seen. Osseous alignment is anatomic. There is medial compartm ent narrowing. There is tricompartmental osteophyte formation, moderate in degree. Small joint effusi on is seen. Impression: Moderate tricompartmental osteoarthritis. Small joint effusion. Reviewed, dictated and finalized at location . Impression: Moderate tricompartmental osteoarthritis. Small joint effusion.
== END 2024-04-19 09:25 | disposition home or self-care (01) ==
LOC: MICIMG 09:25
PROVIDERS: PCP Internal Medicine; Visit Provider Internal Medicine
DX: M17.12 Unilateral primary osteoarthritis, left knee (principal); M25.462 Effusion, left knee
CPT/HCPCS: 73564

== ENCOUNTER 2024-05-16 08:31 | Outpatient (CLI) | payer MEDICARE, SELFPAY ==
[2024-05-16 08:45] LABS: Basophils Percent Auto 0.8 % (0.2-1.2); Eosinophils Absolute Auto 0.1 K/mm3 (0-0.3); Eosinophils Percent Auto 2.7 % (0-4.4); Hematocrit 41.4 % (37.0-47.0); Hemoglobin 13.9 g/dL (12.0-15.0); Immature Granulocyte Absolute 0.01 K/mm3 (0.00-0.031); Immature Granulocyte Percent A 0.2 % (0-0.5); Lymphocytes Absolute Auto 1.45 K/mm3 (0.9-3.2); Lymphocytes Percent Auto 28.4 % (18.3-44.2); Mean Corpuscular HGB Conc 33.6 g/dl (32-36); Mean Corpuscular Hemoglobin 30.9 pg (26-34); Monocytes Absolute Auto 0.6 K/mm3 (0.1-0.6); Monocytes Percent Auto 10.8 % (2.6-8.5); Neutrophils Absolute Auto 2.9 K/mm3 (1.3-6.7); Neutrophils Percent Auto 57.1 % (45.5-73.1); Platelet Count Result 305 k/mm3 (150-375); Red Cell Distribution Width 12.9 % (11.5-14.5); White Blood Count 5.1 K/mm3 (4.5-10.0)
--- OUTSIDE RECORDS SUMMARY | 2024-05-16 08:51 | XMS_ITS | Referral Summary ---
Author Organization [facility] Address [address] [place] [address] Care Team Providers Care Scientific Helper Name Role Phone Eric Cedillo MD Primary Care Provider [phone] Allergies No known active allergies Medications enalapril [...] Plan of Treatment Not on file Insurance [facility] MDCR HMO [facility] MED[facility] Address: [facility] [address] [place] [address] Care Teams Scientific Helper Relationship Specialty Start Date End Date rEic Cedillo MD [address] [place] [address] PCP - General Family Medicine 11/11/20
--- OUTSIDE RECORDS SUMMARY | 2024-05-16 08:51 | XMS_ITS | Clinical Summary ---
Author Organization [facility] Address [address] [place] [address] Care Team Providers Care Dormitory Keeper Name Role Phone Eric Cedillo MD Primary Care Provider Allergies No known active allergies Medications enalapril [...] Treatment Not on file Insurance [facility] MDCR HMO REF Care Teams Dormitory Keeper Relationship Specialty Start Date End Date Eric Cedillo MD [address] [place] [address] PCP - General Family Medicine 11/11/20
--- OUTSIDE RECORDS SUMMARY | 2024-05-16 08:51 | XMS_ITS | Clinical Summary ---
Author Organization [facility] Lindsay iqbal [facility] Address [address] [place] [address] Care Team Providers Care Store Lead Name Role Phone Eric Cedillo MD Primary Care Provider [phone] Allergies No known active allergies Medications vit [...] on file Legal Sex Female 8:14 AM PROGRAMMING INTERN Gender Identity Not on file Sexual Orientation [...] Description 05/17/2024 11:00 AM CDT Office Visit [facility] Oncology and Hematology - [place] [address] [facility] [address] [place] [address] Henrry Gonzalez MD [address] [place] [address] Health Maintenance Due Date Last Done Comments DTAP/TDAP/TD VACCINES (1 - Tdap) 07/13/1966 PNEUMOCOCCAL VACCINE 50+ YEARS (1 of 2 - PCV) 07/13/18 67 ZOSTER VACCINE (1 of 2) 07/13/1966 OSTEOPOROSIS SCREENING 07/13/2012 RSV VACCINE (60+ or ) (1 - 1-dose 75+ series) 07/13/2022 INFLUENZA VACCINE (#1) 2023 11/22/2017 Medicare [place] Prev entative Visit/Annual Wellness Visit 02/08/2024 Insurance [facility] [address] [place] [id number] Care Teams Store Lead Relationship Specialty Start Date End Date Eric Cedillo MD [address] [place] [address] PCP - General Family Practice 02/03/21
--- OUTSIDE RECORDS SUMMARY | 2024-05-16 08:52 | XMS_ITS | Clinical Summary ---
Author Organization [facility] Address [address] [place] [address] Care Team Providers Care Product Safety Tester Name Role Phone Dino Nieto MD Primary Care Provider [phone] Source Comments [facility],non-owned Affiliates and Associated Physician Practices is amultiple site organization consisting of ambulatory clinics and hospital sitesin [place], [place], [place] and [place]. This disclosure is being madepursuant to the Care Everywhere program and may not contain all information available regarding this patient. Last updated 17.[employer] [facility] Allergies No known active allergies Immunizations Name [...] Last Done Comments BONE DENSITY TESTING 1947 HEPATITIS C SCREENING 07/09/1965 DTAP/TDAP/TD VACCINES (1 - Tdap) 07/13/1966 PNEUMOCOCCAL VACCINE 50+ (1 of 1 - PCV) 07/13/1997 ZOSTER VACCINE (1 of 2) 07/13/1997 Respiratory Syncytial Virus (RSV) Vaccine Pt: or over 60 yrs (1 - 1-dose 75+ series) 07/13/2022 COVID-19 VACCINE ( - 2023-2 5 season) 2023 DEPRESSION SCREENING 02/08/2024 MEDICARE AWV CALENDAR YEAR 2024 INFLUENZA VACCINE (Season Ended) 2024 11/23/19 18 HEPATITIS B VACCINE Aged Out No longe r eligible based on patient's age to complete this topic HIB VACCINE Aged Out No longer eligi ble based on patient's age to complete this topic HPV VACCINE Aged Out No longer eligi ble based on patient's age to complete this topic MENINGOCOCCAL (Group B) VACC INE SHARED DECISION-MAKING Aged Out No longer eligibl e based on patient's age to complete this topic MENINGOCOCCAL GROUPS A/C/Y/W VACCINE Aged Out No longer eligible b ased on patient's age to complete this topic Care Teams Product Safety Tester Relationship Specialty Start Date End Date Dino Nieto MD [address] [place] [address] PCP - General 05/25/18
--- OUTSIDE RECORDS SUMMARY | 2024-05-16 08:52 | XMS_ITS | Encounter Summary ---
Author Organization [facility] Address [address] [place] [address] Care Team Providers Care Linux Network Engineer Name Role Phone Dino Nieto MD Primary Care Provider [phone] Encounter Details Date Type Department Care Team (Late st Contact Info) Description 01/29/2021 Lab Requisition [facility] Pathology Lab [address] [place] [address] Jaime Nascimento MD [address] [address] Illness, unspecified Social History Tobacco [...] Comments PATHOLOGY TISSUE Routine 01/27/2021 2:08 PM GENERAL UTILITY MAINTENANCE REPAIRER Illness, unspecified documented in this encounter Results * PATHOLOGY TISSUE (01/27/2021 2:08 PM GENERAL UTILITY MAINTENANCE REPAIRER) Case Report Surgical Pathology Report Case: [id number] Authorizing Provider: Jaime Nascimento MD Collected: 01/27/2021 02:08 PM Ordering Location: [facility] Pathology Lab Received: 01/29/2021 01:11 PM Pathologist: Jannet Gutierrez MD Specimen: Lymph Node Biopsy, Right groin 02/03/2021 11:37 AM GENERAL UTILITY MAINTENANCE REPAIRER [facility] PATHOLOGY LAB Final Diagnosis Right groin, lymph node, needle core biopsies: - 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 Immunohistochemistry performed at [facility] shows lymphoma cells to be positive for CD20, CD10, BCL-6, BCL-2, and to be negative for cyclin D1 and CD5. Background CD3+ T-lymphocytes are present. The nodularity is confirmed by BCL-6 and CD10 staining. Flow cytometry performed at an outside institution reportedly shows a kappa light chain restricted CD10+ B-cell population. 02/03/2021 11:37 AM [facility] PATHOLOGY LAB Clinical History Rule out lymphoma. 02/03/2021 11:37 AM [facility] PATHOLOGY LAB Materials Received Received are four slides and one block (A1) labeled [id number] along with a copy of the outside pathology report. [place] [address]. All original materials are returned to the referring institution, along with a copy of our final report. 02/03/2021 11:37 AM [facility] PATHOLOGY LAB Disclaimer The performance characteristics of all immunohistochemical and indirect immunofluorescence stains (if any) cited in this report were determined by the Histopathology Laboratory of [facility]. Some of these tests were developed by [...] the attending (teaching) pathologist. 02/03/2021 11:37 AM [facility] PATHOLOGY LAB Embedded Images 02/03/2021 11:37 AM [facility] PATHOLOGY LAB Pathology/Cytolo gy BIOPSY OF LYMPH NODE / Unknown 01/27/2021 2:08 PM GENERAL UTILITY MAINTENANCE REPAIRER 01/29/2021 1:11 PM GENERAL UTILITY MAINTENANCE REPAIRER Jaime Nascimento MD LAB - PATHOLOGY/CYTO LOGY ORDERABLES [facility] PATHOLOGY LAB [address] [phone] documented in this encounter Visit Diagnoses Diagnosis Illness, unspecified documented in this encounter Care Teams Linux Network Engineer Relationship Specialty Start Date End Date Dino Nieto MD [address] [place] [address] PCP - General 05/25/18 documented as of this encounter
--- OUTSIDE RECORDS SUMMARY | 2024-05-16 08:52 | XMS_ITS | Data Portability ---
Author Organization [facility] Obed [facility] Address [address] [place] [address] Care Team Providers Care Quality Rn Name Role Phone THERESA NIELSON Primary Care Provider Assessment Encounter Date Assessment Date Assessment LastModified by Organization Details LastModified Time 09/28/2023 09/28/2023 obtain old records continue current therapy follow up in 4 months obtain records from Oncology and her previous primary care clinic Not available 10/09/2023 14:43:50 03/28/2024 03/28/2024 EKG [...] me in 4 months. Pneumococcal vaccination today [email or web address] Not available 03/28/2024 22:42:19 Plan of Treatment Reminders Order Date Submit Date Provider Last Modified By Organization Details Last Modified Time Details Appointments ANY 15 2024 10:00A Radha Nielson MD Not available Not available Not available Lab None recorded. Referral None recorded. Procedures None recorded. Surgeries None recorded. Imaging XR, knee 2024 025 [facility] (Imaging), [address], [place], [address], 04/20/2024 13:07:42 bone density 2023 024 [facility], [address], [place], [address], 03/28/2024 12:15:11 Medication Orders meloxicam 7.5 mg tablet 2024 025 [email or web address] [facility], [address] [facility], [place], [address], 03/28/2024 12:57:29 Patient TargetsNo targets recorded. Patient InstructionsNo instructions recorded. Reason for Referral None Reported. Results Created Date Observation Date Name Description Value Unit Range Abnormal Flag Note LastModifiedBy Organization Detail LastModifiedTime 03/28/19 25 03/28/2024 elect wayne diogr am No observ ation record ed. BARCODE Not Available 2024 12:57:46 04/20/1904/19/2024 XR, knee No observ ation record ed. [facility] [address] [facility], [place], [address], 04/25/2024 10:19:04 Result Notes None recorded. Problems Name Problem SNOMED Code Status Onset Date Resolution Date Notes Provider Name and Address Organization Details Recorded [facility] 79[facility] Active 2023 Theresa Nielson MD Attn: Mikael hamilton,[address] [place], [address], [facility] 4 14:43:23 Stricture of esophagus 33316180 Active 2023 Theresa Nielson MD Attn: Mikael hamilton,[address] [place], [address], [facility] 4 14:43:25 Non-Hodgkin 's lymphoma (clinical) 882064439 Active 2023 Theresa Nielson MD Attn: Mikael hamilton,[address] [place], [address], [facility] 4 14:43:26 Gastroesoph ageal reflux disease without esophagitis 366883678 Active 2023 Theresa Nielson MD Attn: Mikael hamilton,[address] [place], [address], [place] [facility] 4 14:43:28 Pain of left knee joint 9377747736531 07 Active 2024 Tess Javde MA null, [facility] 5 12:43:25 Pre-surgery evaluation Active 2024 Theresa Nielson MD Attn: Mikael hamilton,[address] [facility], [place], [address], [facility] 5 22:40:27 Bland's esophagus 221905770 Active 2024 Theresa Nielson MD Attn: Mikael g,[address] [facility], [place], [address], [facility] 5 13:02:29 Problem Notes None recorded. Procedures Surgical History Date Name Laterality Status Provider Name and Address Organization Details Recorded Time percutaneous catheterization of portal vein completed Zoya Green MA [facility] 09/28/2023 10:07:58 Imaging Results Imaging Date Name Status LastModified by Organization Details LastModified Time 03/28/2024 electrocardiogram completed [facility] Informa tion not available 03/28/2024 12:57:46 04/19/2024 XR, knee completed [facility] [address], [place], [address], 04/25/2024 10:19:04 Procedure Notes None recorded. Medical Equipment None [...] Updated DateTime 4 154.94 cm 22.3 kg/m2 73211.5 4 g 70 /min 99 % 99 % 126 mm[Hg] 70 mm[Hg] Zoya Green MA [facility] 4 10:10:59 Date Recorded Body height Body mass index (BMI) Body weight Heart rate Oxygen saturation Oxygen saturation in Arterial blood by Pulse oximetry Systolic blood pressure Diastolic blood pressure Provider Name and Address Organization Details Last Updated DateTime 5 154.94 cm 21.8 kg/m2 83170.2 8 g 71 /min 100 % 100 % 120 mm[Hg] 78 mm[Hg] Lucia Loomis MA [facility] 5 12:11:53 Social History Question Answer Notes LastModified by Organizat ion Details LastModified Time Tobacco Smoking Status Never Smoker Zoya Green MA [facility] 09/28/2023 10:06:04 Do You Have An Advance [...] Anxious, Or Unable To Sleep At Night)? [id number] Information not available 09/28/2023 Do You Use [...] Immunizations Vaccine Type Date Status Note Provider Jak davies and Address Organization Details Recorded Time Influenza, adjuvanted, trivalent, PF 8 completed Lucia Loomis [place], [place] [facility] 03/28/2024 11:35:44 Influenza, adjuvanted, trivalent, PF 9 completed [facility], [place], [place] [facility] 03/28/2024 11:35:44 zoster recombinant 1 completed [facility], [place] [facility] 03/28/2024 11:35:44 zoster recombinant 1 completed [facility], [place] [facility] 03/28/2024 11:35:44 Influenza, high-dose, quadrivalent, PF 1 completed [facility], [place] [facility] 03/28/2024 11:35:44 Influenza, high-dose, quadrivalent, PF 0 completed [facility], [place] [facility] 03/28/2024 11:35:44 Influenza, high-dose, quadrivalent, PF 2 completed [facility], [place] [facility] 03/28/2024 11:35:44 COVID-19, mRNA, LNP-S, PF, 30 mcg/0.3 mL dose 1 completed [facility], [place] [facility] 03/28/2024 11:35:44 COVID-19, mRNA, LNP-S, PF, 30 mcg/0.3 mL dose 1 completed [facility], [place] [facility] 03/28/2024 11:35:44 COVID-19, mRNA, LNP-S, PF, 30 mcg/0.3 mL dose 1 completed [facility], [place] [facility] 03/28/2024 11:35:44 COVID-19, mRNA, LNP-S, bivalent, PF, 30 mcg/0.3 mL dose 3 completed [facility], [place] [facility] 03/28/2024 11:35:44 COVID-19, mRNA, LNP-S, bivalent, PF, 30 mcg/0.3 mL dose 2 completed [facility], [place] [facility] 03/28/2024 11:35:44 COVID-19, [...] [facility] 03/28/2024 12:04:30 Pneumococcal conjugate PCV20, polysaccharide [id number] conjugate, adjuvant, PF 5 completed Theresa Nielson MD Attn: Accounting,[address] [place], [address], [place] [facility] 03/28/2024 22:42:39 Past Encounters Encounter ID Performer Location Encounter Start Date Encounter Closed Date Diagnosis/Indication Diagnosis SNOMED-CT Code Diagnosis ICD10 Code Diagnosis Note [id number] Theresa Nielson MD [facility] (Adult Med) [address] [place] [phone] 09/28/2023 09:57:49 09/28/2023 10:42:18 Postmenopausal state 67852803 Z78.0 Stricture of esophagus 39365347 K22.2 Non-Hodgki n's lymphoma (clinical) 016254855 C85.90 Gastroesop hageal reflux disease without esophagitis 172029506 K21.9 [id number] [facility] [address] [place] [id number] 03/28/2024 12:00:14 03/28/2024 13:01:02 Body mass index 20-24 - normal 434556173 Z68.21 Pain of le ft knee joint 8000027314 68356 M25.562 Administra tion of pneumococcal vaccine 44470014 Z23 Gastroesop hageal reflux disease without esophagitis 442898241 K21.9 Pre-surger y evaluation 864679476 Z01.818 Health Concerns Section Related Observation LastModified by Organization Detai ls LastModified Time None Recorded Concern Status LastModified by Organization Details LastModified Time None Recorded Advance Directives Directive Y: Payers Encounter Date Sequence Insurance Name Policy Number Policy Richardson Covered Member ID Richardson Member ID Guarantor Name 09/28/2023 1 [facility] (MEDICARE REPLACEMENT/A DVANTAGE - HMO) [id number] Verosharonda Al [id number] Verosharonda Al 03/28/2024 1 [facility] (MEDICARE REPLACEMENT/A DVANTAGE - HMO) [id number] Vero Servando [id number] Vero Al Notes Date Note Type Note [...] colonoscopy Theresa Nielson MD Attn: Accounting[address] [place], [address], [facility] 10/09/2023 14:44:13 03/28/2024 text/html [...] Theresa Nielson MD Attn: Accounting[address] [place], [address], [facility] 03/28/2024 22:42:42 OBGyn Episode No OBEpisode recorded.
[2024-05-16 10:07] LABS: Alanine Aminotransferase 16 U/L (6-35); Albumin Level 4.7 g/dL (3.5-5.1); Alkaline Phosphatase 84 U/L (38-126); Anion Gap 10 mmol/L (4-12); Aspartate Amino Transferase 28 U/L (14-36); Bilirubin,Total 0.8 mg/dL (0.2-1.3); Blood Urea Nitrogen 15 mg/dL (7-17); Calcium 9.2 mg/dL (8.4-10.2); Carbon Dioxide 29 mmol/L (22-30); Chloride 102 mmol/L (98-107); Estimated Glomerular Filt Rate 59; Glucose 93 mg/dL (65-110); Lactate Dehydrogenase 210 U/L (120-246); Potassium 4.4 mmol/L (3.4-5.0); Sodium 141 mmol/L (137-145)
== END 2024-05-16 08:32 | disposition home or self-care (01) ==
LOC: ANHLAB 08:32
PROVIDERS: PCP Internal Medicine; Visit Provider Internal Medicine Hematology & Oncology
DX: C82.93 Follicular lymphoma, unspecified, intra-abdominal lymph nodes (principal)
CPT/HCPCS: 36415; 80053; 83615; 85025

== ENCOUNTER 2024-06-08 00:12 | Day surgery (SDC) | payer MEDICARE, SELFPAY ==
[2024-05-28 14:17] VITALS: BMI 22.6
--- OUTSIDE RECORDS SUMMARY | 2024-06-08 00:14 | XMS_ITS | Clinical Summary ---
Author Organization [facility] Lindsay [facility] Address [address] [place] [address] Care Team Providers Care Legal Word Processor Name Role Phone Pacheco Nielson MD Primary Care Provider [phone] Allergies No known active allergies Medications vit [...] Encounters Date Type Department Care Team Description 05/17/2024 11:00 AM CDT Office Visit [facility] Oncology and Hematology [facility] [address] [place] [address] Henrry Gonzalez MD Follicular lymphoma of intra-abdominal lymph nodes, unspecified follicular lymphoma type (CMS/HCC) (Primary Dx) 05/16/2024 Orders Only [facility] Oncology and [facility] [address] [place] [address] Henrry Gonzalez MD 03/27/2024 External Device Data STL ABSTRACTION Provider, [...] on file Legal Sex Female 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 Gender Identity Not on file Sexual Orientation Not on file Last Filed Vital Signs Vital Sign Reading Time Taken Comments Blood Pressure 139/74 05/17/2024 10:52 AM CDT Pulse 77 05/17/2024 10:50 AM CDT Temperature 36.3 C (97.4 F) 05/17/2024 10:50 AM CDT Respiratory Rate 15 05/17/2024 10:50 AM CDT Oxygen Saturation 90% 05/17/2024 10:50 AM CDT Inhaled Oxygen Concentration - - Weight 53 kg (116 lb 12.8 oz) 05/17/2024 10:50 A M CDT Height 154.9 cm (5' 1 ) 08/17/2022 10:59 AM CDT Body Mass Index 22.07 08/17/2022 10:59 AM CDT Plan of Treatment Upcoming Encounters Date Type Department Care Team (Late st Contact Info) Description 11/16/2024 8:45 AM CDT Office Visit [facility] Oncology and Hematology - [place] [address] [facility] [address] [place] [address] Henrry Gonzalez MD [address] [facility] [address] [place] [address] Health Maintenance Due Date Last Done Comments DTAP/TDAP/TD VACCINES (1 - Tdap) 07/13/1966 PNEUMOCOCCAL VACCINE 50+ YEARS (1 of 2 - PCV) 07/13/18 67 ZOSTER VACCINE (1 of 2) 07/13/1966 OSTEOPOROSIS SCREENING 07/13/2012 RSV VACCINE (60+ or ) (1 - 1-dose 75+ series) 07/13/2022 INFLUENZA VACCINE (#1) 2023 11/22/2017 Procedures Procedure Name Priority Date/Time Associated Diagnosis Comments COMPREHENSIVE METABOLIC PANEL Routine 05/16/2024 3:04 PM CDT from Last 3 Months Results * COMPREHENSIVE METABOLIC PANEL (05/16/2024 3:04 PM CDT) Blood Henrry Gonzalez MD CHEMISTRY ORDERABLES Final Resu lt from Last 3 Months Insurance [facility] [id number] Care Teams Legal Word Processor Relationship Specialty Start Date End Date Pacheco Nielson MD [address] [place] [address] PCP - General Internal Medicine 05/17/24
--- OUTSIDE RECORDS SUMMARY | 2024-06-08 00:14 | XMS_ITS | Referral Summary ---
Author Organization [facility] Address [address] [place] [address] Care Team Providers Care Supervisor Facepiece Line Name Role Phone Eric Cedillo MD Primary Care Provider [phone] Allergies No known active allergies Medications enalapril [...] Treatment Not on file Insurance [facility] MDCR HMO REF Care Teams Supervisor Facepiece Line Relationship Specialty Start Date End Date Eric Cedillo MD [address] [place] [address] PCP - General Family Medicine 11/11/20
--- OUTSIDE RECORDS SUMMARY | 2024-06-08 00:14 | XMS_ITS | Data Portability ---
Author Organization [facility] Obed [facility] Address [address] [place] [address] Care Team Providers Care Laser Technician Name Role Phone PACHECO NIELSON Primary Care Provider Assessment Encounter Date [...] me in 4 months. Pneumococcal vaccination today [email or web address] Not available 03/28/2024 22:42:19 Plan of Treatment Reminders Order Date Submit Date Provider Last Modified By Organization Details Last Modified Time Details Appointments ANY 15 2024 10:00A M Pacheco Nielson MD Not available Not available Not available Lab None recorded. Referral None recorded. Procedures None recorded. Surgeries None recorded. Imaging XR, knee 2024 025 [facility] (Imaging), [address], [place], [address], 04/20/2024 13:07:42 bone density 2023 024 [facility], [address], [place], [address], 05/23/2024 11:34:21 Medication Orders meloxicam 7.5 mg tablet 2024 [facility] [email or web address] [facility], [address] [facility], [place], [address], 03/28/2024 12:57:29 Patient TargetsNo targets recorded. Patient InstructionsNo instructions recorded. Reason for Referral None Reported. Results Created Date Observation Date Name Description Value Unit Range Abnormal Flag Note LastModifiedBy Organization Detail LastModifiedTime 03/28/1903/28/2024 elect rocar diogr am No observ ation record ed. [facility] Not Available 2024 12:57:46 04/20/1904/19/2024 XR, knee No observ ation record ed. GLADYS [facility] [address], [place], [address], 04/25/2024 10:19:04 Result Notes None recorded. Problems Name Problem SNOMED Code Status Onset Date Resolution Date Notes Provider Name and Address Organization Details Recorded Time [facility] 3699[facility]83 Active 2023 Pacheco Nielson MD Attn: Mikael hamilton,[address] [place], [address], [facility] 4 14:43:23 Stricture of esophagus 96868917 Active 2023 Pacheco Nielson MD Attn: Mikael hamilton,[address] [place], [address], [facility] 4 14:43:25 Non-Hodgkin 's lymphoma (clinical) 151414480 Active 2023 Pacheco Nielson MD Attn: Mikael hamilton,[address] [place], [address], [facility] 4 14:43:26 Gastroesoph ageal reflux disease without esophagitis 792181015 Active 2023 Pacheco Nielson MD Attn: Mikael hamilton,[address] [place], [address], [facility] 4 14:43:28 Pain of left knee joint 9793243918835 07 Active 2024 Tess Javed MA null, [facility] 5 12:43:25 Pre-surgery evaluation Active 2024 Pacheco Nielson MD Attn: Mikael g,[address] [facility], [place], [address], [facility] 5 22:40:27 Bland's esophagus 187121564 Active 2024 Pacheco Nielson MD Attn: Accounttaiwo g,[address] [facility], [place], [address], [facility] 5 13:02:29 Problem Notes None recorded. Procedures Surgical History Date Name Laterality Status Provider Name and Address Organization Details Recorded Time percutaneous catheterization of portal vein completed Zoya Green MA [facility] 09/28/2023 10:07:58 Imaging Results Imaging Date Name Status LastModified by Organization Details LastModified Time 03/28/2024 electrocardiogram completed [facility] Informa tion not available 03/28/2024 12:57:46 04/19/2024 XR, knee completed [facility] [address] [place] [address], [place], [address], 04/25/2024 10:19:04 Procedure Notes None recorded. Medical [...] Updated DateTime 4 154.94 cm 22.3 kg/m2 38014.5 4 g 70 /min 99 % 99 % 126 mm[Hg] 70 mm[Hg] Zoya Green MA [facility] 4 10:10:59 Date Recorded Body height Body mass index (BMI) Body weight Heart rate Oxygen saturation Oxygen saturation in Arterial blood by Pulse oximetry Systolic blood pressure Diastolic blood pressure Provider Name and Address Organization Details Last Updated DateTime 5 154.94 cm 21.8 kg/m2 22411.2 8 g 71 /min 100 % 100 % 120 mm[Hg] 78 mm[Hg] Lucia Loomis MA [facility] 5 12:11:53 Social History Question Answer Notes LastModified by Organizat ion Details LastModified Time Tobacco Smoking Status Never Smoker [facility] Green [facility] 09/28[facility] 10:06:04 Do You Have An Advance [...] Anxious, Or Unable To Sleep At Night)? [id number] Information not available 09/28/2023 Do You Use [...] Influenza, adjuvanted, trivalent, PF 8 completed Lucia Loomis, [place] [facility] 03/28/2024 11:35:44 Influenza, adjuvanted, trivalent, PF 9 completed [facility], [place], [place] [facility] 03/28/2024 11:35:44 zoster recombinant 1 completed [facility], [place], [place] [facility] 03/28/2024 11:35:44 zoster recombinant 1 completed Lucia Loomis, [place] [facility] 03/28/2024 11:35:44 Influenza, high-dose, quadrivalent, PF 1 completed [facility], [place] [facility] 03/28/2024 11:35:44 Influenza, high-dose, quadrivalent, PF 0 completed Lucia Loomis, [place] [facility] 03/28/2024 11:35:44 Influenza, high-dose, quadrivalent, PF 2 completed [facility], [place] [facility] 03/28/2024 11:35:44 COVID-19, mRNA, LNP-S, PF, 30 mcg/0.3 mL dose 1 completed [facility], [place] [facility] 03/28/2024 11:35:44 COVID-19, mRNA, LNP-S, PF, 30 mcg/0.3 mL dose 1 completed [facility], [place] [facility] 03/28/2024 11:35:44 COVID-19, mRNA, LNP-S, PF, 30 mcg/0.3 mL dose 1 completed [facility], [place] [facility] 03/28/2024 11:35:44 COVID-19, mRNA, LNP-S, bivalent, PF, 30 mcg/0.3 mL dose 3 completed Lucia Loomis, [place] [facility] 03/28/2024 11:35:44 COVID-19, mRNA, LNP-S, bivalent, PF, 30 mcg/0.3 mL dose 2 completed [facility], [place] [facility] 03/28/2024 11:35:44 COVID-19, mRNA, LNP-S, PF, jo-sucrose, 30 mcg/0.3 mL 3 completed Lucia Loomis [place] [facility] 03/28/2024 11:35:44 Influenza, high-dose, trivalent, PF 8 completed Lucia Loomis [place] [facility] 03/28/2024 11:35:44 Influenza, adjuvanted, trivalent, PF 4 completed Lucia Loomis [place] [facility] 03/28/2024 12:04:30 COVID-19, mRNA, LNP-S, PF, jo-sucrose, 30 mcg/0.3 mL 4 completed Lucia Loomis [place] [facility] 03/28/2024 12:04:30 Pneumococcal conjugate PCV20, polysaccharide [id number] conjugate, adjuvant, PF 5 completed Pacheco Nielson MD Attn: Accounting[address] [place], [address], [place] [facility] 03/28/2024 22:42:39 Past Encounters Encounter ID Performer Location Encounter Start Date Encounter Closed Date Diagnosis/Indication Diagnosis SNOMED-CT Code Diagnosis ICD10 Code Diagnosis Note [id number] Pacheco Nielson MD [facility] (Adult Med) [address] [place] [id number] 09/28/2023 09:57:49 09/28/2023 10:42:18 Postmenopausal state 46108470 Z78.0 Stricture of esophagus 20796953 K22.2 Non-Hodgki n's lymphoma (clinical) 996706730 C85.90 Gastroesop hageal reflux disease without esophagitis 283118961 K21.9 [id number] Pacheco Nielson MD [facility] (Adult Med) [address] [place] [id number] 03/28/2024 12:00:14 03/28/2024 13:01:02 Body mass index 20-24 - normal 319957299 Z68.21 Pain of le ft knee joint 2700319992 52150 M25.562 Administra tion of pneumococcal vaccine 73933438 Z23 Gastroesop hageal reflux disease without esophagitis 753990153 K21.9 Pre-surger y evaluation 341846972 Z01.818 Health Concerns Section Related Observation LastModified by Organization Detai ls LastModified Time None Recorded Concern Status LastModified by Organization Details LastModified Time None Recorded Advance Directives Directive Y: Payers Encounter Date Sequence Insurance Name Policy Number Policy Richardson Covered Member ID Richardson Member ID Guarantor Name 09/28/2023 1 [facility] (MEDICARE REPLACEMENT/A DVANTAGE - HMO) [id number] Vero Al [id number] Vero Al 03/28/2024 1 [facility] (MEDICARE REPLACEMENT/A DVANTAGE - HMO) [id number] Vero Al [id number] Vero Al Notes Date Note Type Note [...] colonoscopy Pacheco Nielson MD Attn: Accounting[address] [place], [address], [facility] 10/09/2023 14:44:13 03/28/2024 text/html GERD esophageal [...] has had no neurological or cardiopulmonary complaints Pacheco Nielson MD Attn: Accounting[address] [place], [address], [facility] 03/28/2024 22:42:42 OBGyn Episode No OBEpisode recorded.
--- OUTSIDE RECORDS SUMMARY | 2024-06-08 00:14 | XMS_ITS | Clinical Summary ---
Author Organization [facility] Address [address] [place] [address] Care Team Providers Care Videogame Designer Name Role Phone Dino Nieto MD Primary Care Provider [phone] Source Comments [facility],non-owned Affiliates and Associated Physician Practices is amultiple site organization consisting of ambulatory clinics and hospital sitesin [place], [place], [place] and [place]. This disclosure is being madepursuant to the Care Everywhere program and may not contain all information available regarding this patient. Last updated 17.[facility] Allergies No known active allergies Immunizations Immunization Administration Dates Next Due INFLUENZA VACCINE, HIGH-DOSE , QUADR. (FLUZONE HIGH-DOSE QUADRIVALENT; 65Y+), 0.7 ML (HD-IIV4) 11/22/2017 Social History Tobacco Use Types Packs/Day Years Used Date Smoking Tobacco: Never Assessed Comments Unknown Sex and Gender Information Value Date Recorded Sex Assigned at Not on file Legal Sex Female 9:24 AM CDT Gender Identity Not on file [...] on patient's age to complete this topic Insurance MEDICARE [facility] MA[employer]ED MEDICARE ADV [employer] MANA[employer]ED MEDICARE [place]V [place] [id number] Care Teams Videogame Designer Relationship Specialty Start Date End Date Dino Nieto MD [facility] [place] [address] PCP - General 05/25/18
--- OUTSIDE RECORDS SUMMARY | 2024-06-08 00:14 | XMS_ITS | Clinical Summary ---
Author Organization [facility] Address [address] [place] [address] Care Team Providers Care Jammer Operator Name Role Phone Eric Cedillo MD Primary Care Provider [phone] Allergies No known active allergies Medications enalapril [...] Plan of Treatment Not on file Insurance [facility] MDCR HMO REF [facility] MEDICARE Address: [facility] [address] [place] [address] Care Teams Jammer Operator Relationship Specialty Start Date End Date Eric Cedillo MD [address] [place] [address] PCP - General Family Medicine 11/11/20
--- OUTSIDE RECORDS SUMMARY | 2024-06-08 00:15 | XMS_ITS | Encounter Summary ---
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 Illness, unspecified documented in this encounter Results * PATHOLOGY TISSUE (01/27/2021 2:08 PM CORRUGATED FASTENER DRIVER) Case Report Surgical Pathology Report Case: [id number] Authorizing Provider: Jaime Nascimento MD Collected: 01/27/2021 02:08 PM Ordering Location: [facility] Care Pathology Lab Received: 01/29/2021 01:11 PM Pathologist: Jannet Gutierrez MD Specimen: Lymph Node Biopsy, Right groin 02/03/2021 11:37 AM [facility] PATH[facility] Final Diagnosis Right groin, lymph node, needle core biopsies: - B-cell lymphoma best classified as follicular lymphoma, favor low-grade, in this small specimen 02/03/2021 11:37 AM [facility] PATHOLOGY LAB Microscopic Description and Comment Sections reveal minute pieces of lymph node tissue with a vaguely nodular pattern and predominantly small, irregular lymphoid cells. Immunohistochemistry performed at [facility] shows lymphoma cells to be positive for CD20, CD10, BCL-6, BCL-2, and to be negative for cyclin D1 and CD5. Background CD3+ T-lymphocytes are present. The nodularity is confirmed by BCL-6 and CD10 staining. Flow cytometry performed at an outside institution reportedly shows a kappa light chain restricted CD10+ B-cell population. 02/03/2021 11:37 AM [facility] PATHOLOGY LAB Clinical History Rule out lymphoma. 02/03/2021 11:37 AM [facility] PATH[facility] Materials Received Received are four slides and one block (A1) labeled [id number] along with a copy of the outside pathology report. [place] [address]. All original materials are returned to the referring institution, along with a copy of our final report. 02/03/2021 11:37 AM [facility] PATHOLOG[facility] Disclaimer The performance characteristics of all immunohistochemical and indirect immunofluorescence stains (if any) cited in this report were determined by the Histopathology Laboratory of [facility]. Some of these tests were developed [...] the attending (teaching) pathologist. 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 [address], [facility] [phone] documented in this encounter Visit Diagnoses Diagnosis Illness, unspecified documented in this encounter Care Teams Vb Developer Relationship Specialty Start Date End Date Dino Nieto MD [address] [place] [address] PCP - General 05/25/18 documented as of this encounter
--- NOTE | 2024-06-08 10:05 | P.PNAN_ITS ---
Anes - Initial Pre Proc Eval Procedure: Operation Date: 06/08/24 11:45 Proposed Procedures p Esophagogastroduodenoscopy - Jerome Quick MD Date/Time: 06/08/24 10:05 Surgeon: Jerome Quick MD Pre Op Diagnosis: Bland's esophagus without dysplasia, Esophageal Patient Data Age: 78 Gender: F Height: 1.55 m Weight: 54.5 kg Allergies Allergy/AdvReac Type Severity Reaction Status Date / Time No Known Allergies Allergy Verified 06/08/24 09:58 Home Medications ?Medication ?Instructions ?Recorded ?Confirmed ?Type saliva substitute combo no.9 15 ml PO QID PRN Dry Mouth #473 mL 01/30/21 05/28/24 Rx (Biotene Dry Mouth Oral Rinse mouthwash) ferrous sulfate 325 mg (65 mg 325 mg PO DAILY 12/21/21 06/08/24 History iron) tablet pantoprazole 40 mg tablet,delayed 40 mg PO BID #60 tabs 12/27/23 06/08/24 Rx release (Protonix) multivitamin (Daily Multi-Vitamin 1 tablet PO DAILY 05/28/24 06/08/24 History tablet) Patient hx anesthesia problems: none Family hx anesthesia problems: none Results Review: All pre-operative results and documents have been reviewed as part of the pre- operative evaluation. [facility] Past Medical History Medical History Erosive esophagitis Esophageal stricture External hemorrhoids Follicular lymphoma Hypertension No longer on medication with weight loss. Hypokalemia Immunoglobulin deficiency Malnutrition Non-Hodgkin lymphoma Oropharyngeal candidiasis Port-A-Cath in place Surgical History Surgical History History of colonoscopy History of lymph node biopsy Family History Family History Father Malignant neoplasm of prostate Mother Ovarian cancer Social History Social History Social History: The patient is and lives in her own home in [place]. She is originally from [facility]. She has 3 children who live in the area. 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 No alcohol or illicit substance abuse. She designates her daughter, Lorena Al, or her good friend, Earnest White, as her surrogate decision makers. Code status: Full code. Smoking status: Never smoker Second hand tobacco smoke exposure: No Alcohol intake: never Substance use: never Substance use type: does not use Living arrangements: alone Spiritual care concerns: No Anes - Eval Final PreProcedure Day of Procedure 06/08/24 10:05 Patient weight: normal Heart: regular rate and rhythm Lungs: clear to auscultation and normal air movement Airway: Mallampati scale class II Neurological: alert and oriented Last oral intake: >/= 8 hours ASA classification: III Emergent: no Anesthetic plan: proceed Anesthesia type and monitoring: general GIVS and standard monitoring Results Review: All pre-operative results and documents have been reviewed as part of the pre- operative evaluation. Informed Consent: The patient's anesthetic plan and its attendant risks and benefits were discussed with the patient/family/POA. Questions were solicited and answers provided to the satisfaction of the patient/family/POA.
[2024-06-08] MEDS: LACTATED RINGERS 1,000 ML 150 ML IV CONT (10:07)
[2024-06-08 10:08] VITALS: BP 181/77; PULSE 65; RESP 20; TEMP 36.4; O2SAT 99
--- NOTE | 2024-06-08 10:35 | PM.HPGS ---
History of Present Illness History of Present Illness Consent: Risks, benefits, and alternatives have been discussed and questions answered. Patient agrees to proceed with procedure. Chief complaint: Bland's esophagus without dysplasia, Esophageal Narrative: Vero Al is a 78 year old female here for another egd, she has known Bland's esophagus and the presence of 2 stenosis, which were dilated with a TTS balloon 12-15 mm, she is doing better and taking ppi twice daily Review of Systems Review of Systems: All systems reviewed & are unremarkable except as noted in HPI and below PMFSH Past Medical History Medical History Erosive esophagitis Esophageal stricture External hemorrhoids Follicular lymphoma Hypertension No longer on medication with weight loss. Hypokalemia Immunoglobulin deficiency Malnutrition Non-Hodgkin lymphoma Oropharyngeal candidiasis Port-A-Cath in place Surgical History Surgical History History of colonoscopy History of lymph node biopsy Family History Family History Father Malignant neoplasm of prostate Mother Ovarian cancer Social History Social History Social History: The patient is and lives in her own home in [place]. She is originally from [facility]. She has 3 children who live in the area. 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 No alcohol or illicit substance abuse. She designates her daughter, Lorena Al, or her good friend, Earnest White, as her surrogate decision makers. Code status: Full code. Smoking status: Never smoker Second hand tobacco smoke exposure: No Alcohol intake: never Substance use: never Substance use type: does not use Living arrangements: alone Spiritual care concerns: No Meds Home Medications and Allergies Home Medications ?Medication ?Instructions ?Recorded ?Confirmed ?Type saliva substitute combo no.9 15 ml PO QID PRN Dry Mouth #473 mL 01/30/21 05/28/24 Rx (Biotene Dry Mouth Oral Rinse mouthwash) ferrous sulfate 325 mg (65 mg 325 mg PO DAILY 12/21/21 06/08/24 History iron) tablet pantoprazole 40 mg tablet,delayed 40 mg PO BID #60 tabs 12/27/23 06/08/24 Rx release (Protonix) multivitamin (Daily Multi-Vitamin 1 tablet PO DAILY 05/28/24 06/08/24 History tablet) Allergies Allergy/AdvReac Type Severity Reaction Status Date / Time No Known Allergies Allergy Verified 06/08/24 10:08 Vital Signs Vital Signs - 24 hr 06/08/24 10:08 Temperature 97.6 F Pulse Rate 65 Respiratory Rate 20 Blood Pressure 181/77 H Pulse Oximetry 99 Oxygen Delivery Room Air Exam Const: General: comfortable and no acute distress HENMT: Face/Nose/Sinus: Normal nares present Eyes: General: appearance normal, both eyes and all related structures Neck: Neck: no JVD Resp: Auscultation: clear to auscultation bilaterally Cardio: Rate: regular rate Rhythm: regular rhythm GI: Inspection: non-distended GI Palp: Yes Soft to palpation Skin: General skin exam: normal color Neuro: Speech: normal speech Extrem: General: normal to inspection Psych: Mental Status: mental status grossly normal Assessment and Plan Assessment and plan (1) Esophageal stricture: Code(s): K22.2 - Esophageal obstruction Status: Acute Assessment and Plan: egd with bx, probably more dilation (2) Bland's esophagus determined by biopsy: Code(s): K22.70 - Bland's esophagus without dysplasia Status: Acute
[2024-06-08 10:50] VITALS: BP 126/56; PULSE 72; RESP 19; O2SAT 100
[2024-06-08 11:00] VITALS: BP 113/59; PULSE 61; RESP 31; O2SAT 100
[2024-06-08 11:10] VITALS: BP 139/70; PULSE 59; RESP 17; O2SAT 98
== END 2024-06-08 11:20 | disposition home or self-care (01) ==
PROVIDERS: PCP Internal Medicine; Referring Provider Internal Medicine Gastroenterology; Visit Provider Internal Medicine Gastroenterology
PROC: 0DJ08ZZ Inspection of Upper Intestinal Tract, Via Natural or Artificial Opening Endoscopic (ICD-10-PCS; CPT 43249; principal; 2024-06-08 11:45)
DX: K22.2 Esophageal obstruction (principal); K22.70 Barrett's esophagus without dysplasia; K29.50 Unspecified chronic gastritis without bleeding; K44.9 Diaphragmatic hernia without obstruction or gangrene; I10 Essential (primary) hypertension; E87.6 Hypokalemia; Z98.890 Other specified postprocedural states; Z95.818 Presence of other cardiac implants and grafts; Z85.72 Personal history of non-Hodgkin lymphomas; Z87.19 Personal history of other diseases of the digestive system; Z80.42 Family history of malignant neoplasm of prostate; Z80.41 Family history of malignant neoplasm of ovary
CPT/HCPCS: 43249; 88305; C1726; J2003; J2704; J7120

== ENCOUNTER 2024-08-08 07:09 | Outpatient (CLI) | payer MEDICARE, SELFPAY ==
--- NOTE | ~2024-08-08 | DEXA_ITS ---
Bone Density Report Name: SONIA IRIZARRY Age: 79 Sex: Female Ethnicity: White Date of : 1945 Indication: postmenopausal; screening for osteoporosis; cancer; Referring Provider: SANDY*THERESA Lockett Study: Bone densitometry was performed. Exam Date: August 08, 2024 Accession number: [id number] Bone Density: Region BMD T-score Z-score Classification AP Spine(L1-L4) 0.687 -3.3 -0.8 Osteoporosis Femoral Neck (Left) 0.519 -3.0 -0.8 Osteoporosis Total Hip (Left) 0.630 -2.6 -0.7 Osteoporosis Femoral Neck (Right) 0.493 -3.2 -1.0 Osteoporosis Total Hip (Right) 0.710 -1.9 0.0 Osteopenia Total Hip Mean 0.670 -2.3 -0.4 Osteopenia World Health Organization criteria for BMD impression classify patients as: Normal (T-score at or above -1.0), Osteopenia (T-score between -1.0 and -2.5), or Osteoporosis (T-score at or below -2.5). 10-year Fracture Risk: FRAX not reported because: Some T-score for Spine Total or Hip Total or Femoral Neck at or below -2.5 Clinical Information Provided by Patient: Has used the following medications: Vitamin D Has the following medical conditions: Cancer Patient maximum height was 61.0 Menopause Age: 50 Onset of menses at age 15 Number of children 3 Impression: The patient has osteoporosis, based on the Total Spine T-score. Discussion: INCREASED RISK OF FRACTURE. BONE DENSITY IS UNDESIRABLY LOW AT ONE OR MORE SKELETAL SITES, CONSISTENT WITH POSTMENOPAUSAL OSTEOPOROSIS. This patient's lowest T-score meets the World Health Organization's (WHO) criteria for osteoporosis at one or more sites (T-score -2.5 or below). In untreated patients, the risk of osteoporotic fracture increases approximately two-fold for each 1.0 SD decrease in T-score. Low bone density is not the only risk factor for fracture; also consider factors such as patient's age, frailty or poor health, risk of falling, risk of injury, previous osteoporotic fracture, family history of osteoporosis, cigarette smoking, low body weight, etc. Not everyone with low bone mineral density has osteoporosis; osteomalacia and other metabolic bone disorders should also be considered. Patients who have osteoporosis should be evaluated for specific diseases and conditions (secondary causes) that may cause or contribute to bone loss. The [place] Association of Clinical Endocrinologists (AACE) and National Osteoporosis Foundation (NOF) recommend pharmacologic intervention for all postmenopausal women whose T-score is in this range. The patient should follow a healthful lifestyle (good nutrition with adequate calcium and vitamin D, and appropriate weight-bearing exercise). Follow-Up: Consider a repeat BMD and Vertebral Fracture Assessment (VFA) exam in 2 years or sooner if medically necessary, to reassess this patient's status. Reported by: ILENE on 08/08/2024 7:54:00 AM. Reviewed, dictated and finalized at location A.
--- OUTSIDE RECORDS SUMMARY | 2024-08-08 07:17 | XMS_ITS | Referral Summary ---
Author Organization [facility] Address [address] [place] [address] Care Team Providers Care Sap Integration Architect Name Role Phone Eric Cedillo MD Primary Care Provider [phone] Allergies No known active allergies Medications enalapril [...] P M CDT Height 154.9 cm (5' 1) 12/08/2020 1:32 PM CDT Body Mass Index 23.45 12/08/2020 1:32 PM CDT Plan of Treatment Not on file Insurance [facility] MDCR HMO REF [facility] MEDIC[facility] Address: [facility] [address] [place] [address] Care Teams Sap Integration Architect Relationship Specialty Start Date End Date Eric Cedillo MD [address] [place] [address] PCP - General Family Medicine 11/11/20
--- OUTSIDE RECORDS SUMMARY | 2024-08-08 07:17 | XMS_ITS | Encounter Summary ---
Author Organization [facility] Address [address] [place] [address] Care Team Providers Care Manager Residential Name Role Phone Dino Nieto MD Primary Care Provider Encounter Details Date Type Department Care Team (Late st Contact Info) Description 01/29/2021 Lab Requisition [facility] Care Pathology Lab [address] [place] [address] Jaime Nascimento MD [address] [address] Illness, unspecified Social History Tobacco [...] Associated Diagnosis Comments PATHOLOGY TISSUE Routine 01/27/2021 2:0 8 PM [employer] Illness, unspecified documented in this encounter Results * PATHOLOGY TISSUE (01/27/2021 2:08 PM [employer]) Case Report Surgical Pathology Report Case: [id number] Authorizing Provider: Jaime Nascimento MD Collected: 01/27/2021 02:08 PM Ordering Location: [facility] Care Pathology Lab Received: 01/29/2021 01:11 PM Pathologist: Jannet Gutierrez MD Specimen: Lymph Node Biopsy, Right groin 02/03/2021 11:37 AM [facility] PATH[facility] Final Diagnosis Right groin, lymph node, needle core biopsies: - B-cell lymphoma best classified as follicular lymphoma, favor low-grade, in this small specimen 02/03/2021 11:37 AM [facility] PATHOLOGY LAB at [address] [facility] Microscopic Description and Comment Sections reveal minute pieces of lymph node tissue with a vaguely nodular pattern and predominantly small, irregular lymphoid cells. Immunohistochemistry performed at [facility] shows lymphoma cells to be positive for CD20, CD10, BCL-6, BCL-2, and to be negative for cyclin D1 and CD5. Background CD3+ T-lymphocytes are present. The nodularity is confirmed by BCL-6 and CD10 staining. Flow cytometry performed at an outside institution reportedly shows a kappa light chain restricted CD10+ B-cell population. 02/03/2021 11:37 AM [facility] PATHOLOG[facility] LAB Clinical History Rule out lymphoma. 02/03/2021 11:37 AM [facility] PATHOLOGY LAB Materials Received Received are four slides and one block (A1) labeled [id number] along with a copy of the outside pathology report. [place] [address]. All original materials are returned to the referring institution, along with a copy of our final report. 02/03/2021 11:37 AM [facility] PATHOLOGY LAB Disclaimer The performance characteristics of all immunohistochemical and indirect immunofluorescence stains (if any) cited in this report were determined by the Histopathology Laboratory of [facility]. Some of these tests were [...] the attending (teaching) pathologist. 02/03/2021 11:37 AM [facility] PATH[facility] LAB Embedded Images 02/03/2021 11:37 AM [facility] PATH[facility] LAB Pathology/Cytolo gy BIOPSY OF LYMPH NODE / Unknown 01/27/2021 2:08 PM [facility] 01/29/2021 1:11 PM [facility] us Jaime Nascimento MD LAB - PATHOLOGY/CYTOLOGY ORDER SADAF Final Result [facility] PATHOLOGY LAB [address] [facility] [place] [address], [facility] [place] [phone] documented in this encounter Visit Diagnoses Diagnosis Illness, unspecified documented in this encounter Care Teams Manager Residential Relationship Specialty Start Date End Date Dino Nieto MD [address] [place] [address] PCP - General 05/25/18 documented as of this encounter
--- OUTSIDE RECORDS SUMMARY | 2024-08-08 07:17 | XMS_ITS | Clinical Summary ---
Author Organization [facility] Address [address] [place] [address] Care Team Providers Care Operations Welder Name Role Phone Eric Cedillo MD Primary [...] Plan of Treatment Not on file Insurance [facility] MDCR HMO REF Care Teams Operations Welder Relationship Specialty Start Date End Date Eric Cedillo MD [address] [place] [address] PCP - General Family Medicine 11/11/20
--- OUTSIDE RECORDS SUMMARY | 2024-08-08 07:17 | XMS_ITS | Clinical Summary ---
Author Organization [facility] Address [address] [place] [address] Care Team Providers Care Vocational Case Manager Name Role Phone Dino Nieto MD Primary Care Provider Source Comments [facility],non-owned Affiliates and Associated Physician Practices is amultiple site organization consisting of ambulatory clinics and hospital sitesin [place], [place], [place] and [place]. This disclosure is being madepursuant to the Care Everywhere program and may not contain all information available regarding this patient. Last updated 17.[facility] Allergies No known active allergies Immunizations Immunization [...] age to complete this topic Insurance MEDICARE [facility] MANAGED MEDICARE ADV [facility] MANAGED MEDICARE ADV SELF PAY NO INSURANCE Member Subscriber Plan / Payer (Ef fective for All Dates) Name:Vero Al Member ID:Not on file Relation to Subscriber:Not on file Name:VERO AL Subscriber ID:Not on file (Home) Address: [address] [place] [address] Payer ID:Not on file Group ID:Not on file Type:Self Pay Address: [place], [place] [facility] MANAGED MEDICARE ADV [facility] MANAGED MEDICARE ADV [facility] MANAGED MEDICARE ADV Care Teams Vocational Case Manager Relationship Specialty Start Date End Date Dino Nieto MD [facility] [place] [address] PCP - General 05/25/18
--- OUTSIDE RECORDS SUMMARY | 2024-08-08 07:17 | XMS_ITS | Clinical Summary ---
Author Organization [facility] Address [address] [place] [address] Care Team Providers Care Furniture Manager Name Role Phone Pacheco Nielson MD Primary Care Provider [phone] Allergies No known active allergies Medications vit B cmplx 3-FA-Vit C-Biotin (RENAVITE-RX RX) 1-60-300 mg-mg-mcg Tablet Take 1 Tablet by mouth daily. Active nystatin (MYCOSTATIN) 100,000 unit/mL suspension TAKE 4 ML BY MOUTH 4 TIMES DAILY FOR 1 WEEK SWISH IN THE MOUTH AND RETAIN FOR LONG POSSIBLE BEFORE SWALLOWING Active pantoprazole (PROTONIX) 20 mg Tablet, Delayed Release (E.C.) Take 20 mg by mouth daily. Active ferrous sulfate 134 mg (27 mg iron) Tablet Take 134 mg by mouth. 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 Encounters Date Type Department Care Team Description 07/10/2024 External Device Data [facility] ABSTRACTION Provider, Abstract 06/28/2024 External Device Data [facility] ABSTRACTION Provider, Abstract 06/28/2024 External Device Data [facility] ABSTRACTION Provider, Abstract 06/27/2024 External Device Data [facility] ABSTRACTION Provider, Abstract 06/27/2024 External Device Data [facility] ABSTRACTION Provider, Abstract 06/26/2024 External Device Data [facility] ABSTRACTION Provider, Abstract 05/17/2024 11:00 AM CDT Office Visit [facility] Oncology and Hematology - [place] [address] [place] [address] Henrry Gonzalez MD Follicular lymphoma of intra-abdominal lymph nodes, unspecified follicular lymphoma type (CMS/HCC) (Primary Dx) 05/16/2024 Orders Only [facility] Oncology and Hematology [place] [address] [place] [address] Henrry Gonzalez MD from Last 3 Months Family History Medical [...] on file Legal Sex Female 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 Gender Identity Not on file Sexual Orientation [...] A M CDT Height 154.9 cm (5' 1) 08/17/2022 10:59 AM CDT Body Mass Index 22.07 08/17/2022 10:59 AM CDT Plan of Treatment Upcoming Encounters Date Type Department Care Team (Late st Contact Info) Description 11/16/2024 8:45 AM CDT Office Visit [facility] Oncology and Hematology - [place] [address] [facility] [address] [place] [id number] Henrry Gonzalez MD [address] [facility] [address] [place] [address] Health Maintenance Due Date Last [...] METABOLIC PANEL (05/16/2024 3:04 PM CDT) Blood us Henrry Gonzalez MD CHEMISTRY ORDERABLES Final Resu lt from Last 3 Months Insurance [facility] [id number] Care Teams Furniture Manager Relationship Specialty Start Date End Date Pacheco Nielson MD [address] [place] [id number] PCP - General Internal Medicine 05/17/24
--- OUTSIDE RECORDS SUMMARY | 2024-08-08 07:17 | XMS_ITS | Data Portability ---
Author Organization [facility] Address [address] [place] [address] Care Team Providers Care Power Generation Technician Name Role Phone THERESA NIELSON Primary Care Provider [phone] Assessment Encounter Date Assessment Date Assessment LastModified by Organization Details LastModified Time 09/28/2023 09/28/2023 obtain old records continue current therapy follow up in 4 months obtain records from Oncology and her previous primary care clinic [email or web address] Not available 10/09/2023 14:43:50 03/28/2024 03/28/2024 EKG [...] me in 4 months. Pneumococcal vaccination today [email or web address] Not available 03/28/2024 22:42:19 Plan of Treatment Reminders Order Date Submit Date Provider Last Modified By Organization Details Last Modified Time Details Appointments ANY 15 2024 10:00A M Theresa Nielson MD Not available Not available Not available Lab None recorded. Referral None recorded. Procedures None recorded. Surgeries None recorded. Imaging XR, knee 2024 025 [facility] (Imaging), [address], [place], [address], 04/20/2024 13:07:42 bone density 2023 024 [facility], [address], [place], [address], 05/23/2024 11:34:21 Medication Orders meloxicam 7.5 mg tablet 2024 [facility] [email or web address] [facility], [address], [place], [address], 03/28/2024 12:57:29 Patient TargetsNo targets recorded. Patient InstructionsNo instructions recorded. Reason for Referral None Reported. Results Created Date Observation Date Name Description Value Unit Range Abnormal Flag Note LastModifiedBy Organization Detail LastModifiedTime 03/28/1903/28/2024 elect rocar diogr am No observ ation record ed. BARCODE Not Available 2024 12:57:46 04/20/1904/19/2024 XR, knee No observ ation record ed. [facility] [address], [place], [address], 04/25/2024 10:19:04 Result Notes None recorded. Problems Name Problem SNOMED Code Status Onset Date Resolution Date Notes Provider Name and Address Organization Details Recorded Time [facility] Active 2023 Theresa Nielson MD Attn: Mikael hamilton,[address] [place], [address], [facility] 4 14:43:23 Stricture of esophagus 28243132 Active 2023 Theresa Nielson MD Attn: Mikael hamilton,[address] [place], [address], [facility] 4 14:43:25 Non-Hodgkin 's lymphoma (clinical) 673337234 Active 2023 Theresa Nielson MD Attn: Mikael hamilton,[address] [place], [address], [facility] 4 14:43:26 Gastroesoph ageal reflux disease without esophagitis 726321970 Active 2023 Theresa Nielson MD Attn: Mikael hamilton,[address] [place], [address], [facility] - [facility] 4 14:43:28 Pain of left knee joint 4324061329981 07 Active 2024 Tess Javed MA null, [place] - [facility] 5 12:43:25 Pre-surgery evaluation Active 2024 Theresa Nielson MD Attn: Mikael hamilton,[address], [place], [address], [facility] - [facility] 5 22:40:27 Bland's esophagus 905647325 Active 2024 Theresa Nielson MD Attn: Mikael hamilton,[address], [place], [address], [facility] - [facility] 5 13:02:29 Problem Notes None recorded. Procedures Surgical History Date Name Laterality Status Provider Name and Address Organization Details Recorded Time percutaneous catheterization of portal vein completed Zoya Green MA [facility] 09/28/2023 10:07:58 Imaging Results None recorded. Procedure [...] Updated DateTime 5 154.94 cm 21.8 kg/m2 15674.2 8 g 71 /min 100 % 100 % 120 mm[Hg] 78 mm[Hg] Lucia Loomis MA [facility] 5 12:11:53 Date Recorded Body height Body mass index (BMI) Body weight Heart rate Oxygen saturation Oxygen saturation in Arterial blood by Pulse oximetry Systolic blood pressure Diastolic blood pressure Provider Name and Address Organization Details Last Updated DateTime 4 154.94 cm 22.3 kg/m2 33215.5 4 g 70 /min 99 % 99 % 126 mm[Hg] 70 mm[Hg] Zoya Green MA [facility] 4 10:10:59 Social History Question Answer Notes LastModified by Organizat ion Details LastModified Time Tobacco Smoking Status Never Smoker [facility] 09/28/2023 10:06:04 Do You Have An Advance Directive? Yes Information not available 09/28/2023 Are You Blind [...] Yes Information not available 09/28/2023 Do You Use Sunscreen Routinely? Yes Information not available 09/28/2023 Has Tobacco Cessation Counseling Been Provided? No Information not available 09/28/2023 Sex: Female Functional Status Question Answer Note LastModified by Organizat ion Details LastModified Time Do you use any illicit or recreational drugs? No Information not available 09/28/2023 Do you or have you ever used any other forms of tobacco or nicotine? No Information not available 09/28/2023 What is your level of alcohol consumption? None Information not available 09/28/2023 Are you currently employed? No Information not available 09/28/2023 Are you able to care for yourself? Yes Information not available 09/28/2023 What is your exercise level? None Information not available 09/28/2023 Mental Status Question Answer Note LastModified by Organization D etails LastModified Time Do you feel stressed (tense, restless, nervous, or anxious, or unable to sleep at night)? [id number] Information not available 09/28/2023 Family History Nothing Reported. Medical History Condition Response Acid Reflux (GERD) Y Cancer Y Gynecological HistoryNo gynecological history recorded. Obstetrics History GPAL:G 0 P 0 0 0 0 Immunizations Vaccine Type Date Status Note Provider Nam e and Address Organization Details Recorded Time Influenza, adjuvanted, trivalent, PF 8 completed PAYAM [place], [place] - [facility] 03/28/2024 11:35:44 Influenza, adjuvanted, trivalent, PF 9 completed [place] [facility] 03/28/2024 11:35:44 zoster recombinant 1 completed [place] [facility] 03/28/2024 11:35:44 zoster recombinant 1 completed Lucia Loomis, [place] [facility] 03/28/2024 11:35:44 Influenza, high-dose, quadrivalent, PF 1 completed [facility], [place] [facility] 03/28/2024 11:35:44 Influenza, high-dose, quadrivalent, PF 0 completed [facility], [place] [facility] 03/28/2024 11:35:44 Influenza, high-dose, quadrivalent, PF 2 completed [facility], [place] [facility] 03/28/2024 11:35:44 COVID-19, mRNA, LNP-S, PF, 30 mcg/0.3 mL dose 1 [facility] [facility] 03/28/2024 11:35:44 COVID-19, mRNA, LNP-S, PF, 30 mcg/0.3 mL dose 1 [facility] [facility] 03/28/2024 11:35:44 COVID-19, mRNA, LNP-S, PF, 30 mcg/0.3 mL dose 1 completed Luciajose enrique Loomis [place], [place] [facility] 03/28/2024 11:35:44 COVID-19, mRNA, LNP-S, bivalent, PF, 30 mcg/0.3 mL dose 3 completed [facility], [place] [facility] 03/28/2024 11:35:44 COVID-19, mRNA, LNP-S, bivalent, PF, 30 mcg/0.3 mL dose 2 completed [facility], [place] [facility] 03/28/2024 11:35:44 COVID-19, mRNA, LNP-S, PF, jo-sucrose, 30 mcg/0.3 mL 3 completed Lucia LoomisPAYAM [place] [facility] 03/28/2024 11:35:44 Influenza, high-dose, trivalent, PF 8 completed [place] [facility] 03/28/2024 11:35:44 Influenza, adjuvanted, trivalent, PF 4 completed [place] [facility] 03/28/2024 12:04:30 COVID-19, mRNA, LNP-S, PF, jo-sucrose, 30 mcg/0.3 mL 4 completed Lucia Loom[place] [facility] 03/28/2024 12:04:30 Pneumococcal conjugate PCV20, polysaccharide [id number] conjugate, adjuvant, PF 5 completed Theresa Nielson MD Attn: Accounting,[address] [place], [address], [place] [facility] 03/28/2024 22:42:39 Past Encounters Encounter ID Performer Location Encounter Start Date Encounter Closed Date Diagnosis/Indication Diagnosis SNOMED-CT Code Diagnosis ICD10 Code Diagnosis Note [id number] Theresa Nielson [facility] [address] [place] [phone] 09/28/2023 09:57:49 09/28/2023 10:42:18 Postmenopausal state 43895827 Z78.0 Stricture of esophagus 61952891 K22.2 Non-Hodgki n's lymphoma (clinical) 841307481 C85.90 Gastroesop hageal reflux disease without esophagitis 874139216 K21.9 [id number] Theresa Nielson MD [facility] (Adult Med) [address] [place] [phone] 03/28/2024 12:00:14 03/28/2024 13:01:02 Body mass index 20-24 - normal 941472277 Z68.21 Pain of le ft knee joint 4583282240 20939 M25.562 Administra tion of pneumococcal vaccine 75340450 Z23 Gastroesop hageal reflux disease without esophagitis 226868794 K21.9 Pre-surger y evaluation 281441066 Z01.818 Health Concerns Section Related Observation LastModified by Organization Detai ls LastModified Time None Recorded Concern Status LastModified by Organization Details LastModified Time None Recorded Advance Directives Directive Y: Payers Insurance Date Sequence Insurance Name Policy Number Policy Richardson Covered Member ID Richardson Member ID Guarantor Name 03/25/2024 1 [facility] (MEDICARE REPLACEMENT/A DVANTAGE - HMO) [id number] Vero Al [id number] Vero Al Notes Date Note Type Note [...] colonoscopy Theresa Nielson MD Attn: Accounting[address] [place], [address], [facility] 10/09/2023 14:44:13 03/28/2024 text/html GERD esophageal stricture [...] complaints Theresa Nielson MD Attn: Accounting[address] [place], [address], [facility] 03/28/2024 22:42:42 OBGyn Episode No OBEpisode recorded.
== END 2024-08-08 07:10 | disposition home or self-care (01) ==
LOC: ANHIMG 07:15
PROVIDERS: PCP Internal Medicine; Visit Provider Internal Medicine
DX: M81.0 Age-related osteoporosis without current pathological fracture (principal); M85.88 Other specified disorders of bone density and structure, other site; Z78.0 Asymptomatic menopausal state
CPT/HCPCS: 77080

== ENCOUNTER 2024-10-29 00:05 | Day surgery (SDC) | payer MEDICARE, SELFPAY ==
[2024-10-15 11:48] VITALS: BMI 22.6
--- OUTSIDE RECORDS SUMMARY | 2024-10-29 00:08 | XMS_ITS | Encounter Summary ---
Author Organization [facility] Address [address] [place] [address] Care Team Providers Care Fabricator Artificial Breast Name Role Phone Dino Nieto MD Primary Care Provider [phone] Encounter Details Date Type Department Care Team (Late st Contact Info) Description 01/29/2021 Lab Requisition [facility] Care Pathology Lab [address] [place] [address] Jaime Nascimento MD [address] [address] Illness, unspecified Social History Tobacco [...] Comments PATHOLOGY TISSUE Routine 01/27/2021 2:08 PM NEMATOLOGY TEACHER Illness, unspecified documented in this encounter Results * PATHOLOGY TISSUE (01/27/2021 2:08 PM NEMATOLOGY TEACHER) Case Report Surgical Pathology Report Case: [id number] Authorizing Provider: Jaime Nascimento MD Collected: 01/27/2021 02:08 PM Ordering Location: [facility] Care Pathology Lab Received: 01/29/2021 01:11 PM Pathologist: Jannet Gutierrez MD Specimen: Lymph Node Biopsy, Right groin 02/03/2021 11:37 AM NEMATOLOGY TEACHER [facility] PATHOLOGY LAB Final Diagnosis Right groin, lymph node, needle core biopsies: - 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 Immunohistochemistry performed at [facility] shows lymphoma cells to be positive for CD20, CD10, BCL-6, BCL-2, and to be negative for cyclin D1 and CD5. Background CD3+ T-lymphocytes are present. The nodularity is confirmed by BCL-6 and CD10 staining. Flow cytometry performed at an outside institution reportedly shows a kappa light chain restricted CD10+ B-cell population. 02/03/2021 11:37 AM [facility] Clinical History Rule out lymphoma. 02/03/2021 11:37 AM [facility] Materials Received Received are four slides and one block (A1) labeled [id number] along with a copy of the outside pathology report. [place] [address]. All original materials are returned to the referring institution, along with a copy of our final report. 02/03/2021 11:37 AM [facility] Disclaimer The performance characteristics of all immunohistochemical and indirect immunofluorescence stains (if any) cited in this report were determined by the Histopathology Laboratory of [facility]. Some of these tests were developed by [...] attending (teaching) pathologist. 02/03/2021 11:37 AM [facility] Embedded Images 02/03/2021 11:37 AM [facility] Pathology/Cytolo gy BIOPSY OF LYMPH NODE / Unknown 01/27/2021 2:08 PM NEMATOLOGY TEACHER 01/29/2021 1:11 PM NEMATOLOGY TEACHER us Jaime Nascimento MD LAB - PATHOLOGY/CYTOLOGY ORDER SADAF Final Result [facility] PATHOLOGY LAB [address] [facility] [facility] [address] [facility] [place] [address], [facility] [phone] documented in this encounter Visit Diagnoses Diagnosis Illness, unspecified documented in this encounter Care Teams Fabricator Artificial Breast Relationship Specialty Start Date End Date Dino Nieto MD [facility] [place] [address] PCP - General 05/25/18 documented as of this encounter
--- OUTSIDE RECORDS SUMMARY | 2024-10-29 00:08 | XMS_ITS | Clinical Summary ---
Author Organization [facility] Address [address] [place] [address] Care Team Providers Care Construction Area Manager Name Role Phone Eric Cedillo MD Primary Care Provider [phone] Allergies No known active allergies Medications enalapril [...] Plan of Treatment Not on file Insurance [facility] MDCR HMO REF Care Teams Construction Area Manager Relationship Specialty Start Date End Date Eric Cedillo MD [address] [place] [address] PCP - General Family Medicine 11/11/20
--- OUTSIDE RECORDS SUMMARY | 2024-10-29 00:08 | XMS_ITS | Clinical Summary ---
Author Organization [facility] Lindsay iqbal [facility] Address [address] [place] [address] Care Team Providers Care Sales Driver Name Role Phone Pacheco Nielson MD Primary Care Provider [phone] Allergies No known active allergies Medications vit [...] Encounters Date Type Department Care Team Description 09/11/2024 External Device Data STL ABSTRACTION Provider, Abstract 08/22/2024 External Device Data [facility] ABSTRACTION Provider, Abstract 08/21/2024 External Device Data [facility] ABSTRACTION Provider, Abstract [...] on file Legal Sex Female 8:14 AM GROOMING ASSISTANT Gender Identity Not on file Sexual Orientation [...] Description 11/16/2024 8:45 AM CDT Office Visit [facility] Oncology and Hematology - [place] [address] [facility] [address] [facility] [address] [place] [address] Henrry Gonzalez MD [address] [facility] [place] [address] Health Maintenance Due Date Last Done Comments DTAP/TDAP/TD VACCINES (1 - Tdap) 07/13/1966 PNEUMOCOCCAL VACCINE 50+ YEARS (1 of 2 - PCV) 07/13/18 67 ZOSTER VACCINE (1 of 2) 07/13/1966 OSTEOPOROSIS SCREENING 07/13/2012 RSV VACCINE (60+ or ) (1 - 1-dose 75+ series) 07/13/2022 INFLUENZA VACCINE (#1) 2024 11/22/2017 Insurance [facility] [id number] Care Teams Sales Driver Relationship Specialty Start Date End Date Pacheco Nieslon MD [address] [place] [address] PCP - General Internal Medicine 05/17/24
--- OUTSIDE RECORDS SUMMARY | 2024-10-29 00:08 | XMS_ITS | Clinical Summary ---
Author Organization [facility] Address [address] [place] [address] Care Team Providers Care Validation Scientist Name Role Phone Dino Nieto MD Primary Care Provider [phone] Source Comments [facility],non-owned Affiliates and Associated Physician Practices is amultiple site organization consisting of ambulatory clinics and hospital sitesin [place], [place], [place] and [place]. This disclosure is being madepursuant to the Care Everywhere program and may not contain all information available regarding this patient. Last updated 17.[facility] Allergies No known active allergies Immunizations Immunization [...] yrs (1 - 1-dose 75+ series) 07/13/2022 DEPRESSION SCREENING 02/08/2024 MEDICARE AWV CALENDAR YEAR 2024 COVID-19 VACCINE (1 - 2023-2 5 season) 2024 INFLUENZA VACCINE (#1) 2024 11/22/2017 HEPATITIS B VACCINE Aged Out No longe [...] age to complete this topic Insurance MEDICARE [facility] MANAGED MEDICARE ADV [facility] MANAGED MEDICARE ADV SELF PAY NO INSURANCE Member Subscriber Plan / Payer (Ef fective for All Dates) Name:Vero Al Member ID:Not on file Relation to Subscriber:Not on file Name:VERO AL Subscriber ID:Not on file (Home) Address: [address] [place] [address] Payer ID:Not on file Group ID:Not on file Type:Self Pay Address: [place] [facility] MANAGED MEDICARE ADV [facility] MANAGED MEDICARE ADV [facility] [place] [address] Care Teams Validation Scientist Relationship Specialty Start Date End Date Dino Nieto MD [facility] [facility] [address] PCP - General 05/25/18
[2024-10-29 09:44] VITALS: BP 159/66; PULSE 60; RESP 16; TEMP 35.9; O2SAT 99
--- NOTE | 2024-10-29 09:51 | WPDANESEPPF ---
Anes - Initial Pre Proc Eval Procedure: Operation Date: 10/29/24 10:45 Proposed Procedures p Esophagogastroduodenoscopy EGD - Jerome Quick MD Date/Time: 10/29/24 09:51 Surgeon: Jerome Quick MD Pre Op Diagnosis: Bland's esophagus without dysplasia Patient Data Age: 79 Gender: F Height: 1.55 m Weight: 52.9 kg Last Vital Signs Temp 35.9 C L 10/29/24 09:44 Pulse 60 10/29/24 09:44 Resp 16 10/29/24 09:44 BP 159/66 H 10/29/24 09:44 Pulse Ox 99 10/29/24 09:44 O2 Del Method Room Air 10/29/24 09:44 Allergies Allergy/AdvReac Type Severity Reaction Status Date / Time No Known Allergies Allergy Verified 10/15/24 11:46 Home Medications ?Medication ?Instructions ?Recorded ?Confirmed ?Type saliva substitute combo no.9 15 ml PO QID PRN Dry Mouth #473 mL 01/30/21 10/29/24 Rx (Biotene Dry Mouth Oral Rinse mouthwash) ferrous sulfate 325 mg (65 mg 325 mg PO DAILY 12/21/21 10/29/24 History iron) tablet pantoprazole 40 mg tablet,delayed 40 mg PO BID #60 tabs 12/27/23 10/29/24 Rx release (Protonix) multivitamin (Daily Multi-Vitamin 1 tablet PO DAILY 05/28/24 10/29/24 History tablet) Patient hx anesthesia problems: none Family hx anesthesia problems: none Results Review: All pre-operative results and documents have been reviewed as part of the pre-operative evaluation. [facility] Past Medical History Medical History Hypokalemia Esophageal stricture Erosive esophagitis Malnutrition Oropharyngeal candidiasis Immunoglobulin deficiency Port-A-Cath in place Non-Hodgkin lymphoma Follicular lymphoma External hemorrhoids Hypertension No longer on medication with weight loss. Surgical History Surgical History History of colonoscopy History of lymph node biopsy Family History Family History Father Malignant neoplasm of prostate Mother Ovarian cancer Social History Social History Social History: The patient is and lives in her own home in [place]. She is originally from [place]. She has 3 children who live in the area. 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 No alcohol or illicit substance abuse. She designates her daughter, Lorena Al, or her good friend, Earnest White, as her surrogate decision makers. Code status: Full code. Smoking status: Never smoker Second hand tobacco smoke exposure: No Alcohol intake: never Substance use: never Substance use type: does not use Do You Feel Safe in your Home?: Yes Lack of Transportation: No Lack of Food: Never True Current Housing: I Have Housing Concerned About Future Housing: No Difficulty Paying Gas/Electric Bills: No Difficulty Paying for Meds: No Currently Unemployed: No Education: Associate Degree Difficulty w/ Childcare or Family Care: No Living arrangements: alone Spiritual care concerns: No Anes - Eval Final PreProcedure Day of Procedure 10/29/24 09:51 Patient weight: normal Heart: regular rate and rhythm Lungs: clear to auscultation Airway: Mallampati scale class III Neurological: alert and oriented Last oral intake: >/= 8 hours ASA classification: III Emergent: no Anesthetic plan: proceed Anesthesia type and monitoring: general GIVS and standard monitoring Results Review: All pre-operative results and documents have been reviewed as part of the pre-operative evaluation. Informed Consent: The patient's anesthetic plan and its attendant risks and benefits were discussed with the patient/family/POA. Questions were solicited and answers provided to the satisfaction of the patient/family/POA.
[2024-10-29] MEDS: LACTATED RINGERS 1,000 ML 150 ML IV CONT (09:53)
--- NOTE | 2024-10-29 10:23 | P.HP_ITS ---
History of Present Illness History of Present Illness Consent: Risks, benefits, and alternatives have been discussed and questions answered. Patient agrees to proceed with procedure. Chief complaint: Bland's esophagus without dysplasia Narrative: Vero Al is a 79 year old female with known long segment Bland's on protonix bid, also esophageal stricture with previous dilation, again with some dysphagia Review of Systems Review of Systems: All systems reviewed & are unremarkable except as noted in HPI and below PMFSH Past Medical History Medical History Hypokalemia Esophageal stricture Erosive esophagitis Malnutrition Oropharyngeal candidiasis Immunoglobulin deficiency Port-A-Cath in place Non-Hodgkin lymphoma Follicular lymphoma External hemorrhoids Hypertension No longer on medication with weight loss. Surgical History Surgical History History of colonoscopy History of lymph node biopsy Family History Family History Father Malignant neoplasm of prostate Mother Ovarian cancer Social History Social History Social History: The patient is and lives in her own home in [place]. She is originally from [facility]. She has 3 children who live in the area. 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 No alcohol or illicit substance abuse. She designates her daughter, Lorena Al, or her good friend, Earnest White, as her surrogate decision makers. Code status: Full code. Smoking status: Never smoker Second hand tobacco smoke exposure: No Alcohol intake: never Substance use: never Substance use type: does not use Do You Feel Safe in your Home?: Yes Lack of Transportation: No Lack of Food: Never True Current Housing: I Have Housing Concerned About Future Housing: No Difficulty Paying Gas/Electric Bills: No Difficulty Paying for Meds: No Currently Unemployed: No Education: Associate Degree Difficulty w/ Childcare or Family Care: No Living arrangements: alone Spiritual care concerns: No Meds Home Medications and Allergies Home Medications ?Medication ?Instructions ?Recorded ?Confirmed ?Type saliva substitute combo no.9 15 ml PO QID PRN Dry Mout h #473 mL 01/30/21 10/29/24 Rx (Biotene Dry Mouth Oral Rinse mouthwash) ferrous sulfate 325 mg (65 mg 325 mg PO DAILY 12/21/21 10/29/24 History iron) tablet pantoprazole 40 mg tablet,delayed 40 mg PO BID #60 tab s 12/27/23 10/29/24 Rx release (Protonix) multivitamin (Daily Multi-Vitamin 1 tablet PO DAILY 10/29/24 History tablet) Allergies Allergy/AdvReac Type Severity Reaction Status Date / Time No Known Allergies Allergy Verified 10/15/24 11:46 Vital Signs Vital Signs - 24 hr 10/29/24 09:44 Temperature 96.6 F L Pulse Rate 60 Respiratory Rate 16 Blood Pressure 159/66 H Pulse Oximetry 99 Oxygen Delivery Room Air Exam Const: General: comfortable and no acute distress HENMT: Face/Nose/Sinus: Normal nares present Eyes: General: appearance normal, both eyes and all related structures Neck: Neck: no JVD Resp: Auscultation: clear to auscultation bilaterally Cardio: Rate: regular rate Rhythm: regular rhythm GI: Inspection: non-distended GI Palp: Yes Soft to palpation Skin: General skin exam: normal color Neuro: Speech: normal speech Extrem: General: normal to inspection Psych: Mental Status: mental status grossly normal Assessment and Plan Assessment and plan (1) Bland's esophagus determined by biopsy: Code(s): K22.70 - Bland's esophagus without dysplasia Status: Acute Assessment and Plan: egd (2) Esophageal stricture: Code(s): K22.2 - Esophageal obstruction Status: Acute
--- NOTE | 2024-10-29 10:33 | S_PTH ---
PATIENT: Vero Al LOC: [facility]#:[id number] AGE/SX: 79/F ROOM: RE10/29/[address]: Jerome Quick MD : 1945 BED: DIS: 10/29/2024 SPEC #: [id number] RECD: 10/29/24 11:43 STATUS: MIGUEL RETyler #: [id number] JOYCE: 10/29/24 10:[address]: Jerome Quick DEPT: [facility] Surgical RECD BY: Judy Ho ENTERED: 10/29/24 11:43 SP TYPE: Surgical OTHR DR: Pacheco NielsonMD Tissues: A - Esophageal Biopsy B - Esophageal Biopsy Procedures: Pas with Diastase Grocotts Methenamine Stain Hematoxylin and Eosin Stain Alcian Blue Stain Gross and Microscopic Level 4
[2024-10-29 10:35] VITALS: BP 148/95; PULSE 72; RESP 20; O2SAT 100
[2024-10-29 10:45] VITALS: BP 146/75; PULSE 59; RESP 20; O2SAT 100
[2024-10-29 10:55] VITALS: BP 146/79; PULSE 56; RESP 21; O2SAT 99
== END 2024-10-29 11:05 | disposition home or self-care (01) ==
PROVIDERS: PCP Internal Medicine; Referring Provider Internal Medicine Gastroenterology; Visit Provider Internal Medicine Gastroenterology
PROC: 0DJ08ZZ Inspection of Upper Intestinal Tract, Via Natural or Artificial Opening Endoscopic (ICD-10-PCS; CPT 43249; principal; 2024-10-29 10:45)
DX: K22.70 Barrett's esophagus without dysplasia (principal); K22.2 Esophageal obstruction; K22.89 Other specified disease of esophagus; K44.9 Diaphragmatic hernia without obstruction or gangrene; E87.6 Hypokalemia; I10 Essential (primary) hypertension; Z98.890 Other specified postprocedural states; Z95.828 Presence of other vascular implants and grafts; Z85.72 Personal history of non-Hodgkin lymphomas; Z87.19 Personal history of other diseases of the digestive system; Z80.42 Family history of malignant neoplasm of prostate; Z80.41 Family history of malignant neoplasm of ovary
CPT/HCPCS: 43249; 88305; 88312; 88313; C1726; J2003; J2704; J7120

== ENCOUNTER 2024-11-15 09:03 | Outpatient (CLI) | payer MEDICARE, SELFPAY ==
[2024-11-15 09:33] LABS: Hematocrit 39.4 % (37.0-47.0); Hemoglobin 12.9 g/dL (12.0-15.0); Immature Granulocyte Percent A 0.2 % (0-0.5); Lymphocytes Absolute Auto 1.54 K/mm3 (0.9-3.2); Mean Corpuscular HGB Conc 32.7 g/dl (32-36); Mean Corpuscular Hemoglobin 30.1 pg (26-34); Mean Corpuscular Volume 92.1 fl (80-100); Nucleated Red Blood Cells Absolute Auto 0.000 K/mm3 (0.0-0.012); Nucleated Red Blood Cells Perc 0.0 % (0.0-0.2); Platelet Count Result 310 k/mm3 (150-375); Red Blood Count 4.28 M/mm3 (4.2-5.4); White Blood Count 5.1 K/mm3 (4.5-10.0)
[2024-11-15 13:32] LABS: Cholesterol 266 mg/dL (0-200); HDL Direct 66 mg/dL; Triglycerides 123 mg/dL (<150)
[2024-11-15 13:34] LABS: Alanine Aminotransferase 10 U/L (6-35); Albumin Level 4.5 g/dL (3.5-5.1); Alkaline Phosphatase 74 U/L (38-126); Anion Gap 8 mmol/L (4-12); Aspartate Amino Transferase 26 U/L (14-36); Bilirubin,Total 0.6 mg/dL (0.2-1.3); Blood Urea Nitrogen 12 mg/dL (7-17); Calcium 9.5 mg/dL (8.4-10.2); Carbon Dioxide 28 mmol/L (22-30); Chloride 105 mmol/L (98-107); Estimated Glomerular Filt Rate > 60; Glucose 97 mg/dL (65-110); Potassium 4.0 mmol/L (3.4-5.0); Sodium 141 mmol/L (137-145); Total Protein 8.0 g/dL (6.3-8.2)
== END 2024-11-15 09:04 | disposition home or self-care (01) ==
PROVIDERS: PCP Internal Medicine; Visit Provider Internal Medicine Hematology & Oncology
DX: C82.93 Follicular lymphoma, unspecified, intra-abdominal lymph nodes (principal); Z13.6 Encounter for screening for cardiovascular disorders
CPT/HCPCS: 36415; 80053; 80061; 83615; 85025

== ENCOUNTER 2024-12-05 12:35 | Outpatient (CLI) | payer MEDICARE, SELFPAY ==
--- NOTE | ~2024-12-05 | MM_ITS ---
EXAMINATION: MM screening [place] BI w [place] HISTORY: Screening TECHNIQUE: Craniocaudal and mediolateral oblique 3-D tomosynthesis images were obtained and synthetic 2-D images were generated. CAD analysis was submitted and interpreted. COMPARISON: 08/08/2023 BREAST PARENCHYMAL COMPOSITION: Not dense: There are scattered areas of fibroglandular density. FINDINGS: There is no evidence of suspicious mass, calcification, or architectural distortion to suggest malignancy in either breast. There has been no suspicious interval change. IMPRESSION: 1. No mammographic evidence of malignancy. 2. Recommend routine screening mammography in one year. BI-RADS Category 1: Negative Reviewed, dictated and finalized at location B.
== END 2024-12-05 12:36 | disposition home or self-care (01) ==
LOC: MICIMG 12:35
PROVIDERS: PCP Internal Medicine; Visit Provider Internal Medicine
DX: Z12.31 Encounter for screening mammogram for malignant neoplasm of breast (principal)
CPT/HCPCS: 77063; 77067